=== PATIENT | female | born 1965 | race African-American/Black ===

== ENCOUNTER 2017-02-08 11:34 | Inpatient (IN) | payer OTHER ==
[~2017-02-08] VITALS: Ht 165.1 cm; Wt 111.1 kg
[~2017-02-08 11:34] MED LIST: 1-ME1LIQ PO; CARV25TA PO; GUAN1 PO; LOSA25 PO; PROT40TA PO; SEVEL800 PO; ZOFR4TAB3 SL
[2017-02-08 11:37] VITALS: BP 229/118; PULSE 73; RESP 19; TEMP 98.2; O2SAT 100
[2017-02-08] MEDS ORDERED: CINA30 PO (11:47)
[2017-02-08] MEDS ORDERED: TENE1TAB PO (12:21)
[2017-02-08] MEDS ORDERED: ONDA4TAB7 SL (12:21)
[2017-02-08] MEDS ORDERED: LOSA25TA PO (12:21)
[2017-02-08] MEDS ORDERED: PROT40TA PO (12:21)
[2017-02-08] MEDS ORDERED: SEVEL800 PO (12:21)
[2017-02-08] MEDS ORDERED: CORE25TA PO (12:21)
[2017-02-08] MEDS ORDERED: SODIUM CHLOR 0.9% 1000 ML INJ 1,000 ML IV SCH (12:31)
[2017-02-08 12:32] VITALS: BP 229/119; PULSE 76; RESP 18; O2SAT 100
[2017-02-08 12:45] VITALS: BP 199/91; PULSE 70; RESP 18; O2SAT 100; O2SAT 97
[2017-02-08] MEDS ORDERED: ONDANSETRON HCL 4 MG/2 ML VIAL IVP ONE (12:45)
[2017-02-08] MEDS ORDERED: SODIUM CHLORIDE 0.9% FLUSH 5 ML FLUSH IVF PRN ×2 (12:45→16:15)
[2017-02-08] MEDS ORDERED: MORPHINE SULFATE 4 MG/ML INJ IV PUSH ONE ×2 (12:45→14:00)
[2017-02-08 13:09] LABS: AUTOMATED NEUTROPHIL # 4.3 TH/MM3 (1.8-7.7); BASOPHIL # 0.1 TH/MM3 (0-0.2); BASOPHIL % 0.7 % (0.0-2.0); EOSINOPHIL # 0.2 TH/MM3 (0-0.4); EOSINOPHIL % 2.9 % (0.0-4.0); HEMATOCRIT 33.4 % (35.0-46.0); HEMO FLAGS DIFF FINAL; LYMPH % 31.1 % (9.0-44.0); LYMPHOCYTE # 2.5 TH/MM3 (1.0-4.8); MEAN CELL VOLUME 93.9 FL (80.0-100.0); MEAN CORPUSCULAR HGB CONC 34.1 % (32.0-36.0); MONO % 10.7 % (0.0-8.0); NEUT % 54.6 % (16.0-70.0); PLATELET COUNT 234 TH/MM3 (150-450); RED BLOOD COUNT 3.56 MIL/MM3 (4.00-5.30); RED CELL DISTRIBUTION WIDTH 13.2 % (11.6-17.2); WHITE BLOOD COUNT 7.9 TH/MM3 (4.0-11.0)
[2017-02-08 13:15] LABS: BACTERIA, URINE OCC /hpf; BLOOD, URINE TRACE (NEG); COMMENT (UR) CULT NOT INDICATED; CULTURE IF INDICATED CULT NOT INDICATED; GLUCOSE,URINE NEG (NEG); KETONE, URINE NEG (NEG); MUCUS URINE FEW /lpf (OCC); NITRITE,URINE NEG (NEG); SQUAMOUS EPITHELIAL CELL URINE 20 /hpf (0-5); URINE COLOR LIGHT-YELLOW (YELLW/STRAW)
[2017-02-08 13:24] LABS: INTERNATIONAL NORMALIZED RATIO 0.9 RATIO; PROTHROMBIN TIME - PATIENT 10.1 SEC (9.8-11.6)
[2017-02-08 13:30] LABS: ALKALINE PHOSPHATASE 114 U/L (45-117); ALT (GPT) 35 U/L (10-53); TOTAL BILIRUBIN ADULT 0.4 MG/DL (0.2-1.0)
[2017-02-08 13:39] LABS: ANION GAP 13 MEQ/L (5-15); AST (GOT) 31 U/L (15-37); BICARBONATE 26.1 MEQ/L (21.0-32.0); BLOOD UREA NITROGEN 44 MG/DL (7-18); CHLORIDE 101 MEQ/L (98-107); GLOMERULAR FILTRATION RATE 6 ML/MIN (>89); SODIUM (NA) 140 MEQ/L (136-145)
[2017-02-08 13:43] LABS: POTASSIUM 5.3 MEQ/L (3.5-5.1)
--- NOTE | 2017-02-08 13:51 | PD ---
HPI Chief Complaint: Abdominal Pain Time Seen by Provider: 12:28 Travel History International Travel<30 days: No Contact w/Intl Traveler<30days: No Traveled to known affect area: No History of Present Illness HPI 51-year-old female came to the emergency room with history of severe right lower quadrant abdominal pain. Patient says that the pain started at 5 in the morning and slowly escalated to the point where now she is extremely uncomfortable even laying down. She has been nauseous but no vomiting. Patient has never had pain like this in the past. She is an end-stage renal disease patient was on hemodialysis. Her dialysis is due this evening. Patient was significantly hypertensive in triage but also very uncomfortable from the pain.. No history of fever or chills. No history of diarrhea or bloody stool. PFSH Past Medical History Narrative Medical List of her past medical, surgical, social and family history reviewed from the nursing note. Arthritis: No Asthma: No Anxiety: No Depression: No Heart Rhythm Problems: No Cancer: No Cardiovascular Problems: No High Cholesterol: Yes Chest Pain: No Congestive Heart Failure: No COPD: No Cerebrovascular Accident: No Diabetes: No Diminished Hearing: No Endocrine: No Gastrointestinal Disorders: Yes (DIVERTICULITIS, GERD, BARRETTS, ESOPHAGEAL STRICTURE) GERD: No Glaucoma: No Genitourinary: No Headaches: No Hepatitis: No Hiatal Hernia: No Hypertension: Yes Immune Disorder: No Implanted Vascular Access Dvce: Yes Kidney Stones: No Musculoskeletal: Yes (ARTHRITIS POOJA KNEES) Neurologic: No Psychiatric: No Reproductive: No Respiratory: No Immunizations Current: Yes Migraines: Yes Renal Failure: Yes (end stage/dialysis) Seizures: No Sleep Apnea: No Thyroid Disease: No Ulcer: No ?: Not Past Surgical History Abdominal Surgery: Yes (LIVER RESECTION FOR HEMANGIOMA, CHOLY) AICD: No Appendectomy: Yes Arteriovenous Shunt: No Body Medical Devices: DIALYSIS CATHETER Cardiac Surgery: No Cholecystectomy: Yes (ALSO HEMANGIOMA REMOVED OFF LEFT UPPER LOBE OF LIVER BY DR VALDEZ) Ear Surgery: No Endocrine Surgery: No Eye Surgery: No Genitourinary Surgery: Yes Hysterectomy: Yes (DR BERGMAN) Insulin Pump: No Joint Replacement: Yes (TOTAL RIGHT KNEE) Neurologic Surgery: No Oral Surgery: No Pacemaker: No Thoracic Surgery: No Other Surgery: Yes (LEFT PARTIAL LOBECTOMY) Social History Alcohol Use: No Tobacco Use: No Substance Use: No Allergies-Medications (Allergen,Severity, Reaction): Coded Allergies: Keflex (Verified Allergy, Severe, Hives, 02/08/17) Onion (Verified Allergy, Severe, 02/08/17) Prednisolone (Verified Allergy, Severe, 02/08/17) HMG-CoA Reductase Inhibitors (Verified Adverse Reaction, Intermediate, ) PT DENIES ALLERGY Sulfa (Verified Adverse Reaction, Intermediate, Nausea/Vomiting, 02/08/17) Comments List of her allergies reviewed from the nursing note. Reported Meds & Prescriptions Reported Meds & Active Scripts Active Reported Renvela (Sevelamer Carbonate) 800 Mg Tab 1,600 Mg PO TID Protonix (Pantoprazole Sodium) 40 Mg Tab 40 Mg PO DAILY Ondansetron Odt 4 Mg Tab 4 Mg SL Q6HR PRN Losartan (Losartan Potassium) 25 Mg Tab 25 Mg PO DAILY Tenex (Guanfacine HCl) 1 Mg Tab 1 Mg PO HS Do not crush, chew or divide tablet. Take with a meal. Coreg (Carvedilol) 25 Mg Tab 25 Mg PO BID Sensipar (Cinacalcet) 30 Mg Tab 30 Mg PO DAILY Narrative Medication List of her home medications reviewed from the nursing note. Review of Systems Except as stated in HPI: all other systems reviewed are Neg Physical Exam Narrative GENERAL: Awake, alert, obese, significant distress, anxious SKIN: Warm and dry. HEAD: Atraumatic. Normocephalic. EYES: Pupils equal and round. No scleral icterus. No injection or drainage. ENT: No nasal bleeding or discharge. Mucous membranes pink and moist. NECK: Trachea midline. No JVD. CARDIOVASCULAR: Regular rate and rhythm. No murmur appreciated. RESPIRATORY: No accessory muscle use. Clear to auscultation. Breath sounds equal bilaterally. GASTROINTESTINAL: Abdomen soft, tender right lower quadrant, nondistended. Hepatic and splenic margins not palpable. MUSCULOSKELETAL: No obvious deformities. No clubbing. No cyanosis. No edema. NEUROLOGICAL: Awake and alert. No obvious cranial nerve deficits. Motor grossly within normal limits. Normal speech. PSYCHIATRIC: Appropriate mood and affect; insight and judgment normal. Data Data Last Documented VS Vital Signs Date Time Temp Pulse Resp B/P Pulse Ox O2 Delivery O2 Flow Rate FiO2 02/08/17 14:49 73 18 184/92 99 Nasal Cannula 2 02/08/17 11:37 98.2 Orders Complete Blood Count With Diff (02/08/17 12:31) Comprehensive Metabolic Panel (02/08/17 12:31) Lipase (02/08/17 12:31) Prothrombin Time / Inr (Pt) (02/08/17 12:31) Urinalysis - C+S If Indicated (02/08/17 12:31) Ct Abd/Pel W/O Iv Contrast (02/08/17 12:31) Iv Access Insert/Monitor (02/08/17 12:31) Ecg Monitoring (02/08/17 12:31) Oximetry (02/08/17 12:31) Morphine Inj (Morphine Inj) (02/08/17 12:45) Ondansetron Inj (Zofran Inj) (02/08/17 12:45) Sodium Chlor 0.9% 1000 Ml Inj (Ns 1000 M (02/08/17 12:31) Sodium Chloride 0.9% Flush (Ns Flush) (02/08/17 12:45) Morphine Inj (Morphine Inj) (02/08/17 14:00) Hydromorphone Pf Inj (Dilaudid Pf Inj) (02/08/17 14:30) Consult Urology (02/08/17 ) Consult Nephrology (02/08/17 ) Admit Order (Ed Use Only) (02/08/17 14:54) Vital Signs (Adult) Q4H (02/08/17 14:54) Activity Oob With Assistance (02/08/17 14:54) Intake + Output YAHAIRA.QSHIFT (02/08/17 14:54) Diet Heart Healthy (02/08/17 Dinner) Sodium Chloride 0.9% Flush (Ns Flush) (02/08/17 15:00) Sodium Chloride 0.9% Flush (Ns Flush) (02/08/17 21:00) Acetaminophen (Tylenol) (02/08/17 15:00) Ondansetron Inj (Zofran Inj) (02/08/17 15:00) Prochlorperazine Supp (Compazine Supp) (02/08/17 15:00) Bisacodyl Supp (Dulcolax Supp) (02/08/17 15:00) Magnesium Hydroxide Liq (Milk Of Magnesi (02/08/17 15:00) Sennosides (Senokot) (02/08/17 15:00) Basic Metabolic Panel (Bmp) (02/09/17 06:00) Complete Blood Count With Diff (02/09/17 06:00) Resp Oxygen Rudolph C Titrat 1-4 L (02/08/17 ) Pt Request For Service (02/08/17 14:54) Case Management Consult (02/08/17 14:54) Heparin Inj (Heparin Inj) (02/08/17 16:00) Scd Bilateral/Knee High YAHAIRA.BID (02/08/17 14:54) Trae Bilateral/Knee High YAHAIRA.QSHIFT (02/08/17 14:54) Labs Laboratory Tests Test 02/08/17 02/08/17 11:51 12:44 White Blood Count 7.9 TH/MM3 Red Blood Count 3.56 MIL/MM3 Hemoglobin 11.4 GM/DL Hematocrit 33.4 % Mean Corpuscular Volume 93.9 FL Mean Corpuscular Hemoglobin 32.0 PG Mean Corpuscular Hemoglobin 34.1 % Concent Red Cell Distribution Width 13.2 % Platelet Count 234 TH/MM3 Mean Platelet Volume 9.1 FL Neutrophils (%) (Auto) 54.6 % Lymphocytes (%) (Auto) 31.1 % Monocytes (%) (Auto) 10.7 % Eosinophils (%) (Auto) 2.9 % Basophils (%) (Auto) 0.7 % Neutrophils # (Auto) 4.3 TH/MM3 Lymphocytes # (Auto) 2.5 TH/MM3 Monocytes # (Auto) 0.8 TH/MM3 Eosinophils # (Auto) 0.2 TH/MM3 Basophils # (Auto) 0.1 TH/MM3 CBC Comment DIFF FINAL Differential Comment Prothrombin Time 10.1 SEC Prothromb Time International 0.9 RATIO Ratio Sodium Level 140 MEQ/L Potassium Level 5.3 MEQ/L Chloride Level 101 MEQ/L Carbon Dioxide Level 26.1 MEQ/L Anion Gap 13 MEQ/L Blood Urea Nitrogen 44 MG/DL Creatinine 8.34 MG/DL Estimat Glomerular Filtration 6 ML/MIN Rate Random Glucose 87 MG/DL Calcium Level 8.7 MG/DL Total Bilirubin 0.4 MG/DL Aspartate Amino Transf 31 U/L (AST/SGOT) Alanine Aminotransferase 35 U/L (ALT/SGPT) Alkaline Phosphatase 114 U/L Total Protein 8.0 GM/DL Albumin 3.8 GM/DL Lipase 345 U/L Urine Color LIGHT-YELLOW Urine Turbidity HAZY Urine pH 8.0 Urine Specific [place] 1.011 Urine Protein 30 mg/dL Urine Glucose (UA) NEG mg/dL Urine Ketones NEG mg/dL Urine Occult Blood TRACE Urine Nitrite NEG Urine Bilirubin NEG Urine Urobilinogen LESS THAN 2.0 MG/DL Urine Leukocyte Esterase TRACE Urine RBC 5 /hpf Urine WBC 3 /hpf Urine Squamous Epithelial 20 /hpf Cells Urine Bacteria OCC /hpf Urine Mucus FEW /lpf Microscopic Urinalysis Comment CULT NOT INDICATED MDM Medical Decision Making Medical Screen Exam Complete: Yes Emergency Medical Condition: Yes Medical Record Reviewed: Yes Differential Diagnosis Acute appendicitis, ureteral colic, abdominal pain NOS Narrative Course 1:50 PM blood test results are back. Patient has abnormal renal function due to her end-stage renal disease. Her potassium was slightly elevated. I will give her some calcium gluconate. Awaiting for the CAT scan to be reported to patient was medicated for pain and given IV fluid bolus. I will give her another dose of morphine for the pain. 2:15 PM patient has received a second dose of morphine but continues to be in pain. The CAT scan shows an obstruction at the mid ureter on the right side resulting in hydroureter and hydronephrosis. There is no renal calculi. However there seems to be a mass or a growth in the right inguinal area that might be causing the obstruction. I have put a call out for the urologist and waiting for him to call back. I will admit the patient for her intractable pain. Awaiting for the senior hardware design engineer to call back as well so that he can arrange for dialysis inpatient. 2:24 PM spoke with the senior hardware design engineer so that she can be arranged for dialysis today while she is admitted. Awaiting for the urologist in the admitting physician to call back. Procedures EKG Prior to Arrival: No Physician Communication Physician Communication Dr. Alejandre, Dr. Franklin Diagnosis Primary Impression: Ureteral obstruction, right Additional Impressions: Hydroureter Intractable abdominal pain Hydronephrosis Qualified Code: N13.30 - Hydronephrosis, unspecified hydronephrosis type complex inguinal cyst Admitting Information Admitting Physician Requests: Admit Viet Lema MD Feb 08, 2017 13:50
--- NOTE | 2017-02-08 14:06 | RADRPT ---
EXAM DATE/TIME: 02/08/2017 13:34 [facility] COMPARISON: CT NEEDLE BIOPSY RENAL, RIGHT, September 13, 2014, 9:22. INDICATIONS : Right abdominal pain. ORAL CONTRAST: No oral contrast ingested. RADIATION DOSE: 20.91 CTDIvol (mGy) MEDICAL HISTORY : Gastroesophageal reflux disease. Hypertension. Renal failure, chronic. SURGICAL HISTORY : Cholecystectomy. Hysterectomy.Liver resection. ENCOUNTER: Initial ACUITY: 1 day PAIN SCALE: 4/10 LOCATION: Right abdomen. TECHNIQUE: Volumetric scanning of the abdomen and pelvis was performed. Using automated exposure control and ad justment of the mA and/or kV according to patient size, radiation dose was kept as low as reasonably achievable to obtain optimal diagnostic quality images. FINDINGS: LOWER LUNGS: The visualized lower lungs are clear. LIVER: Homogeneous density without lesion. There is no dilation of the biliary tree. Post surgical clips fr om prior liver resection and cholecystectomy are noted. SPLEEN: Normal size without lesion. PANCREAS: Within normal limits. KIDNEYS: The kidneys are small and demonstrate diffuse cortical thinning. The right renal collecting system an d proximal ureter are moderately distended. Focal thickening is seen along the distal right ureter at the ureterovesical junction. A simple cyst is identified off the upper pole of the left kidney which measures 2.8 cm in size. There is no evidence of obstructing renal calculi. ADRENAL GLANDS: Within normal limits. VASCULAR: There is no aortic aneurysm. BOWEL/MESENTERY: The stomach, small bowel, and colon demonstrate no acute abnormality. There is no free intraperitone al air or fluid. ABDOMINAL WALL: Within normal limits. RETROPERITONEUM: There is no lymphadenopathy. BLADDER: No wall thickening or mass. REPRODUCTIVE: Uterus has been removed. INGUINAL: A complex multicystic mass is identified in the right inguinal region. The mass measures 2.4 x 4.5 cm in size. MUSCULOSKELETAL: Within normal limits for patient age. CONCLUSION: Mild to moderate right hydronephrosis and hydroureter with suspected thickening of the distal ureter at the ureterovesical junction. There is no evidence of obstructing renal calculus. 4.5 cm multicystic mass right inguinal region. Status post cholecystectomy, liver resection and hysterectomy. Joel Kumar MD on February 08, 2017 at 13:55 Board Certified Radiologist. This report was verified electronically.
[2017-02-08] MEDS ORDERED: HYDROmorphone HCL PF 1 MG/ML VIAL IV PUSH ONE (14:30)
[2017-02-08 14:49] VITALS: BP 184/92; PULSE 73; RESP 18; O2SAT 99
[2017-02-08] MEDS ORDERED: cloNIDine HCL 0.1 MG TAB PO PRN ×2 (15:00→16:15)
[2017-02-08] MEDS ORDERED: SENNOSIDES 8.6 MG TAB PO PRN (15:00)
[2017-02-08] MEDS ORDERED: ACETAMINOPHEN 325 MG TAB PO PRN ×2 (15:00→16:15)
[2017-02-08] MEDS ORDERED: PROCHLORPERAZINE 25 MG SUPP PR PRN (15:00)
[2017-02-08] MEDS ORDERED: ONDANSETRON HCL 4 MG/2 ML VIAL IVP PRN (15:00)
[2017-02-08] MEDS ORDERED: BISACODYL 10 MG SUPP PR PRN (15:00)
[2017-02-08] MEDS ORDERED: MAGNESIUM HYDROXIDE SUSP 30 ML CUP PO PRN (15:00)
[2017-02-08] MEDS ORDERED: SODIUM CHLORIDE 0.9% FLUSH 5 ML FLUSH FLUSH PRN (15:00)
[2017-02-08] MEDS ORDERED: ENALAPRILAT 2.5 MG/2 ML VIAL IV PUSH PRN (15:00)
[2017-02-08] MEDS ORDERED: hydrALAZINE HCL 20 MG/ML VIAL IV PUSH PRN (15:00)
[2017-02-08] MEDS ORDERED: SODIUM CHLOR 0.9% 1000 ML INJ 1,000 ML IV PRN ×3 (16:07)
--- NOTE | 2017-02-08 16:07 | PD.CONS ---
HPI Service Nephrology Consult Requested By Reason for Consult ESRD on HD Primary Care Physician Caro Emanuel MD History of Present Illness This is out 51 y/o dialysis pt who came to ER for evaluation of sudden onset of RLQ/groin pain that radiates around side. She is on HD , has not missed any treatments. She was at work when the pain caused vomiting. PMH outlined below, she denies any dysuria, hematuria, vaginal bleeding. CT showed right hydronephrosis without visualized stone and complex multicystic mass in the same area. Urology has been consulted for management, we were consulted for dialysis. She has functioning AV graft. K 5.3. She has been given pain medications and IVF in the ER. The pt reports she was at [facility] last week for transplant work up including renal/abdominal US and was never told about the mass. Her mother is at the bedside, she is a full code. (Citlali Cosby) Review of Systems Cardiovascular: DENIES: Chest pain, Palpitations Gastrointestinal: COMPLAINS OF: Abdominal pain Genitourinary: DENIES: Urinary frequency, Hematuria, Dysuria, Vaginal discharge (Citlali Cosby) Past Family Social History Allergies: Coded Allergies: Keflex (Verified Allergy, Severe, Hives, 02/08/17) Onion (Verified Allergy, Severe, 02/08/17) Prednisolone (Verified Allergy, Severe, 02/08/17) HMG-CoA Reductase Inhibitors (Verified Adverse Reaction, Intermediate, ) PT DENIES ALLERGY Sulfa (Verified Adverse Reaction, Intermediate, Nausea/Vomiting, 02/08/17) Past Medical History ESRD on HD HTN Hyperlipidemia arthritis GERD anemia metabolic bone disorder Diverticulitis Barretts Esophagus Past Surgical History Liver resection for hemangioma by Dr. Sanz ANTHONY knee AV graft L partial lobectomy Reported Medications Renvela (Sevelamer Carbonate) 800 Mg Tab 1,600 Mg PO TID Protonix (Pantoprazole Sodium) 40 Mg Tab 40 Mg PO DAILY Ondansetron Odt 4 Mg Tab 4 Mg SL Q6HR PRN Losartan (Losartan Potassium) 25 Mg Tab 25 Mg PO DAILY Tenex (Guanfacine HCl) 1 Mg Tab 1 Mg PO HS Do not crush, chew or divide tablet. Take with a meal. Coreg (Carvedilol) 25 Mg Tab 25 Mg PO BID Sensipar (Cinacalcet) 30 Mg Tab 30 Mg PO DAILY Active Ordered Medications Current Medications Medications (Trade) Dose Ordered Sig/Amy Route Start Time Stop Time Status Last Admin (NS Flush) 2 ml UNSCH PRN FLUSH 02/08/17 15:00 (NS Flush) 2 ml BID FLUSH 02/08/17 21:00 (Tylenol) 650 mg Q4H PRN PO 02/08/17 15:00 (Zofran Inj) 4 mg Q6H PRN IVP 02/08/17 15:00 (Compazine Supp) 25 mg Q12H PRN IA 02/08/17 15:00 (Dulcolax Supp) 10 mg DAILY PRN IA 02/08/17 15:00 (Milk Of Magnesia Liq) 30 ml Q12H PRN PO 02/08/17 15:00 (Senokot) 17.2 mg Q12H PRN PO 02/08/17 15:00 (Heparin Inj) 5,000 units Q12H SQ 02/08/17 16:00 (Coreg) 25 mg Q12H PO 02/08/17 16:00 (Sensipar) 30 mg DAILY PO 02/09/17 09:00 (Tenex) 1 mg HS PO 02/08/17 21:00 (Cozaar) 25 mg DAILY PO 02/08/17 16:00 (Protonix) 40 mg DAILY PO 02/09/17 09:00 (Renvela) 1,600 mg TID PO 02/08/17 18:00 (Catapres) 0.1 mg Q6H PRN PO 02/08/17 15:00 (Vasotec Inj) 2.5 mg Q6H PRN IV PUSH 02/08/17 15:00 (Apresoline Inj) 20 mg Q4H PRN IV PUSH 02/08/17 15:00 Family History no hx of renal disorders Social History lives locally with daughter 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 functionally independent, drives, ambulates full code no smoking or ETOH (Citlali Cosby) Physical Exam Vital Signs Vital Signs Date Time Temp Pulse Resp B/P Pulse Ox O2 Delivery O2 Flow Rate FiO2 02/08/17 14:49 73 18 184/92 99 Nasal Cannula 2 02/08/17 12:45 70 18 199/91 97 Room Air 02/08/17 12:45 100 Room Air 02/08/17 12:32 76 18 229/119 100 Room Air 02/08/17 11:37 98.2 73 19 229/118 100 Physical Exam Young appearing AAF, lying supine awake/alert/oriented S1/s2, regular rate, no murmur lungs; clear in all sep[place]a abdomen: obese, slightly tender RLQ, no rebound extremities: no edema, AVG patent Laboratory Laboratory Tests Test 02/08/17 02/08/17 11:51 12:44 White Blood Count 7.9 Red Blood Count 3.56 Hemoglobin 11.4 Hematocrit 33.4 Mean Corpuscular Volume 93.9 Mean Corpuscular Hemoglobin 32.0 Mean Corpuscular Hemoglobin 34.1 Concent Red Cell Distribution Width 13.2 Platelet Count 234 Mean Platelet Volume 9.1 Neutrophils (%) (Auto) 54.6 Lymphocytes (%) (Auto) 31.1 Monocytes (%) (Auto) 10.7 Eosinophils (%) (Auto) 2.9 Basophils (%) (Auto) 0.7 Neutrophils # (Auto) 4.3 Lymphocytes # (Auto) 2.5 Monocytes # (Auto) 0.8 Eosinophils # (Auto) 0.2 Basophils # (Auto) 0.1 CBC Comment DIFF FINAL Differential Comment Prothrombin Time 10.1 Prothromb Time International 0.9 Ratio Sodium Level 140 Potassium Level 5.3 Chloride Level 101 Carbon Dioxide Level 26.1 Anion Gap 13 Blood Urea Nitrogen 44 Creatinine 8.34 Estimat Glomerular Filtration 6 Rate Random Glucose 87 Calcium Level 8.7 Total Bilirubin 0.4 Aspartate Amino Transf 31 (AST/SGOT) Alanine Aminotransferase 35 (ALT/SGPT) Alkaline Phosphatase 114 Total Protein 8.0 Albumin 3.8 Lipase 345 Urine Color LIGHT-YELLOW Urine Turbidity HAZY Urine pH 8.0 Urine Specific [place] 1.011 Urine Protein 30 Urine Glucose (UA) NEG Urine Ketones NEG Urine Occult Blood TRACE Urine Nitrite NEG Urine Bilirubin NEG Urine Urobilinogen LESS THAN 2.0 Urine Leukocyte Esterase TRACE Urine RBC 5 Urine WBC 3 Urine Squamous Epithelial 20 Cells Urine Bacteria OCC Urine Mucus FEW Microscopic Urinalysis Comment CULT NOT INDICATED (Citlali Cosby) Result Diagram: 02/08/17 1151 02/08/[address] report reviewed (Citlali Cosby) Assessment and Plan Problem List: (1) ESRD (end stage renal disease) Plan: HD --, she is due today, orders entered K 5.3, follow up BMP tomorrow given IVF in ER, avoid any further fluids she has functioning access in left arm no epogen required, hemoglobin stable on Renvela for metabolic bone disorder she is on Sensipar for hyperparathyroidism (2) Ureteral obstruction, right Plan: urology has been consulted I will have reyes placed at this time (3) Hypertension Plan: she missed her coreg and losartan today it is ordered and to be given (Citlali Cosby) Assessment and Plan patient was seen and examined. Seen during dialysis. Patient has right sided hydronephrosis, ureteral obstruction. No need for Reyes catheter at this time. Will await Urology evaluation. Dialysis today on 2K, UF 3 liters. We will continue dialysis MWF. (Devante Alejandre MD) Citlali Cosby Feb 08, 2017 16:07 Devante Alejandre MD Feb 08, 2017 16:42
[2017-02-08] MEDS ORDERED: ALBUMIN HUMAN 25% 25 GM/100 ML BAGP IV PRN (16:15)
[2017-02-08] MEDS ORDERED: MANNITOL 12.5 GM/50 ML VIAL IV PRN (16:15)
[2017-02-08] MEDS ORDERED: GELATIN 12 MM/7 MM FOAM TOP PRN (16:15)
[2017-02-08] MEDS ORDERED: ONDANSETRON HCL 4 MG/2 ML VIAL IV PRN (16:15)
[2017-02-08] MEDS ORDERED: NITROGLYCERIN 0.4 MG SL 25 TABS/BTL SL PRN (16:15)
[2017-02-08] MEDS ORDERED: GENTAMICIN SULFATE (DIALYSIS USE ONLY) 20 MG/2 ML VIAL IV PRN (16:15)
[2017-02-08] MEDS ORDERED: diphenhydrAMINE HCL 25 MG CAP PO PRN (16:15)
[2017-02-08] MEDS ORDERED: HEPARIN SODIUM - IV 10,000 UNITS/10 ML VIAL PRN (16:15)
[2017-02-08] MEDS ORDERED: HEPARIN SODIUM - IV 10,000 UNITS/10 ML VIAL IVF PRN (16:15)
[2017-02-08] MEDS: CARVEDILOL 12.5 MG TAB PO SCH (16:47)
--- NOTE | 2017-02-08 20:01 | HHI.HP ---
[facility] Primary Care Physician Caro Emanuel MD Admission Diagnosis intractable pain, hydroureter, hydronephrosis, ESRD Diagnoses: Chief Complaint: right abdominal pain, nausea Travel History International Travel<30 Days: No Contact w/Intl Traveler <30 Da: No Traveled to Known Affected Are: No History of Present Illness 51 yo female with ESRD on HD , HTN, HLD, GERD/Barretts, AOCD, who presented to the ED today for evaluation of right lower abdominal pain. Patient reports she began to experience sharp RLQ abdominal pain that radiates to the right flank this morning. The pain is 10/10 with movement and 3/10 at rest. Pain meds improved pain. This worsened throughout the day which brought her to the ED. She also reports associated nausea, vomited once and also dry heaves. CT scan identified mild right hydronephrosis, no evidence of nephrolithiasis or cause for obstruction. There is also a 4cm cystic mass in the right inguinal region. Patient denies any fevers, no hematuria. No constipation or diarrhea. She does not have a history of kidney stones. Says she is in the list for kidney transplant and had a recent follow up ay [place]. Review of Systems Except as stated in HPI: all other systems reviewed are Neg 12 system ROS reviewed and negative except as stated in HPI Past Family Social History Past Medical History ESRD on HD HTN Hyperlipidemia Arthritis GERD, Barretts Esophagus Anemia of chronic disease -renal Metabolic bone disorder Diverticulitis Past Surgical History Liver resection for hemangioma by Dr. Sanz [facility] knee AV graft L partial lobectomy Allergies: Coded Allergies: Keflex (Verified Allergy, Severe, Hives, 02/08/17) Onion (Verified Allergy, Severe, 02/08/17) Prednisolone (Verified Allergy, Severe, 02/08/17) HMG-CoA Reductase Inhibitors (Verified Adverse Reaction, Intermediate, ) PT DENIES ALLERGY Sulfa (Verified Adverse Reaction, Intermediate, Nausea/Vomiting, 02/08/17) Family History No h/o renal disease in her family Social History Denies tobacco use, EtOH use or illicit drug use. Physical Exam Vital Signs Vital Signs Date Time Temp Pulse Resp B/P Pulse Ox O2 Delivery O2 Flow Rate FiO2 02/08/17 14:49 73 18 184/92 99 Nasal Cannula 2 02/08/17 12:45 70 18 199/91 97 Room Air 02/08/17 12:45 100 Room Air 02/08/17 12:32 76 18 229/119 100 Room Air 02/08/17 11:37 98.2 73 19 229/118 100 Physical Exam GENERAL: This is a very pleasant 51 yo female appearing younger than the stated age, well-nourished, well-developed patient, in no apparent distress. SKIN: No rashes, ecchymoses or lesions. Cool and dry. HEAD: Atraumatic. Normocephalic. No temporal or scalp tenderness. EYES: Pupils equal round and reactive. Extraocular motions intact. No scleral icterus. No injection or drainage. ENT: Nose without bleeding, purulent drainage or septal hematoma. Throat without erythema, tonsillar hypertrophy or exudate. Uvula midline. Airway patent. NECK: Trachea midline. No JVD or lymphadenopathy. Supple, nontender, no meningeal signs. CARDIOVASCULAR: Regular rate and rhythm without murmurs, gallops, or rubs. RESPIRATORY: Clear to auscultation. Breath sounds equal bilaterally. No wheezes , rales, or rhonchi. GASTROINTESTINAL: Abdomen soft, tenderness right lower abdominal quadrant, nondistended. No guarding. No CVA tenderness. MUSCULOSKELETAL: Extremities without clubbing, cyanosis, or edema. No joint tenderness, effusion, or edema noted. No calf tenderness. Negative Homans sign bilaterally. NEUROLOGICAL: Awake and alert. Cranial nerves II through XII intact. Motor and sensory grossly within normal limits. Five out of 5 muscle strength in all muscle groups. Normal speech. Laboratory Laboratory Tests Test 02/08/17 02/08/17 11:51 12:44 White Blood Count 7.9 Red Blood Count 3.56 Hemoglobin 11.4 Hematocrit 33.4 Mean Corpuscular Volume 93.9 Mean Corpuscular Hemoglobin 32.0 Mean Corpuscular Hemoglobin 34.1 Concent Red Cell Distribution Width 13.2 Platelet Count 234 Mean Platelet Volume 9.1 Neutrophils (%) (Auto) 54.6 Lymphocytes (%) (Auto) 31.1 Monocytes (%) (Auto) 10.7 Eosinophils (%) (Auto) 2.9 Basophils (%) (Auto) 0.7 Neutrophils # (Auto) 4.3 Lymphocytes # (Auto) 2.5 Monocytes # (Auto) 0.8 Eosinophils # (Auto) 0.2 Basophils # (Auto) 0.1 CBC Comment DIFF FINAL Differential Comment Prothrombin Time 10.1 Prothromb Time International 0.9 Ratio Sodium Level 140 Potassium Level 5.3 Chloride Level 101 Carbon Dioxide Level 26.1 Anion Gap 13 Blood Urea Nitrogen 44 Creatinine 8.34 Estimat Glomerular Filtration 6 Rate Random Glucose 87 Calcium Level 8.7 Total Bilirubin 0.4 Aspartate Amino Transf 31 (AST/SGOT) Alanine Aminotransferase 35 (ALT/SGPT) Alkaline Phosphatase 114 Total Protein 8.0 Albumin 3.8 Lipase 345 Urine Color LIGHT-YELLOW Urine Turbidity HAZY Urine pH 8.0 Urine Specific [place] 1.011 Urine Protein 30 Urine Glucose (UA) NEG Urine Ketones NEG Urine Occult Blood TRACE Urine Nitrite NEG Urine Bilirubin NEG Urine Urobilinogen LESS THAN 2.0 Urine Leukocyte Esterase TRACE Urine RBC 5 Urine WBC 3 Urine Squamous Epithelial 20 Cells Urine Bacteria OCC Urine Mucus FEW Microscopic Urinalysis Comment CULT NOT INDICATED Result Diagram: 02/08/17 1151 02/08/17 1151 Assessment and Plan Assessment and Plan 51yo female with right hydronephrosis and RLQ pain and mass Right lower quadrant abdominal pain Right lower cystic abd mass Right hydronephrosis ESRD on HD M/W/F night CT Ab/Pel reviewed findings discussed with Er physician. Mild right hydronephrosis and hydroureter, no obstructing stone. Some thickening noted on distal ureter. 4.5cm right inguinal cystic mass. Right lower abdominal mass 4.5 cm cyctic mass less likely to cause right hydronephrosis. Seen by Dr Franklin urology, appreciate recommendations Per Dr Franklin urology patient would benefit from a Nuclear medicine renal scan or CT Urogram to assess for obstruction, however given her ESRD and HD, this study would likely offer limited benefit Getting HD Consult nephrology for HD Consult urology Consult gen surg for evaluation of mass Pain meds per pain scale DVt ppx with heparin Discussed Condition With patient, nurse, family at bedside, ED physician Physician Certification 2 Midnight Certification Type: Admission for Inpatient Services Order for Inpatient Services The services are ordered in accordance with Medicare regulations or non- Medicare payer requirements, as applicable. In the case of services not specified as inpatient-only, they are appropriately provided as inpatient services in accordance with the 2-midnight benchmark. Estimated LOS (days): 3 days is the estimated time the patient will need to remain in the hospital, assuming treatment plan goals are met and no additional complications. Post-Hospital Plan: Home Abril Feliz MD Feb 08, 2017 20:01
[2017-02-08] MEDS ORDERED: HYDROmorphone HCL PF 1 MG/ML VIAL IV PRN ×2 (20:30)
[2017-02-08] MEDS ORDERED: ACETAMINOPHEN/HYDROcodone 325 MG/10 MG TAB PO PRN (20:30)
[2017-02-08] MEDS ORDERED: ACETAMINOPHEN/HYDROcodone 325 MG/5 MG TAB PO PRN (20:30)
[2017-02-08] MEDS ORDERED: NALOXONE HCL 0.4 MG/ML AMP IV PRN (20:30)
[2017-02-08] MEDS ORDERED: HYDROmorphone HCL 2 MG TAB PO PRN (20:30)
[2017-02-08] MEDS ORDERED: PILL SPLITTER OTHER PRN (21:00)
[2017-02-08] MEDS: SODIUM CHLORIDE 0.9% FLUSH 5 ML FLUSH FLUSH SCH (21:00)
--- NOTE | 2017-02-08 21:08 | PD.CONS ---
HPI Service Urology Consult Requested By Reason for Consult Right hydronephrosis Primary Care Physician Caro Emanuel MD Diagnosis: History of Present Illness 51yo female with ESRD on HD seen in consultation for right flank pain and right hydronephrosis. Patient reports she began to experience sharp RLQ abdominal pain that radiates to the right flank this morning. This worsened throughout the day which brought her to the ED. CT scan identified mild right hydronephrosis, no evidence of nephrolithiasis or cause for obstruction. There is also a 4cm cystic mass in the right inguinal region. Patient denies any fevers, no hematuria, however was associated with Nausea. She does not have a history of kidney stones. Review of Systems ROS Limitations: Clinical Condition Constitutional: DENIES: Fever Endocrine: DENIES: Polyuria Eyes: DENIES: Blurred vision Ears, nose, mouth, throat: DENIES: Hearing loss Respiratory: DENIES: Apneas Cardiovascular: DENIES: Chest pain Gastrointestinal: COMPLAINS OF: Abdominal pain, Nausea Genitourinary: DENIES: Urinary frequency, Urgency, Hematuria Musculoskeletal: COMPLAINS OF: Back pain Integumentary: DENIES: Rash Hematologic/lymphatic: DENIES: Bruising Immunologic/allergic: DENIES: Eczema Neurologic: DENIES: Abnormal gait, Headache Psychiatric: DENIES: Anxiety Except as stated in HPI: all other systems reviewed are Neg Past Family Social History Past Medical History ESRD on HD HTN Hyperlipidemia arthritis GERD anemia metabolic bone disorder Diverticulitis Barretts Esophagus Past Surgical History Liver resection for hemangioma by Dr. Sanz [facility] knee AV graft L partial lobectomy Reported Medications Reported Meds & Active Scripts Active Reported Renvela (Sevelamer Carbonate) 800 Mg Tab 1,600 Mg PO TID Protonix (Pantoprazole Sodium) 40 Mg Tab 40 Mg PO DAILY Ondansetron Odt 4 Mg Tab 4 Mg SL Q6HR PRN Losartan (Losartan Potassium) 25 Mg Tab 25 Mg PO DAILY Tenex (Guanfacine HCl) 1 Mg Tab 1 Mg PO HS Do not crush, chew or divide tablet. Take with a meal. Coreg (Carvedilol) 25 Mg Tab 25 Mg PO BID Sensipar (Cinacalcet) 30 Mg Tab 30 Mg PO DAILY Allergies: Coded Allergies: Keflex (Verified Allergy, Severe, Hives, 02/08/17) Onion (Verified Allergy, Severe, 02/08/17) Prednisolone (Verified Allergy, Severe, 02/08/17) HMG-CoA Reductase Inhibitors (Verified Adverse Reaction, Intermediate, ) PT DENIES ALLERGY Sulfa (Verified Adverse Reaction, Intermediate, Nausea/Vomiting, 02/08/17) Active Ordered Medications Current Medications Medications (Trade) Dose Ordered Sig/Amy Route Start Time Stop Time Status Last Admin (NS Flush) 2 ml UNSCH PRN FLUSH 02/08/17 15:00 (NS Flush) 2 ml BID FLUSH 02/08/17 21:00 (Tylenol) 650 mg Q4H PRN PO 02/08/17 15:00 (Zofran Inj) 4 mg Q6H PRN IVP 02/08/17 15:00 (Compazine Supp) 25 mg Q12H PRN [place] 02/08/17 15:00 (Dulcolax Supp) 10 mg DAILY PRN [place] 02/08/17 15:00 (Milk Of Magnmark Liq) 30 ml Q12H PRN PO 02/08/17 15:00 (Senokot) 17.2 mg Q12H PRN PO 02/08/17 15:00 (Heparin Inj) 5,000 units Q12H SQ 02/08/17 16:00 (Coreg) 25 mg Q12H PO 02/08/17 16:00 02/08/17 16:47 (Sensipar) 30 mg DAILY PO 02/09/17 09:00 (Tenex) 1 mg HS PO 02/08/17 21:00 (Cozaar) 25 mg DAILY PO 02/08/17 16:00 (Protonix) 40 mg DAILY PO 02/09/17 09:00 (Renvela) 1,600 mg TID PO 02/08/17 18:00 (Catapres) 0.1 mg Q6H PRN PO 02/08/17 15:00 02/08/17 17:49 (Vasotec Inj) 2.5 mg Q6H PRN IV PUSH 02/08/17 15:00 Hydralazine HCl 20 mg 20 mg Q4H PRN IV PUSH 02/08/17 15:00 (NS 1000 ml Inj) 1,000 ml @ 0 mls/hr Q0M PRN IV 02/08/17 16:07 02/08/17 17:03 Heparin Sodium (Porcine) 8000 units 8,000 units UNSCH PRN IVF 02/08/17 16:15 Sodium Chloride 1,000 ml @ 200 mls/hr Q5H PRN IV 02/08/17 16:07 (NS 1000 ml Inj) 1,000 ml @ 0 mls/hr Q0M PRN IV 02/08/17 16:07 (Mannitol Inj) 12.5 gm UNSCH PRN IV 02/08/17 16:15 (Albumin 25% Inj) 25 gm UNSCH PRN IV 02/08/17 16:15 (NS Flush) 5 ml UNSCH PRN IVF 02/08/17 16:15 (Heparin Inj) UNSCH PRN .XX 02/08/17 16:15 (Gentamicin (Dialysis) Inj) 20 mg UNSCH PRN IV 02/08/17 16:15 (Zofran Inj) 4 mg UNSCH PRN IV 02/08/17 16:15 (Tylenol) 650 mg UNSCH PRN PO 02/08/17 16:15 (Benadryl) 25 mg UNSCH PRN PO 02/08/17 16:15 (Nitrostat Sl) 0.4 mg UNSCH PRN SL 02/08/17 16:15 (Catapres) 0.1 mg UNSCH PRN PO 02/08/17 16:15 (Gelfoam 12 Mm/7 Mm Top) 1 foam UNSCH PRN TOP 02/08/17 16:15 02/08/17 17:03 ([place] 5-325 Mg) 1 tab Q4H PRN PO 02/08/17 20:30 ([place] 10-325 Mg) 1 tab Q4H PRN PO 02/08/17 20:30 (Dilaudid Pf Inj) 0.5 mg Q3H PRN IV 02/08/17 20:30 (Dilaudid Pf Inj) 1 mg Q3H PRN IV 02/08/17 20:30 (Dilaudid) 1 mg Q4H PRN PO 02/08/17 20:30 (Narcan Inj) 0.4 mg UNSCH PRN IV 02/08/17 20:30 (Pill Splitter) 1 ea UNSCH PRN OTHER 02/08/17 21:00 Family History Family history reviewed and noncontributory to present illness Social History lives locally with daughter 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 SKIN: No rashes, ecchymoses or lesions. Cool and dry. HEAD: Atraumatic. Normocephalic. EYES: Extraocular motions intact. ENT: Nose without bleeding, purulent drainage. Airway patent. NECK: Trachea midline. CARDIOVASCULAR: Extremities well perfused, normal pulses RESPIRATORY: Respirations nonlabored, equal chest rise GASTROINTESTINAL: Abdomen soft with pinpoint tenderness noted in the RLQ. No right CVA tenderness, no left CVA tenderness. No palpable inguinal mass MUSCULOSKELETAL: Extremities without clubbing, cyanosis, or edema. NEUROLOGICAL: Awake and alert. Motor and sensory grossly within normal limits. Normal speech. Laboratory Laboratory Tests Test 02/08/17 02/08/17 11:51 12:44 White Blood Count 7.9 Red Blood Count 3.56 Hemoglobin 11.4 Hematocrit 33.4 Mean Corpuscular Volume 93.9 Mean Corpuscular Hemoglobin 32.0 Mean Corpuscular Hemoglobin 34.1 Concent Red Cell Distribution Width 13.2 Platelet Count 234 Mean Platelet Volume 9.1 Neutrophils (%) (Auto) 54.6 Lymphocytes (%) (Auto) 31.1 Monocytes (%) (Auto) 10.7 Eosinophils (%) (Auto) 2.9 Basophils (%) (Auto) 0.7 Neutrophils # (Auto) 4.3 Lymphocytes # (Auto) 2.5 Monocytes # (Auto) 0.8 Eosinophils # (Auto) 0.2 Basophils # (Auto) 0.1 CBC Comment DIFF FINAL Differential Comment Prothrombin Time 10.1 Prothromb Time International 0.9 Ratio Sodium Level 140 Potassium Level 5.3 Chloride Level 101 Carbon Dioxide Level 26.1 Anion Gap 13 Blood Urea Nitrogen 44 Creatinine 8.34 Estimat Glomerular Filtration 6 Rate Random Glucose 87 Calcium Level 8.7 Total Bilirubin 0.4 Aspartate Amino Transf 31 (AST/SGOT) Alanine Aminotransferase 35 (ALT/SGPT) Alkaline Phosphatase 114 Total Protein 8.0 Albumin 3.8 Lipase 345 Urine Color LIGHT-YELLOW Urine Turbidity HAZY Urine pH 8.0 Urine Specific [place] 1.011 Urine Protein 30 Urine Glucose (UA) NEG Urine Ketones NEG Urine Occult Blood TRACE Urine Nitrite NEG Urine Bilirubin NEG Urine Urobilinogen LESS THAN 2.0 Urine Leukocyte Esterase TRACE Urine RBC 5 Urine WBC 3 Urine Squamous Epithelial 20 Cells Urine Bacteria OCC Urine Mucus FEW Microscopic Urinalysis Comment CULT NOT INDICATED Result Diagram: 02/08/17 1151 02/08/[address] Ab/Pel: 02/08/17 -Mild right hydronephrosis and hydroureter, no obstructing stone. Some thickening noted on distal ureter -4.5cm right inguinal cystic mass Assessment and Plan Problem List: (1) Hydroureter ICD Code: N13.4 Status: Acute (2) Morbid obesity with BMI of 40.0-44.9, adult ICD Code: E66.01 Status: Chronic (3) ESRD (end stage renal disease) ICD Code: N18.6 Status: Acute (4) Hydronephrosis ICD Code: N13.30 Status: Acute Assessment and Plan 51yo female with right hydronephrosis and RLQ pain -Review of CT scan identifies the right hydronephrosis. However, the 4.5 cystic mass is located in the right inguinal region in the superficial body layers and is in no way associated with her right hydronephrosis -Exam identifies pinpoint RLQ tenderness, no flank tenderness, no obvious signs of symptomatic ureteral obstruction -Clinical exam findings are more concerning for possible appendicitis vs pain from the inguinal hernia/cystic mass. -I do not believe her discomfort is related to the right hydronephrosis nor do I think a stent would benefit her. -Patient would benefit from a Nuclear medicine renal scan or CT Urogram to assess for obstruction. However given her ESRD and HD, this study would likely offer limited benefit -Patient completed dialysis today -Will follow Problem Qualifiers (1) Hydronephrosis: Qualified Code: N13.30 - Hydronephrosis, unspecified hydronephrosis type Santos Franklin MD Feb 08, 2017 21:08
[2017-02-08] MEDS: LOSARTAN 25 MG TAB PO SCH (22:00)
[2017-02-08] MEDS: guanFACINE HCL 1 MG TAB PO SCH (22:00)
[2017-02-08 23:12] VITALS: BP 122/70; PULSE 57; RESP 22; TEMP 97.8; O2SAT 100
[2017-02-09] VITALS (9 sets, daily range): BP systolic 106–149; BP diastolic 53–70; PULSE 57–75; RESP 16–22; TEMP 97.2–98.1; O2SAT 94–100
[2017-02-09] MEDS: CARVEDILOL 12.5 MG TAB PO SCH ×2 (03:37→17:54)
[2017-02-09] MEDS: HEPARIN SODIUM - SQ 10,000 UNITS/ML VIAL SQ SCH ×3 (03:37→17:54)
[2017-02-09 07:21] LABS: AUTOMATED NEUTROPHIL # 3.2 TH/MM3 (1.8-7.7); BASOPHIL % 0.6 % (0.0-2.0); EOSINOPHIL # 0.2 TH/MM3 (0-0.4); EOSINOPHIL % 3.6 % (0.0-4.0); HEMATOCRIT 29.7 % (35.0-46.0); HEMO FLAGS DIFF FINAL; LYMPH % 30.5 % (9.0-44.0); LYMPHOCYTE # 1.8 TH/MM3 (1.0-4.8); MEAN CELL VOLUME 93.3 FL (80.0-100.0); MEAN CORPUSCULAR HEMOGLOBIN 32.1 PG (27.0-34.0); MEAN CORPUSCULAR HGB CONC 34.4 % (32.0-36.0); MONO % 9.6 % (0.0-8.0); NEUT % 55.7 % (16.0-70.0); PLATELET COUNT 192 TH/MM3 (150-450); RED BLOOD COUNT 3.18 MIL/MM3 (4.00-5.30); RED CELL DISTRIBUTION WIDTH 13.3 % (11.6-17.2); WHITE BLOOD COUNT 5.8 TH/MM3 (4.0-11.0)
[2017-02-09 07:48] LABS: BICARBONATE 31.2 MEQ/L (21.0-32.0); POTASSIUM 4.3 MEQ/L (3.5-5.1)
[2017-02-09] MEDS: CINACALCET HYDROCHLORIDE 30 MG TAB PO SCH (08:51)
[2017-02-09] MEDS: PANTOPRAZOLE SOD 40 MG DELAYED RELEASE TAB PO SCH (08:51)
[2017-02-09] MEDS: LOSARTAN 25 MG TAB PO SCH (08:51)
[2017-02-09] MEDS: SEVELAMER CARBONATE 800 MG TAB PO SCH ×3 (08:52→17:55)
[2017-02-09] MEDS: SODIUM CHLORIDE 0.9% FLUSH 5 ML FLUSH FLUSH SCH ×2 (08:52→20:26)
--- NOTE | 2017-02-09 12:31 | HHI.NPPN ---
Subjective Complaints: Abdominal Pain Renal Failure: End Stage Renal Disease Interval History Dialyzed yesterday. Urology has evaluated. (Citlali Cosby) Review of Systems Gastrointestinal Gastrointestinal: Abdominal Pain, Nausea & Vomiting (Citlali Cosby) Objective Data Data 02/08/17 02/09/17 19:00 07:00 Intake Total 722 ml Output Total 3000 ml Balance -2278 ml Intake Oral 720 ml IV Total 2 ml Output Urine Total 0 ml Hemodialysis 3000 ml # Voids 0 # Bowel Movements 0 Vital Signs Date Time Temp Pulse Resp B/P Pulse Ox O2 Delivery O2 Flow Rate FiO2 02/09/17 09:38 60 02/09/17 08:00 97.2 62 16 136/61 100 02/09/17 05:48 98.1 62 22 106/62 95 02/09/17 03:04 59 02/09/17 00:57 97.8 59 20 108/53 95 02/08/17 23:12 97.8 57 22 122/70 100 02/08/17 14:49 73 18 184/92 99 Nasal Cannula 2 02/08/17 12:45 70 18 199/91 97 Room Air 02/08/17 12:45 100 Room Air 02/08/17 12:32 76 18 229/119 100 Room Air (Citlali Cosby) -: 02/09/17 0627 02/09/17 0627 Physical Exam General Appearance: Well Developed, Well Nourished, No Acute Distress (Citlali Cosby) Neck Neck Exam: Neck Supple (Citlali Cosby) Pulmonary Resp Exam: Clear Bilaterally, Breath Sounds Equal (Citlali Cosby) Cardiology CV Exam: Regular, Normal Sinus Rhythm (Citlali Cosby) Gastrointestinal/Abdomen GI Exam: Soft (Citlali Cosby) Musculoskeletal MS Exam: Joints Intact, Normal Tone (Citlali Cosby) Integumentary Skin Exam: Warm, Dry (Citlali Cosby) Extremeties Extremities Exam: Pedal Pulses Palpable (Citlali oCsby) Neurologic Neuro Exam: Alert, Awake, Oriented, Speech Clear (Citlali Cosby) Assessment/Plan Discussed Condition With: Patient, Parent, Relative Assessment Summary: End Stage Renal Disease Problem List: (1) ESRD (end stage renal disease) Plan: HD M-W-, 3L UF yesterday repeat K improved avoid any further IV fluids she has functioning access in left arm no epogen required, hemoglobin stable on Renvela for metabolic bone disorder she is on Sensipar for hyperparathyroidism (2) Ureteral obstruction, right Plan: urology has evaluated do not recommend stent placement further recommendations to follow pain may be due to appendicitis? pelvic mass may need to be biopsied (3) Hypertension Plan: BP improved continue home medications (Citlali Cosby) Plan patient was seen and examined. All the notes were reviewed. US guided biopsy/ aspiration of the mass. Dialysis tomorrow. Discussed at length with patient and the family at the bedside. (Devante Alejandre MD) Citlali Cosby Feb 09, 2017 12:31 Devante Alejandre MD Feb 09, 2017 21:02
--- NOTE | 2017-02-09 13:41 | PD.CONS ---
cc: Charlie Montgomery MD [facility] Service General surgery Consult Requested By Dr. Feliz Reason for Consult Right lower quadrant abdominal pain with 4.5 centimeter right lower quadrant mass found on CT scan Primary Care Physician Caro Emanuel MD History of Present Illness This is a 51 year old female with past medical history of end-stage renal disease on hemodialysis Wednesday, Wednesday and Wednesday, cholecystectomy and hypertension who woke up Wednesday morning with severe right lower quadrant abdominal pain. She went about her day like normal but around lunchtime could not tolerate the pain anymore and came to the emergency department. She is an employee of [employer]. She received morphine in the emergency department which relieved her pain. A CT of her abdomen and pelvis was completed and she was found to have a 4.5 cm multicystic mass in the right lower quadrant. Review of Systems Constitutional: DENIES: Fatigue, Weight gain, Weight loss Endocrine: DENIES: Heat/cold intolerance, Polydipsia, Polyuria Eyes: DENIES: Blurred vision, Diplopia Ears, nose, mouth, throat: DENIES: Hearing loss, Vertigo Respiratory: DENIES: Apneas, Cough Cardiovascular: DENIES: Chest pain, Palpitations, Syncope Gastrointestinal: COMPLAINS OF: Abdominal pain (right lower quadrant), Nausea, DENIES: Constipation, Diarrhea, Vomiting Genitourinary: DENIES: Urgency, Hematuria, Dysuria Musculoskeletal: DENIES: Joint pain, Muscle aches Integumentary: DENIES: Abnormal pigmentation Hematologic/lymphatic: DENIES: Bruising Immunologic/allergic: DENIES: Eczema Neurologic: DENIES: Headache, Localized weakness Psychiatric: DENIES: Mood changes, Depression, Hallucinations Past Family Social History Past Medical History End-stage renal disease on hemodialysis Hypertension GERD Past Surgical History Liver resection with hemangioma by Dr. Sanz (2000) Laparoscopic cholecystectomy Hysterectomy Reported Medications See chart Allergies: Coded Allergies: Keflex (Verified Allergy, Severe, Hives, 02/08/17) Onion (Verified Allergy, Severe, 02/08/17) Prednisolone (Verified Allergy, Severe, 02/08/17) HMG-CoA Reductase Inhibitors (Verified Adverse Reaction, Intermediate, ) PT DENIES ALLERGY Sulfa (Verified Adverse Reaction, Intermediate, Nausea/Vomiting, 02/08/17) Active Ordered Medications Current Medications Medications (Trade) Dose Ordered Sig/Amy Route Start Time Stop Time Status Last Admin (NS Flush) 2 ml UNSCH PRN FLUSH 02/08/17 15:00 (NS Flush) 2 ml BID FLUSH 02/08/17 21:00 02/09/17 08:52 (Tylenol) 650 mg Q4H PRN PO 02/08/17 15:00 (Zofran Inj) 4 mg Q6H PRN IVP 02/08/17 15:00 (Compazine Supp) 25 mg Q12H PRN WI 02/08/17 15:00 (Dulcolax Supp) 10 mg DAILY PRN WI 02/08/17 15:00 (Milk Of Magnesia Liq) 30 ml Q12H PRN PO 02/08/17 15:00 (Senokot) 17.2 mg Q12H PRN PO 02/08/17 15:00 (Heparin Inj) 5,000 units Q12H SQ 02/08/17 16:00 02/09/17 03:42 (Coreg) 25 mg Q12H PO 02/08/17 16:00 02/09/17 03:37 (Sensipar) 30 mg DAILY PO 02/09/17 09:00 02/09/17 08:51 (Tenex) 1 mg HS PO 02/08/17 21:00 02/08/17 22:00 (Cozaar) 25 mg DAILY PO 02/08/17 16:00 02/09/17 08:51 (Protonix) 40 mg DAILY PO 02/09/17 09:00 02/09/17 08:51 (Renvela) 1,600 mg TID PO 02/08/17 18:00 02/09/17 12:52 (Catapres) 0.1 mg Q6H PRN PO 02/08/17 15:00 02/08/17 17:49 (Vasotec Inj) 2.5 mg Q6H PRN IV PUSH 02/08/17 15:00 Hydralazine HCl 20 mg 20 mg Q4H PRN IV PUSH 02/08/17 15:00 (NS 1000 ml Inj) 1,000 ml @ 0 mls/hr Q0M PRN IV 02/08/17 16:07 02/08/17 17:03 Heparin Sodium (Porcine) 8000 units 8,000 units UNSCH PRN IVF 02/08/17 16:15 Sodium Chloride 1,000 ml @ 200 mls/hr Q5H PRN IV 02/08/17 16:07 (NS 1000 ml Inj) 1,000 ml @ 0 mls/hr Q0M PRN IV 02/08/17 16:07 (Mannitol Inj) 12.5 gm UNSCH PRN IV 02/08/17 16:15 (Albumin 25% Inj) 25 gm UNSCH PRN IV 02/08/17 16:15 (NS Flush) 5 ml UNSCH PRN IVF 02/08/17 16:15 (Heparin Inj) UNSCH PRN .XX 02/08/17 16:15 (Gentamicin (Dialysis) Inj) 20 mg UNSCH PRN IV 02/08/17 16:15 (Zofran Inj) 4 mg UNSCH PRN IV 02/08/17 16:15 02/09/17 08:53 (Tylenol) 650 mg UNSCH PRN PO 02/08/17 16:15 (Benadryl) 25 mg UNSCH PRN PO 02/08/17 16:15 (Nitrostat Sl) 0.4 mg UNSCH PRN SL 02/08/17 16:15 (Catapres) 0.1 mg UNSCH PRN PO 02/08/17 16:15 (Gelfoam 12 Mm/7 Mm Top) 1 foam UNSCH PRN TOP 02/08/17 16:15 02/08/17 17:03 (Bliss 5-325 Mg) 1 tab Q4H PRN PO 02/08/17 20:30 (Bliss 10-325 Mg) 1 tab Q4H PRN PO 02/08/17 20:30 (Dilaudid Pf Inj) 0.5 mg Q3H PRN IV 02/08/17 20:30 (Dilaudid Pf Inj) 1 mg Q3H PRN IV 02/08/17 20:30 (Dilaudid) 1 mg Q4H PRN PO 02/08/17 20:30 (Narcan Inj) 0.4 mg UNSCH PRN IV 02/08/17 20:30 (Pill Splitter) 1 ea UNSCH PRN OTHER 02/08/17 21:00 Family History Noncontributory Social History Patient denies smoking Patient denies EtOH use Patient denies illicit drug use Physical Exam Vital Signs Vital Signs Date Time Temp Pulse Resp B/P Pulse Ox O2 Delivery O2 Flow Rate FiO2 02/09/17 12:00 97.8 57 16 113/62 95 02/09/17 09:38 60 02/09/17 08:00 97.2 62 16 136/61 100 02/09/17 05:48 98.1 62 22 106/62 95 02/09/17 03:04 59 02/09/17 00:57 97.8 59 20 108/53 95 02/08/17 23:12 97.8 57 22 122/70 100 02/08/17 14:49 73 18 184/92 99 Nasal Cannula 2 Physical Exam GENERAL: female resting in bed in no acute distress SKIN: Warm and dry. HEAD: Atraumatic. Normocephalic. EYES: Pupils equal and round. No scleral icterus. No injection or drainage. ENT: No nasal bleeding or discharge. Mucous membranes pink and moist. NECK: Trachea midline. CARDIOVASCULAR: Regular rate and rhythm. RESPIRATORY: No accessory muscle use. Clear to auscultation. Breath sounds equal bilaterally. GASTROINTESTINAL: Abdomen soft, tender with palpation in low RIGHT lower quadrant with palpable mass; RUQ incision (healed); midline incision (healed) MUSCULOSKELETAL: Extremities without clubbing, cyanosis, or edema. No obvious deformities. LEFT arm AV fistula. NEUROLOGICAL: Awake and alert. No obvious cranial nerve deficits. Motor grossly within normal limits. Five out of 5 muscle strength in the arms and legs. Normal speech. PSYCHIATRIC: Appropriate mood and affect; insight and judgment normal. Laboratory Laboratory Tests Test 02/09/17 06:27 White Blood Count 5.8 Red Blood Count 3.18 Hemoglobin 10.2 Hematocrit 29.7 Mean Corpuscular Volume 93.3 Mean Corpuscular Hemoglobin 32.1 Mean Corpuscular Hemoglobin 34.4 Concent Red Cell Distribution Width 13.3 Platelet Count 192 Mean Platelet Volume 8.2 Neutrophils (%) (Auto) 55.7 Lymphocytes (%) (Auto) 30.5 Monocytes (%) (Auto) 9.6 Eosinophils (%) (Auto) 3.6 Basophils (%) (Auto) 0.6 Neutrophils # (Auto) 3.2 Lymphocytes # (Auto) 1.8 Monocytes # (Auto) 0.6 Eosinophils # (Auto) 0.2 Basophils # (Auto) 0.0 CBC Comment DIFF FINAL Differential Comment Sodium Level 142 Potassium Level 4.3 Chloride Level 99 Carbon Dioxide Level 31.2 Anion Gap 12 Blood Urea Nitrogen 30 Creatinine 6.52 Estimat Glomerular Filtration 8 Rate Random Glucose 89 Calcium Level 8.1 Result Diagram: 02/09/1727 02/09/17626 Assessment and Plan Assessment and Plan 51 year old female with abdominal pain and RLQ cystic mass visualized on CT scan -Plan for US guided aspiration vs biopsy today -If unable to be done under ultrasound may require exploration and removal of mass -Obtain records at [facility] for review -Plan was discussed with Ms. Paige as well as her Mother and Aunt who were present during the exam -General Surgery will follow along Attending Note - Dr. Montgomery Patient examined - 3cm mass in right groin, tender, nonmobile CT shows likely lymph node vs. cystic lesion Will have pt. undergo U/S guided aspiration vs. core biopsy if solid. The exam, history, and the medical decision-making described in the above note were completed with the assistance of the mid-level provider. I reviewed and agree with the findings presented. I attest that I had a [id number] encounter with the patient on the same day, and personally performed and documented my assessment and findings in the medical record. Discussed Condition With Ms. Paige, Mother and Aunt Dr. Ulises Davey MS3 Sydni Alatorre Feb 09, 2017 13:41 Charlie Montgomery MD Feb 10, 2017 17:41
--- NOTE | 2017-02-09 13:48 | HHI.PR ---
Subjective Remarks Patient in nad. No n/v/d/c. Says pain is controlled by meds. Objective Vitals Vital Signs Date Time Temp Pulse Resp B/P Pulse Ox O2 Delivery O2 Flow Rate FiO2 02/09/17 12:00 97.8 57 16 113/62 95 02/09/17 09:38 60 02/09/17 08:00 97.2 62 16 136/61 100 02/09/17 05:48 98.1 62 22 106/62 95 02/09/17 03:04 59 02/09/17 00:57 97.8 59 20 108/53 95 02/08/17 23:12 97.8 57 22 122/70 100 02/08/17 14:49 73 18 184/92 99 Nasal Cannula 2 I/O 02/08/17 02/08/17 02/08/17 02/09/17 02/09/17 02/09/17 07:00 15:00 23:00 07:00 15:00 23:00 Intake Total 2 ml 720 ml Output Total 3000 ml 0 ml Balance -2998 ml 720 ml Intake Oral 720 ml IV Total 2 ml Output Urine Total 0 ml Hemodialysis 3000 ml # Voids 0 # Bowel Movements 0 Result Diagram: 02/09/17 0627 02/09/17 0627 Imaging Last Impressions Abdomen/Pelvis CT 02/08/17 1231 Signed Impressions: Service Date/Time: Wednesday, February 08, 2017 13:34 - CONCLUSION: Mild to moderate right hydronephrosis and hydroureter with suspected thickening of the distal ureter at the ureterovesical junction. There is no evidence of obstructing renal calculus. 4.5 cm multicystic mass right inguinal region. Status post cholecystectomy, liver resection and hysterectomy. Joel Kumar MD Objective Remarks GENERAL: This is a very pleasant 51 yo female appearing younger than the stated age, well-nourished, well-developed patient, in no apparent distress. SKIN: No rashes, ecchymoses or lesions. Cool and dry. HEAD: Atraumatic. Normocephalic. No temporal or scalp tenderness. EYES: Pupils equal round and reactive. Extraocular motions intact. No scleral icterus. No injection or drainage. ENT: Nose without bleeding, purulent drainage or septal hematoma. Throat without erythema, tonsillar hypertrophy or exudate. Uvula midline. Airway patent. NECK: Trachea midline. No JVD or lymphadenopathy. Supple, nontender, no meningeal signs. CARDIOVASCULAR: Regular rate and rhythm without murmurs, gallops, or rubs. RESPIRATORY: Clear to auscultation. Breath sounds equal bilaterally. No wheezes , rales, or rhonchi. GASTROINTESTINAL: Abdomen soft, tenderness right lower abdominal quadrant, nondistended. No guarding. No CVA tenderness. MUSCULOSKELETAL: Extremities without clubbing, cyanosis, or edema. No joint tenderness, effusion, or edema noted. No calf tenderness. Negative Homans sign bilaterally. NEUROLOGICAL: Awake and alert. Cranial nerves II through XII intact. Motor and sensory grossly within normal limits. Five out of 5 muscle strength in all muscle groups. Normal speech. A/P Assessment and Plan 51yo female with right hydronephrosis and RLQ pain and mass Right lower quadrant abdominal pain Right lower cystic abd mass Right hydronephrosis ESRD on HD M/W/F night CT Ab/Pel reviewed findings discussed with Er physician. Mild right hydronephrosis and hydroureter, no obstructing stone. Some thickening noted on distal ureter. 4.5cm right inguinal cystic mass. Right lower abdominal mass 4.5 cm cyctic mass less likely to cause right hydronephrosis. Seen by Dr Franklin urology, appreciate recommendations Per Dr Franklin urology patient would benefit from a Nuclear medicine renal scan or CT Urogram to assess for obstruction, however given her ESRD and HD, this study would likely offer limited benefit Getting HD Consult nephrology for HD Consult urology Consult gen surg for evaluation of mass. Seen by Dr Montgomery, appreciate recommendations. Plan for US guided aspiration/biopsy , will sent fluid for analysis Pain meds per pain scale DVt ppx with heparin Discussed Condition With patient, nurse DC pending improvement and clearance by consultants. Abril Feliz MD Feb 09, 2017 13:48
[2017-02-09] MEDS ORDERED: SODIUM BICARBONATE 8.4% INJ 50 MEQ/50 ML SYR ONE (16:51)
[2017-02-09] MEDS ORDERED: LIDOCAINE HCL 1% PF 30 ML VIAL ONE (16:51)
[2017-02-09] MEDS ORDERED: SODIUM BICARBONATE 8.4% INJ 50 ML ONE (16:52)
[2017-02-09] MEDS: guanFACINE HCL 1 MG TAB PO SCH (20:25)
[2017-02-10] VITALS: BP 121/63; PULSE 61; RESP 18; TEMP 97.8; O2SAT 97
[2017-02-10 04:00] VITALS: BP 126/66; PULSE 69; RESP 18; TEMP 98.3; O2SAT 95
[2017-02-10] MEDS: CARVEDILOL 12.5 MG TAB PO SCH (05:20)
[2017-02-10] MEDS: HEPARIN SODIUM - SQ 10,000 UNITS/ML VIAL SQ SCH (05:21)
[2017-02-10 08:00] VITALS: BP 137/81; PULSE 62; PULSE 86; RESP 20; TEMP 98.1; O2SAT 98
[2017-02-10 09:01] VITALS: PULSE 61
--- NOTE | 2017-02-10 09:41 | HHI.PR ---
Subjective Subjective Notes Up to chair Pain completely resolved today Going for HD this afternoon Objective Vitals/I&O Vital Signs Date Time Temp Pulse Resp B/P Pulse Ox O2 Delivery O2 Flow Rate FiO2 02/10/17 09:01 61 02/10/17 08:00 98.1 20 137/81 98 02/09/17 18:03 21 02/08/17 14:49 Nasal Cannula 2 Labs Date/Time Procedure Status Source Growth 02/09/17 16:32 Gram Stain Received Fluid Other Pending 02/09/17 16:32 Body Fluid Culture Received Fluid Other Pending 02/09/17 16:32 Fungal Smear Received Fluid Other Pending 02/09/17 16:32 Fungal Culture Received Fluid Other Pending Cardiovascular: Regular Lungs: Clear Abdomen: Non-distended, Non-tender Extremities: No edema A/P Assessment and Plan 51 year old female with 4.5 multicystic mass in RIGHT lower quadrant -s/p US guided aspiration -Complete resolution in pain from yesterday -Renal diet -Await fluid analysis -Continue non-op treatment -GS clear for DC; Follow up with Dr. Montgomery or Dr. Sanz in the office if needed Attending Note - Dr. Montgomery Pain and mass resolved; tolerating diet. Gram stain shows no fungal elements; fluid found, not solid Ok for discharge. Followup in office next week for culture results. The exam, history, and the medical decision-making described in the above note were completed with the assistance of the mid-level provider. I reviewed and agree with the findings presented. I attest that I had a [id number] encounter with the patient on the same day, and personally performed and documented my assessment and findings in the medical record. Sydni Alatorre Feb 10, 2017 09:41 Charlie Montgomery MD Feb 10, 2017 17:45
[2017-02-10] MEDS: SEVELAMER CARBONATE 800 MG TAB PO SCH ×2 (09:49→13:21)
[2017-02-10] MEDS: CINACALCET HYDROCHLORIDE 30 MG TAB PO SCH (09:49)
[2017-02-10] MEDS: PANTOPRAZOLE SOD 40 MG DELAYED RELEASE TAB PO SCH (09:49)
[2017-02-10] MEDS: LOSARTAN 25 MG TAB PO SCH (09:49)
[2017-02-10] MEDS: SODIUM CHLORIDE 0.9% FLUSH 5 ML FLUSH FLUSH SCH (09:51)
[2017-02-10 12:00] VITALS: BP 134/83; PULSE 58; RESP 18; TEMP 97.6; O2SAT 96
--- NOTE | 2017-02-10 14:01 | HHI.PR ---
Subjective Remarks Patient says she is improving. Seen in HD today . Feels cold. No pain , n/v/d/ c. Was able to ambulate today . Objective Vitals Vital Signs Date Time Temp Pulse Resp B/P Pulse Ox O2 Delivery O2 Flow Rate FiO2 02/10/17 09:01 61 02/10/17 08:00 98.1 62 20 137/81 98 02/10/17 04:00 98.3 69 18 126/66 95 02/10/17 00:00 97.8 61 18 121/63 97 02/09/17 20:08 98.1 75 16 149/70 94 02/09/17 20:00 68 02/09/17 18:03 95 21 I/O 02/09/17 02/09/17 02/09/17 02/10/17 02/10/17 02/10/17 07:00 15:00 23:00 07:00 15:00 23:00 Intake Total 720 ml 480 ml 500 ml Output Total 0 ml Balance 720 ml 480 ml 500 ml Intake Oral 720 ml 480 ml 500 ml IV Total 0 ml Output Urine Total 0 ml # Voids 0 4 # Bowel Movements 0 0 Result Diagram: 02/09/17 0627 02/09/17 0627 Imaging Last Impressions Abdomen/Pelvis CT 02/08/17 1231 Signed Impressions: Service Date/Time: Wednesday, February 08, 2017 13:34 - CONCLUSION: Mild to moderate right hydronephrosis and hydroureter with suspected thickening of the distal ureter at the ureterovesical junction. There is no evidence of obstructing renal calculus. 4.5 cm multicystic mass right inguinal region. Status post cholecystectomy, liver resection and hysterectomy. Joel Kumar MD Objective Remarks GENERAL: This is a very pleasant 51 yo female appearing younger than the stated age, well-nourished, well-developed patient, in no apparent distress. SKIN: No rashes, ecchymoses or lesions. Cool and dry. HEAD: Atraumatic. Normocephalic. No temporal or scalp tenderness. EYES: Pupils equal round and reactive. Extraocular motions intact. No scleral icterus. No injection or drainage. ENT: Nose without bleeding, purulent drainage or septal hematoma. Throat without erythema, tonsillar hypertrophy or exudate. Uvula midline. Airway patent. NECK: Trachea midline. No JVD or lymphadenopathy. Supple, nontender, no meningeal signs. CARDIOVASCULAR: Regular rate and rhythm without murmurs, gallops, or rubs. RESPIRATORY: Clear to auscultation. Breath sounds equal bilaterally. No wheezes , rales, or rhonchi. GASTROINTESTINAL: Abdomen soft, tenderness right lower abdominal quadrant, nondistended. No guarding. No CVA tenderness. MUSCULOSKELETAL: Extremities without clubbing, cyanosis, or edema. No joint tenderness, effusion, or edema noted. No calf tenderness. Negative Homans sign bilaterally. NEUROLOGICAL: Awake and alert. Cranial nerves II through XII intact. Motor and sensory grossly within normal limits. Five out of 5 muscle strength in all muscle groups. Normal speech. A/P Assessment and Plan 51yo female with right hydronephrosis and RLQ pain and mass Right lower quadrant abdominal pain Right lower cystic abd mass Right hydronephrosis ESRD on HD M/W/F night CT Ab/Pel reviewed findings discussed with Er physician. Mild right hydronephrosis and hydroureter, no obstructing stone. Some thickening noted on distal ureter. 4.5cm right inguinal cystic mass. Right lower abdominal mass 4.5 cm cyctic mass less likely to cause right hydronephrosis. Seen by Dr Franklin urology, appreciate recommendations Per Dr Franklin urology patient would benefit from a Nuclear medicine renal scan or CT Urogram to assess for obstruction, however given her ESRD and HD, this study would likely offer limited benefit Getting HD Consult nephrology for HD Consult urology Consult gen surg for evaluation of mass. Seen by Dr Montgomery, appreciate recommendations. S/p US guided aspiration/biopsy, fluid for analysis, so far negative cultures Pain meds per pain scale DVt ppx with heparin Discussed Condition With patient, nurse Improving. DC today after HD. Abril Feliz MD Feb 10, 2017 14:01
--- NOTE | 2017-02-10 14:24 | HHI.DS ---
Discharge Summary Admission Date Feb 08, 2017 at 14:57 Discharge Date: Feb 10, 2017 Admitting Diagnosis intractable pain, hydroureter, hydronephrosis, ESRD (1) Hydroureter ICD Code: N13.4 Diagnosis: Principal (2) Intractable abdominal pain ICD Code: R10.9 Diagnosis: Principal (3) Hydronephrosis ICD Code: N13.30 Diagnosis: Principal (4) Dizziness ICD Code: R42 Diagnosis: Secondary (5) Hyperlipidemia ICD Code: E78.5 Diagnosis: Secondary (6) ESRD (end stage renal disease) ICD Code: N18.6 Diagnosis: Secondary Procedures US guided abd mass aspiration Brief History - From Admission 51 yo female with ESRD on HD M-W-, HTN, HLD, GERD/Barretts, AOCD, who presented to the ED today for evaluation of right lower abdominal pain. Patient reports she began to experience sharp RLQ abdominal pain that radiates to the right flank this morning. The pain is 10/10 with movement and 3/10 at rest. Pain meds improved pain. This worsened throughout the day which brought her to the ED. She also reports associated nausea, vomited once and also dry heaves. CT scan identified mild right hydronephrosis, no evidence of nephrolithiasis or cause for obstruction. There is also a 4cm cystic mass in the right inguinal region. Patient denies any fevers, no hematuria. No constipation or diarrhea. She does not have a history of kidney stones. Says she is in the list for kidney transplant and had a recent follow up ay [facility]. CBC/BMP: 02/09/17 0627 02/09/17 0627 Significant Findings Laboratory Tests Test 02/08/17 02/08/17 02/09/17 11:51 12:44 06:27 Red Blood Count 3.56 MIL/MM3 3.18 MIL/MM3 (4.00-5.30) (4.00-5.30) Hemoglobin 11.4 GM/DL 10.2 GM/DL (11.6-15.3) (11.6-15.3) Hematocrit 33.4 % 29.7 % (35.0-46.0) (35.0-46.0) Monocytes (%) (Auto) 10.7 % 9.6 % (0.0-8.0) (0.0-8.0) Potassium Level 5.3 MEQ/L (3.5-5.1) Blood Urea Nitrogen 44 MG/DL (7-18) 30 MG/DL (7-18) Creatinine 8.34 MG/DL 6.52 MG/DL (0.50-1.00) (0.50-1.00) Estimat Glomerular Filtration 6 ML/MIN (>89) 8 ML/MIN (>89) Rate Urine Turbidity HAZY (CLEAR) Urine Protein 30 mg/dL (NEG-TRACE) Urine Occult Blood TRACE (NEG) Urine Leukocyte Esterase TRACE (NEG) Urine RBC 5 /hpf (0-3) Urine Bacteria OCC /hpf (NONE) Urine Mucus FEW /lpf (OCC) Calcium Level 8.1 MG/DL (8.5-10.1) Imaging Last Impressions Abdomen/Pelvis CT 02/08/17 1231 Signed Impressions: Service Date/Time: Wednesday, February 08, 2017 13:34 - CONCLUSION: Mild to moderate right hydronephrosis and hydroureter with suspected thickening of the distal ureter at the ureterovesical junction. There is no evidence of obstructing renal calculus. 4.5 cm multicystic mass right inguinal region. Status post cholecystectomy, liver resection and hysterectomy. Joel Kumar MD PE at Discharge GENERAL: This is a very pleasant 51 yo female appearing younger than the stated age, well-nourished, well-developed patient, in no apparent distress. SKIN: No rashes, ecchymoses or lesions. Cool and dry. HEAD: Atraumatic. Normocephalic. No temporal or scalp tenderness. EYES: Pupils equal round and reactive. Extraocular motions intact. No scleral icterus. No injection or drainage. ENT: Nose without bleeding, purulent drainage or septal hematoma. Throat without erythema, tonsillar hypertrophy or exudate. Uvula midline. Airway patent. NECK: Trachea midline. No JVD or lymphadenopathy. Supple, nontender, no meningeal signs. CARDIOVASCULAR: Regular rate and rhythm without murmurs, gallops, or rubs. RESPIRATORY: Clear to auscultation. Breath sounds equal bilaterally. No wheezes , rales, or rhonchi. GASTROINTESTINAL: Abdomen soft, tenderness right lower abdominal quadrant, nondistended. No guarding. No CVA tenderness. MUSCULOSKELETAL: Extremities without clubbing, cyanosis, or edema. No joint tenderness, effusion, or edema noted. No calf tenderness. Negative Homans sign bilaterally. NEUROLOGICAL: Awake and alert. Cranial nerves II through XII intact. Motor and sensory grossly within normal limits. Five out of 5 muscle strength in all muscle groups. Normal speech. Pt update on day of discharge Seen in HD today. She feesl improved. Says pain is controlled by meds. Says she doesn't want pain meds narcotic, says she will try to manage pain with OTC meds. No n/v/d/c. Was ambulating today Hospital Course 51yo female with right hydronephrosis and RLQ pain and mass Right lower quadrant abdominal pain Right lower cystic abd mass Right hydronephrosis ESRD on HD M/W/F night CT Ab/Pel reviewed findings discussed with Er physician. Mild right hydronephrosis and hydroureter, no obstructing stone. Some thickening noted on distal ureter. 4.5cm right inguinal cystic mass. Right lower abdominal mass 4.5 cm cyctic mass less likely to cause right hydronephrosis. Seen by Dr Franklin urology, appreciate recommendations Per Dr Franklin urology patient would benefit from a Nuclear medicine renal scan or CT Urogram to assess for obstruction, however given her ESRD and HD, this study would likely offer limited benefit Getting HD Consult nephrology for HD Consult urology Consult gen surg for evaluation of mass. Seen by Dr Montgomery, appreciate recommendations. S/p US guided aspiration/biopsy, fluid for analysis, so far negative cultures Pain meds per pain scale DVt ppx with heparin Discussed Condition With patient, nurse Improving. DC today after HD. To follow up as OP with PCP and consultants. Pt Condition on Discharge: Stable Discharge Disposition: Discharge Home Discharge Time: <= 30 minutes Discharge Instructions DIET: Follow Instructions for: Dialysis Diet Activities you can perform: Regular-No Restrictions Follow up Referrals: Nephrology - 3-5 Days PCP Follow-up - 3-5 Days Surgical - 1 Week Continued Medications: Carvedilol (Coreg) 25 Mg Tab 25 MG PO BID #60 Ref 0 TAB Cinacalcet (Sensipar) 30 Mg Tab 30 MG PO DAILY #30 Ref 0 TAB Guanfacine (Tenex) 1 Mg Tab 1 MG PO HS Do not crush, chew or divide tablet. Take with a meal. Blood Pressure Management #30 Ref 0 TAB Losartan (Losartan) 25 Mg Tab 25 MG PO DAILY Blood Pressure Management #30 Ref 0 TAB Ondansetron Odt (Ondansetron Odt) 4 Mg Tab 4 MG SL Q6HR PRN Nausea/Vomiting Ref 0 TAB Pantoprazole (Protonix) 40 Mg Tab 40 MG PO DAILY Reflux #30 Ref 0 TAB Sevelamer Carbonate (Renvela) 800 Mg Tab 1600 MG PO TID Control phosphorous levels #180 Ref 0 TAB Abril Feliz MD Feb 10, 2017 14:24
--- NOTE | 2017-02-10 15:26 | HHI.NPPN ---
Subjective Complaints: Abdominal Pain Renal Failure: Chronic, End Stage Renal Disease Interval History Seen during dialysis. to be discharged later today. Pain resolved. (Citlali Cosby) Review of Systems Gastrointestinal Gastrointestinal: Abdominal Pain (Citlali Cosby) Objective Data Data 02/09/17 02/10/17 19:00 07:00 Intake Total 480 ml 500 ml Balance 480 ml 500 ml Intake Oral 480 ml 500 ml IV Total 0 ml # Voids 4 # Bowel Movements 0 Vital Signs Date Time Temp Pulse Resp B/P Pulse Ox O2 Delivery O2 Flow Rate FiO2 02/10/17 09:01 61 02/10/17 08:00 98.1 62 20 137/81 98 02/10/17 08:00 86 02/10/17 04:00 98.3 69 18 126/66 95 02/10/17 00:00 97.8 61 18 121/63 97 02/09/17 20:08 98.1 75 16 149/70 94 02/09/17 20:00 68 02/09/17 18:03 95 21 (Citlali Cosby) -: 02/09/17 0627 02/09/17 0627 Microbiology 02/09/17 Gram Stain - Final, Resulted 02/09/17 Body Fluid Culture - Preliminary, Resulted NO GROWTH IN 24 HOURS. 02/09/17 Fungal Smear - Final, Resulted NO FUNGAL ELEMENTS SEEN. 02/09/17 Fungal Culture, Resulted Pending (Citlali Cosby) Physical Exam General Appearance: Well Developed, Well Nourished, No Acute Distress, Obese (Citlali Cosby) Neck Neck Exam: Neck Supple (Citlali Cosby) Pulmonary Resp Exam: Clear Bilaterally, Breath Sounds Equal (Citlali Cosby) Cardiology CV Exam: Regular, Normal Sinus Rhythm (Citlali Cosby) Gastrointestinal/Abdomen GI Exam: Soft, Non-Tender (Citlali Cosby) Musculoskeletal MS Exam: Joints Intact, Normal Tone (Citlali Cosby) Integumentary Skin Exam: Warm, Dry (Citlali Cosby) Extremeties Extremities Exam: Pedal Pulses Palpable (Citlali Cosby) Neurologic Neuro Exam: Alert, Awake, Oriented, Speech Clear (Citlali Cosby) Assessment/Plan Discussed Condition With: Patient, Parent, Relative Assessment Summary: End Stage Renal Disease Problem List: (1) ESRD (end stage renal disease) Plan: seen during dialysis on a 2K, 350 BFR, goal 3500 ml no acute renal concerns avoid any further IV fluids she has functioning access in left arm on Renvela for metabolic bone disorder she is on Sensipar for hyperparathyroidism can resume outpatient arrangements beginning wednesday (2) Ureteral obstruction, right Plan: urology has evaluated do not recommend stent placement follow up outpatient (3) Hypertension Plan: BP improved continue home medications (4) Mass Plan: s/p US guided biopsy, results pending she will follow with surgery after discharge (Citlali Cosby) Plan patient was seen and examined. Agree with above assessment and plan. (Devante Alejandre MD) Citlali Cosby Feb 10, 2017 15:26 Devante Alejandre MD Feb 10, 2017 20:12
--- NOTE | 2017-02-13 17:57 | RADRPT ---
EXAM DATE/TIME: 02/09/2017 15:52 [facility] COMPARISON: No previous studies available for comparison. INDICATIONS : Right groin mass. MEDICAL HISTORY : Hypertension. Gastroesophageal reflux disease. Renal failure, chronic. Hemodialysis. SURGICAL HISTORY : Appendectomy. Cholecystectomy. Hysterectomy. Liver resection; hemangioma. Right total knee replaceme nt. ENCOUNTER: Initial ACUITY: 1 day PAIN SCORE: 0/10 LOCATION: Right lower quadrant FLUID: Total volume of 11 cc of clear yellow fluid was removed. Fluid was sent to lab for ordered studies. Post procedure scanning reveals no hematoma or other complication. TECHNIQUE: 1. Ultrasound guidance for needle aspiration. 2. Aspiration. The risks, benefits, and alternatives to ultrasound guided aspiration were explained to the patient i n detail including the risk of bleeding and infection. Written and verbal informed consent was obtai ericka. With the patient on the ultrasound table, ultrasound imaging was used to select the most appropriate approach for aspiration. Overlying skin was prepped and draped in the usual sterile fashion and with local anesthetic a dermatotomy was made with an 11 blade scalpel. A catheter was introduced into th e cavity and fluid was collected. CONCLUSION: Uncomplicated ultrasound guided aspiration. Valdemar Steiner MD on February 13, 2017 at 17:55 Board Certified Radiologist. This report was verified electronically.
== END 2017-02-10 19:00 | disposition home or self-care (01) | DRG 356 ==
LOC: NEPA 11:34 → NEDA 14:57 → N04A 20:15
PROVIDERS: ADMIT Hospitalist; ATTEND Hospitalist
PROC: 5A1D60Z (ICD-10-PCS; 2017-02-08)
PROC: 0Y953ZX Drainage of Right Inguinal Region, Percutaneous Approach, Diagnostic (ICD-10-PCS; principal; 2017-02-09)
DX: R19.03 Right lower quadrant abdominal swelling, mass and lump (principal); N18.6 End stage renal disease; E88.89 Other specified metabolic disorders; N13.1 Hydronephrosis with ureteral stricture, not elsewhere classified; I12.0 Hypertensive chronic kidney disease with stage 5 chronic kidney disease or end stage renal disease; K22.70 Barrett's esophagus without dysplasia; Z68.41 Body mass index [BMI] 40.0-44.9, adult; K21.9 Gastro-esophageal reflux disease without esophagitis; E78.5 Hyperlipidemia, unspecified; M19.90 Unspecified osteoarthritis, unspecified site; D63.1 Anemia in chronic kidney disease; E21.3 Hyperparathyroidism, unspecified; E66.01 Morbid (severe) obesity due to excess calories; R42 Dizziness and giddiness; Z99.2 Dependence on renal dialysis; Z96.651 Presence of right artificial knee joint
CPT/HCPCS: 10160; 74176; 76942; 80048; 80053; 81001; 83690; 85025; 85610; 87070; 87102; 87205; 87206; 90935; 96374; 96375; 96376; J1170; J1644; J2270; J2405; J7030

== ENCOUNTER → 2017-05-10 | Outpatient (CLI) | payer OTHER ==
[~2017-05-10] MED LIST changes: -1-ME1LIQ PO; -CARV25TA PO; +CINA30 PO; +CORE25TA PO; -GUAN1 PO; -LOSA25 PO; +LOSA25TA PO; +ONDA4TAB7 SL; +TENE1TAB PO; -ZOFR4TAB3 SL
[2017-05-10 09:15] LABS: AUTOMATED NEUTROPHIL # 4.4 TH/MM3 (1.8-7.7); BASOPHIL # 0.1 TH/MM3 (0-0.2); BASOPHIL % 1.2 % (0.0-2.0); EOSINOPHIL # 0.2 TH/MM3 (0-0.4); EOSINOPHIL % 3.3 % (0.0-4.0); HEMATOCRIT 33.7 % (35.0-46.0); HEMO FLAGS DIFF FINAL; LYMPH % 23.7 % (9.0-44.0); LYMPHOCYTE # 1.6 TH/MM3 (1.0-4.8); MEAN CELL VOLUME 96.8 FL (80.0-100.0); MEAN CORPUSCULAR HEMOGLOBIN 32.8 PG (27.0-34.0); MEAN CORPUSCULAR HGB CONC 33.9 % (32.0-36.0); MONO % 6.7 % (0.0-8.0); NEUT % 65.1 % (16.0-70.0); PLATELET COUNT 260 TH/MM3 (150-450); RED BLOOD COUNT 3.48 MIL/MM3 (4.00-5.30); WHITE BLOOD COUNT 6.7 TH/MM3 (4.0-11.0)
[2017-05-10 09:50] LABS: BLOOD UREA NITROGEN 43 MG/DL (7-18)
[2017-05-10 09:51] LABS: ANION GAP 11 MEQ/L (5-15); AST (GOT) 20 U/L (15-37); BICARBONATE 25.2 MEQ/L (21.0-32.0); CHLORIDE 103 MEQ/L (98-107); GLOMERULAR FILTRATION RATE 5 ML/MIN (>89); GLUCOSE,FASTING 96 MG/DL (74-99); POTASSIUM 5.1 MEQ/L (3.5-5.1); SODIUM (NA) 139 MEQ/L (136-145)
[2017-05-10 10:01] LABS: ALKALINE PHOSPHATASE 131 U/L (45-117); ALT (GPT) 19 U/L (10-53); HDL CHOLESTEROL 58.8 MG/DL (40.0-60.0); LDL CHOLESTEROL 118 MG/DL (0-99); TOTAL BILIRUBIN ADULT 0.3 MG/DL (0.2-1.0)
== END ==
LOC: CLAB 08:40
PROVIDERS: ATTEND Family Medicine
DX: I12.0 Hypertensive chronic kidney disease with stage 5 chronic kidney disease or end stage renal disease (principal); N18.5 Chronic kidney disease, stage 5; K21.9 Gastro-esophageal reflux disease without esophagitis
CPT/HCPCS: 36415; 80053; 80061; 84443; 85025

== ENCOUNTER 2017-07-27 05:18 | Emergency (ER) | payer OTHER ==
[~2017-07-27] VITALS: Ht 162.6 cm; Wt 102.5 kg
[2017-07-27 05:28] VITALS: BP 127/66; PULSE 78; PULSE 86; RESP 14; RESP 16; TEMP 98.2; O2SAT 98
--- NOTE | 2017-07-27 05:41 | PD ---
HPI Chief Complaint: Hypotension, clotted AV fistula Time Seen by Provider: 05:29 Travel History International Travel<30 days: No Contact w/Intl Traveler<30days: No History of Present Illness HPI 51yo F with PMH of ESRD on HD, HTN, HLD, GERD was sent from her dialysis center for hypotension after finishing 6 hours of hemodialysis. EVAC states it was 80/ 40s and they tried to recannulate the left AV fistula and give her fluid back. However, thinks her AV fistula clotted because the nurse was not able to palpate a thrill or hear a bruit. Pt was feeling a little dizzy when her blood pressure was low but feels much better now. Denies any fever, chest pain, sob, n/v, abdominal pain, focal weakness or numbness. Pt finished her hemodialysis at 2am today. PFSH Past Medical History Arthritis: No Asthma: No Anxiety: No Depression: No Heart Rhythm Problems: No Cancer: No Cardiovascular Problems: No High Cholesterol: Yes Chest Pain: No Congestive Heart Failure: No COPD: No Cerebrovascular Accident: No Diabetes: No Diminished Hearing: No Endocrine: No Gastrointestinal Disorders: Yes (DIVERTICULITIS, GERD, BARRETTS, ESOPHAGEAL STRICTURE) GERD: No Glaucoma: No Genitourinary: No Headaches: No Hepatitis: No Hiatal Hernia: No Hypertension: Yes Immune Disorder: No Implanted Vascular Access Dvce: Yes Kidney Stones: No Musculoskeletal: Yes (ARTHRITIS POOJA KNEES) Neurologic: No Psychiatric: No Reproductive: No Respiratory: No Immunizations Current: Yes Migraines: Yes Renal Failure: Yes (end stage/dialysis) Seizures: No Sickle Cell Disease: No Sleep Apnea: No Thyroid Disease: No Ulcer: No Past Surgical History Abdominal Surgery: Yes (LIVER RESECTION FOR HEMANGIOMA, CHOLY) AICD: No Appendectomy: Yes Arteriovenous Shunt: No Body Medical Devices: DIALYSIS CATHETER Cardiac Surgery: No Cholecystectomy: Yes (ALSO HEMANGIOMA REMOVED OFF LEFT UPPER LOBE OF LIVER BY DR VALDEZ) Ear Surgery: No Endocrine Surgery: No Eye Surgery: No Genitourinary Surgery: Yes Hysterectomy: Yes (DR BERGMAN) Insulin Pump: No Joint Replacement: Yes (TOTAL RIGHT KNEE) Neurologic Surgery: No Oral Surgery: No Pacemaker: No Thoracic Surgery: No Other Surgery: Yes (LEFT PARTIAL LOBECTOMY) Social History Alcohol Use: No Tobacco Use: No Substance Use: No Allergies-Medications (Allergen,Severity, Reaction): Coded Allergies: cephalexin (Unverified Allergy, Severe, Hives, 07/13/17) onion (Unverified Allergy, Severe, 07/13/17) prednisolone (Unverified Allergy, Severe, 07/13/17) Sulfa (Sulfonamide Antibiotics) (Unverified Adverse Reaction, Intermediate , Nausea/Vomiting, 07/13/17) amlodipine (Unverified Adverse Reaction, Intermediate, 07/13/17) PT DENIES ALLERGY atorvastatin (Unverified Adverse Reaction, Intermediate, 07/13/17) PT DENIES ALLERGY pravastatin (Unverified Adverse Reaction, Intermediate, 07/13/17) PT DENIES ALLERGY simvastatin (Unverified Adverse Reaction, Intermediate, 07/13/17) PT DENIES ALLERGY Reported Meds & Prescriptions Reported Meds & Active Scripts Active Reported Renvela (Sevelamer Carbonate) 800 Mg Tab 1,600 Mg PO TID Protonix (Pantoprazole Sodium) 40 Mg Tab 40 Mg PO DAILY Ondansetron Odt 4 Mg Tab 4 Mg SL Q6HR PRN Losartan (Losartan Potassium) 25 Mg Tab 25 Mg PO DAILY Coreg (Carvedilol) 25 Mg Tab 25 Mg PO BID Sensipar (Cinacalcet) 30 Mg Tab 30 Mg PO DAILY Review of Systems Except as stated in HPI: all other systems reviewed are Neg Physical Exam Narrative GENERAL: 51yo F not in distress. SKIN: Focused skin assessment warm/dry. HEAD: Atraumatic. Normocephalic. EYES: Pupils equal and round. No scleral icterus. No injection or drainage. ENT: No nasal bleeding or discharge. Mucous membranes pink and moist. NECK: Trachea midline. No JVD. CARDIOVASCULAR: Regular rate and rhythm. No murmur appreciated. RESPIRATORY: No accessory muscle use. Clear to auscultation. Breath sounds equal bilaterally. GASTROINTESTINAL: Abdomen soft, non-tender, nondistended. No rebound tenderness or guarding. MUSCULOSKELETAL: LUE: No thrill palpated in left AV fistula. NEUROLOGICAL: Awake and alert. No obvious cranial nerve deficits. Motor grossly within normal limits. Normal speech. PSYCHIATRIC: Appropriate mood and affect; insight and judgment normal. Data Data Last Documented VS Vital Signs Date Time Temp Pulse Resp B/P (MAP) Pulse Ox O2 Delivery O2 Flow Rate FiO2 07/27/17 16:27 69 17 107/63 (78) 97 Room Air 07/27/17 05:28 98.2 Orders Orders Electrocardiogram (07/27/17 ) Complete Blood Count With Diff (07/27/17 05:30) Basic Metabolic Panel (Bmp) (07/27/17 05:30) Prothrombin Time / Inr (Pt) (07/27/17 05:30) Act Partial Throm Time (Ptt) (07/27/17 05:30) Fentanyl Inj (Fentanyl Inj) (07/27/17 11:41) Fentanyl Inj (Fentanyl Inj) (07/27/17 11:41) Midazolam Inj (Versed Inj) (07/27/17 11:41) Midazolam Inj (Versed Inj) (07/27/17 11:41) Declot Arm Dialysis Shunt (07/27/17 05:51) Heparin Inj (Heparin Inj) (07/27/17 13:23) Vital Signs (Adult) Q15MX2,Q30MX4 (07/27/17 15:09) ^ Observe For (07/27/17 15:09) Activity Bed Rest (07/27/17 15:09) Elevate (07/27/17 15:09) Discharge Instructions (07/27/17 15:09) Labs Laboratory Tests Test 07/27/17 05:50 White Blood Count 10.1 TH/MM3 Red Blood Count 3.84 MIL/MM3 Hemoglobin 11.8 GM/DL Hematocrit 36.1 % Mean Corpuscular Volume 93.9 FL Mean Corpuscular Hemoglobin 30.7 PG Mean Corpuscular Hemoglobin Concent 32.6 % Red Cell Distribution Width 13.4 % Platelet Count 254 TH/MM3 Mean Platelet Volume 7.4 FL Neutrophils (%) (Auto) 73.3 % Lymphocytes (%) (Auto) 16.1 % Monocytes (%) (Auto) 7.8 % Eosinophils (%) (Auto) 2.3 % Basophils (%) (Auto) 0.5 % Neutrophils # (Auto) 7.4 TH/MM3 Lymphocytes # (Auto) 1.6 TH/MM3 Monocytes # (Auto) 0.8 TH/MM3 Eosinophils # (Auto) 0.2 TH/MM3 Basophils # (Auto) 0.0 TH/MM3 CBC Comment DIFF FINAL Differential Comment Prothrombin Time 10.0 SEC Prothromb Time International Ratio 0.9 RATIO Activated Partial Thromboplast Time 26.0 SEC Blood Urea Nitrogen 18 MG/DL Creatinine 5.51 MG/DL Random Glucose 104 MG/DL Calcium Level 9.4 MG/DL Sodium Level 137 MEQ/L Potassium Level 4.5 MEQ/L Chloride Level 100 MEQ/L Carbon Dioxide Level 28.9 MEQ/L Anion Gap 8 MEQ/L Estimat Glomerular Filtration Rate 10 ML/MIN MDM Medical Decision Making Medical Screen Exam Complete: Yes Emergency Medical Condition: Yes Interpretation(s) EKG: NSR 68bpm. Normal axis. No ST segment elevation or depression. Differential Diagnosis Clotted AV fistula vs. electrolyte abnormality Narrative Course 51yo F was sent here for hypotension after hemodialysis today. However, pt's blood pressure is 127/66 in the ED. Pt's dizziness has also resolved and likely secondary to hypotension. I discussed with pt's straightedge man Dr. Devante Alejandre and he recommends intervention radiology to see if they can declot the AV fistula today. States because of pt's insurance, she cannot go to the vascular center. Will obtain labs. IR consult placed. Called CT and they said IR will be in at 8am. Labs reviewed, no leukocytosis. K: 4.5. Creatinine elevated at 5.51. Pt is ESRD and this is better than her baseline. Pt is waiting for IR to attempt to declot her AV graft. Sign out to next team to follow up. Diagnosis Primary Impression: Clotted renal dialysis AV graft Qualified Codes: T82.868A - Thrombosis due to vascular prosthetic devices, implants and grafts, initial encounter Virgie Nam DO Jul 27, 2017 05:40
[2017-07-27 05:54] VITALS: BP 101/62; PULSE 72; RESP 16; O2SAT 98
[2017-07-27 06:05] LABS: AUTOMATED NEUTROPHIL # 7.4 TH/MM3 (1.8-7.7); BASOPHIL % 0.5 % (0.0-2.0); EOSINOPHIL # 0.2 TH/MM3 (0-0.4); EOSINOPHIL % 2.3 % (0.0-4.0); HEMATOCRIT 36.1 % (35.0-46.0); HEMO FLAGS DIFF FINAL; LYMPH % 16.1 % (9.0-44.0); LYMPHOCYTE # 1.6 TH/MM3 (1.0-4.8); MEAN CELL VOLUME 93.9 FL (80.0-100.0); MEAN CORPUSCULAR HEMOGLOBIN 30.7 PG (27.0-34.0); MEAN CORPUSCULAR HGB CONC 32.6 % (32.0-36.0); MONO % 7.8 % (0.0-8.0); NEUT % 73.3 % (16.0-70.0); PLATELET COUNT 254 TH/MM3 (150-450); RED BLOOD COUNT 3.84 MIL/MM3 (4.00-5.30); RED CELL DISTRIBUTION WIDTH 13.4 % (11.6-17.2); WHITE BLOOD COUNT 10.1 TH/MM3 (4.0-11.0)
[2017-07-27 06:16] LABS: INTERNATIONAL NORMALIZED RATIO 0.9 RATIO
[2017-07-27 06:27] LABS: BICARBONATE 28.9 MEQ/L (21.0-32.0); POTASSIUM 4.5 MEQ/L (3.5-5.1)
[2017-07-27 08:00] VITALS: BP 102/71; PULSE 68; RESP 17; O2SAT 98
[2017-07-27] MEDS ORDERED: MIDAZOLAM HCL 2 MG/2 ML VIAL ONE ×2 (11:41)
--- NOTE | 2017-07-27 13:17 | EKG ---
Date Performed: 07/27/2017 Time Performed: 05:34:13 PTAGE: 51 years EKG: Sinus rhythm NORMAL ECG PREVIOUS TRACING : 08/21/2015 15.08 Compared to prior tracing no significant change DOCTOR: Sloane Dickerson Interpretating Date/Time 07/27/2017 13:16:13
[2017-07-27] MEDS ORDERED: HEPARIN SODIUM - IV 10,000 UNITS/10 ML VIAL ONE (13:23)
[2017-07-27 15:07] VITALS: BP 132/75; PULSE 76; RESP 18; O2SAT 98
--- NOTE | 2017-07-27 15:11 | PD.RAD ---
Post Procedure Progress Note Pre Procedure Diagnosis: (1) ESRD (end stage renal disease) Post Procedure Diagnosis: (1) ESRD (end stage renal disease) Procedure Date: Jul 27, 2017 Supervising Radiologist: Jann Grullon Proceduralist/Assist: José Garvey, RT(R), Laura Guevara RT(R) Anesthesia: Local, Conscious Sedation Plan of Activity Patient to Unit: ROPU Patient Condition: Good See PACS Report for procedural detail/treatment Vascular-Venous Procedure Procedure 1 Procedure Site: Left Arm Procedure(s): AV Graft/Fistula Evaluation Access Closure Site(s): Left manual pressure Treament Area: Left Brachiobasilic AV graft thrombectomy with multifocal angioplasty Jann Grullon MD Jul 27, 2017 15:11
[2017-07-27 15:30] VITALS: BP 103/62; PULSE 74; RESP 17; O2SAT 97
--- NOTE | 2017-07-27 16:04 | PD ---
Physical Exam Narrative Patient came back from IR. Patient is in stable condition. Patient can be discharged. Data Data Last Documented VS Vital Signs Date Time Temp Pulse Resp B/P (MAP) Pulse Ox O2 Delivery O2 Flow Rate FiO2 07/27/17 17:30 07/27/17 16:27 69 17 97 Room Air 07/27/17 05:28 98.2 Orders Orders Electrocardiogram (07/27/17 ) Complete Blood Count With Diff (07/27/17 05:30) Basic Metabolic Panel (Bmp) (07/27/17 05:30) Prothrombin Time / Inr (Pt) (07/27/17 05:30) Act Partial Throm Time (Ptt) (07/27/17 05:30) Fentanyl Inj (Fentanyl Inj) (07/27/17 11:41) Fentanyl Inj (Fentanyl Inj) (07/27/17 11:41) Midazolam Inj (Versed Inj) (07/27/17 11:41) Midazolam Inj (Versed Inj) (07/27/17 11:41) Declot Arm Dialysis Shunt (07/27/17 05:51) Heparin Inj (Heparin Inj) (07/27/17 13:23) Vital Signs (Adult) Q15MX2,Q30MX4 (07/27/17 15:09) ^ Observe For (07/27/17 15:09) Activity Bed Rest (07/27/17 15:09) Elevate (07/27/17 15:09) Discharge Instructions (07/27/17 15:09) Labs Laboratory Tests Test 07/27/17 05:50 White Blood Count 10.1 TH/MM3 Red Blood Count 3.84 MIL/MM3 Hemoglobin 11.8 GM/DL Hematocrit 36.1 % Mean Corpuscular Volume 93.9 FL Mean Corpuscular Hemoglobin 30.7 PG Mean Corpuscular Hemoglobin Concent 32.6 % Red Cell Distribution Width 13.4 % Platelet Count 254 TH/MM3 Mean Platelet Volume 7.4 FL Neutrophils (%) (Auto) 73.3 % Lymphocytes (%) (Auto) 16.1 % Monocytes (%) (Auto) 7.8 % Eosinophils (%) (Auto) 2.3 % Basophils (%) (Auto) 0.5 % Neutrophils # (Auto) 7.4 TH/MM3 Lymphocytes # (Auto) 1.6 TH/MM3 Monocytes # (Auto) 0.8 TH/MM3 Eosinophils # (Auto) 0.2 TH/MM3 Basophils # (Auto) 0.0 TH/MM3 CBC Comment DIFF FINAL Differential Comment Prothrombin Time 10.0 SEC Prothromb Time International Ratio 0.9 RATIO Activated Partial Thromboplast Time 26.0 SEC Blood Urea Nitrogen 18 MG/DL Creatinine 5.51 MG/DL Random Glucose 104 MG/DL Calcium Level 9.4 MG/DL Sodium Level 137 MEQ/L Potassium Level 4.5 MEQ/L Chloride Level 100 MEQ/L Carbon Dioxide Level 28.9 MEQ/L Anion Gap 8 MEQ/L Estimat Glomerular Filtration Rate 10 ML/MIN MDM Supervised Visit with MATHEW: No Diagnosis Primary Impression: Clotted renal dialysis AV graft Qualified Codes: T82.868A - Thrombosis due to vascular prosthetic devices, implants and grafts, initial encounter Patient Instructions: General Instructions Additional Instruction: Follow-up with local physician. Med/Other Pt SpecificInfo: No Change to Meds Disposition: 01 DISCHARGE HOME Condition: Stable Gary Lang MD Jul 27, 2017 16:04
--- NOTE | 2017-07-27 16:26 | RADRPT ---
EXAM DATE/TIME: 07/27/2017 12:20 COMPARISON: No previous studies available for comparison. INDICATIONS : Dialysis patient with a clotted fistula. MEDICAL HISTORY : 1. ESRD 2. HTN 3. high cholesterol 4. GERD 5. Barretts 6. Esophageal stricture SURGICAL HISTORY : 1. Liver resection for hemangioma 2. CHoly 3. Dialysis fistula 4. perm cath 5. hysterectomy 6. total right knee ENCOUNTER: Initial ACUITY: 1 day PAIN SCORE: 0/10 FLUORO TIME: 21.7 minutes IMAGE SERIES: 15 ACCESS SITE: Left fistula SEDATION TIME: 105 minutes CONTRAST: 1.) 90 cc Omnipaque (iohexol) 350 MEDICATION(S): 1.) 4 mg midazolam (Versed) IV 2.) 200 mcg fentanyl (Sublimaze) IV DEVICE(S): 1.) Left AV graft SYSTEMS ARCHITECT balloon 6x4 mustang 2.) Left dialysis graft, brachial artery and ulnar artery 5 Hebrew Tamika catheter PROCEDURE : 1. Ultrasound guided puncture of the arterial limb of the fistula. 2. Ultrasound guided puncture of the venous limb of the fistula. 3. Evaluation of dialysis graft. 4. Central venography 5. Mechanical thrombectomy of dialysis graft. 6. multifocal venous angioplasty 7. Conscious sedation with continuous EKG and oximetry monitoring. The risks, benefits and alternatives to the procedure were explained and verbal and written consent w as obtained. The site was prepped in sterile fashion. Full sterile technique was used, including cap, mask, steri le gloves and gown and a large sterile sheet. Hand hygiene and 2% chlorhexidine and/or betadine/alco hol prep was utilized per protocol for cutaneous antisepsis. The skin and subcutaneous tissues were infiltrated with local anesthetic solution. With ultrasound and fluoroscopic guidance the arterial limb of the fistula was punctured directed tow stan the venous anastomosis and a 6 Hebrew sheath was placed. A Berenstein catheter was at advanced t hrough the clotted portion of the graft into the central venous system to confirm patency. This demo nstrates no evidence of central venous stenosis. A fistulogram was performed through the previously placed sheath demonstrating thrombus within the fistula. Following this, mechanical thrombectomy of the graft was performed using a partially inflated 5 Hebrew Tamika balloon and manual maceration yrn hniques and angioplasty was then performed with a fully inflated 6 mm balloon at the level of the margarette ous anastomosis. Followup angiography demonstrates resolution of the clot within the fistula. Areas of intrinsic graft stenosis were also treated with balloon dilatation to 6 mm. Attention was then turned to the arterial limb of the fistula. With ultrasound and and fluoroscopic guidance the venous limb of the fistula was punctured towards the arterial anastomosis and a 6 Hebrew sheath was placed. A guidewire was advanced through the arterial anastomosis. The declotting 5 Fren ch Tamika balloon was gently manipulated across the arterial anastomosis, gently inflated and retrac guilherme into the fistula to dislodge clot from the arterial limb. Followup examination the fistula demons trates good flow through the fistula. During the course of resolving clot at the arterial anastomosis, a small volume of thrombus embolized into the brachial artery and became lodged in the proximal ulnar artery. With the assistance of an a ngled Glidewire and Berenstein catheter, 5 Hebrew Tamika catheter was taken down into the ulnar denis ry and used to retract this thrombus which was then pulled back through the graft. Completion arterio graphy revealed satisfactory flow in the brachial, ulnar and interosseous vessels. The radial artery appears chronically occluded. The sheaths were removed and hemostasis obtained. The patient tolerated the procedure well and there were no complications. Conscious sedation was per formed with the prescribed dosages and duration as above. EKG and oximetry remained stable throughou t the procedure. CONCLUSION: Uncomplicated declotting of thrombosed dialysis graft as described in detail above. Jann Grullon MD on July 27, 2017 at 16:15 Board Certified Radiologist. This report was verified electronically.
[2017-07-27 16:27] VITALS: BP 107/63; PULSE 69; RESP 17; O2SAT 97
== END 2017-07-27 17:54 | disposition home or self-care (01) ==
LOC: NEPE 05:18
DX: T82.868A Thrombosis due to vascular prosthetic devices, implants and grafts, initial encounter (principal); I95.3 Hypotension of hemodialysis; I12.0 Hypertensive chronic kidney disease with stage 5 chronic kidney disease or end stage renal disease; N18.6 End stage renal disease; E78.5 Hyperlipidemia, unspecified; K21.9 Gastro-esophageal reflux disease without esophagitis; K57.92 Diverticulitis of intestine, part unspecified, without perforation or abscess without bleeding; M13.862 Other specified arthritis, left knee; M13.861 Other specified arthritis, right knee
CPT/HCPCS: 36593; 36905; 76937; 80048; 85025; 85610; 85730; 93005; 96374; 96375; 99152; 99153; 99284; C1725; C1757; C1769; C1887; C1894; J1644; J2250; J3010

== ENCOUNTER 2017-07-29 09:35 | Observation (INO) | payer OTHER ==
[~2017-07-29] VITALS: Ht 163.8 cm; Wt 105.6 kg
[~2017-07-29 09:35] MED LIST changes: -TENE1TAB PO
[2017-07-29] MEDS ORDERED: IODIXANOL 320 MG/ML 50 ML VIAL (for RAD SPEC) I-ARTERIAL ONE (09:36)
[2017-07-29 09:51] VITALS: BP 124/76; PULSE 77; RESP 20; TEMP 98.3; O2SAT 94
[2017-07-29] MEDS ORDERED: VANCOMYCIN 1,000 MG/NS 250 ML IV ONE ×2 (11:00)
[2017-07-29] MEDS ORDERED: MIDAZOLAM HCL 2 MG/2 ML VIAL ONE ×4 (11:59→16:33)
--- NOTE | 2017-07-29 12:23 | RADRPT ---
EXAM DATE/TIME: 07/29/2017 11:42 [facility] COMPARISON: No previous studies available for comparison. INDICATIONS : Patient needs IV access for declot. MEDICAL HISTORY : 1.ESRD 2. HTN 3. GERD 4. Barretts SURGICAL HISTORY : 1. AV fistula 2. Liver resection for hemangioma 3. perm cath ENCOUNTER: Initial ACUITY: 1 day PAIN SCORE: 0/10 IMAGE SERIES: ACCESS: Right basilic vein DEVICE(S): 1.) 3/4 Occitan Dilator PROCEDURE : 1. Ultrasound guided venous access. The risks, benefits and alternatives to the procedure were explained and verbal and written consent w as obtained. The site was prepped in sterile fashion. Full sterile technique was used, including ca p, mask, sterile gloves and gown and a large sterile sheet. Hand hygiene and 2% chlorhexidine and/or betadine/alcohol prep was utilized per protocol for cutaneous antisepsis. The skin and subcutaneous tissues were infiltrated with local anesthetic solution. Sterile gel and sterile probe cover were u tilized for ultrasound guidance. With ultrasound guidance the prescribed vein was punctured for venous access. A 4 Occitan dilator was placed and was flushed and locked with heparin. The patient tolerated procedure well and there were n o complications. CONCLUSION: Uncomplicated ultrasound guided venous access. Jann Grullon MD on July 29, 2017 at 12:21 Board Certified Radiologist. This report was verified electronically.
[2017-07-29] MEDS ORDERED: ALTEPLASE RECOMBINANT 2 MG VIAL I-ARTERIAL ONE (13:08)
[2017-07-29] MEDS ORDERED: STERILE WATER FOR INJECTION 10 ML VIAL ONE (13:19)
[2017-07-29] MEDS ORDERED: HEPARIN SODIUM - IV 10,000 UNITS/10 ML VIAL ONE (13:19)
[2017-07-29 14:55] VITALS: BP 137/74; PULSE 71; RESP 16; TEMP 98.1; O2SAT 95
[2017-07-29] MEDS ORDERED: HEPARIN SODIUM - IV 2,000 UNITS/2 ML VIAL IV FLUSH PRN ×2 (15:00→17:15)
[2017-07-29] MEDS ORDERED: SODIUM CHLORIDE 0.9% FLUSH 10 ML FLUSH IVF PRN ×2 (15:00→17:15)
[2017-07-29 15:10] VITALS: BP 122/74; PULSE 71; RESP 16; O2SAT 96
--- NOTE | 2017-07-29 15:10 | RADRPT ---
EXAM DATE/TIME: 07/29/2017 10:30 [place] COMPARISON: DECLOT ARM DIALYSIS SHUNT, LEFT, July 27, 2017, 12:20. INDICATIONS : Patient with occluded AV dialysis graft in need of declot. MEDICAL HISTORY : ESRD, HTN, HLD, GERD, Barretts esophagus, Esophageal stricture, Dialysis SURGICAL HISTORY : Left AV fistula, Liver resection for hemangioma, Permcath placement, Total right knee replacement, Ch olecystectomy ENCOUNTER: Subsequent ACUITY: 2 days PAIN SCORE: 0/10 FLUORO TIME: 20.3 minutes IMAGE SERIES: 10 ACCESS SITE: Left fistula SEDATION TIME: 135 minutes CONTRAST: 1.) 75 cc Visipaque (iodixanol) MEDICATION(S): 1.) 3.5 mg midazolam (Versed) IV 2.) 175 mcg fentanyl (Sublimaze) IV DEVICE(S): 1.) Left AV Graft BRONZER balloon Compensation Manager [id number] 75CM 2.) Left AV Graft BRONZER balloon Peripheral cutting balloon [id number] 90CM 3.) Left subclavian vein Conrado [id number] 135CM BRONZER balloon 4.) Left AV Graft stent (self expanding) Bard E Luminexx [id number] 80CM 5.) Left AV Graft BRONZER balloon Compensation Manager [id number] 135CM 6.) Left AV Graft Syvek pad X2 PROCEDURE : 1. Ultrasound guided puncture of the arterial limb of the fistula. 2. Ultrasound guided puncture of the venous limb of the fistula. 3. Evaluation of dialysis graft. 4. TPA thrombolysis of dialysis graft. 5. Mechanical thrombolysis of dialysis graft. 6. Angioplasty of the venous anastomosis. 7. Angioplasty of the arterial anastomosis. 8. Upper extremity venogram. 9. Superior venacavogram. 10. Stent placement at the venous anastomosis 11. Angioplasty of the left subclavian vein 12. Conscious sedation with continuous EKG and oximetry monitoring. The risks, benefits and alternatives to the procedure were explained and verbal and written consent w as obtained. The site was prepped in sterile fashion. Full sterile technique was used, including cap, mask, steri le gloves and gown and a large sterile sheet. Hand hygiene and 2% chlorhexidine and/or betadine/alco hol prep was utilized per protocol for cutaneous antisepsis. Sterile gel and sterile probe cover wer e utilized for ultrasound guidance. The skin and subcutaneous tissues were infiltrated with local an esthetic solution. With ultrasound and fluoroscopic guidance the arterial limb of the fistula was punctured directed tow stan the venous anastomosis and a 6 Icelandic sheath was placed. A Andera catheter was at advanced t hrough the clotted portion of the graft into the superior vena cava where a superior cavogram was per formed in the AP projection. This demonstrates stenosis at the junction of the brachial or subclavia n vein. A 1010 mm balloon was used to treat this area of stenosis involving artery demonstrates no re sidual stenosis.. The catheter was then retracted where venogram of the upper extremity was performe d. A fistulogram was performed through the previously placed sheath demonstrating thrombus within th e fistula. Following this through the previously placed sheath 6 mg of TPA and 5000 units of heparin were placed within the fistula. Mechanical thrombectomy of the graft was performed using a partially inflated balloon and angioplasty was then performed with a fully inflated 6 mm balloon at the level of the venous anastomosis. Followup angiography demonstrates resolution of the clot within the fistu la but persistent stenosis was identified at the level of the venous anastomosis despite the use of t he cutting balloon. The prescribed stent was deployed and expanded with a 10 mm balloon. Followup maura dy demonstrates good flow through the fistula. Attention was then turned to the arterial limb fistula. With ultrasound and and fluoroscopic guidanc e the venous limb of the fistula was punctured towards the arterial anastomosis and a 6 Icelandic sheath was placed. A guidewire was advanced through the arterial anastomosis where angioplasty was perform ed at this level. Followup examination the fistula demonstrates good flow through the fistula and no evidence of residual stenosis. The patient tolerated the procedure well and there were no complications. Conscious sedation was per formed with the prescribed dosages and duration as above in the presence of an independent trained ra diology nurse to assist in the monitoring of the patient. EKG and oximetry remained stable throughou t the procedure. CONCLUSION: 1. Uncomplicated thrombolysis of the arteriovenous fistula. 2. Stenting of central venous stenosis of the left subclavian vein was performed. 3. Persistent stenosis at the venous anastomosis required stent placement. Ar Morris MD on July 29, 2017 at 15:04 Board Certified Radiologist. This report was verified electronically.
--- NOTE | 2017-07-29 15:14 | PD.RAD ---
Post Procedure Progress Note Pre Procedure Diagnosis: (1) ESRD (end stage renal disease) Post Procedure Diagnosis: (1) ESRD (end stage renal disease) Procedure Date: Jul 29, 2017 Supervising Radiologist: Ar Morris Proceduralist/Assist: Khalida Judge, RT(R)(CV), Laura Guevara RT(R) Anesthesia: Conscious Sedation Plan of Activity Patient to Unit: ROPU Patient Condition: Good See PACS Report for procedural detail/treatment Vascular-Venous Procedure Procedure 1 Procedure Site: Left Arm Procedure(s): Angioplasty, AV Graft/Fistula Evaluation, Stent Placement, Thrombolysis Access Access Site(s): Graft/Fistula Ar Morris MD Jul 29, 2017 15:14
[2017-07-29] MEDS ORDERED: LIDOCAINE 1%/EPINEPHrine 1:200,000 PF SOLN 30 ML VIAL ONE (15:43)
[2017-07-29] MEDS ORDERED: SODIUM CHLOR 0.9% 1000 ML INJ 1,000 ML IV PRN (15:49)
[2017-07-29] MEDS ORDERED: SODIUM CHLOR 0.9% 1000 ML INJ 1,000 ML OTHER PRN ×2 (15:49)
--- NOTE | 2017-07-29 15:49 | PD.CONS ---
HPI Service Nephrology Consult Requested By Reason for Consult ESRD on HD Primary Care Physician Caro Emanuel MD History of Present Illness This is a 51 y/o AAF patient who has ESRD. She does nocturnal dialysis MWF. She had treatment Wednesday, but at the end became dizzy. They attempted to recannulate her AV graft but were unsuccessful.They sent her in for declotting on Wednesday morning. When they went to access her again Wednesday, it was not functioning. She was sent in for another declotting today. The radiologist attempted to balloon and stent the graft but was unsuccessful. It is now bleeding slightly. She is to have a Perm Cath placed for dialysis today. We were consulted for dialysis management. (Citlali Cosby) Review of Systems Constitutional: DENIES: Fatigue Cardiovascular: DENIES: Chest pain Gastrointestinal: DENIES: Abdominal pain Musculoskeletal: COMPLAINS OF: Muscle aches, DENIES: Joint pain, Joint Swelling Hematologic/lymphatic: COMPLAINS OF: Bruising (Citlali Cosby) Past Family Social History Allergies: Coded Allergies: cephalexin (Unverified Allergy, Severe, Hives, 07/29/17) onion (Unverified Allergy, Severe, 07/29/17) prednisolone (Unverified Allergy, Severe, 07/13/17) Sulfa (Sulfonamide Antibiotics) (Unverified Adverse Reaction, Intermediate , Nausea/Vomiting, 07/29/17) amlodipine (Unverified Adverse Reaction, Intermediate, 07/29/17) PT DENIES ALLERGY atorvastatin (Unverified Adverse Reaction, Intermediate, 07/13/17) PT DENIES ALLERGY pravastatin (Unverified Adverse Reaction, Intermediate, 07/13/17) PT DENIES ALLERGY simvastatin (Unverified Adverse Reaction, Intermediate, 07/13/17) PT DENIES ALLERGY Past Medical History ESRD on HD -- HTN Hyperlipidemia arthritis GERD anemia metabolic bone disorder Diverticulitis Barretts Esophagus Past Surgical History Liver resection for hemangioma by Dr. Sanz [facility] knee AVG on left arm L partial lobectomy Reported Medications Renvela (Sevelamer Carbonate) 800 Mg Tab 1,600 Mg PO TID Protonix (Pantoprazole Sodium) 40 Mg Tab 40 Mg PO DAILY Ondansetron Odt 4 Mg Tab 4 Mg SL Q6HR PRN Losartan (Losartan Potassium) 25 Mg Tab 25 Mg PO DAILY Tenex (Guanfacine HCl) 1 Mg Tab 1 Mg PO HS Do not crush, chew or divide tablet. Take with a meal. 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 [employer] ambulates with walker full code (Citlali Cosby) Physical Exam Vital Signs Vital Signs Date Time Temp Pulse Resp B/P (MAP) Pulse Ox O2 Delivery O2 Flow Rate FiO2 07/29/17 15:10 71 16 122/74 (90) 96 07/29/17 14:55 98.1 71 16 137/74 (95) 95 07/29/17 10:05 94 Room Air 07/29/17 09:51 98.3 77 20 124/76 (92) 94 Physical Exam Young appearing AAF, lying supine on strecher awake/alert/oriented without neuro deficit S1/s2, regular rate, no murmur lungs; clear in all sepulveda abdomen: obese, non tender, no guarding extremities: no edema, AVF on left arm with out thrill/bruit; dressing in place postoperatively ; some minor bleeding; minor edema and pain (Citlali Cosby) Assessment and Plan Problem List: (1) ESRD (end stage renal disease) ICD Codes: N18.6 - End-stage renal disease Status: Acute Plan: Typical [facility] HD schedule, her last HD was Wednesday to have PermCath placed, and HD later this evening she does not require IVF to be admitted as observation for dialysis only (2) Metabolic bone disease ICD Codes: E88.9 - Metabolic disorder, unspecified; M90.80 - Osteopathy in diseases classified elsewhere, unspecified site Plan: begin renvela per home medication list (3) Hypertension ICD Codes: I10 - Hypertension Status: Chronic Plan: continue home medications (4) Anemia ICD Codes: D64.9 - Anemia Status: Acute Plan: Hb stable, not required (5) AV graft malfunction ICD Codes: T82.590A - Other mechanical complication of surgically created arteriovenous fistula, initial encounter Plan: unsuccessful declotting, balloon, stenting will need new access in the future to have permcath placed to continue HD (Citlali Cosby) Assessment and Plan patient was seen and examined. Agree with above assessment and plan. To have PermCath placement. Dialysis today here in the hospital as she missed dialysis treatment yesterday. Possible discharge tomorrow. (Devante Alejandre MD) Citlali Cosby Jul 29, 2017 15:49 Devante Alejandre MD Jul 29, 2017 16:30
[2017-07-29] MEDS ORDERED: MANNITOL 12.5 GM/50 ML VIAL IV PRN (16:00)
[2017-07-29] MEDS ORDERED: HEPARIN SODIUM - IV 10,000 UNITS/10 ML VIAL PRN (16:00)
[2017-07-29] MEDS ORDERED: cloNIDine HCL 0.1 MG TAB PO PRN (16:00)
[2017-07-29] MEDS ORDERED: diphenhydrAMINE HCL 25 MG CAP PO PRN (16:00)
[2017-07-29] MEDS ORDERED: ONDANSETRON HCL 4 MG/2 ML VIAL IV PRN (16:00)
[2017-07-29] MEDS ORDERED: GELATIN 12 MM/7 MM FOAM TOP PRN (16:00)
[2017-07-29] MEDS ORDERED: HEPARIN SODIUM - IV 10,000 UNITS/10 ML VIAL IVF PRN (16:00)
[2017-07-29] MEDS ORDERED: ACETAMINOPHEN 325 MG TAB PO PRN (16:00)
[2017-07-29] MEDS ORDERED: NITROGLYCERIN 0.4 MG SL 25 TABS/BTL SL PRN (16:00)
[2017-07-29] MEDS ORDERED: SODIUM CHLORIDE 0.9% FLUSH 10 ML FLUSH IV FLUSH PRN (16:00)
[2017-07-29] MEDS ORDERED: GENTAMICIN SULFATE (DIALYSIS USE ONLY) 20 MG/2 ML VIAL IV PRN (16:00)
[2017-07-29] MEDS ORDERED: ALBUMIN HUMAN 25% 25 GM/100 ML BAGP IV PRN (16:00)
--- NOTE | 2017-07-29 17:03 | PD.RAD ---
Post Procedure Progress Note Pre Procedure Diagnosis: (1) Arteriovenous fistula occlusion Post Procedure Diagnosis: (1) Arteriovenous fistula occlusion Procedure Date: Jul 29, 2017 Supervising Radiologist: Ar Morris Proceduralist/Assist: Yazmin Rojas RT(R)(), Neda Vidal RT(R) Anesthesia: Conscious Sedation Plan of Activity Patient to Unit: Nursing Unit Patient Condition: Fair See PACS Report for procedural detail/treatment Central Venous Access Device Procedure 1 Right Subclavian Hemodialysis Catheter Tunneled Placement dual lumen Ar Morris MD Jul 29, 2017 17:03
[2017-07-29 21:11] VITALS: BP 108/70; PULSE 88; RESP 20; TEMP 96; O2SAT 99
[2017-07-29] MEDS ORDERED: ACETAMINOPHEN/HYDROcodone 325 MG/5 MG TAB PO PRN (23:30)
[2017-07-29 23:36] VITALS: BP 107/61; PULSE 78; RESP 20; TEMP 97.5; O2SAT 97
[2017-07-30 08:00] VITALS: BP_SYST 85; BP_SYST 88; BP_DIAS 57; BP_DIAS 62; PULSE 104; RESP 12; TEMP 98.9; O2SAT 98
--- NOTE | 2017-07-30 11:58 | HHI.NPPN ---
Subjective Renal Failure: Chronic, End Stage Renal Disease Interval History She had dialysis yesterday after Permcath placement. To be discharged today. (Citlali Cosby) Review of Systems General Constitutional: Fatigue (Citlali Cosby) Objective Data Data Vital Signs Date Time Temp Pulse Resp B/P (MAP) Pulse Ox O2 Delivery O2 Flow Rate FiO2 07/30/17 08:15 Nasal Cannula 2.00 07/30/17 08:00 98.9 104 12 85/57 (66) 98 88/62 (71) 07/29/17 23:36 97.5 78 20 107/61 (76) 97 07/29/17 21:11 96.0 88 20 108/70 (83) 99 07/29/17 20:40 Nasal Cannula 2.00 07/29/17 15:10 71 16 122/74 (90) 96 07/29/17 14:55 98.1 71 16 137/74 (95) 95 (Citlali Cosby) Imaging Last 72 hours Impressions [facility] [place] Interventional Procedure 07/29/17 1109 Signed Impressions: Service Date/Time: June 11:42 - CONCLUSION: Uncomplicated ultrasound guided venous access. Jann Grullon MD Shunt Study 07/29/17 0000 Signed Impressions: Service Date/Time: June 10:30 - CONCLUSION: 1. Uncomplicated thrombolysis of the arteriovenous fistula. 2. Stenting of central venous stenosis of the left subclavian vein was performed. 3. Persistent stenosis at the venous anastomosis required stent placement. Ar Morris MD Tubes & Lines: Perma-Cath (Citlali Cosby) Physical Exam General Appearance: Well Developed, No Acute Distress, Comfortable, Obese (Citlali Cosby) Throat Throat Exam: Oral Mucosa [place] & Moist (Citlali Cosby) Neck Neck Exam: Neck Supple (Citlali Cosby) Pulmonary Resp Exam: Clear Bilaterally, Breath Sounds Equal (Citlali Cosby) Cardiology CV Exam: Regular, Normal Sinus Rhythm (Citlali Cosby) Gastrointestinal/Abdomen GI Exam: Soft, Non-Tender (Citlali Cosby) Musculoskeletal MS Exam: Joints Intact, Normal Gait, Normal Tone, Good Strength (Citlali Cosby) Integumentary Skin Exam: Warm, Dry Skin Remarks left arm slight edema, some pain no thrill/bruit (Citlali Cosby) Extremeties Extremities Exam: No Edema, Pedal Pulses Palpable (Citlali Cosby) Neurologic Neuro Exam: Alert, Awake, Oriented, Speech Clear, Moving All Extremities (Citlali Cosby) Assessment/Plan Discussed Condition With: Patient Assessment Summary: End Stage Renal Disease Problem List: (1) ESRD (end stage renal disease) ICD Codes: N18.6 - End-stage renal disease Status: Acute Plan: Typical MWF HD schedule, she was dialyzed yesterday as she missed Wed treatment, 3L UF s/p PermCath placement stable for discharge today to resume nocturnal HD at 6pm tonight, D/W patient she does not require IVF (2) Metabolic bone disease ICD Codes: E88.9 - Metabolic disorder, unspecified; M90.80 - Osteopathy in diseases classified elsewhere, unspecified site Plan: continue renvela (3) Hypertension ICD Codes: I10 - Hypertension Status: Chronic Plan: BP borderline low home meds held at this time (4) Anemia ICD Codes: D64.9 - Anemia Status: Acute Plan: Hb stable, epogen not required (5) AV graft malfunction ICD Codes: T82.590A - Other mechanical complication of surgically created arteriovenous fistula, initial encounter Plan: unsuccessful declotting, balloon, stenting will need new access in the future, can follow with Dr. Raines outpatient Plan cleared for discharge from renal perspective (Citlali Cosby) Plan patient was seen and examined. Dialyzed yesterday. Discharge today. Agree with above assessment and plan. (Devante Alejandre MD) Problem Qualifiers (1) AV graft malfunction: Qualified Codes: T82.590A - Other mechanical complication of surgically created arteriovenous fistula, initial encounter Citlali Cosby Jul 30, 2017 11:58 Devante Alejandre MD Jul 30, 2017 15:18
[2017-07-30 12:00] VITALS: BP 107/70; PULSE 80; RESP 16; TEMP 96.9; O2SAT 96
--- NOTE | 2017-07-30 12:19 | HHI.HP ---
HPI Service [facility] Hospitalists Primary Care Physician Caro Emanuel MD Admission Diagnosis Diagnoses: (1) ESRD (end stage renal disease) (2) AV graft malfunction (3) Hypertension Chief Complaint: AV graft malfunctioning, dizziness Travel History International Travel<30 Days: No Contact w/Intl Traveler <30 Da: No Traveled to Known Affected Are: No History of Present Illness 51-year-old female with a history of end-stage renal disease on hemodialysis was brought in for evaluation of AV graft malfunctioning. Apparently on 07/26/17 as patient was completely hemodialysis she became dizzy due to severe hypotension. As the staff was trying to recannulate her AV graft , this became unsuccessful and patient was then sent for declotting on 07/27/17 with interventional radiology. Patient was then discharged home. However on during dialysis, she had AV graft malfunctioning which couldn't be assess therefore patient missed HD. She was sent to [facility] for evaluation by interventional radiology. In attempts to balloon and stented graft was unsuccessful yesterday, complicated by bleeding. Patient underwent emergent permacath placement for hemodialysis yesterday 07/29/17. During my exam, she appears stable and the bleeding has stopped. She has no other issues. Review of Systems Except as stated in HPI: all other systems reviewed are Neg Past Family Social History Past Medical History ESRD on HD M-W-F HTN Hyperlipidemia Arthritis GERD, Barretts Esophagus Anemia of chronic disease -renal Metabolic bone disorder Diverticulitis Past Surgical History Liver resection for hemangioma by Dr. Sanz [facility] knee AV graft L partial lobectomy Reported Medications Renvela (Sevelamer Carbonate) 800 Mg Tab 1,600 Mg PO TID Protonix (Pantoprazole Sodium) 40 Mg Tab 40 Mg PO DAILY Ondansetron Odt 4 Mg Tab 4 Mg SL Q6HR PRN Losartan (Losartan Potassium) 25 Mg Tab 25 Mg PO DAILY Tenex (Guanfacine HCl) 1 Mg Tab 1 Mg PO HS Do not crush, chew or divide tablet. Take with a meal. Coreg (Carvedilol) 25 Mg Tab 25 Mg PO BID Sensipar (Cinacalcet) 30 Mg Tab 30 Mg PO DAILY Allergies: Coded Allergies: cephalexin (Unverified Allergy, Severe, Hives, 07/29/17) onion (Unverified Allergy, Severe, 07/29/17) prednisolone (Unverified Allergy, Severe, 07/13/17) Sulfa (Sulfonamide Antibiotics) (Unverified Adverse Reaction, Intermediate , Nausea/Vomiting, 07/29/17) amlodipine (Unverified Adverse Reaction, Intermediate, 07/29/17) PT DENIES ALLERGY atorvastatin (Unverified Adverse Reaction, Intermediate, 07/13/17) PT DENIES ALLERGY pravastatin (Unverified Adverse Reaction, Intermediate, 07/13/17) PT DENIES ALLERGY simvastatin (Unverified Adverse Reaction, Intermediate, 07/13/17) PT DENIES ALLERGY Family History Family history positive for diabetes type 2, hypertension Social History She denies tobacco, alcohol or illicit drug intake Physical Exam Vital Signs Vital Signs Date Time Temp Pulse Resp B/P (MAP) Pulse Ox O2 Delivery O2 Flow Rate FiO2 07/30/17 08:15 Nasal Cannula 2.00 07/30/17 08:00 98.9 104 12 85/57 (66) 98 88/62 (71) 07/29/17 23:36 97.5 78 20 107/61 (76) 97 07/29/17 21:11 96.0 88 20 108/70 (83) 99 07/29/17 20:40 Nasal Cannula 2.00 07/29/17 15:10 71 16 122/74 (90) 96 07/29/17 14:55 98.1 71 16 137/74 (95) 95 Physical Exam GENERAL: This is a well-nourished, well-developed patient, in no apparent distress. SKIN: No rashes, ecchymoses or lesions. Cool and dry. Minimal swelling left upper extremity HEAD: Atraumatic. Normocephalic. No temporal or scalp tenderness. EYES: Pupils equal round and reactive. Extraocular motions intact. No scleral icterus. No injection or drainage. ENT: Nose without bleeding, purulent drainage or septal hematoma. Throat without erythema, tonsillar hypertrophy or exudate. Uvula midline. Airway patent. NECK: Trachea midline. No JVD or lymphadenopathy. Supple, nontender, no meningeal signs. CARDIOVASCULAR: Regular rate and rhythm without murmurs, gallops, or rubs. Permacath in place right anterior chest RESPIRATORY: Clear to auscultation. Breath sounds equal bilaterally. No wheezes , rales, or rhonchi. GASTROINTESTINAL: Abdomen soft, non-tender, nondistended. No hepato-splenomegaly , or palpable masses. No guarding. MUSCULOSKELETAL: Extremities without clubbing, cyanosis, or edema. No joint tenderness, effusion, or edema noted. No calf tenderness. Negative Homans sign bilaterally. NEUROLOGICAL: Awake and alert. Cranial nerves II through XII intact. Motor and sensory grossly within normal limits. Five out of 5 muscle strength in all muscle groups. Normal speech. Septic Shock Reassessment Heart: Regular rate and rhythm Lungs: Clear Skin: Warm Peripheral Pulses: Bounding Right Radial Bounding Left Radial Bounding Right Popliteal Bounding Left Popliteal Bounding Right Dorsalis Pedis Bounding Left Dorsalis Pedis Bounding Right Posterior Tibial Bounding Left Posterior Tibial Capillary Refill: >2 seconds Caprini VTE Risk Assessment Caprini VTE Risk Assessment: No/Low Risk (score <= 1) Caprini Risk Assessment Model Point Value = 1 Point Value = 2 Point Value = 3 Point Value = 5 Age 41-60 Minor surgery BMI > 25 kg/m2 Swollen legs Varicose veins or History of unexplained or recurrent spontaneous Oral contraceptives or hormone replacement Sepsis (< 1 month) Serious lung disease, including pneumonia (< 1 month) Abnormal pulmonary function Acute myocardial infarction Congestive heart failure (< 1 month) History of inflammatory bowel disease Medical patient at bed rest Age 61-74 Arthroscopic surgery Major open surgery (> 45 min) Laparoscopic surgery (> 45 min) Malignancy Confined to bed (> 72 hours) Immobilizing plaster cast Central venous access Age >= 75 History of VTE Family history of VTE Factor V Leiden Prothrombin 20255A Lupus anticoagulant Anticardiolipin antibodies Elevated serum homocysteine Heparin-induced thrombocytopenia Other congenital or acquired thrombophilia Stroke (< 1 month) Elective arthroplasty Hip, pelvis, or leg fracture Acute spinal cord injury (< 1 month) Prophylaxis Regimen Total Risk Factor Score Risk Level Prophylaxis Regimen 0-1 Low Early ambulation 2 Moderate Order ONE of the following: *Sequential Compression Device (SCD) *Heparin 5000 units SQ BID 3-4 Higher Order ONE of the following medications: *Heparin 5000 units SQ TID *Enoxaparin/Lovenox 40 mg SQ daily (WT < 150 kg, CrCl > 30 mL/min) *Enoxaparin/Lovenox 30 mg SQ daily (WT < 150 kg, CrCl > 10-29 mL/min) *Enoxaparin/Lovenox 30 mg SQ BID (WT < 150 kg, CrCl > 30 mL/min) AND/OR *Sequential Compression Device (SCD) 5 or more Highest Order ONE of the following medications: *Heparin 5000 units SQ TID (Preferred with Epidurals) *Enoxaparin/Lovenox 40 mg SQ daily (WT < 150 kg, CrCl > 30 mL/min) *Enoxaparin/Lovenox 30 mg SQ daily (WT < 150 kg, CrCl > 10-29 mL/min) *Enoxaparin/Lovenox 30 mg SQ BID (WT < 150 kg, CrCl > 30 mL/min) AND *Sequential Compression Device (SCD) Assessment and Plan Problem List: (1) ESRD (end stage renal disease) ICD Code: N18.6 - End-stage renal disease Status: Acute (2) AV graft malfunction ICD Code: T82.590A - Other mechanical complication of surgically created arteriovenous fistula, initial encounter (3) Hypertension ICD Code: I10 - Hypertension Status: Chronic Assessment and Plan 51-year-old female with End-stage renal disease on hemodialysis AV graft malfunctioning Status post permacath placement She had hemodialysis yesterday, and she is scheduled for hemodialysis outpatient today 07/30/17 Management per nephrology Patient will follow outpatient with vascular surgery for AV graft placement Metabolic bone disease Currently on Renvela Anemia of chronic disease H&H stable History of hypertension Secondary to soft BP, continue to hold home medications Patient is medically stable and will be discharged home today Discharge patient to home Condition on discharge: Improved Healthy Diet as tolerated Ad Lorin activity Rx written: none Follow-up with primary care physician in1 week Follow-up with nephrology for hemodialysis as scheduled Code Status Full code Discussed Condition With Patient Valdemar Rothman MD Jul 30, 2017 12:19
[2017-07-30] MEDS ORDERED: SEVELAMER CARBONATE 800 MG TAB PO SCH (13:00)
--- NOTE | 2017-07-30 15:56 | RADRPT ---
EXAM DATE/TIME: 07/29/2017 15:35 [facility] COMPARISON: PERM CV CATH PLCMT W US RIGHT, October 08, 2015, 13:17. INDICATIONS : Patient with an occluded AV fistula, needs permcath for dialysis. MEDICAL HISTORY : ESRD, HTN, HLD, GERD, Barretts esophagus, Esophageal stricture, Dialysis SURGICAL HISTORY : Left AV fistula, Liver resection for hemangioma, Permcath placement, Total right knee replacement, Ch olecystectomy ENCOUNTER: Initial ACUITY: 1 day PAIN SCORE: 6/10 LOCATION: left arm FLUORO TIME: 0.8 minutes IMAGE SERIES: 1 SEDATION TIME: 30 minutes ACCESS: Right subclavian vein SEDATION: 1.) 2.5 mg midazolam (Versed) IV 2.) 125 mcg fentanyl (Sublimaze) IV Prophylactic antibiotics were administered with appropriate pre-procedure timing. Vancomycin within 2 hours of procedure, Ancef (or alternative) within 1 hour of procedure. DEVICE: 1. 15 Mongolian dual lumen 27 cm Rousseau II Plus catheter PROCEDURE : 1. Ultrasound-guided venipuncture. 2. PermaCath placement. 3. Conscious sedation with continuous EKG and oximetry monitoring. The risks, benefits and alternatives to the procedure were explained and verbal and written consent w as obtained. The site was prepped in sterile fashion. Full sterile technique was used, including ca p, mask, sterile gloves and gown and a large sterile sheet. Hand hygiene and 2% chlorhexidine and/or betadine/alcohol prep was utilized per protocol for cutaneous antisepsis. Sterile gel and sterile p robe cover were utilized for ultrasound guidance. The skin and subcutaneous tissues were infiltrated with local anesthetic solution. With ultrasound and fluoroscopic guidance a dermatotomy was created over the prescribed vein. A micr opuncture set was used to access the targeted vein and serial dilatation was performed to accept the prescribed length catheter. A subcutaneous tunnel was created in a retrograde fashion the catheter w as pulled through the tunnel. The catheter was flushed and assembled and locked with heparin. The c atheter was sutured in place. Conscious sedation was performed with the prescribed dosages and duration as above in the presence of an independent trained radiology nurse to assist in the monitoring of the patient. EKG and oximetry remained stable throughout the procedure. The patient tolerated the procedure well and there were n o complications. The patient was sent to post anesthesia recovery in stable condition. CONCLUSION: Uncomplicated PermaCath placement as above. Ar Morris MD on July 30, 2017 at 15:55 Board Certified Radiologist. This report was verified electronically.
== END 2017-07-30 14:08 | disposition home or self-care (01) ==
LOC: HROP 09:35 → HRIP 09:36 → N07B 20:15 → HROP 20:15
PROVIDERS: ADMIT Internal Medicine Nephrology; ATTEND Internal Medicine Nephrology
DX: T82.590A Other mechanical complication of surgically created arteriovenous fistula, initial encounter (principal); I12.0 Hypertensive chronic kidney disease with stage 5 chronic kidney disease or end stage renal disease; N18.6 End stage renal disease; D63.1 Anemia in chronic kidney disease; K21.9 Gastro-esophageal reflux disease without esophagitis; I95.9 Hypotension, unspecified; E78.5 Hyperlipidemia, unspecified; E88.89 Other specified metabolic disorders; K22.70 Barrett's esophagus without dysplasia; Z99.2 Dependence on renal dialysis; K57.92 Diverticulitis of intestine, part unspecified, without perforation or abscess without bleeding; M19.90 Unspecified osteoarthritis, unspecified site
CPT/HCPCS: 36410; 36558; 36906; 37248; 76937; 77001; 90935; 96374; 96375; 99152; 99153; C1725; C1750; C1769; C1876; C1887; C1894; G0378; J1580; J1644; J2250; J2997; J3010; J3370; J7030; J7050; P9047; Q9967; G0257

== ENCOUNTER 2017-08-30 12:46 | Day surgery (SDC) | payer OTHER ==
[2017-08-30 13:05] VITALS: BP 163/89; PULSE 79; RESP 20; TEMP 97.7; O2SAT 99
[2017-08-30 14:25] VITALS: BP 156/97; PULSE 63; RESP 18; O2SAT 99
--- NOTE | 2017-08-30 14:42 | RADRPT ---
EXAM DATE/TIME: 08/30/2017 00:00 [facility] COMPARISON: No previous studies available for comparison. INDICATIONS : Patient presents with endstage renal disease and is no longer in need of dialysis catheter due to wor rian graft. MEDICAL HISTORY : ESRD HTN HLD GERD Barretts esophagus Esophageal stricture Dialysis SURGICAL HISTORY : Left AV fistula Liver resection for hemangioma Permcath placement Total right knee replacement Cholecystectomy ENCOUNTER: Subsequent ACUITY: 2 months PAIN SCORE: 0/10 LOCATION: N/A IMAGE SERIES: 0 Anesthesia and pain control was provided by the Anesthesia department. TECH NOTE: Dialysis catheter removed without the aide of fluoroscopy.DALIA RAYGOZA MR#:[id number] E xam Dt/Desc: August 30, 2017CENTRAL VENOUS CATHETER REMOVAL, TUNNELED RIGHT PROCEDURE : 1. PermaCath removal. The risks, benefits and alternatives to the procedure were explained and verbal and written consent w as obtained. The site was prepped in sterile fashion. Full sterile technique was used, including ca p, mask, sterile gloves and gown and a large sterile sheet. Hand hygiene and 2% chlorhexidine and/or betadine/alcohol prep was utilized per protocol for cutaneous antisepsis. The skin and subcutaneous tissues were infiltrated with local anesthetic solution. The tract was anesthetized with 1% Lidocaine using. The Permcath was dissected from the subcutaneous tissues and easily removed in one piece. Manual pressure was applied to the venotomy site until hem ostasis was obtained. Sterile dressing was applied. The patient tolerated the procedure well and there were no complications. CONCLUSION: Uncomplicated Permcath removal. Jann Grullon MD on August 30, 2017 at 14:40 Board Certified Radiologist. This report was verified electronically.
== END 2017-08-30 14:50 | disposition home or self-care (01) ==
LOC: HROP 12:46 → HRIP 12:47 → HROP 14:50
PROVIDERS: ATTEND Internal Medicine Nephrology
DX: Z49.01 Encounter for fitting and adjustment of extracorporeal dialysis catheter (principal); I12.0 Hypertensive chronic kidney disease with stage 5 chronic kidney disease or end stage renal disease; N18.6 End stage renal disease; E78.5 Hyperlipidemia, unspecified; K21.9 Gastro-esophageal reflux disease without esophagitis; Z96.651 Presence of right artificial knee joint
CPT/HCPCS: 36589

== ENCOUNTER 2017-09-17 05:23 | Day surgery (SDC) | payer OTHER ==
[~2017-09-17] VITALS: Ht 162.6 cm; Wt 107.5 kg
[~2017-09-17 05:23] MED LIST changes: -CORE25TA PO; -LOSA25TA PO
[2017-09-17] MEDS ORDERED: IOHEXOL 350 MG/ML 50 ML BTL (for Cath Lab) OTHER ONE (05:24)
[2017-09-17 07:05] LABS: AUTOMATED NEUTROPHIL # 5.9 TH/MM3 (1.8-7.7); BASOPHIL # 0.1 TH/MM3 (0-0.2); BASOPHIL % 0.6 % (0.0-2.0); EOSINOPHIL # 0.3 TH/MM3 (0-0.4); EOSINOPHIL % 3.4 % (0.0-4.0); HEMATOCRIT 29.5 % (35.0-46.0); HEMO FLAGS DIFF FINAL; LYMPH % 24.6 % (9.0-44.0); LYMPHOCYTE # 2.3 TH/MM3 (1.0-4.8); MEAN CELL VOLUME 99.7 FL (80.0-100.0); MEAN CORPUSCULAR HEMOGLOBIN 33.3 PG (27.0-34.0); MEAN CORPUSCULAR HGB CONC 33.4 % (32.0-36.0); MONO % 9.1 % (0.0-8.0); NEUT % 62.3 % (16.0-70.0); PLATELET COUNT 257 TH/MM3 (150-450); RED BLOOD COUNT 2.96 MIL/MM3 (4.00-5.30); WHITE BLOOD COUNT 9.4 TH/MM3 (4.0-11.0)
[2017-09-17 07:16] VITALS: BP 109/68; PULSE 70; RESP 18; TEMP 98.2; O2SAT 100
[2017-09-17 07:16] LABS: APTT (PATIENT) 27.5 SEC (24.3-30.1); PROTHROMBIN TIME - PATIENT 10.7 SEC (9.8-11.6)
[2017-09-17 07:30] LABS: BICARBONATE 30.1 MEQ/L (21.0-32.0); POTASSIUM 4.1 MEQ/L (3.5-5.1)
[2017-09-17] MEDS ORDERED: HEPARIN SODIUM - IV 10,000 UNITS/10 ML VIAL ONE (07:33)
[2017-09-17] MEDS ORDERED: HEPARIN-NS/PF INJ 1,500 ML ONE (07:33)
[2017-09-17] MEDS ORDERED: diphenhydrAMINE HCL 50 MG/ML VIAL ONE (07:44)
[2017-09-17] MEDS ORDERED: VERAPAMIL HCL 5 MG/2 ML VIAL ONE (08:15)
[2017-09-17] MEDS ORDERED: NITROGLYCERIN 2% OINT 1 GM PACKET ONE (08:21)
[2017-09-17] MEDS ORDERED: SODIUM CHLORIDE 0.9% INJ 100 ML IV SCH (08:47)
--- NOTE | 2017-09-17 08:49 | CATHPROC ---
[facility] HIS Report Study Information Study Number Admission Scheduled Start Study Start [id number] Sep 17 2017 5:23AM 09/17/2017 Sep 17 2017 6:49AM [place] Service Cardiac Catheterization Admit Source Facility Department Other [facility] - [facility] Physician and Clinical Staff Initial MD Machado, Kalpana Table Worker William RN, Bubba RecordKasey Kenyon,RT(R) (BS) Scrub Molly Llamas,SILVIA TECH2 Procedures Performed Procedure Location (Site) Vessel Name Coronary Angiograms LCA Left Coronary Coronary Angiograms RCA Right Coronary L Heart Cath LV Gram-hand inj. LV LV Ventricle Wire insertion Radial (right) Radial Art. Equipment Time Transmission Supervisor Description Size Mfg Part Number Used/Scraped TRANSDUCER, TRUWAVE [id number] 07:37 BRYAN LEE * Used W/STOCKCOCK *[id number] 07:37 [employer] INDUSTRIES PACK, CCL CUSTOM * Used *[id number] 07:37 [employer] PACER PEN, SKIN DUAL W/ RULER * Used *[id number] BAND, RADIAL COMPRESSION TR [id number] 08:36 [employer] MEDICAL 24CM Used SHORT 24 *[id number] 07:46 [employer] MEDICAL WIRE, EXCHANGE 260CM 3MMJ 260CM Used *[id number] 07:37 NAMIC MANIFOLD, 4 PORT * Used *[id number] 07:37 [employer]ED OMNIPAQUE, 350 MG, 150ML 150ML [id number] Used [id number] 07:37 [employer] BLANKET,WARM AIR CCL * Used *[id number] CATHETER, FR5 OPTITORQUE [id number] 08:18 TERUMO MEDICAL FR 5 Used RADIAL TIG 4.0 *[id number] SHEATH, FR6 TRANSRADIAL RM*[id number] 07:46 [employer]UM[employer] MEDICAL FR 6 Used SLENDER 10CM *[id number] SHEATH, FR6 TRANSRADIAL RM*[id number] 08:18 TERUM[employer] MEDICAL FR 6 Used SLENDER 10CM *[id number] History: Current Medications Medication Dosage/Unit Route Frequency Last Date/Time Taken Beta Melissa History: Allergies Allergy Reaction HMG-CoA Reductase Inhibitors Keflex Hives onion prednisolone Sulfa Nausea/Vomiting Sulfa (Sulfonamide Antibiotics) Nausea/Vomiting cephalexin Hives pravastatin simvastatin amlodipine atorvastatin History: Risk Factors Family History of Hypertension Dyslipidemia Previous [place] Previous Heart Failure Premature CAD Yes Yes No No No Prior Valve Prior PCI Prior CABG Surgery No No No Cerebrovascular Peripheral Artery Chronic Lung On Dialysis Diabetes Disease Disease Disease Yes No No No No History: Stress Tests Stress or Imaging Studies Performed Yes Standard Exercise Stress Test No Stress Echo No Stress Test SPECT Stress Test SPECT Result Stress Test SPECT Ischemia Risk/Extent Yes Positive Low Stress Test CMR No Cardiac CTA Coronary Calcium Score No No History: Other Current Smoker No Labs Hgb (g/dl) Hct (%) RBC (MIL/MM3) WBC (l/cumm) Platelets (thousands) 11.60-17.00 35.00-51.00 4.00-5.90 4.00-11.00 150.00-450.00 9.9 29.5 2.9 9.4 257 Glucose (mg/dl) BUN (mg/dl) Creatinine (mg/dl) BUN:Creatinine (1:x) 74.00-106.00 7.00-18.00 0.50-1.30 10.00-20.00 99 34 7.4 4.6 Na (meq/l) K (meq/l) 136.00-145.00 3.50-5.10 140 4.1 INR (PTT:PT) 0.90-1.10 1 CPK-MB (ng/ML) 0.50-3.60 Not Drawn Medication Medication Total Dose (Bolus/Oral) Medication Total Dosage/Unit 1% XYLOCAINE 1 mL NITRO OINTMENT 1 inches RADIAL COCKTAIL 1 units Medications (Bolus/Oral) Medication Time Given Dosage/Unit Administered By Reason 1% XYLOCAINE 09/17/2017 8:14:56 AM 1 mL Kalpana Machado 1 mL 1% XYLOCAINE given in lab by Kalpana Machado in Right Radial via Subcutaneous. Ntg 200mcg Verapamil 2.5mg Heparin RADIAL COCKTAIL 09/17/2017 8:21:12 AM 1 units Kalpana Machado 2000U 1 units RADIAL COCKTAIL given in lab by Kalpana Machado via Radial. Reason: Ntg 250mcg Verapamil 1mg H eparin 2500U. NITRO OINTMENT 09/17/2017 8:23:18 AM 1 inches Bubba Thomas RN 1 inches NITRO OINTMENT given in lab by Bubba Thomas RN in Right Arm. Medication (Drip) Medication Time Given Dosage/Unit Concentration/Unit Diluent (ml) Solution IV Solutions 09/17/2017 7:35:01 AM 0 mL (IV) 500 NaCl .9 IV Solutions given in lab by Bubba Thomas RN in Left Antecubital via Peripheral IV. Pump/Drip Flow = 20 ml/hr using NaCl .9. Initial Case Assessment Cardiovascular HR Rhythm NIBP Chest Pain 75 reg 143/80 0 Edema Present Skin color Skin None Normal Warm Dry Circulatory - Right Pulses Dorsalis Pedis Femoral Radial 2 2 2 Scale (0,1,2,3,4,d) Scale (0,1,2,3,4,d) Circulatory - Lower Extremities Color Lower Right Color Lower Left Normal Normal Neurological State Oriented to time-place- Alert Moves all extremities person Respiration - General Respiration Rate SpO2 (%) (B/min) 10 100 Chronological Log Time Study Chronological Log 7:33:18 Patient arrived via Bed. 7:33:19 Patient Name, D.O.B, / Armband Verified By R.N. 7:33:32 Consent signed by the physician and the patient and verified by the [facility] staff. 7:33:40 Pre-op and post- op instructions given; patient acknowledges understanding of instructions. 7:34:34 Verbal Stimulation=2 Physical Stimulation=2 Airway=2 Respiration=2 TOTAL=8. (0=absent, 1=li mited, 2=present) 7:34:37 Presedation assessment performed by [facility] RN. 7:34:47 Allens test performed on the right radial and ulnar artery. 7:34:50 Patient has been NPO for More than 6Hrs. 7:34:50 Skin Breakdown none per pt 7:34:51 Patient Warmer Placed on the Table. 7:34:59 Helder Prominences Protected 7:35:00 A # 20 IV was noted in the Antecubital (left). Grade = 0 IV Solutions given in lab by Bubba Thomas RN in Left Antecubital via Peripheral IV. Pump/Drip F low = 20 ml/hr using NaCl 7:35:01 .9. 7:35:03 History and physical on the chart or being dictated. Assessment: Initial Case, HR=75 BPM, Rhythm=reg, ZOUU=324/80 mmhg, Chest Pain=0, Edema=None, Col or=Normal, Skin = Warm, Dry Right Pulses: Jamin Ped=2, Femoral=2, Radial=2 7:35:04 Lower Right Extremities: Color=Normal Lower Left Extremities: Color=Normal Neurological: State=Alert, Ox3, ALCANTAR Respiration: Resp=10 B/min, SwX6=568 % Vitals capture started with the following parameters, Patient=Adult, Interval=5 min, Initial Pre upuqz=723 mmHg, 7:40:53 Deflation Rate=5 mmHg, Cuff placed on Right Arm 7:41:17 Reference ECG taken 7:41:37 HR=66 bpm, GQBJ=326/80 mmhg, Resp=10 B/min, Pain=0, Freda=10, Rankin=2 7:47:03 HR=78 bpm, QLNP=903/80 mmhg, SpO2=99.0 %, Pain=0, Freda=10, Rankin=2 7:51:36 HR=68 bpm, LORF=111/82 mmhg, SpO2=99.0 %, Resp=15 B/min, Pain=0, Freda=10, Rankin=2 7:56:26 Right Radial and right groin prepped with 2% chlorhexidine, and draped after a 3 min. waitin g time. 7:56:28 HR=73 bpm, JXAK=662/74 mmhg, SpO2=98.0 %, Resp=27 B/min, Pain=0, Freda=10, Rankin=2 8:02:08 HR=67 bpm, IXVW=105/73 mmhg, SpO2=99.0 %, Resp=13 B/min, Pain=0, Freda=10, Rankin=2 8:04:35 Pressure channel 1 zeroed. 8:06:37 HR=71 bpm, CONJ=274/72 mmhg, SpO2=99.0 %, Resp=16 B/min, Pain=0, Freda=10, Rankin=2 8:08:02 MD arrived 8:11:40 HR=66 bpm, EJAU=531/74 mmhg, SpO2=98.0 %, Resp=15 B/min, Pain=0, Freda=10, Rankin=2 Time Out. Correct patient, correct procedure, correct physician, power injector not loaded with contrast with surgical 8:13:21 team present. Time Out Concurred by MD and individual staff in procedure. 8:13:31 Case Start 8:14:56 1 mL 1% XYLOCAINE given in lab by Kalpana Machado in Right Radial via Subcutaneous. 8:17:05 HR=67 bpm, PFQS=981/75 mmhg, SpO2=99.0 %, Resp=14 B/min, Pain=0, Freda=10, Rankin=2 8:20:45 Access site was right Radial Artery. A SHEATH, FR6 TRANSRADIAL SLENDER 10CM FR 6 was advanced into the Radial (right) using the Adela gutierrez 8:20:59 technique. 1 units RADIAL COCKTAIL given in lab by Kalpana Machado via Radial. Reason: Ntg 250mcg Verapamil 1mg Heparin 8:21:12 2500U. 8:21:38 HR=68 bpm, GDVI=256/85 mmhg, OeE5=765.0 %, Resp=16 B/min, Pain=0, Freda=10, Rankin=2 8:23:18 1 inches NITRO OINTMENT given in lab by Bubba Thomas RN in Right Arm. A CATHETER, FR5 OPTITORQUE RADIAL TIG 4.0 FR 5 was advanced over a wire. OMNIPAQUE, 350 MG, 150M L 150ML 8:23:52 was used for injections. Recorded Pressure: Ao, HR=65, Condition=Condition 1 8:25:53 (Aorta) Ao 107/67/85 8:26:16 The LCA was injected and visualized at various angles. OMNIPAQUE, 350 MG, 150ML 150ML used. 8:26:41 HR=64 bpm, GMQL=775/72 mmhg, SpO2=96.0 %, Resp=14 B/min, Pain=0, Freda=10, Rankin=2 8:29:04 The RCA was injected and visualized at various angles. OMNIPAQUE, 350 MG, 150ML 150ML used. 8:29:54 A WIRE, EXCHANGE 260CM 3MMJ 260CM was inserted via Radial (right). 8:31:12 Wire removed 8:31:40 HR=68 bpm, XSXK=278/67 mmhg, DoW8=223.0 %, Resp=10 B/min, Pain=0, Freda=10, Rankin=2 Recorded Pressure: LV, HR=67, Condition=Condition 1 8:31:56 (Left Ventricle) LV 111/2/11 8:32:14 The LV was manually injected with 8 cc's and visualized. OMNIPAQUE, 350 MG, 150ML 150ML used . Recorded Pressure: LV, Ao, HR=66, Condition=Condition 1 8:32:57 (Left Ventricle) LV 111/2/12, (Aorta) Ao 103/58/79 8:33:25 A WIRE, EXCHANGE 260CM 3MMJ 260CM was inserted via Radial (right). 8:33:36 Catheter was removed 8:33:38 Wire removed 8:33:49 Case End 8:36:37 HR=66 bpm, KMYZ=803/73 mmhg, SpO2=99.0 %, Resp=16 B/min, Pain=0, Freda=10, Rankin=2 8:37:12 Catheter(s) removed without difficulty Radial Compression Device Used. 9 mLs of air placed in BAND, RADIAL COMPRESSION TR SHORT 24 2 4CM. Affected 8:37:26 hand 99 % O2 saturation. 8:37:29 No case complications noted. 8:37:31 Cine recording checked. 8:37:34 Bedside Report will be given. 8:37:37 Contrast Scanned 8:37:42 A Left Heart Cath was performed. 8:41:40 RQKI=126/79 mmhg, SpO2=98.0 %, Pain=0, Freda=10, Rankin=2 8:41:50 Vitals capture stopped. End Study - Contrast Media Used In Study Contrast Total Opened (mL) Total Used (mL) Total Wasted (mL) Omnipaque 40 40 0 End Study - Maximum Contrast Load Max Contrast Load (mL) 72.6 End Study - Radiation Exposure Fluoro Time (minutes) 3.9 End Study - Sheaths Sheaths Pulled By Sheath Hold Time (min) Molly Llamas End Study - Patient Disposition Complications Transferred To Interventional Outcome No [facility] No attempt made
[2017-09-17] MEDS ORDERED: ATROPINE SULFATE 1 MG/ML VIAL IV PUSH PRN (09:00)
[2017-09-17] MEDS ORDERED: SODIUM CHLOR 0.9% 250 ML INJ 250 ML IV PRN (09:00)
[2017-09-17] MEDS ORDERED: MISC INFORMATION XX ONE (09:00)
[2017-09-17] MEDS ORDERED: SODIUM CHLORIDE 0.9% FLUSH 10 ML FLUSH IV FLUSH PRN (09:00)
[2017-09-17] MEDS ORDERED: ACETAMINOPHEN 500 MG CPLT PO PRN (09:00)
[2017-09-17] MEDS ORDERED: ONDANSETRON HCL 4 MG/2 ML VIAL IV PUSH PRN (09:00)
--- NOTE | 2017-09-17 09:15 | MA ---
cc: GILL MACHADO M.D. cc: Dr. Berumen - Renal Transplant Team DATE: 09/17/2017 PROCEDURE 1. Left heart catheterization. 2. Coronary arteriogram. 3. Left ventriculogram. 4. Right radial artery approach. GRAIN OILSEED OR PASTURE GROWER Ritika Machado MD. DIRECTOR GAME NATIVIDAD Goodrich. INDICATION Prerenal transplant evaluation with atypical chest discomfort. EQUIPMENT USED 5 [place] Terumo sheath. 5 [place] TIG catheter. 0.035 J guidewire. DETAILS OF PROCEDURE After obtaining informed consent, the right radial area was prepped in the usual sterile technique. Using the micro kit the right radial artery was accessed and a 5 [place] Terumo sheath was advanced without difficulty. An inch of nitro paste was placed in the forearm. A cocktail of nitro, heparin and verapamil were given in the sheath. Then over the 0.035 J wire with a TIG catheter it was advanced and cannulated the left main, then selective coronary arteriograms were performed of the left coronary system. The same catheter was used to selectively cannulate the right coronary artery and RCA angiographic pictures were obtained. We crossed the valve with an 0.035 wire and the TIG catheter was advanced in the LV cavity and hand injection was performed to compromise on the contrast use (the patient is on dialysis). An LV gram was performed. Pullback was then recorded. The catheter was then removed over the 0.035 J wire. The radial sheath was then removed and adequate hemostasis achieved by applying a radial band. The patient tolerated the procedure well without acute complication at the time of dictation. CARDIAC CATHETERIZATION FINDINGS HEMODYNAMICS Aortic pressure was 100/60 mmHg. Mean aortic pressure was 73 mmHg. There was no gradient across the aortic valve. Left ventricle end-diastolic pressure was around 16 mmHg. CORONARIES The right coronary artery arose from the right sinus of Valsalva. This was a co-dominant vessel and had minimal irregularities of less than 10%. Distally it gave a descent size PDA and a smaller PLV branch that were within normal limits. The mid RV branch was also within normal limits with zero stenosis. The left main artery arose from the left sinus of Valsalva. This was normal with zero stenosis. The left anterior descending artery branched from the left main artery. It was quite tortuous. It extended distally to wrap around the apex. It had mild irregularities of less than 20%, mostly in the proximal area. It gave diagonal and septal branches that were normal. The left circumflex artery branched from the left main artery. This was also tortuous and was a co-dominant vessel. It gave a good size PLV branch distally. From the midportion there was a big OM branch that extended in the PLV area in a tortuous manner and the whole system was within normal limits from the mid to distal portion of the circumflex. An AV groove artery distally was also normal. A high atrial branch was normal. Mid mild disease of the circumflex of less than 20%. LEFT VENTRICULOGRAM The left ventriculogram was performed with a hand injection as mentioned before. This revealed normal left ventricular systolic function, normal wall motion. Ejection fraction visual estimate was around 65%. CONCLUSIONS OF THE CARDIAC CATHETERIZATION 1. Mild epicardial coronary artery disease. 2. Normal left ventricular systolic function. 3. Minimally elevated left ventricular end-diastolic pressure. RECOMMENDATIONS Medical therapy with control of risk factors. Based on the above findings she should be an acceptable risk for postoperative cardiac events going for her renal transplantation. MD KAT Kilgore/RORO /8:38 AM /8:49 AM
[2017-09-17] MEDS ORDERED: BACITRACIN OINT 0.9 GM PKT TOP ONE (10:00)
--- NOTE | 2017-09-17 21:20 | EKG ---
Date Performed: 09/17/2017 Time Performed: 06:43:28 PTAGE: 51 years EKG: Sinus rhythm Normal ECG PREVIOUS TRACING : 07/27/2017 05.34 Compared to prior tracing no significant change DOCTOR: Ammon Becker Interpretating Date/Time 09/17/2017 21:18:45
== END 2017-09-17 12:37 | disposition home or self-care (01) ==
LOC: HDOC 05:23 → HDIC 05:24 → HDOC 12:37
PROVIDERS: ATTEND Internal Medicine Interventional Cardiology
DX: I25.10 Atherosclerotic heart disease of native coronary artery without angina pectoris (principal); I12.0 Hypertensive chronic kidney disease with stage 5 chronic kidney disease or end stage renal disease; N18.6 End stage renal disease; E78.5 Hyperlipidemia, unspecified; Z01.810 Encounter for preprocedural cardiovascular examination
CPT/HCPCS: 80048; 85025; 85610; 85730; 93005; 93458; C1769; C1893; J1200; J1644; J3010; Q9967

== ENCOUNTER 2017-12-24 20:14 | Observation (INO) | payer OTHER ==
[~2017-12-24] VITALS: Ht 170.2 cm; Wt 108.3 kg
[2017-12-24 20:17] VITALS: BP 136/79; PULSE 98; RESP 16; TEMP 97.8; O2SAT 100
[2017-12-24 20:31] VITALS: BP 138/89; PULSE 90; RESP 16; TEMP 98; O2SAT 100
[2017-12-24] MEDS ORDERED: LOSA25TA PO (20:31)
--- NOTE | 2017-12-24 20:59 | PD ---
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 Patient is a patient of Dr. Alejandre, for her kidney disease and dialysis, and went to dialysis today where they were unable to access her fistula. Patient states this is her third fistula. She normally does dialysis Wednesday and Wednesday. Dr. Alejandre requested the patient come in and be evaluated. She is having no acute symptoms of pain or other problems. Patient has multiple allergies. Please see list. PFSH Past Medical History Arthritis: Yes Asthma: No Anxiety: No Depression: No Heart Rhythm Problems: No Cancer: No Cardiovascular Problems: No High Cholesterol: Yes Chest Pain: No Congestive Heart Failure: No COPD: No Cerebrovascular Accident: No Diabetes: No Dialysis: Yes Diminished Hearing: No Endocrine: No Gastrointestinal Disorders: Yes (DIVERTICULITIS, GERD, BARRETTS, ESOPHAGEAL STRICTURE--ESOPHAGEAL DILITATION) GERD: No Glaucoma: No Genitourinary: No Headaches: Yes Hepatitis: No Hiatal Hernia: No Hypertension: Yes Immune Disorder: No Implanted Vascular Access Dvce: Yes Kidney Stones: No Musculoskeletal: Yes (ARTHRITIS POOJA KNEES) Neurologic: Yes Psychiatric: No Reproductive: No Respiratory: No Immunizations Current: Yes Migraines: Yes Renal Failure: Yes Seizures: No Sickle Cell Disease: No Sleep Apnea: No Thyroid Disease: No Ulcer: No Tetanus Vaccination: Unknown Influenza Vaccination: Yes ?: Not Menopausal: No Past Surgical History Abdominal Surgery: Yes AICD: No Appendectomy: Yes Arteriovenous Shunt: No Body Medical Devices: DIALYSIS CATHETER Cardiac Surgery: No Cholecystectomy: Yes (ALSO HEMANGIOMA REMOVED OFF LEFT UPPER LOBE OF LIVER BY DR VALDEZ) Ear Surgery: No Endocrine Surgery: No Eye Surgery: No Genitourinary Surgery: Yes Gynecologic Surgery: Yes Hysterectomy: Yes (DR BERGMAN) Insulin Pump: No Joint Replacement: Yes (TOTAL RIGHT KNEE) Neurologic Surgery: No Oral Surgery: No Pacemaker: No Thoracic Surgery: No Other Surgery: Yes (R+ total knee replacement) Social History Alcohol Use: No Tobacco Use: No Substance Use: No Allergies-Medications (Allergen,Severity, Reaction): Coded Allergies: cephalexin (Unverified Allergy, Severe, Hives, 08/30/17) onion (Unverified Allergy, Severe, 08/30/17) prednisolone (Unverified Allergy, Severe, 08/30/17) Sulfa (Sulfonamide Antibiotics) (Unverified Adverse Reaction, Intermediate , Nausea/Vomiting, 08/30/17) amlodipine (Unverified Adverse Reaction, Intermediate, 08/30/17) PT DENIES ALLERGY atorvastatin (Unverified Adverse Reaction, Intermediate, 08/30/17) PT DENIES ALLERGY pravastatin (Unverified Adverse Reaction, Intermediate, 08/30/17) PT DENIES ALLERGY simvastatin (Unverified Adverse Reaction, Intermediate, 08/30/17) PT DENIES ALLERGY Reported Meds & Prescriptions Reported Meds & Active Scripts Active Reported Losartan (Losartan Potassium) 25 Mg Tab 25 Mg PO DAILY Renvela (Sevelamer Carbonate) 800 Mg Tab 1,600 Mg PO TID Sensipar (Cinacalcet) 30 Mg Tab 30 Mg PO DAILY Review of Systems Except as stated in HPI: all other systems reviewed are Neg General / Constitutional: No: Fever Eyes: No: Visual changes HENT: No: Headaches Cardiovascular: No: Chest Pain or Discomfort Respiratory: No: Shortness of Breath Gastrointestinal: No: Abdominal Pain Genitourinary: No: Dysuria Musculoskeletal: No: Pain Skin: No Rash Neurologic: No: Weakness Psychiatric: No: Depression Endocrine: No: Polydipsia Hematologic/Lymphatic: No: Easy Bruising Physical Exam Narrative GENERAL: Patient appears in no acute distress. SKIN: Warm and dry. Normal color. Normal turgor. No erythema. HEAD: Atraumatic. Normocephalic. EYES: Pupils equal and round. No scleral icterus. No injection or drainage. ENT: No nasal bleeding or discharge. Mucous membranes pink and moist. Pharynx is clear. Airway is patent. NECK: Trachea midline. No JVD. Supple nontender. CARDIOVASCULAR: Regular rate and rhythm. Right arm appears unremarkable. There is no erythema. There is no palpable thrill or appreciable bruit with auscultation of the AV fistula. RESPIRATORY: No accessory muscle use. Clear to auscultation. Breath sounds equal bilaterally. GASTROINTESTINAL: Abdomen soft, non-tender, nondistended. Hepatic and splenic margins not palpable. MUSCULOSKELETAL: Extremities without clubbing, cyanosis, or edema. No obvious deformities. NEUROLOGICAL: Awake and alert. No obvious cranial nerve deficits. Motor grossly within normal limits. Five out of 5 muscle strength in the arms and legs. Normal speech. PSYCHIATRIC: Appropriate mood and affect; insight and judgment normal. Data Data Last Documented VS Vital Signs Date Time Temp Pulse Resp B/P (MAP) Pulse Ox O2 Delivery O2 Flow Rate FiO2 12/24/17 21:15 20 12/24/17 20:31 98.0 90 100 Room Air Orders Orders Complete Blood Count With Diff (12/24/17 21:00) Comprehensive Metabolic Panel (12/24/17 21:00) Prothrombin Time / Inr (Pt) (12/24/17 21:00) Act Partial Throm Time (Ptt) (12/24/17 21:00) Iv Access Insert/Monitor (12/24/17 21:00) Ecg Monitoring (12/24/17 21:00) Oximetry (12/24/17 21:00) Sodium Chloride 0.9% Flush (Ns Flush) (12/24/17 21:00) Us Arm Hemodialysis Doppler (12/24/17 21:06) B-Type Natriuretic Peptide (12/24/17 21:33) Labs Laboratory Tests Test 12/24/17 22:04 White Blood Count 11.2 TH/MM3 Red Blood Count 3.64 MIL/MM3 Hemoglobin 11.6 GM/DL Hematocrit 34.7 % Mean Corpuscular Volume 95.5 FL Mean Corpuscular Hemoglobin 31.9 PG Mean Corpuscular Hemoglobin Concent 33.4 % Red Cell Distribution Width 14.0 % Platelet Count 222 TH/MM3 Mean Platelet Volume 7.5 FL Neutrophils (%) (Auto) 65.9 % Lymphocytes (%) (Auto) 22.2 % Monocytes (%) (Auto) 7.2 % Eosinophils (%) (Auto) 4.0 % Basophils (%) (Auto) 0.7 % Neutrophils # (Auto) 7.4 TH/MM3 Lymphocytes # (Auto) 2.5 TH/MM3 Monocytes # (Auto) 0.8 TH/MM3 Eosinophils # (Auto) 0.4 TH/MM3 Basophils # (Auto) 0.1 TH/MM3 CBC Comment DIFF FINAL Differential Comment MDM Medical Decision Making Medical Screen Exam Complete: Yes Emergency Medical Condition: Yes Medical Record Reviewed: Yes Differential Diagnosis 80 fistula malfunction. Thrombosis. End-stage renal disease patient requiring dialysis. Narrative Course Call was placed to Dr. Alejandre. Patient was discussed. He requests IR evaluation. IV access is obtained, and labs ordered including CBC, CMP, and coagulation studies. Ultrasound of the left arm is ordered to evaluate the fistula. Ultrasound shows that the fistula has a clot at the basilic vein. Patient is discussed with Dr. Miller, who recommends consult to interventional radiology. Call was placed and the patient is discussed with Dr. Vazquez, who states that he can try to open the fistula versus putting a Vas-Cath tomorrow for dialysis in the morning. He requested admitting the patient to observe with consult to him for the morning. This plan was relayed to Dr. Miller, who takes control the patient at 2300 hrs. as labs are still pending. Diagnosis Primary Impression: AV graft malfunction Qualified Codes: T82.590A - Other mechanical complication of surgically created arteriovenous fistula, initial encounter Additional Impression: ESRD needing dialysis Admitting Information Admitting Physician Requests: Observation Condition: Stable Jairo Holliday Dec 24, 2017 20:59
[2017-12-24] MEDS ORDERED: SODIUM CHLORIDE 0.9% FLUSH 10 ML FLUSH IV FLUSH PRN (21:00)
[2017-12-24 21:15] VITALS: RESP 20
--- NOTE | 2017-12-24 22:07 | RADRPT ---
EXAM DATE/TIME: 12/24/2017 21:16 [facility] COMPARISON: No previous studies available for comparison. INDICATIONS : Post graft. MEDICAL HISTORY : Hypercholesterolemia. Hypertension. Gastroesophageal reflux disease. Glasses. Headache. Renal failure . Arthritis. Anemia. Dialysis. SURGICAL HISTORY : Appendectomy. Cholecystectomy. Hysterectomy. Hemangioma removed from left liver lobe. Right knee repl acement. AV fistula. ENCOUNTER: Initial ACUITY: 2 days PAIN SCORE: 1/10 LOCATION: Left arm. AREA EVALUATED: Left upper arm. FINDINGS: Fistula in the upper left arm involving brachial artery to basilic vein. Proximal to the fistula no c olor-flow or Doppler signal seen within the basilic vein due to thrombosis. CONCLUSION: Thrombosis of the AV fistula at the basilic vein. Veto Shipman MD on December 24, 2017 at 22:03 Board Certified Radiologist. This report was verified electronically.
[2017-12-24 22:26] LABS: AUTOMATED NEUTROPHIL # 7.4 TH/MM3 (1.8-7.7); BASOPHIL # 0.1 TH/MM3 (0-0.2); BASOPHIL % 0.7 % (0.0-2.0); EOSINOPHIL # 0.4 TH/MM3 (0-0.4); HEMATOCRIT 34.7 % (35.0-46.0); HEMOGLOBIN 11.6 GM/DL (11.6-15.3); LYMPH % 22.2 % (9.0-44.0); LYMPHOCYTE # 2.5 TH/MM3 (1.0-4.8); MEAN CELL VOLUME 95.5 FL (80.0-100.0); MEAN CORPUSCULAR HEMOGLOBIN 31.9 PG (27.0-34.0); MEAN CORPUSCULAR HGB CONC 33.4 % (32.0-36.0); MEAN PLATELET VOLUME 7.5 FL (7.0-11.0); MONO % 7.2 % (0.0-8.0); MONOCYTE # 0.8 TH/MM3 (0-0.9); NEUT % 65.9 % (16.0-70.0); PLATELET COUNT 222 TH/MM3 (150-450); RED BLOOD COUNT 3.64 MIL/MM3 (4.00-5.30); WHITE BLOOD COUNT 11.2 TH/MM3 (4.0-11.0)
[2017-12-24 22:44] LABS: PROTHROMBIN TIME - PATIENT 9.8 SEC (9.8-11.6)
[2017-12-24 22:57] LABS: ALKALINE PHOSPHATASE 124 U/L (45-117); ALT (GPT) 28 U/L (10-53); TOTAL BILIRUBIN ADULT 0.2 MG/DL (0.2-1.0); TOTAL PROTEIN 7.7 GM/DL (6.4-8.2)
[2017-12-24 23:05] LABS: ALBUMIN 3.6 GM/DL (3.4-5.0); AST (GOT) 18 U/L (15-37); BICARBONATE 25.2 MEQ/L (21.0-32.0); BLOOD UREA NITROGEN 39 MG/DL (7-18); CALCIUM 7.9 MG/DL (8.5-10.1); CHLORIDE 101 MEQ/L (98-107); CREATININE 9.77 MG/DL (0.50-1.00); GLOMERULAR FILTRATION RATE 5 ML/MIN (>89); GLUCOSE,RANDOM 120 MG/DL (74-106); SODIUM (NA) 135 MEQ/L (136-145)
[2017-12-24 23:25] VITALS: BP 140/80; PULSE 88; RESP 16; TEMP 98; O2SAT 100
[2017-12-25] MEDS ORDERED: SODIUM CHLORIDE 0.9% FLUSH 10 ML FLUSH IV FLUSH PRN ×2 (00:15→10:00)
[2017-12-25] MEDS ORDERED: ACETAMINOPHEN/HYDROcodone 325 MG/10 MG TAB PO PRN (00:15)
[2017-12-25] MEDS ORDERED: ACETAMINOPHEN 325 MG TAB PO PRN ×2 (00:15→10:00)
[2017-12-25] MEDS ORDERED: LACTULOSE SYRUP 20 GM/30 ML CUP PO PRN (00:15)
[2017-12-25] MEDS ORDERED: SENNOSIDES 8.6 MG TAB PO PRN (00:15)
[2017-12-25] MEDS ORDERED: ACETAMINOPHEN/HYDROcodone 325 MG/5 MG TAB PO PRN (00:15)
[2017-12-25] MEDS ORDERED: MAGNESIUM HYDROXIDE SUSP 30 ML CUP PO PRN (00:15)
[2017-12-25] MEDS ORDERED: ONDANSETRON HCL 4 MG/2 ML VIAL IVP PRN (00:15)
[2017-12-25] MEDS ORDERED: BISACODYL 10 MG SUPP RECTAL PRN (00:15)
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
--- NOTE | 2017-12-25 01:56 | PD ---
Data Data Last Documented VS Vital Signs Date Time Temp Pulse Resp B/P (MAP) Pulse Ox O2 Delivery O2 Flow Rate FiO2 12/24/17 23:25 98.0 88 16 140/80 (100) 100 Room Air Orders Orders Complete Blood Count With Diff (12/24/17 21:00) Comprehensive Metabolic Panel (12/24/17 21:00) Prothrombin Time / Inr (Pt) (12/24/17 21:00) Act Partial Throm Time (Ptt) (12/24/17 21:00) Iv Access Insert/Monitor (12/24/17 21:00) Ecg Monitoring (12/24/17 21:00) Oximetry (12/24/17 21:00) Sodium Chloride 0.9% Flush (Ns Flush) (12/24/17 21:00) Us Arm Hemodialysis Doppler (12/24/17 21:06) B-Type Natriuretic Peptide (12/24/17 21:33) Admit Order (Ed Use Only) (12/24/17 23:54) Labs Laboratory Tests Test 12/24/17 22:04 White Blood Count 11.2 TH/MM3 Red Blood Count 3.64 MIL/MM3 Hemoglobin 11.6 GM/DL Hematocrit 34.7 % Mean Corpuscular Volume 95.5 FL Mean Corpuscular Hemoglobin 31.9 PG Mean Corpuscular Hemoglobin Concent 33.4 % Red Cell Distribution Width 14.0 % Platelet Count 222 TH/MM3 Mean Platelet Volume 7.5 FL Neutrophils (%) (Auto) 65.9 % Lymphocytes (%) (Auto) 22.2 % Monocytes (%) (Auto) 7.2 % Eosinophils (%) (Auto) 4.0 % Basophils (%) (Auto) 0.7 % Neutrophils # (Auto) 7.4 TH/MM3 Lymphocytes # (Auto) 2.5 TH/MM3 Monocytes # (Auto) 0.8 TH/MM3 Eosinophils # (Auto) 0.4 TH/MM3 Basophils # (Auto) 0.1 TH/MM3 CBC Comment DIFF FINAL Differential Comment Prothrombin Time 9.8 SEC Prothromb Time International Ratio 1.0 RATIO Activated Partial Thromboplast Time 26.9 SEC Blood Urea Nitrogen 39 MG/DL Creatinine 9.77 MG/DL Random Glucose 120 MG/DL Total Protein 7.7 GM/DL Albumin 3.6 GM/DL Calcium Level 7.9 MG/DL Alkaline Phosphatase 124 U/L Aspartate Amino Transf (AST/SGOT) 18 U/L Alanine Aminotransferase (ALT/SGPT) 28 U/L Total Bilirubin 0.2 MG/DL Sodium Level 135 MEQ/L Potassium Level 4.7 MEQ/L Chloride Level 101 MEQ/L Carbon Dioxide Level 25.2 MEQ/L Anion Gap 9 MEQ/L Estimat Glomerular Filtration Rate 5 ML/MIN MDM Medical Record Reviewed: Yes Supervised Visit with MATHEW: Yes Narrative Course I, Dr. Miller, have reviewed the advance practice practitioner's documentation and am in agreement, met with the patient face to face, made the diagnosis, and the medical decision making was done by me. *My assessment and Findings: CBC & BMP Diagram 12/24/17 22:04 Total Protein 7.7, Albumin 3.6, Calcium Level 7.9 L, Alkaline Phosphatase 124 H , Aspartate Amino Transf (AST/SGOT) 18, Alanine Aminotransferase (ALT/SGPT) 28, Total Bilirubin 0.2 Patient will be admitted for invasive radiology repair of occlusion of av fistula. D/W Dr Levy d/w Dr Christensen Diagnosis Primary Impression: AV graft malfunction Qualified Codes: T82.590A - Other mechanical complication of surgically created arteriovenous fistula, initial encounter Additional Impression: ESRD needing dialysis Admitting Information Admitting Physician Requests: Observation Condition: Stable Colby Miller MD Dec 25, 2017 01:56
[2017-12-25 03:37] VITALS: BP 114/58; PULSE 83; RESP 16; TEMP 97.7; O2SAT 98
[2017-12-25 08:19] VITALS: BP 174/93; PULSE 70; RESP 20; TEMP 97.9; O2SAT 96
[2017-12-25] MEDS ORDERED: SODIUM CHLORIDE 0.9% FLUSH 10 ML FLUSH IV FLUSH SCH (09:00)
[2017-12-25] MEDS ORDERED: CINACALCET HYDROCHLORIDE 30 MG TAB PO SCH (09:00)
[2017-12-25] MEDS ORDERED: LOSARTAN 25 MG TAB PO SCH (09:00)
[2017-12-25] MEDS ORDERED: SEVELAMER CARBONATE 800 MG TAB PO SCH (09:00)
[2017-12-25] MEDS ORDERED: DOCUSATE SODIUM 50 MG/SENNA 8.6 MG TAB PO SCH (09:00)
[2017-12-25] MEDS ORDERED: SODIUM CHLOR 0.9% 1000 ML INJ 1,000 ML OTHER PRN ×2 (09:58)
[2017-12-25] MEDS ORDERED: SODIUM CHLOR 0.9% 1000 ML INJ 1,000 ML IV PRN (09:58)
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
[2017-12-25] MEDS ORDERED: ONDANSETRON HCL 4 MG/2 ML VIAL IV PUSH PRN (10:00)
[2017-12-25] MEDS ORDERED: GELATIN 12 MM/7 MM FOAM TOP PRN (10:00)
[2017-12-25] MEDS ORDERED: cloNIDine HCL 0.1 MG TAB PO PRN (10:00)
[2017-12-25] MEDS ORDERED: ALBUMIN 25% INJ 100 ML IV PRN (10:00)
[2017-12-25] MEDS ORDERED: diphenhydrAMINE HCL 25 MG CAP PO PRN (10:00)
[2017-12-25] MEDS ORDERED: EPOETIN ALFA 10,000 UNITS/ML VIAL IV PUSH PRN (10:00)
[2017-12-25] MEDS ORDERED: HEPARIN SODIUM - IV 10,000 UNITS/10 ML VIAL PRN (10:00)
[2017-12-25] MEDS ORDERED: GENTAMICIN SULFATE 20 MG/2 ML VIAL OTHER PRN (10:00)
[2017-12-25] MEDS ORDERED: NITROGLYCERIN 0.4 MG SL 25 TABS/BTL SL PRN (10:00)
[2017-12-25] MEDS ORDERED: HEPARIN SODIUM - IV 10,000 UNITS/10 ML VIAL IV FLUSH PRN (10:00)
[2017-12-25] MEDS ORDERED: MANNITOL 12.5 GM/50 ML VIAL IV PRN (10:00)
--- NOTE | 2017-12-25 10:55 | HHI.PR ---
Subjective Remarks Follow-up aVF thrombosis. Denies left arm pain and numbness. Patient with oliguria. No shortness of breath. Discussed with RN Objective Vitals Vital Signs Date Time Temp Pulse Resp B/P (MAP) Pulse Ox O2 Delivery O2 Flow Rate FiO2 12/25/17 08:19 97.9 70 20 174/93 (120) 96 12/25/17 03:37 97.7 83 16 114/58 (76) 98 12/24/17 23:25 98.0 88 16 140/80 (100) 100 Room Air 12/24/17 21:15 20 12/24/17 20:31 98.0 90 16 138/89 (105) 100 Room Air 12/24/17 20:17 97.8 98 16 136/79 (98) 100 Room Air Result Diagram: 12/24/17220312/24/172203 Imaging Last Impressions Upper Extremity Ultrasound 12/24/172105 Signed Impressions: Service Date/Time: Sunday, December 24, 2017 21:16 - CONCLUSION: Thrombosis of the AV fistula at the basilic vein. Veto Shipman MD Objective Remarks GENERAL: Very pleasant middle-aged black female in no acute distress. HEENT: PERRLA, EOMI. No scleral icterus or conjunctival pallor. No lid lag or facial droop. CARDIOVASCULAR: Regular rate and rhythm. No obvious murmurs to auscultation. No chest tenderness to palpation. RESPIRATORY: No obvious rhonchi or wheezing. Clear to auscultation. Breath sounds equal bilaterally. GASTROINTESTINAL: Abdomen soft, non-tender, nondistended. BS normal. MUSCULOSKELETAL: Extremities without clubbing, cyanosis, or edema. No obvious deformities. LUE Fistula w/ no palpable thrill. NEUROLOGICAL: Awake, alert and oriented x4. No focal neurologic deficits. Moving both upper and lower extremities spontaneously. Procedures AV graft thrombolysis A/P Problem List: (1) Arteriovenous fistula occlusion ICD Code: T82.898A - Other specified complication of vascular prosthetic devices, implants and grafts, initial encounter Status: Acute (2) ESRD (end stage renal disease) on dialysis ICD Code: N18.6 - End stage renal disease; Z99.2 - Dependence on renal dialysis (3) Leukocytosis ICD Code: D72.829 - Elevated white blood cell count, unspecified Assessment and Plan 1. AV Fistula Thrombosis: Status post thrombolysis by IR 2. ESRD on HD: M/W/F. Restart hemodialysis per nephrology 3. Leukocytosis: Likely reactive 4. Hypertension. Expected to improve with hemodialysis. Continue ARB and monitoring DVT Prophylaxis: SCD/Teds. Discharge Planning Discharge patient to home Condition on discharge: Improved Regular Diet as tolerated Ad Lorin activity Rx written: None Follow-up with primary care physician and nephrology Chris Marsh MD Dec 25, 2017 10:55
[2017-12-25] MEDS ORDERED: MIDAZOLAM HCL 2 MG/2 ML VIAL ONE ×2 (12:27)
[2017-12-25] MEDS ORDERED: fentaNYL CITRATE 250 MCG/5 ML AMP ONE (12:27)
--- NOTE | 2017-12-25 14:03 | PD.RAD ---
Post Procedure Progress Note Pre Procedure Diagnosis: (1) ESRD (end stage renal disease) on dialysis (2) Arteriovenous fistula occlusion Post Procedure Diagnosis: (1) ESRD (end stage renal disease) on dialysis (2) Arteriovenous fistula occlusion Procedure Date: Dec 25, 2017 Supervising Radiologist: Dionicio Christensen Proceduralist/Assist: Yazmin Rojas, RT(R)(), Laura Guevara RT(R) Anesthesia: Local, Analgesia, Conscious Sedation Plan of Activity Patient to Unit: Other (Dialysis) Patient Condition: Good See PACS Report for procedural detail/treatment Vascular-Venous Procedure Procedure 1 Procedure Site: Left Arm Procedure(s): AV Graft/Fistula Evaluation, Venogram (Brachial v) Access Access Site(s): Graft/Fistula (x 2) Closure Site(s): Left manual pressure (x 2) Findings: Graft occluded. Thrombus cleared. Stenosis at arterial inflow and in stent at venous outflow. Both areas STATION MASTER to 6mm. Central venous system patent Dionicio Christensen MD Dec 25, 2017 14:03
--- NOTE | 2017-12-25 17:08 | RADRPT ---
EXAM DATE/TIME: 12/25/2017 13:35 [facility] COMPARISON: DECLOT ARM DIALYSIS SHUNT, LEFT, July 29, 2017, 10:30. INDICATIONS : Patient with end-stage renal disease in need of AV dialysis graft declot. MEDICAL HISTORY : ESRD on HD, HLD, HTN, Anemia SURGICAL HISTORY : AV Fistula, Liver resection for hemangioma, Dialysis catheter placement and removal, Right knee total replacement, Cholecystectomy ENCOUNTER: Subsequent ACUITY: 2 days PAIN SCORE: 0/10 FLUORO TIME: 8.7 minutes IMAGE SERIES: ACCESS SITE: Left AV graft SEDATION TIME: 45 minutes CONTRAST: 1.) 30 cc Omnipaque (iohexol) 350 MEDICATION(S): 1.) 3.5 mg midazolam (Versed) IV 2.) 250 mcg fentanyl (Sublimaze) IV DEVICE(S): 1.) Left AV Graft PERSONAL LINES ACCOUNT MANAGER balloon Money Position Officer [id number] 2.) Left AV Graft Syvek Pad 3.) Left AV Graft Syvek Pad PROCEDURE : 1. Ultrasound guided puncture of the arterial limb of the fistula. 2. Ultrasound guided puncture of the venous limb of the fistula. 3. Evaluation of dialysis graft. 4. Mechanical thrombolysis of dialysis graft. 5. Angioplasty of the venous anastomosis. 6. Angioplasty of the arterial anastomosis. 7. Upper extremity venogram. 9. Superior venacavogram. 10. Conscious sedation with continuous EKG and oximetry monitoring. The risks, benefits and alternatives to the procedure were explained and verbal and written consent w as obtained. The site was prepped in sterile fashion. Full sterile technique was used, including cap, mask, steri le gloves and gown and a large sterile sheet. Hand hygiene and 2% chlorhexidine and/or betadine/alco hol prep was utilized per protocol for cutaneous antisepsis. Sterile gel and sterile probe cover wer e utilized for ultrasound guidance. The skin and subcutaneous tissues were infiltrated with local an esthetic solution. With ultrasound and fluoroscopic guidance the arterial limb of the fistula was punctured directed tow stan the venous anastomosis and a 6 [place]ian sheath was placed. A Devicescapeenstein catheter was at advanced t hrough the clotted portion of the graft into the superior vena cava where a superior cavogram was per formed in the AP projection. This demonstrates focal narrowing at the junction of the left subclavia n and brachiocephalic veins however, this does not appear to be hemodynamically significant as there were no regional collaterals. The catheter was then retracted where venogram of the upper extremity was performed. A fistulogram was performed through the previously placed sheath demonstrating thromb us within the fistula. Mechanical thrombectomy of the graft was performed using a partially inflated 6 mm balloon and angioplasty was then performed with a fully inflated 6 mm balloon at the level of th e venous anastomosis. Followup angiography demonstrates resolution of the clot within the fistula. Attention was then turned to the arterial limb fistula. With ultrasound and and fluoroscopic guidanc e the venous limb of the fistula was punctured towards the arterial anastomosis and a 6 [place] sheath was placed. A guidewire was advanced through the arterial anastomosis where angioplasty was perform ed at this level. Followup examination the fistula demonstrates good flow through the fistula and no evidence of residual stenosis. The patient tolerated the procedure well and there were no complications. Conscious sedation was per formed with the prescribed dosages and duration as above in the presence of an independent trained ra diology nurse to assist in the monitoring of the patient. EKG and oximetry remained stable throughou t the procedure. CONCLUSION: 1. Uncomplicated declotting of thrombosed fistula. 2. Clotted graft was cleared mechanically of thrombus. High-grade stenosis at the arterial anastomosi s and at the stented venous outflow were both successfully balloon angioplastied to 6 mm. 3. Focal area of mild narrowing centrally at the junction of the left subclavian and brachiocephalic veins did not appear to be hemodynamically significant as there are no collateral vessels. No obstruc tion to flow Dionicio Christensen MD on December 25, 2017 at 17:00 Board Certified Radiologist. This report was verified electronically.
[2017-12-25] MEDS ORDERED: IOHEXOL 350 MG/ML 50 ML BTL (for RAD DIAG) OTHER ONE (23:56)
== END 2017-12-25 19:13 | disposition home or self-care (01) ==
LOC: NEPC 20:14 → NEDA 23:55 → NEPGCP 12-25 02:31
PROVIDERS: ADMIT Internal Medicine; ATTEND Internal Medicine
DX: T82.590A Other mechanical complication of surgically created arteriovenous fistula, initial encounter (principal); N18.6 End stage renal disease; Z99.2 Dependence on renal dialysis; I12.0 Hypertensive chronic kidney disease with stage 5 chronic kidney disease or end stage renal disease; D72.829 Elevated white blood cell count, unspecified; E78.5 Hyperlipidemia, unspecified; T82.868A Thrombosis due to vascular prosthetic devices, implants and grafts, initial encounter; D63.1 Anemia in chronic kidney disease; N25.81 Secondary hyperparathyroidism of renal origin; E88.89 Other specified metabolic disorders; E83.51 Hypocalcemia; M19.90 Unspecified osteoarthritis, unspecified site; E78.00 Pure hypercholesterolemia, unspecified; K21.9 Gastro-esophageal reflux disease without esophagitis
CPT/HCPCS: 80053; 83880; 85025; 85610; 85730; 90935; 93990; 96374; 99285; C1725; C1769; C1887; C1894; G0378; J2250; J3010; Q4081; Q9967; 36905; 85347; 99152; 99153; G0257

== ENCOUNTER 2018-03-31 10:26 | Day surgery (SDC) | payer OTHER ==
[~2018-03-31] VITALS: Ht 163.8 cm; Wt 108.0 kg
[~2018-03-31 10:26] MED LIST changes: +LOSA25TA PO; -ONDA4TAB7 SL; -PROT40TA PO
[2018-03-31 10:50] VITALS: BP 132/84; PULSE 87; RESP 18; TEMP 98.1
[2018-03-31 11:29] LABS: BASOPHIL # 0.1 TH/MM3 (0-0.2); EOSINOPHIL # 0.3 TH/MM3 (0-0.4); EOSINOPHIL % 2.7 % (0.0-4.0); HEMATOCRIT 38.7 % (35.0-46.0); HEMOGLOBIN 12.9 GM/DL (11.6-15.3); LYMPH % 22.6 % (9.0-44.0); LYMPHOCYTE # 2.1 TH/MM3 (1.0-4.8); MEAN CELL VOLUME 101.7 FL (80.0-100.0); MEAN CORPUSCULAR HEMOGLOBIN 34.1 PG (27.0-34.0); MEAN CORPUSCULAR HGB CONC 33.5 % (32.0-36.0); MEAN PLATELET VOLUME 7.7 FL (7.0-11.0); MONO % 8.7 % (0.0-8.0); MONOCYTE # 0.8 TH/MM3 (0-0.9); PLATELET COUNT 293 TH/MM3 (150-450); RED CELL DISTRIBUTION WIDTH 14.2 % (11.6-17.2); WHITE BLOOD COUNT 9.3 TH/MM3 (4.0-11.0)
[2018-03-31 11:37] LABS: PROTHROMBIN TIME - PATIENT 10.5 SEC (9.8-11.6)
[2018-03-31 11:45] LABS: BICARBONATE 23.6 MEQ/L (21.0-32.0); CALCIUM 8.9 MG/DL (8.5-10.1)
[2018-03-31 11:51] LABS: CREATININE 12.24 MG/DL (0.50-1.00)
[2018-03-31] MEDS ORDERED: SODIUM CHLORIDE 0.9% 1000 ML IV SCH (12:00)
[2018-03-31] MEDS ORDERED: VANCOMYCIN HCL 1000 MG VIAL ONE (14:27)
[2018-03-31] MEDS ORDERED: MIDAZOLAM HCL 5 MG/5 ML VIAL ONE (14:27)
[2018-03-31] MEDS ORDERED: fentaNYL CITRATE 250 MCG/5 ML AMP ONE (14:27)
[2018-03-31] MEDS ORDERED: ceFAZolin 2 GM PREMIX 50 ML ONE (14:28)
[2018-03-31] MEDS ORDERED: IOHEXOL 350 MG/ML 100 ML BTL (for RAD DIAG) IVCONTRAST ONE (15:30)
[2018-03-31 16:05] VITALS: BP 150/94; PULSE 66; RESP 18; TEMP 97.4; O2SAT 95
--- NOTE | 2018-03-31 16:15 | PD.RAD ---
Post Procedure Progress Note Pre Procedure Diagnosis: (1) ESRD (end stage renal disease) on dialysis (2) AV graft malfunction Post Procedure Diagnosis: (1) ESRD (end stage renal disease) on dialysis (2) AV graft malfunction Procedure Date: March 31, 2018 Supervising Radiologist: Fredy Muniz Proceduralist/Assist: RT Jay(R), Other Anesthesia: Conscious Sedation Plan of Activity Patient to Unit: ROPU Patient Condition: Good See PACS Report for procedural detail/treatment Fredy Muniz MD March 31, 2018 16:15
[2018-03-31 16:20] VITALS: BP 173/88; PULSE 68; RESP 18; O2SAT 94
[2018-03-31 16:40] VITALS: BP 172/93; PULSE 70; RESP 18; O2SAT 94
[2018-03-31 17:10] VITALS: BP 165/84; PULSE 72; RESP 18; O2SAT 94
--- NOTE | 2018-03-31 17:34 | RADRPT ---
EXAM DATE/TIME: 03/31/2018 14:40 [facility] COMPARISON: DECLOT ARM DIALYSIS SHUNT, LEFT, December 25, 2017, 13:35. INDICATIONS : 52 year-old female with history of left upper extremity loop graft. Patient presents secondary to thr ombosis of the graft and is status post thrombolysis on 12/25/2017 and 07/29/2017. In June, there was a stent placed in the venous anastomosis. MEDICAL HISTORY : ESRD HLD HTN Anemia Anxiety GERD Diverticulitis SURGICAL HISTORY : Hysterectomy Left arm AV fistula ENCOUNTER: Subsequent ACUITY: 1 day PAIN SCORE: 4/10 LOCATION: mid back FLUORO TIME: 11.0 minutes IMAGE SERIES: 8 ACCESS SITE: Left Fistula SEDATION TIME: 60 minutes CONTRAST: 1.) 70 cc Omnipaque (iohexol) 350 MEDICATION(S): 1.) 4.5 mg fentanyl (Sublimaze) IV 2.) 225 mcg fentanyl (Sublimaze) IV DEVICE(S): 1.) Left AV Fistula AUDITOR TAX balloon 6X4mm & 8X4mm Craft Artist PROCEDURE : 1. Ultrasound guided puncture of the arterial limb of the fistula. 2. Ultrasound guided puncture of the venous limb of the fistula. 3. Evaluation of dialysis graft. 4. TPA thrombolysis of dialysis graft. 5. Mechanical thrombolysis of dialysis graft. 6. Angioplasty of the venous anastomosis. 7. Angioplasty of the arterial anastomosis. 8. Upper extremity venogram. 9. Superior venacavogram. 10. Conscious sedation with continuous EKG and oximetry monitoring. The risks, benefits and alternatives to the procedure were explained and verbal and written consent w as obtained. The site was prepped in sterile fashion. Full sterile technique was used, including cap, mask, steri le gloves and gown and a large sterile sheet. Hand hygiene and 2% chlorhexidine and/or betadine/alco hol prep was utilized per protocol for cutaneous antisepsis. Sterile gel and sterile probe cover wer e utilized for ultrasound guidance. The skin and subcutaneous tissues were infiltrated with local an esthetic solution. With ultrasound and fluoroscopic guidance the arterial limb of the fistula was punctured directed tow stan the venous anastomosis and a 6 [place] sheath was placed. A Berenstein catheter was at advanced t hrough the clotted portion of the graft into the superior vena cava where a superior cavogram was per formed in the AP projection. This demonstrates no evidence of central venous stenosis. The catheter was then retracted where venogram of the upper extremity was performed. A fistulogram was performed through the previously placed sheath demonstrating thrombus within the fistula. Mechanical thrombec valdo of the graft was performed using a partially inflated balloon and angioplasty was then performed with a fully inflated 6 and 8 mm balloon at the level of the venous anastomosis. Followup angiograp hy demonstrates resolution of the clot within the fistula. Attention was then turned to the arterial limb fistula. With ultrasound and and fluoroscopic guidanc e the venous limb of the fistula was punctured towards the arterial anastomosis and a 6 [place] sheath was placed. A guidewire was advanced through the arterial anastomosis where angioplasty was perform ed at this level. Followup examination the fistula demonstrates good flow through the fistula and no evidence of residual stenosis. Minimal adherent thrombus. The patient tolerated the procedure well and there were no complications. Conscious sedation was per formed with the prescribed dosages and duration as above in the presence of an independent trained ra diology nurse to assist in the monitoring of the patient. EKG and oximetry remained stable throughou t the procedure. CONCLUSION: 1. Uncomplicated declotting of thrombosed fistula. 2. Moderate restenosis at the arterial anastomosis completely resolved following 6 multiple angioplas ty. 3. High-grade stenosis at the aman-stent and moderate to severe proximal intra-stent stenosis of the venous anastomosis stent. Good angiographic result following 6 mm and 8 mm balloon angioplasty. 4. Patent central outflow veins. Fredy Muniz MD on March 31, 2018 at 17:20 Board Certified Radiologist. This report was verified electronically.
== END 2018-03-31 18:07 | disposition home or self-care (01) ==
LOC: HRAD 10:26 → HRIP 10:31 → HRAD 18:07
PROVIDERS: ATTEND Internal Medicine Nephrology
DX: T82.858A Stenosis of other vascular prosthetic devices, implants and grafts, initial encounter (principal); N18.6 End stage renal disease; I12.0 Hypertensive chronic kidney disease with stage 5 chronic kidney disease or end stage renal disease; E78.5 Hyperlipidemia, unspecified; F41.9 Anxiety disorder, unspecified; K21.9 Gastro-esophageal reflux disease without esophagitis; Z99.2 Dependence on renal dialysis
CPT/HCPCS: 36905; 80048; 85025; 85610; 85730; 99152; 99153; C1725; C1769; C1887; C1894; J0690; J1644; J2250; J3010; J3370; J7030; Q9967

== ENCOUNTER 2018-10-06 15:24 | Inpatient (IN) ==
[2018-10-06 16:40] LABS: Baso # (Auto) 0.1 th/mm3 (0.0-0.2); Eos # (Auto) 0.3 th/mm3 (0.0-0.4); Eos % (Auto) 3.6 % (0.0-4.0); Hematocrit 31.6 % (35.0-46.0); Hemoglobin 10.7 gm/dL (11.6-15.3); Lymph # (Auto) 1.7 th/mm3 (1.0-4.8); Mean Corpuscular HGB Conc 33.8 % (32.0-36.0); Mean Corpuscular Hemoglobin 36.6 pg (27.0-34.0); Mean Corpuscular Volume 108.3 fL (80.0-100.0); Mean Platelet Volume 7.4 fL (7.0-11.0); Mono # (Auto) 0.6 th/mm3 (0.0-0.9); Mono % (Auto) 7.1 % (0.0-8.0); Neut # (Auto) 5.2 th/mm3 (1.8-7.7); Neut % (Auto) 66.3 % (16.0-70.0); Platelet Count 233 th/mm3 (150-450); Red Blood Count 2.91 mil/mm3 (4.00-5.30); Red Cell Distribution Width 15.6 % (11.6-17.2); White Blood Count 7.9 th/mm3 (4.0-11.0)
--- NOTE | 2018-10-06 17:03 | ED ---
HPI General Chief complaint: Medical Clearance Stated complaint: Poss Clot Time Seen by Provider: 10/06/18 16:01 Source: patient, family and RN notes reviewed Mode of arrival: ambulatory History of Present Illness HPI narrative: 53yF presenting with AVG malfunction. The patient states that she has ESRD on HD with Dr. Alejandre; last dialyzed 4 days ago without difficulty but last night the HD team could not get flow from the graft. She says that she received a call from Dr. Alejandre today telling her to come to the ED for concern of graft occlusion. The patient has had at least 4 episodes of occlusion in the past. Admits to chronic occasional shortness of breath but denies confusion, chest pain, cough, or nausea. Related Data Home Medications Medication Instructions Recorded Confirmed cinacalcet [Sensipar] 30 mg PO DAILY 10/06/18 10/06/18 sevelamer carbonate [Renvela] 1,600 mg PO TID 10/06/18 10/06/18 Allergies Allergy/AdvReac Type Severity Reaction Status Date / Time cephalexin Allergy Severe Hives Verified 10/06/18 16:04 onion Allergy Severe Gastrointestinal Verified 10/06/18 16:04 Upset Sulfa (Sulfonamide AdvReac Intermediate Nausea/Vomi Verified 10/06/18 16:04 Antibiotics) ting Review of Systems ROS: all other systems reviewed are negative [facility] Medical History Medical History A-V fistula (Acute) End stage renal disease (Acute) H/O: hysterectomy (Acute) HTN (hypertension) (Acute) Surgical History Surgical History History of knee replacement, total (Acute) Social History Social History Substance History: No History of Abuse Second Hand Smoke Exposure: No Smoking Status: Former smoker How Often Do You Have a Drink Containing Alcohol: Never Recent Travel in [facility] within the Last 8 Weeks: No Recent Out of Country Travel within the Last 8 Weeks: No Immunization History Tetanus Immunization: <5 Years Exam Const General: healthy appearing and no acute distress HENMT Head: normocephalic and atraumatic Face and sinus: normal facial exam Eyes General: appearance normal, both eyes and all related structures Pupils: PERRL Chest Chest: normal inspection of the chest Resp Effort & Inspection: normal respiratory effort Auscultation: no rhonchi and no wheezes Cardio Rate: regular rate Rhythm: regular rhythm GI Inspection: non-distended Palpation: soft and nontender Skin General: no rashes or lesions noted Neuro General: alert, awake, oriented x3 and no focal motor deficits Extrem Other: AV graft present in left upper arm, no bruit or thrill Psych Affect: normal affect Course Initial Documented Vital Signs Temperature 98.4 F 10/06/18 15:30 Pulse Rate 82 10/06/18 15:30 Respiratory Rate 15 10/06/18 15:30 Blood Pressure 158/82 H 10/06/18 15:30 Pulse Oximetry 98 10/06/18 15:30 Last Documented Vital Signs Temperature 98.4 F 10/06/18 15:30 Pulse Rate 62 10/06/18 18:17 Respiratory Rate 20 10/06/18 18:17 Blood Pressure 126/77 10/06/18 18:17 Pulse Oximetry 97 10/06/18 18:17 Medical Decision Making [facility] Narrative Medical decision making narrative: Assessment: 53yF presenting with AV graft occlusion Plan: EKG and monitor Labs NPO- patient just ate prior to arrival Will d/w nephrology Addendum: Patient's K+ 5.1, no EKG changes, no indication for emergent HD. I spoke with Dr. Alejandre (nephrology), who wants to keep the patient overnight for IR thrombolysis/ permacath insertion tomorrow. I also spoke with Dr. Muniz of [facility]. Patient understands and agrees with plan. Medical Screen Exam Complete: Yes Emergency Medical Condition: Yes Differential Diagnosis Differential Diagnosis: Differential diagnosis includes, but is not limited to: graft occlusion, hyperkalemia Lab Data Lab results reviewed: Yes I reviewed the patient's lab results. Result diagrams: 10/06/18 16:20 10/06/18 16:20 Lab Results 10/06/18 10/06/18 10/06/18 Range/Units 16:20 16:20 16:20 WBC 7.9 (4.0-11.0) th/mm3 RBC 2.91 L (4.00-5.30) mil/mm3 Hgb 10.7 L (11.6-15.3) gm/dL Hct 31.6 L (35.0-46.0) % MCV 108.3 H (80.0-100.0) fL MCH 36.6 H (27.0-34.0) pg MCHC 33.8 (32.0-36.0) % RDW 15.6 (11.6-17.2) % Plt Count 233 (150-450) th/mm3 MPV 7.4 (7.0-11.0) fL Neut % (Auto) 66.3 (16.0-70.0) % Lymph % (Auto) 22.0 (9.0-44.0) % [place] % (Auto) 7.1 (0.0-8.0) % Eos % (Auto) 3.6 (0.0-4.0) % Baso % (Auto) 1.0 (0.0-2.0) % Neut # (Auto) 5.2 (1.8-7.7) th/mm3 Lymph # (Auto) 1.7 (1.0-4.8) th/mm3 [place] # (Auto) 0.6 (0.0-0.9) th/mm3 Eos # (Auto) 0.3 (0.0-0.4) th/mm3 Baso # (Auto) 0.1 (0.0-0.2) th/mm3 WBC Differential . Differential Comment Auto diff final PT 10.4 (9.8-11.6) sec INR 1.0 Ratio Sodium 139 (136-145) meq/L Potassium 5.1 (3.5-5.1) meq/L Chloride 108 H (98-107) meq/L Carbon Dioxide 20.6 L (21.0-32.0) meq/L Anion Gap 10 (5-15) meq/L BUN 55 H (7-18) mg/dL Creatinine 12.60 H* (0.50-1.00) mg/dL Estimated GFR 4 L (>89) mL/min Random Glucose 114 H (74-106) mg/dL Calcium 8.1 L (8.5-10.1) mg/dL Phosphorus 6.1 H (2.5-4.9) mg/dL Magnesium 2.4 (1.5-2.5) mg/dL Total Bilirubin 0.3 (0.2-1.0) mg/dL AST 12 L (15-37) U/L ALT 21 (10-53) U/L Alkaline Phosphatase 135 H (45-117) U/L Total Protein 7.5 (6.4-8.2) g/dL Albumin 3.6 (3.4-5.0) g/dL ECG Data Attestation: I personally reviewed and interpreted this ECG as follows: Interpretation: Rate: 65 BPM Rhythm: Sinus [place]: Normal Intervals: Normal intervals, no blocks, QTc 418 ms Q waves: None T waves: Upright, no inversions ST segments: No elevations or depressions Impression: Non-specific EKG, no changes concerning for hyperkalemia, no changes as compared to EKG from 09/17/2017. Discharge Plan Discharge Disposition Patient Disposition: 30 Still Patient Discharge Condition Condition: Stable Discharge Details Diagnosis: AV graft thrombosis Physicians Team ED Provider: Kavitha Abad Primary Care Provider: Caro Emanuel Attending Provider: Tyra Muniz Other Providers: Devante Alejandre Discharge Interventions Interventions: Vital Signs Last Done: 10/06/18 18:17 Status ED Status: Admitted Observation Patient
[2018-10-06 17:17] LABS: Albumin 3.6 g/dL (3.4-5.0); Anion Gap 10 meq/L (5-15); Aspartate Aminotransferase 12 U/L (15-37); Blood Urea Nitrogen 55 mg/dL (7-18); Calcium 8.1 mg/dL (8.5-10.1); Carbon Dioxide 20.6 meq/L (21.0-32.0); Chloride 108 meq/L (98-107); Glomerular Filtration Rate 4 mL/min (>89); Glucose,Random 114 mg/dL (74-106); Magnesium 2.4 mg/dL (1.5-2.5); Potassium 5.1 meq/L (3.5-5.1); Sodium 139 meq/L (136-145)
[2018-10-06 17:21] LABS: Alanine Aminotransferase 21 U/L (10-53); Alkaline Phosphatase 135 U/L (45-117); Phosphorus 6.1 mg/dL (2.5-4.9); Total Protein 7.5 g/dL (6.4-8.2)
[2018-10-06 17:28] LABS: Prothrombin Time 10.4 sec (9.8-11.6)
--- NOTE | 2018-10-06 18:35 | P.HPIM ---
History of Present Illness Primary Care Physician: Caro Emanuel MD History of Present Illness: This is a 53-year-old female with history of end-stage renal disease and hypertension presenting with a fully thrombosed AV fistula. Patient has end- stage renal disease, on dialysis for about 4 years now been doing well until yesterday when she went for dialysis session, her AV graft was found to be occluded. She was supposed to go to radiology today for thrombolysis however there were some issues about the orders. Her dialysis days are Wednesday and Wednesday, last dialysis was [address] Alejandre asked her to go to the emergency department because of graft occlusion. Patient had at least 4 episodes of occlusion in the past. Presently, patient denies chest pain , shortness of breath, nausea, vomiting, headache, fever or pain on her left AV graft site. Review of Systems All other pertinent systems were reviewed and are negative. [facility] - History History Provided By: Patient - Medical History Medical History: Medical History (Last Reviewed 10/06/18 @ 18:32 by Tyra Muniz MD) A-V fistula End stage renal disease H/O: hysterectomy HTN (hypertension) - Surgical History Surgical History: Surgical History (Last Reviewed 10/06/18 @ 18:32 by Tyra Muniz MD) History of knee replacement, total - Social History I have reviewed the patient's Social History: Yes - Tobacco History Second Hand Smoke Exposure: No Smoking Status: Former smoker - Alcohol History How Often Do You Have a Drink Containing Alcohol: Never - Substance Use History Substance History: No History of Abuse - Travel History Recent Travel in the [place] Within the Last 8 Weeks: No Recent Travel Out of the Country Within the Last 8 Weeks: No - Immunization History Tetanus Immunization: <5 Years Medications and Allergies Allergies Allergy/AdvReac Type Severity Reaction Status Date / Time cephalexin Allergy Severe Hives Verified 10/06/18 16:04 onion Allergy Severe Gastrointestinal Verified 10/06/18 16:04 Upset Sulfa (Sulfonamide AdvReac Intermediate Nausea/Vomi Verified 10/06/18 16:04 Antibiotics) ting Home Medications Medication Instructions Recorded Confirmed Type cinacalcet [Sensipar] 30 mg PO DAILY 10/06/18 10/06/18 History sevelamer carbonate [Renvela] 1,600 mg PO TID 10/06/18 10/06/18 History Exam Vital signs: Vital Signs 10/06/18 15:30 10/06/18 16:09 10/06/18 18:17 Temperature 98.4 F Pulse Rate 82 70 62 Respiratory Rate 15 13 20 Blood Pressure 158/82 H 145/81 H 126/77 Pulse Oximetry 98 99 97 Intake & Output 10/05/18 10/06/18 10/06/18 18:59 06:59 18:59 Weight 109 kg Narrative: Not in distress, well-nourished, looks stated age PERRL, pink conjunctiva without injection, anicteric Nose without bleeding, airway patent, oropharynx clear Supple neck, no masses or thyromegaly, trachea midline Normal rate and regular rhythm, no murmurs gallops or rubs appreciated. Clear to auscultation and symmetric bilaterally, normal respiratory effort. Normal bowel sounds, soft, non-tender, nondistended, no guarding. Extremities without clubbing, cyanosis, or edema. No rash of generalized distribution. Skin is warm and dry. Left upper extremity AV graft, no bruit, no tenderness. AAO x3, no cranial nerve deficits, moves all 4 extremities, no focal neurologic deficits Results - Labs CBC & Chem 7: 10/06/18 16:20 10/06/18 16:20 Labs: Short CBC 10/06/18 Range/Units 16:20 WBC 7.9 (4.0-11.0) th/mm3 Hgb 10.7 L (11.6-15.3) gm/dL Hct 31.6 L (35.0-46.0) % Plt Count 233 (150-450) th/mm3 BMP 10/06/18 16:20 Sodium 139 Potassium 5.1 Chloride 108 H Carbon Dioxide 20.6 L BUN 55 H Creatinine 12.60 H* Calcium 8.1 L Liver Function 10/06/18 Range/Units 16:20 Total Bilirubin 0.3 (0.2-1.0) mg/dL AST 12 L (15-37) U/L ALT 21 (10-53) U/L Alkaline Phosphatase 135 H (45-117) U/L Albumin 3.6 (3.4-5.0) g/dL Caprini VTE Risk Assessment Caprini VTE Risk Assessment: No/Low Risk (score <= 1) Caprini Risk Assessment Model: Point Value = 1 Point Value = 2 Point Value = 3 Point Value = 5 Age 41-60 Minor surgery BMI > 25 kg/m2 Swollen legs Varicose veins or History of unexplained or recurrent spontaneous Oral contraceptives or hormone replacement Sepsis (< 1 month) Serious lung disease, including pneumonia (< 1 month) Abnormal pulmonary function Acute myocardial infarction Congestive heart failure (< 1 month) History of inflammatory bowel disease Medical patient at bed rest Age 61-74 Arthroscopic surgery Major open surgery (> 45 min) Laparoscopic surgery (> 45 min) Malignancy Confined to bed (> 72 hours) Immobilizing plaster cast Central venous access Age >= 75 History of VTE Family history of VTE Factor V Leiden Prothrombin [id number] Lupus anticoagulant Anticardiolipin antibodies Elevated serum homocysteine Heparin-induced thrombocytopenia Other congenital or acquired thrombophilia Stroke (< 1 month) Elective arthroplasty Hip, pelvis, or leg fracture Acute spinal cord injury (< 1 month) Prophylaxis Regimen: Total Risk Factor Score Risk Level Prophylaxis Regimen 0-1 Low Early ambulation 2 Moderate Order ONE of the following: *Sequential Compression Device (SCD) *Heparin 5000 units SQ BID 3-4 Higher Order ONE of the following medications: *Heparin 5000 units SQ TID *Enoxaparin/Lovenox 40 mg SQ daily (WT < 150 kg, CrCl > 30 mL/min) *Enoxaparin/Lovenox 30 mg SQ daily (WT < 150 kg, CrCl > 10-29 mL/min) *Enoxaparin/Lovenox 30 mg SQ BID (WT < 150 kg, CrCl > 30 mL/min) AND/OR *Sequential Compression Device (SCD) 5 or more Highest Order ONE of the following medications: *Heparin 5000 units SQ TID (Preferred with Epidurals) *Enoxaparin/Lovenox 40 mg SQ daily (WT < 150 kg, CrCl > 30 mL/min) *Enoxaparin/Lovenox 30 mg SQ daily (WT < 150 kg, CrCl > 10-29 mL/min) *Enoxaparin/Lovenox 30 mg SQ BID (WT < 150 kg, CrCl > 30 mL/min) AND *Sequential Compression Device (SCD) Assessment and Plan - Plan This is a 53-year-old female with history of hypertension and end-stage renal disease on hemodialysis for 4 years, presenting with an occluded AV graft. AV graft occlusion-consult nephrology, consult interventional radiology for thrombolysis in the morning, n.p.o. at midnight End-stage renal disease-consult nephrology, will likely need hemodialysis tomorrow, patient requesting for consultation for Dr. Raines for graft revision. We will defer to nephrology. No hyperkalemia, EKG is unremarkable, no emergent need for dialysis DVT prophylaxis: Low risk
[2018-10-06] MEDS ORDERED: Bisacodyl 10 MG Supp RECTAL PRN (20:00)
[2018-10-06] MEDS ORDERED: Acetaminophen 325 MG Tablet PO PRN (20:00)
[2018-10-07 09:20] LABS: Calcium 7.7 mg/dL (8.5-10.1); Carbon Dioxide 21.2 meq/L (21.0-32.0); Potassium 6.2 meq/L (3.5-5.1)
[2018-10-07] MEDS ORDERED: fentaNYL Citrate Inj 250 MCG/5 ML Ampul ONE (10:31)
[2018-10-07] MEDS ORDERED: Heparin 10,000 UNITS/10 ML Vial (for IV use) ONE (11:27)
--- NOTE | 2018-10-07 11:37 | P.PNIM ---
Subjective Interval history: patient has no complaints. Physical Exam Vital signs: Last Vital Signs Temp 97.7 F 10/07/18 08:00 Pulse 63 10/07/18 08:00 Resp 17 10/07/18 08:00 BP 132/74 10/07/18 08:00 Pulse Ox 99 10/07/18 08:00 Intake & Output 10/05/18 10/06/18 10/07/18 10/08/18 06:59 06:59 06:59 06:59 Weight 109 kg Narrative: GENERAL:well nourished, not in distress. HEENT: not pale,anicteric CARDIOVASCULAR: Regular rate and rhythm without murmurs, gallops, or rubs. RESPIRATORY: Clear to auscultation. Breath sounds equal bilaterally. No wheezes , rales, or rhonchi. GASTROINTESTINAL: Abdomen soft, non-tender, nondistended. Normal active bowel sounds MUSCULOSKELETAL: Extremities without clubbing, cyanosis, or edema. NEURO: Alert & Oriented x4 to person, place, time, situation. Moves all ext x4 Results Labs CBC & Chem 7: 10/06/18 16:20 10/07/18 06:46 Assessment and Plan Plan 53-year-old female with history of hypertension and end-stage renal disease on hemodialysis(MWF schedule) for 4 years, presented with an occluded AV graft. -IR consulted for declotting-patient in IR, Nephrology consulted-patient with hyperkalemia,will need HD. -Continued home medication. Progress Note: Quality VTE Deep Vein Thrombosis/Pulmonary Embolism Present on Admission: No
[2018-10-07] MEDS ORDERED: Sod Chloride 0.9% Inj 1,000 ML IV.CONT PRN (12:00)
[2018-10-07] MEDS ORDERED: Gelatin 12 MM/7 MM Topical Foam TOPICAL PRN (12:00)
[2018-10-07] MEDS ORDERED: Sod Chloride 0.9% Inj 1,000 ML OTHER PRN ×2 (12:00)
[2018-10-07] MEDS ORDERED: Acetaminophen 325 MG Tablet PO PRN (12:00)
[2018-10-07] MEDS ORDERED: Heparin 10,000 UNITS/10 ML Vial (for IV use) OTHER PRN ×2 (12:00)
[2018-10-07] MEDS ORDERED: Albumin Human 25% Inj 100 ML IV.SIG PRN (12:00)
[2018-10-07] MEDS ORDERED: Sodium Chlor 0.9% Inj 250 ML ONE ×2 (12:57→13:01)
[2018-10-07] MEDS ORDERED: Lidocaine 1%/Epinephrine 1:100,000 Inj 30 ML Vial ONE (13:04)
[2018-10-07] MEDS ORDERED: fentaNYL Citrate Inj 100 MCG/2 ML Ampul ONE (13:10)
[2018-10-07] MEDS ORDERED: Protamine Sulfate Inj 50 MG/5 ML Vial ONE (15:13)
--- NOTE | 2018-10-07 16:08 | ECG ---
Date Performed: 10/06/2018 Time Performed: 16:33:31 PTAGE: 53 years EKG: Sinus rhythm Since previous tracing, no significant change noted NORMAL ECG PREVIOUS TRACING : 09/17/2017 06.43 DOCTOR: Gallo Rowell Interpretating Date/Time 10/07/2018 16:08:37
--- NOTE | 2018-10-07 16:38 | P.CONNP ---
<Shelia Mendez - Last Filed: 10/07/18 16:54> History of Present Illness Consult date: 10/07/18 Reason for Consult: ESRD on dialysis Primary Care Provider: Caro Emanuel MD Chief Complaint: AVF occlusion History of Present Illness: Patient is a 53 year old female who presented to the ED with a thrombosed AV Fistula in her left arm. Patient has a history of End Stage Renal Disease and Hypertension. Patient gets dialysis on Wednesday-Wednesday- Wednesday. Patient last dialyzed 5 days ago. On Wednesday when patient went to be dialyzed her AV graft was occluded. She gets nocturnal dialysis at [facility]. Dr. Alejandre advised patient to go to ED. Patient stated she has had history of 5 previous occlusions. Her fistula revision 10/07/18 was unsuccessful and a PermCath was put in for dialysis. 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 Patient denies smoking and alcohol use. Patient has sulfa allergy. Patient states she is on the transplant list and has started to exercise. Review of Systems All other systems reviewed negative except as stated in HPI PMFSH - History History Provided By: Patient - Medical History Medical History: Medical History (Last Reviewed 10/06/18 @ 18:32 by Tyra Muniz MD) A-V fistula End stage renal disease H/O: hysterectomy HTN (hypertension) - Surgical History Surgical History: Surgical History (Last Reviewed 10/06/18 @ 18:32 by Tyra Muniz MD) History of knee replacement, total - Tobacco History Second Hand Smoke Exposure: Yes Smoking Status: Never smoker - Alcohol History How Often Do You Have a Drink Containing Alcohol: Never - Substance Use History Substance History: No History of Abuse - Travel History Recent Travel in the [place] Within the Last 8 Weeks: No Recent Travel Out of the Country Within the Last 8 Weeks: No - Immunization History Tetanus Immunization: <5 Years Medications and Allergies Allergies Allergy/AdvReac Type Severity Reaction Status Date / Time cephalexin Allergy Severe Hives Verified 10/06/18 16:04 onion Allergy Severe Gastrointestinal Verified 10/06/18 16:04 Upset Sulfa (Sulfonamide AdvReac Intermediate Nausea/Vomi Verified 10/06/18 16:04 Antibiotics) ting Home Medications Medication Instructions Recorded Confirmed Type cinacalcet [Sensipar] 30 mg PO DAILY 10/06/18 10/06/18 History sevelamer carbonate [Renvela] 1,600 mg PO TID 10/06/18 10/06/18 History Active Medications: Active Medications Acetaminophen (Tylenol) 650 mg PO Q4H PRN PRN Reason: Temp > 100.4 Acetaminophen (Tylenol) 650 mg PO UNSCH PRN PRN Reason: SEE LABEL COMMENTS Bisacodyl (Dulcolax Supp) 10 mg RECTAL DAILY PRN PRN Reason: SEVERE CONSITIPATION Cinacalcet (Sensipar) 30 mg PO DAILY MARISSA Last Admin: 10/07/18 08:55 Dose: Not Given Clonidine HCl (Catapres) 0.1 mg PO UNSCH PRN PRN Reason: SEE LABEL COMMENTS Diphenhydramine HCl (Benadryl) 25 mg PO UNSCH PRN PRN Reason: SEE LABEL COMMENTS Epoetin Horacio (Epogen Inj) 10,000 unit IV.PUSH MOWEFR PRN PRN Reason: SEE LABEL COMMENTS Gelatin (Gelfoam 12 Mm/7 Mm Topical) 1 foam TOPICAL PRN PRN PRN Reason: help stop bleeding from site Gentamicin Sulfate (Gentamicin Inj) 20 mg OTHER WITH DIALYSIS PRN PRN Reason: Dwell Gentamycin Lock Heparin Sodium (Porcine) (Heparin Inj) 8,000 units OTHER WITH DIALYSIS PRN PRN Reason: for machine prime Heparin Sodium (Porcine) (Heparin Inj) 1,000 units OTHER WITH DIALYSIS PRN PRN Reason: Dwell Heparin to Fill Catheter Albumin Human (Flexbumin 25% Inj) 100 mls @ 60 mls/hr IV.SIG WITH DIALYSIS PRN PRN Reason: hypotension / volume replace Sodium Chloride (Ns Inj) 1,000 mls @ 200 mls/hr OTHER .Q5H PRN PRN Reason: for dialyzer flush PRN Sodium Chloride (Ns Inj) 1,000 mls @ 0 mls/hr IV.CONT .Q0M PRN PRN Reason: hypotension / volume replace Sodium Chloride (Ns Inj) 1,000 mls @ 0 mls/hr OTHER .Q0M PRN PRN Reason: for prime and rinse back Mannitol (Mannitol Inj) 12.5 gm IV.PUSH UNSCH PRN PRN Reason: hypotension / volume replace Nitroglycerin (Nitrostat Sl) 0.4 mg SL Q5M PRN PRN Reason: CHEST PAIN Ondansetron HCl (Zofran Inj) 4 mg IV.PUSH Q6H PRN PRN Reason: NAUSEA OR VOMITING Ondansetron HCl (Zofran Inj) 4 mg IV.PUSH UNSCH PRN PRN Reason: NAUSEA OR VOMITING Sennosides (Senokot) 17.2 mg PO Q12H PRN PRN Reason: Moderate Constipation Sevelamer Carbonate (Renvela) 1,600 mg PO TID MARISSA Last Admin: 10/07/18 13:20 Dose: Not Given Sodium Chloride (Ns Flush) 5 ml IV.FLUSH PRN PRN PRN Reason: flush each lumen during HD Exam Vital signs: Vital Signs 10/06/18 18:17 10/06/18 20:00 10/06/18 23:45 Temperature 98.1 F 97.9 F Pulse Rate 62 70 65 Respiratory Rate 20 17 14 Blood Pressure 126/77 123/63 130/68 Pulse Oximetry 97 98 97 10/07/18 03:31 10/07/18 08:00 10/07/18 14:30 Temperature 98.0 F 97.7 F 98.5 F Pulse Rate 58 L 63 Respiratory Rate 17 17 20 Blood Pressure 140/91 H 132/74 Pulse Oximetry 99 99 10/07/18 14:45 Temperature Pulse Rate 70 Respiratory Rate 20 Blood Pressure 154/94 H Pulse Oximetry Intake & Output 10/06/18 10/07/18 10/07/18 18:59 06:59 18:59 Intake Total 250 / 250 Balance 250 / 250 Weight 109 kg Intake: IV 250 / 250 NS Inj 250 ML @ 0 mls/hr .ROUTE 250 / 250 .[facility] Rx#:[id number] Other: # Voids 1 - Constitutional no acute distress - Routine HEENT Exam Head: Present: normocephalic Eye: Present: EOMI ENT: Present: mucous membranes moist - Routine Neck Exam Present: supple, trachea midline. Absent: JVD, tracheal deviation - Routine Respiratory Exam Present: CTA bilaterally. Absent: accessory muscle use, respiratory distress, wheezes, crackles - Routine Cardiovascular Exam Present: RRR. Absent: murmur, gallop, rubs - Routine Abdominal Exam Present: soft, normoactive bowel sounds. Absent: tenderness - Routine Extremities Exam Present: edema, normal capillary refill, AV fistula Comments: Patient has bilateral lower extremity edema. - Routine Skin Exam Present: dry. Absent: cyanosis - Routine Neurological Exam Present: alert, oriented X3 Results - Lab Results 10/06/18 16:20 10/07/18 06:46 Most recent lab results Calcium 7.7 mg/dL (8.5-10.1) L 10/07/18 06:46 Phosphorus 6.1 mg/dL (2.5-4.9) H 10/06/18 16:20 Magnesium 2.4 mg/dL (1.5-2.5) 10/06/18 16:20 Assessment and Plan - Assessment (1) AV graft thrombosis Code(s): T82.868A - Thrombosis due to vascular prosthetic devices, implants and grafts, initial encounter Status: Acute Plan: Her fistula revision 10/07/18 was unsuccessful and a PermCath was put in for dialysis. (2) End stage renal disease Code(s): N18.6 - End stage renal disease Status: Acute Plan: Patient gets dialysis MWF. Patient to be dialyzed today. Monitor fluid and electrolytes. Avoid Gadolinium. (3) Anemia Code(s): D64.9 - Anemia, unspecified Status: Acute Plan: Patient to get Epogen with dialysis. (4) Metabolic bone disease Code(s): E88.9 - Metabolic disorder, unspecified; M90.80 - Osteopathy in diseases classified elsewhere, unspecified site Status: Acute Plan: Monitor Phosphorus intermittently. Will order Phosphorus lab. (5) Hypertension Code(s): I10 - Essential (primary) hypertension Status: Acute Plan: Monitor BP. <Devante Alejandre - Last Filed: 10/07/18 20:12> History of Present Illness Primary Care Provider: Caro Emanuel MD [facility] - Medical History Medical History: Medical History (Last Reviewed 10/06/18 @ 18:32 by Tyra Muniz MD) A-V fistula End stage renal disease H/O: hysterectomy HTN (hypertension) - Surgical History Surgical History: Surgical History (Last Reviewed 10/06/18 @ 18:32 by Tyra Muniz MD) History of knee replacement, total Medications and Allergies Active Medications: Active Medications Acetaminophen (Tylenol) 650 mg PO Q4H PRN PRN Reason: Temp > 100.4 Acetaminophen (Tylenol) 650 mg PO UNSCH PRN PRN Reason: SEE LABEL COMMENTS Bisacodyl (Dulcolax Supp) 10 mg RECTAL DAILY PRN PRN Reason: SEVERE CONSITIPATION Cinacalcet (Sensipar) 30 mg PO DAILY MARISSA Last Admin: 10/07/18 08:55 Dose: Not Given Clonidine HCl (Catapres) 0.1 mg PO UNSCH PRN PRN Reason: SEE LABEL COMMENTS Diphenhydramine HCl (Benadryl) 25 mg PO UNSCH PRN PRN Reason: SEE LABEL COMMENTS Epoetin Horacio (Epogen Inj) 10,000 unit IV.PUSH MOWEFR PRN PRN Reason: SEE LABEL COMMENTS Last Admin: 10/07/18 19:01 Dose: 10,000 unit Gelatin (Gelfoam 12 Mm/7 Mm Topical) 1 foam TOPICAL PRN PRN PRN Reason: help stop bleeding from site Gentamicin Sulfate (Gentamicin Inj) 20 mg OTHER WITH DIALYSIS PRN PRN Reason: Dwell Gentamycin Lock Last Admin: 10/07/18 19:01 Dose: 20 mg Heparin Sodium (Porcine) (Heparin Inj) 8,000 units OTHER WITH DIALYSIS PRN PRN Reason: for machine prime Heparin Sodium (Porcine) (Heparin Inj) 1,000 units OTHER WITH DIALYSIS PRN PRN Reason: Dwell Heparin to Fill Catheter Last Admin: 10/07/18 19:02 Dose: 1,000 units Albumin Human (Flexbumin 25% Inj) 100 mls @ 60 mls/hr IV.SIG WITH DIALYSIS PRN PRN Reason: hypotension / volume replace Sodium Chloride (Ns Inj) 1,000 mls @ 200 mls/hr OTHER .Q5H PRN PRN Reason: for dialyzer flush PRN Sodium Chloride (Ns Inj) 1,000 mls @ 0 mls/hr IV.CONT .Q0M PRN PRN Reason: hypotension / volume replace Sodium Chloride (Ns Inj) 1,000 mls @ 0 mls/hr OTHER .Q0M PRN PRN Reason: for prime and rinse back Mannitol (Mannitol Inj) 12.5 gm IV.PUSH UNSCH PRN PRN Reason: hypotension / volume replace Nitroglycerin (Nitrostat Sl) 0.4 mg SL Q5M PRN PRN Reason: CHEST PAIN Ondansetron HCl (Zofran Inj) 4 mg IV.PUSH Q6H PRN PRN Reason: NAUSEA OR VOMITING Ondansetron HCl (Zofran Inj) 4 mg IV.PUSH UNSCH PRN PRN Reason: NAUSEA OR VOMITING Sennosides (Senokot) 17.2 mg PO Q12H PRN PRN Reason: Moderate Constipation Sevelamer Carbonate (Renvela) 1,600 mg PO TID MARISSA Last Admin: 10/07/18 19:58 Dose: Not Given Sodium Chloride (Ns Flush) 5 ml IV.FLUSH PRN PRN PRN Reason: flush each lumen during HD Exam Vital signs: Vital Signs 10/06/18 23:45 10/07/18 03:31 10/07/18 08:00 Temperature 97.9 F 98.0 F 97.7 F Pulse Rate 65 58 L 63 Respiratory Rate 14 17 17 Blood Pressure 130/68 140/91 H 132/74 Pulse Oximetry 97 99 99 10/07/18 14:30 10/07/18 14:45 10/07/18 15:00 Temperature 98.5 F Pulse Rate 70 70 Respiratory Rate 20 20 20 Blood Pressure 154/94 H 154/90 H Pulse Oximetry Intake & Output 10/07/18 10/07/18 10/08/18 06:59 18:59 06:59 Intake Total 250 / 250 Output Total 2500 / 2500 Balance 250 / 250 -2500 / -2500 Intake: IV 250 / 250 NS Inj 250 ML @ 0 mls/hr .ROUTE 250 / 250 .[facility] Rx#:[id number] Output: Hemodialysis Amount 2500 / 2500 Other: # Voids 1 Results - Lab Results 10/06/18 16:20 10/07/18 06:46 Most recent lab results Calcium 7.7 mg/dL (8.5-10.1) L 10/07/18 06:46 Phosphorus 6.1 mg/dL (2.5-4.9) H 10/06/18 16:20 Magnesium 2.4 mg/dL (1.5-2.5) 10/06/18 16:20 Assessment and Plan - Assessment (1) AV graft thrombosis Code(s): T82.868A - Thrombosis due to vascular prosthetic devices, implants and grafts, initial encounter Status: Acute (2) End stage renal disease Code(s): N18.6 - End stage renal disease Status: Acute (3) Anemia Code(s): D64.9 - Anemia, unspecified Status: Acute (4) Metabolic bone disease Code(s): E88.9 - Metabolic disorder, unspecified; M90.80 - Osteopathy in diseases classified elsewhere, unspecified site Status: Acute (5) Hypertension Code(s): I10 - Essential (primary) hypertension Status: Acute - Attending Attestation patient was seen and examined. Radiologist unable to declot the AV access. Now has PermCath. She is hyperkalemic. Patient will be dialyzed tonight. Monitor her progress.
--- NOTE | 2018-10-07 17:00 | IR ---
EXAM DATE: 10/07/2018 4:52 PM EST AGE/SEX: 53 years / Female INDICATIONS: Patient with a history of thrombosed AV fistula. CLINICAL DATA: This is the patient's subsequent encounter. Patient reports that signs and symptoms h ave been present for 4 - 6 days and indicates a pain score of 0/10. MEDICAL/SURGICAL HISTORY: Renal disease, end stage. Hypertension. AV fistula Hysterectomy. COMPARISON: [facility], DECLOT ARM DIALYSIS SHUNT, LEFT, 07/29/2017. . FLUORO TIME (min): 43.25 IMAGE SERIES: 25 ACCESS SITE: Left AV fistula SEDATION TIME (min): 180 CONTRAST (cc): 65 Visipaque (iodixanol) MEDICATION(S): 7mg midazolam (Versed) IV 350mcg fentanyl (Sublimaze) IV 7000units Heparin IV DEVICE(S): Left SLIP SHEETER Balloon 6.0x20mm of AV fistula Left SLIP SHEETER balloon 6.0x40mm of AV fistula Left SLIP SHEETER balloon 8.0x40mm of AV fistula . . PROCEDURE : 1. Ultrasound guided puncture of the arterial limb of the fistula. 2. Ultrasound guided puncture of the venous limb of the fistula. 3. Evaluation of dialysis graft. 5. Mechanical thrombolysis of dialysis graft. 6. Angioplasty of the venous anastomosis. 7. Angioplasty of the arterial anastomosis. 8. Upper extremity venogram. 9. Superior venacavogram. 10. Conscious sedation with continuous EKG and oximetry monitoring. The risks, benefits and alternatives to the procedure were explained and verbal and written consent w as obtained. The site was prepped in sterile fashion. Full sterile technique was used, including cap, mask, steri le gloves and gown and a large sterile sheet. Hand hygiene and 2% chlorhexidine and/or betadine/alco hol prep was utilized per protocol for cutaneous antisepsis. Sterile gel and sterile probe cover wer e utilized for ultrasound guidance. The skin and subcutaneous tissues were infiltrated with local an esthetic solution. With ultrasound and fluoroscopic guidance the arterial limb of the fistula was punctured directed tow stan the venous anastomosis and a 6 Colombian sheath was placed. A Flocktory catheter was at advanced t hrough the clotted portion of the graft into the superior vena cava where a superior cavogram was per formed in the AP projection. This demonstrates no evidence of central venous stenosis. The catheter was then retracted where venogram of the upper extremity was performed. A fistulogram was performed through the previously placed sheath demonstrating thrombus within the fistula. Following this mech anical thrombectomy of the graft was performed using a partially inflated balloon and angioplasty was then performed with a fully inflated 6 mm balloon at the level of the venous anastomosis. Followup angiography demonstrates resolution of the clot distal to the pseudoaneurysm. It continues to be clot involving the proximal portion of the fistula at the level of the pseudoaneurysm. Attention was then turned to the arterial limb fistula. With ultrasound and and fluoroscopic guidanc e the venous limb of the fistula was punctured towards the arterial anastomosis and a 6 Colombian sheath was placed. A guidewire was advanced through the arterial anastomosis where angioplasty was perform ed at this level. On removal of the arterial plug no flow was identified in the graft in its midporti on no inflow was reestablished. There is a large pseudoaneurysm involving the proximal portion of the fistula with extensive thrombus. This portion of the graft adjacent to the pseudoaneurysm could not be cleared of thrombus. In consultation with Dr. Raines was elected not to perform stenting over the pseudoaneurysm and the patient is to undergo surgical revision. . The patient tolerated the procedure well and there were no complications. Conscious sedation was per formed with the prescribed dosages and duration as above in the presence of an independent trained ra diology nurse to assist in the monitoring of the patient. EKG and oximetry remained stable throughou t the procedure. CONCLUSION: 1. Unsuccessful declotting of the fistula within its midportion secondary to pseudoaneurysm. There i s reestablishment of flow involving the inflow as well as the outflow at the level of the previously placed stent with no central venous stenosis. Electronically signed by: Ar Morris MD 10/07/2018 4:58 PM EST
--- NOTE | 2018-10-07 17:10 | IR ---
EXAM DATE: 10/07/2018 4:51 PM EST AGE/SEX: 53 years / Female INDICATIONS: Patient presents with end-stage renal disease in need of dialysis catheter placement fo r dialysis treatment. CLINICAL DATA: This is the patient's initial encounter. Patient reports that signs and symptoms have been present for 1 day and indicates a pain score of 0/10. MEDICAL/SURGICAL HISTORY: . HTN, ESRD, . A-V fistula, Hysterectomy, Knee replacement. COMPARISON: No prior exams available for comparison. FLUORO TIME (min): 43.25 IMAGE SERIES: 2 ACCESS SITE: Left internal jugular vein SEDATION TIME (min): 180 MEDICATION(S): 7mg midazolam (Versed) IV 350mcg fentanyl (Sublimaze) IV 7,000 units Heparin IV Vancomycin within 2 hrs of procedure, Ancef (or alternative) within 1 hr of procedure. DEVICE(S): 15 Danish double lumen 27cm Rousseau II Plus Catheter . . PROCEDURE : 1. Ultrasound guided venipuncture. 2. Fluoroscopic guidance. 3. Central line placement. The risks, benefits and alternatives to the procedure were explained and verbal and written consent w as obtained. The site was prepped in sterile fashion. Full sterile technique was used, including ca p, mask, sterile gloves and gown and a large sterile sheet. Hand hygiene and 2% chlorhexidine prep w as utilized per protocol for cutaneous antisepsis with appropriate dry time for site. Sterile gel an d sterile probe cover were utilized for ultrasound guidance. The skin and subcutaneous tissues were infiltrated with local anesthetic solution. A suitable site a junie the vein was selected with ultrasound and fluoroscopic guidance. A small incision was made. Th e vein was accessed under direct ultrasound visualization using the micropuncture technique. The renea ropuncture set was exchanged for a 0.035 wire. The tract was dilated. The catheter was advanced int o position under direct fluoroscopic visualization, and was advanced with the tip at the junction of the superior vena cava and rt atrium. The catheter was fixed in place with suture and a sterile dres sing was applied. The patient tolerated the procedure well and there were no complications. CONCLUSION: 1. Uncomplicated line placement as above. Electronically signed by: Ar Morris MD 10/07/2018 5:08 PM EST
[2018-10-07] MEDS ORDERED: Morphine Sulfate Inj 2 MG/ML Vial IV.PUSH PRN (20:29)
--- NOTE | 2018-10-08 12:33 | P.PNIM ---
Subjective Interval history: feels well. had some pain on rt arm at night and required pain medication. no other complaint. Physical Exam Vital signs: Last Vital Signs Temp 98.0 F 10/08/18 08:00 Pulse 71 10/08/18 08:00 Resp 16 10/08/18 08:00 BP 130/72 10/08/18 08:00 Pulse Ox 95 10/08/18 08:00 Intake & Output 10/06/18 10/07/18 10/08/18 10/09/18 06:59 06:59 06:59 06:59 Intake Total 850 / 850 Output Total 2500 / 2500 Balance -1650 / -1650 Weight 109 kg 108 kg Narrative: GENERAL:well nourished, not in distress. HEENT: not pale,anicteric NECK:RIJ tunneled catheter in situ. CARDIOVASCULAR: Regular rate and rhythm without murmurs, gallops, or rubs. RESPIRATORY: Clear to auscultation. Breath sounds equal bilaterally. No wheezes , rales, or rhonchi. GASTROINTESTINAL: Abdomen soft, non-tender, nondistended. Normal active bowel sounds MUSCULOSKELETAL: Extremities without clubbing, cyanosis, or edema. Rt arm AVG with no thrill. NEURO: Alert & Oriented x4 to person, place, time, situation. Moves all ext x4 Results Labs CBC & Chem 7: 10/06/18 16:20 10/07/18 06:46 Imaging Imaging: Impressions Catheter Placement 10/07/18 00:00 CONCLUSION: 1. Uncomplicated line placement as above. Shunt Study 10/07/18 00:00 CONCLUSION: 1. Unsuccessful declotting of the fistula within its midportion secondary to pseudoaneurysm. There is reestablishment of flow involving the inflow as well as the outflow at the level of the previously placed stent with no central venous stenosis. Assessment and Plan (1) AV graft thrombosis: Code(s): T82.868A - Thrombosis due to vascular prosthetic devices, implants and grafts, initial encounter Status: Acute (2) End stage renal disease: Code(s): N18.6 - End stage renal disease Status: Acute (3) Anemia: Code(s): D64.9 - Anemia, unspecified Status: Acute (4) Metabolic bone disease: Code(s): E88.9 - Metabolic disorder, unspecified; M90.80 - Osteopathy in diseases classified elsewhere, unspecified site Status: Acute (5) Hypertension: Code(s): I10 - Essential (primary) hypertension Status: Acute Plan 53-year-old female with history of hypertension and end-stage renal disease on hemodialysis(MW schedule) for 4 years, presented with an occluded AV graft. -IR consulted for declotting-failed--will need surgical evaluation. advised to elevate RUE. -Permacath inserted on 10/07, hemodialysis done last evening, hyperkalemia has resolved. -Continue home medication. -appreciate nephrology consult recs. Progress Note: Quality VTE Deep Vein Thrombosis/Pulmonary Embolism Present on Admission: No _ (1) AV graft thrombosis Qualifiers: Encounter type: (2) Anemia Qualifiers: Anemia type: Bone marrow failure anemia type: Chronic kidney disease stage : Folate deficiency anemia type: Hemolytic anemia type: Iron deficiency anemia type: Other causes of anemia: Vitamin B12 deficiency anemia type: (3) Hypertension Qualifiers: Hypertension type:
--- NOTE | 2018-10-08 16:01 | P.PNNP ---
Subjective Interval history: Some soreness at left chest and left arm s/p attempted thrombectomy and catheter placement. Physical Exam Vital signs: Vital Signs 10/07/18 20:15 10/08/18 00:25 10/08/18 04:10 Temperature 98.3 F 98.0 F 97.6 F Pulse Rate 88 80 77 Respiratory Rate 18 18 18 Blood Pressure 133/75 111/60 138/61 Pulse Oximetry 96 95 96 10/08/18 08:00 10/08/18 12:00 Temperature 98.0 F 98.1 F Pulse Rate 71 74 Respiratory Rate 16 16 Blood Pressure 130/72 109/62 Pulse Oximetry 95 98 Intake & Output 10/07/18 10/08/18 10/08/18 18:59 06:59 18:59 Intake Total 250 / 250 600 / 600 Output Total 2500 / 2500 Balance 250 / 250 -1900 / -1900 Weight 108 kg Intake: IV 250 / 250 NS Inj 250 ML @ 0 mls/hr .ROUTE 250 / 250 .[facility] Rx#:[id number] Oral 600 / 600 Output: Hemodialysis Amount 2500 / 2500 Other: # Voids 1 Date of Last Bowel Movement 10/06/18 10/06/18 Weight On Admission 109 kg - Constitutional no acute distress - Routine HEENT Exam Head: Present: normocephalic - Routine Neck Exam Present: supple - Routine Respiratory Exam Present: CTA bilaterally - Routine Cardiovascular Exam Present: RRR - Routine Abdominal Exam Present: soft - Routine Skin Exam Present: intact - Routine Neurological Exam Present: alert, oriented X3 - Detailed Neurological Exam: Coma Scale Eye Opening: Spontaneous - Routine Psychiatric Exam Present: normal affect Assessment and Plan - Assessment (1) End stage renal disease Code(s): N18.6 - End stage renal disease Status: Acute Plan: Patient gets dialysis MWF. HD done yesterday, plan for next HD Wednesday Monitor fluid and electrolytes. Avoid Gadolinium. (2) AV graft thrombosis Code(s): T82.868A - Thrombosis due to vascular prosthetic devices, implants and grafts, initial encounter Status: Acute Plan: Unsuccessful left arm AV graft thrombectomy, has placement of of new left IJ tunneled catheter Apparent plan is to follow-up with Dr. Raines Wednesday for further access evaluation/revision. Multiple episodes of graft thrombosis, with apparent stent at venous anastomosis Unfortunately patient has hospital-based insurance and is unable to follow with me at the outpatient [facility]. New left upper arm AV graft placement may be challenging, with presence of existing stent at axilla/ venous anastomosis. More proximal venous anastomosis may be a consideration. Will evaluate for right arm vein mapping to look for possible right arm options. (3) Anemia Code(s): D64.9 - Anemia, unspecified Status: Acute Plan: Patient to get Epogen with dialysis. (4) Metabolic bone disease Code(s): E88.9 - Metabolic disorder, unspecified; M90.80 - Osteopathy in diseases classified elsewhere, unspecified site Status: Acute Plan: Monitor Phosphorus intermittently. (5) Hypertension Code(s): I10 - Essential (primary) hypertension Status: Acute Plan: Monitor BP.
--- NOTE | 2018-10-08 18:47 | US ---
EXAM DATE: 10/08/2018 5:22 PM EST AGE/SEX: 53 years / Female INDICATIONS: Right arm vein mapping for dialysis access. CLINICAL DATA: This is the patient's initial encounter. Patient reports that signs and symptoms have been present for 1 day and indicates a pain score of 0/10. MEDICAL/SURGICAL HISTORY: . A-V fistula. End stage renal disease. Hypertension. Liver mass. Former smoker. . Resection of liver. Total knee replacement. COMPARISON: No prior exams available for comparison. MEASUREMENTS: CEPHALIC: Origin:__4 mm Mid-Arm:__4 mm Elbow:__4 mm Forearm:__3 mm Wrist:__2 mm BASILIC: Origin:__5 mm Mid-Arm:__5 mm Elbow:__4 mm ARTERIES: Brachial:__4 mm Ulnar:__4 mm Radial:__3 mm VEINS: Radial:__2 mm Ulnar:__4 mm FINDINGS: The venous system of the upper extremity is patent by color Doppler imaging. Measurements of the arm veins (in mm) are listed above. CONCLUSION: Right upper extremity venous mapping as above. No thrombosis demonstrated. Electronically signed by: Jann Bartholomew MD 10/08/2018 6:46 PM EST
[2018-10-09 00:01] LABS: Calcium 7.9 mg/dL (8.5-10.1); Phosphorus 6.6 mg/dL (2.5-4.9); Potassium 5.3 meq/L (3.5-5.1)
--- NOTE | 2018-10-09 11:36 | P.PNIM ---
Subjective Interval history: Patient reports she is feeling okay today. Has some discomfort of the left arm but overall improving. Eating well. Physical Exam Vital signs: Vital Signs 10/08/18 12:00 10/08/18 16:00 10/08/18 20:00 Temperature 98.1 F 97.6 F 97.6 F Pulse Rate 74 85 88 Respiratory Rate 16 16 17 Blood Pressure 109/62 128/77 137/63 Pulse Oximetry 98 99 97 10/08/18 20:10 10/09/18 00:00 10/09/18 04:00 Temperature 97.9 F 97.8 F Pulse Rate 75 73 Respiratory Rate 18 17 Blood Pressure 117/61 102/59 L Pulse Oximetry 94 L 97 97 10/09/18 06:54 10/09/18 08:00 10/09/18 09:14 Temperature 97.9 F Pulse Rate 79 Respiratory Rate 18 16 Blood Pressure 143/71 H Pulse Oximetry 96 97 Intake & Output 10/08/18 10/09/18 10/09/18 18:59 06:59 18:59 Intake Total 1120 / 1120 Output Total 0 / 0 Balance 1120 / 1120 0 / 0 Weight 110.9 kg Intake: Oral 1120 / 1120 Output: Urine 0 / 0 Other: # Voids 2 Date of Last Bowel Movement 10/06/18 10/08/18 # Bowel Movements 1 Narrative: GENERAL:well nourished in no acute distress. CARDIOVASCULAR: Regular rate and rhythm without murmurs, gallops, or rubs. RESPIRATORY: Clear to auscultation. Breath sounds equal bilaterally. No wheezes , rales, or rhonchi. GASTROINTESTINAL: Abdomen soft, non-tender, nondistended. Normal active bowel sounds MUSCULOSKELETAL: Extremities without clubbing, cyanosis, or edema. NEURO: Alert & Oriented x4 to person, place, time, situation. Moves all ext x4 Results - Labs CBC & Chem 7: 10/06/18 16:20 10/08/18 23:34 Laboratory Results - last 24 hr 10/08/18 23:34 Sodium 140 Potassium 5.3 H D Chloride 102 Carbon Dioxide 26.0 Anion Gap 12 BUN 59 H Creatinine 12.60 H* D Estimated GFR 4 L Random Glucose 97 Calcium 7.9 L Phosphorus 6.6 H - Imaging Impressions Upper Extremity Ultrasound 10/08/18 00:00 CONCLUSION: Right upper extremity venous mapping as above. No thrombosis demonstrated. Assessment and Plan - Assessment (1) AV graft thrombosis Code(s): T82.868A - Thrombosis due to vascular prosthetic devices, implants and grafts, initial encounter Status: Acute (2) End stage renal disease Code(s): N18.6 - End stage renal disease Status: Acute (3) Anemia Code(s): D64.9 - Anemia, unspecified Status: Acute (4) Metabolic bone disease Code(s): E88.9 - Metabolic disorder, unspecified; M90.80 - Osteopathy in diseases classified elsewhere, unspecified site Status: Acute (5) Hypertension Code(s): I10 - Essential (primary) hypertension Status: Acute - Plan 53-year-old female with history of hypertension and end-stage renal disease on hemodialysis(MWF schedule) for 4 years, presented with an occluded AV graft. AV graft thrombosis: - IR attempted thrombectomy without success. Left IJ tunnel catheter placed for hemodialysis. - Vein mapping on the right per nephrology. - Will need evaluation by vascular surgery inpatient versus outpatient. Defer to nephrology. Patient follows with Dr. Raines. -Pain control. End stage renal disease on hemodialysis. Continue hemodialysis on MWF per nephrology. Monitor fluid and electrolytes. Anemia of chronic disease: - Patient to receive Epogen with dialysis. Discharge Planning: Discharge when cleared by nephrology. Need vascular surgery evaluation, inpatient vs outpatient.
--- NOTE | 2018-10-09 12:47 | P.PNNP ---
Subjective Interval history: no acute complaints Physical Exam Vital signs: Vital Signs 10/08/18 16:00 10/08/18 20:00 10/08/18 20:10 Temperature 97.6 F 97.6 F Pulse Rate 85 88 Respiratory Rate 16 17 Blood Pressure 128/77 137/63 Pulse Oximetry 99 97 94 L 10/09/18 00:00 10/09/18 04:00 10/09/18 06:54 Temperature 97.9 F 97.8 F Pulse Rate 75 73 Respiratory Rate 18 17 18 Blood Pressure 117/61 102/59 L Pulse Oximetry 97 97 10/09/18 08:00 10/09/18 09:14 10/09/18 11:25 Temperature 97.9 F Pulse Rate 79 Respiratory Rate 16 18 Blood Pressure 143/71 H Pulse Oximetry 96 97 Intake & Output 10/08/18 10/09/18 10/09/18 18:59 06:59 18:59 Intake Total 1120 / 1120 Output Total 0 / 0 Balance 1120 / 1120 0 / 0 Weight 110.9 kg Intake: Oral 1120 / 1120 Output: Urine 0 / 0 Other: # Voids 2 Date of Last Bowel Movement 10/06/18 10/08/18 # Bowel Movements 1 - Constitutional no acute distress - Routine HEENT Exam Head: Present: normocephalic - Routine Neck Exam Present: supple - Routine Respiratory Exam Present: CTA bilaterally - Routine Cardiovascular Exam Present: RRR - Routine Abdominal Exam Present: soft - Routine Exam Perineum Description: Intact - Routine Skin Exam Present: intact - Routine Neurological Exam Present: alert, oriented X3 - Detailed Neurological Exam: Coma Scale Eye Opening: Spontaneous - Routine Psychiatric Exam Present: normal affect Assessment and Plan - Assessment (1) End stage renal disease Code(s): N18.6 - End stage renal disease Status: Acute Plan: Patient gets dialysis MWF. HD done Wednesday, plan for next HD Wednesday Monitor fluid and electrolytes. Avoid Gadolinium. (2) AV graft thrombosis Code(s): T82.868A - Thrombosis due to vascular prosthetic devices, implants and grafts, initial encounter Status: Acute Plan: Unsuccessful left arm AV graft thrombectomy, has placement of of new left IJ tunneled catheter Apparent plan is to follow-up with Dr. Raines Wednesday for further access evaluation/revision. Multiple episodes of graft thrombosis, with apparent stent at venous anastomosis Unfortunately patient has hospital-based insurance and is unable to follow with [facility]. New left upper arm AV graft placement may be challenging, with presence of existing stent at axilla/ venous anastomosis. More proximal venous anastomosis may be a consideration. Vein mapping here indicates that a right brachiocephalic AV fistula or right brachiobasilic AV fistula may be a consideration. Continue to follow with Dr. Raines. Given moderate discomfort post thrombectomy attempt and catheter placement patient would like to wait inpatient for further AV access evaluation. (3) Anemia Code(s): D64.9 - Anemia, unspecified Status: Acute Plan: Patient to get Epogen with dialysis. (4) Metabolic bone disease Code(s): E88.9 - Metabolic disorder, unspecified; M90.80 - Osteopathy in diseases classified elsewhere, unspecified site Status: Acute Plan: Monitor Phosphorus intermittently. (5) Hypertension Code(s): I10 - Essential (primary) hypertension Status: Acute Plan: Monitor BP.
[2018-10-10 08:38] LABS: Hematocrit 28.3 % (35.0-46.0); Hemoglobin 9.7 gm/dL (11.6-15.3); Mean Corpuscular HGB Conc 34.3 % (32.0-36.0); Mean Corpuscular Hemoglobin 35.9 pg (27.0-34.0); Mean Corpuscular Volume 104.5 fL (80.0-100.0); Mean Platelet Volume 7.7 fL (7.0-11.0); Platelet Count 211 th/mm3 (150-450); Red Blood Count 2.71 mil/mm3 (4.00-5.30); Red Cell Distribution Width 14.6 % (11.6-17.2); White Blood Count 8.3 th/mm3 (4.0-11.0)
[2018-10-10 09:20] LABS: Alanine Aminotransferase 16 U/L (10-53); Albumin 3.2 g/dL (3.4-5.0); Alkaline Phosphatase 118 U/L (45-117); Anion Gap 14 meq/L (5-15); Aspartate Aminotransferase 13 U/L (15-37); Blood Urea Nitrogen 69 mg/dL (7-18); Chloride 100 meq/L (98-107); Glomerular Filtration Rate 3 mL/min (>89); Glucose,Random 77 mg/dL (74-106); Potassium 5.9 meq/L (3.5-5.1); Sodium 137 meq/L (136-145); Total Protein 6.8 g/dL (6.4-8.2)
--- NOTE | 2018-10-10 10:20 | P.PNNP ---
Subjective Interval history: Patient was seen during dialysis, no distress. Patient was on 2K with a blood flow rate of 350 mL/min, UF goal of 4.8 L. Unsuccessful left arm AV graft thrombectomy 10/07, has placement of of new left IJ tunneled catheter. Plan is to follow-up with Dr. Raines today for further access evaluation/ revision. <Shelia Mendez - Last Filed: 10/10/18 10:14> Physical Exam Vital signs: Vital Signs 10/09/18 11:25 10/09/18 12:00 10/09/18 16:00 Temperature 97.5 F L 97.8 F Pulse Rate 68 70 Respiratory Rate 18 16 16 Blood Pressure 144/67 H 143/83 H Pulse Oximetry 99 98 10/09/18 17:49 10/09/18 20:00 10/10/18 00:00 Temperature 98.2 F 98.2 F Pulse Rate 70 75 Respiratory Rate 18 18 18 Blood Pressure 152/75 H 122/63 Pulse Oximetry 98 98 10/10/18 04:00 10/10/18 08:00 Temperature 97.8 F 98.1 F Pulse Rate 65 76 Respiratory Rate 17 16 Blood Pressure 121/61 171/88 H Pulse Oximetry 98 98 Intake & Output 10/09/18 10/10/18 10/10/18 18:59 06:59 18:59 Intake Total 940 / 940 Output Total 200 / 200 Balance 940 / 940 -200 / -200 Weight 111.5 kg Intake: Oral 940 / 940 Output: Urine 200 / 200 Other: Date of Last Bowel Movement 10/08/18 10/09/18 - Constitutional no acute distress - Routine HEENT Exam Head: Present: normocephalic Eye: Present: EOMI, PERRL ENT: Present: mucous membranes moist - Routine Neck Exam Present: trachea midline. Absent: tracheal deviation - Routine Respiratory Exam Present: accessory muscle use. Absent: respiratory distress - Routine Cardiovascular Exam Present: RRR. Absent: murmur, gallop, rubs - Routine Abdominal Exam Present: soft, normoactive bowel sounds - Routine Extremities Exam Present: edema, pulses intact. Absent: cyanosis Comments: Bilateral edema lower extremities. - Routine Neurological Exam Present: alert, oriented X3 - Detailed Neurological Exam: Coma Scale Eye Opening: Spontaneous Verbal Response: Oriented - Routine Psychiatric Exam Present: normal affect <Shelia Mendez - Last Filed: 10/10/18 10:14> Vital signs: Vital Signs 10/09/18 11:25 10/09/18 12:00 10/09/18 16:00 Temperature 97.5 F L 97.8 F Pulse Rate 68 70 Respiratory Rate 18 16 16 Blood Pressure 144/67 H 143/83 H Pulse Oximetry 99 98 10/09/18 17:49 10/09/18 20:00 10/10/18 00:00 Temperature 98.2 F 98.2 F Pulse Rate 70 75 Respiratory Rate 18 18 18 Blood Pressure 152/75 H 122/63 Pulse Oximetry 98 98 10/10/18 04:00 10/10/18 08:00 Temperature 97.8 F 98.1 F Pulse Rate 65 76 Respiratory Rate 17 16 Blood Pressure 121/61 171/88 H Pulse Oximetry 98 98 Intake & Output 10/09/18 10/10/18 10/10/18 18:59 06:59 18:59 Intake Total 940 / 940 Output Total 200 / 200 Balance 940 / 940 -200 / -200 Weight 111.5 kg Intake: Oral 940 / 940 Output: Urine 200 / 200 Other: Date of Last Bowel Movement 10/08/18 10/09/18 <Devante Alejandre - Last Filed: 10/10/18 10:48> Assessment and Plan - Assessment (1) End stage renal disease Code(s): N18.6 - End stage renal disease Status: Acute Plan: Patient gets dialysis MWF. Patient was seen during dialysis. Patient was on 2K with a blood flow rate of 350 mL/min, UF goal of 4.8 L. Monitor fluid and electrolytes. Avoid Gadolinium. 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 Apparent plan is to follow-up with Dr. Raines today for further access evaluation/revision. Multiple episodes of graft thrombosis, with apparent stent at venous anastomosis Unfortunately patient has hospital-based insurance and is unable to follow with Dr. Reyes at the outpatient [facility]. New left upper arm AV graft placement may be challenging, with presence of existing stent at axilla/ venous anastomosis. More proximal venous anastomosis may be a consideration. Vein mapping here indicates that a right brachiocephalic AV fistula or right brachiobasilic AV fistula may be a consideration. Continue to follow with Dr. Raines. Given moderate discomfort post thrombectomy attempt and catheter placement patient would like to wait inpatient for further AV access evaluation. (3) Anemia Code(s): D64.9 - Anemia, unspecified Status: Acute Plan: Patient to get Epogen with dialysis. (4) Metabolic bone disease Code(s): E88.9 - Metabolic disorder, unspecified; M90.80 - Osteopathy in diseases classified elsewhere, unspecified site Status: Acute Plan: Monitor Phosphorus intermittently. (5) Hypertension Code(s): I10 - Essential (primary) hypertension Status: Acute Plan: Monitor BP. <Shelia Mendez - Last Filed: 10/10/18 10:14> - Assessment (1) End stage renal disease Code(s): N18.6 - End stage renal disease Status: Acute (2) AV graft thrombosis Code(s): T82.868A - Thrombosis due to vascular prosthetic devices, implants and grafts, initial encounter Status: Acute (3) Anemia Code(s): D64.9 - Anemia, unspecified Status: Acute (4) Metabolic bone disease Code(s): E88.9 - Metabolic disorder, unspecified; M90.80 - Osteopathy in diseases classified elsewhere, unspecified site Status: Acute (5) Hypertension Code(s): I10 - Essential (primary) hypertension Status: Acute - Attending Attestation patient was seen and examined. Seen during dialysis. Agree with above assessment and plan. On Sevelamer for phosphorus binding. Vascular surgery evaluation is pending. <Devante Alejandre - Last Filed: 10/10/18 10:48>
--- NOTE | 2018-10-10 12:18 | P.PNIM ---
Subjective Interval history: Patient reports she is feeling ok today. Having less pain on the left arm. Elevated K this AM prior to dialysis. Physical Exam Vital signs: Vital Signs 10/09/18 16:00 10/09/18 17:49 10/09/18 20:00 Temperature 97.8 F 98.2 F Pulse Rate 70 70 Respiratory Rate 16 18 18 Blood Pressure 143/83 H 152/75 H Pulse Oximetry 98 98 10/10/18 00:00 10/10/18 04:00 10/10/18 08:00 Temperature 98.2 F 97.8 F 98.1 F Pulse Rate 75 65 76 Respiratory Rate 18 17 16 Blood Pressure 122/63 121/61 171/88 H Pulse Oximetry 98 98 98 Intake & Output 10/09/18 10/10/18 10/10/18 18:59 06:59 18:59 Intake Total 940 / 940 Output Total 200 / 200 4000 / 4000 Balance 940 / 940 -200 / -200 -4000 / -4000 Weight 111.5 kg Intake: Oral 940 / 940 Output: Urine 200 / 200 Hemodialysis Amount 4000 / 4000 Other: Date of Last Bowel Movement 10/08/18 10/09/18 10/09/18 Narrative: GENERAL:well nourished in no acute distress. CARDIOVASCULAR: Regular rate and rhythm without murmurs, gallops, or rubs. RESPIRATORY: Clear to auscultation. Breath sounds equal bilaterally. No wheezes , rales, or rhonchi. GASTROINTESTINAL: Abdomen soft, non-tender, nondistended. Normal active bowel sounds MUSCULOSKELETAL: Dressing over left AV graft site is dry. NEURO: Alert & Oriented x4 to person, place, time, situation. Moves all ext x4 Results - Labs CBC & Chem 7: 10/10/18 07:50 10/10/18 07:50 Laboratory Results - last 24 hr 10/10/18 10/10/18 07:50 07:50 WBC 8.3 RBC 2.71 L Hgb 9.7 L Hct 28.3 L MCV 104.5 H MCH 35.9 H MCHC 34.3 RDW 14.6 Plt Count 211 MPV 7.7 Sodium 137 Potassium 5.9 H Chloride 100 Carbon Dioxide 23.0 Anion Gap 14 BUN 69 H Creatinine 14.79 H* D Estimated GFR 3 L Random Glucose 77 Calcium 8.0 L Total Bilirubin 0.3 AST 13 L ALT 16 Alkaline Phosphatase 118 H Total Protein 6.8 D Albumin 3.2 L Assessment and Plan - Assessment (1) AV graft thrombosis Code(s): T82.868A - Thrombosis due to vascular prosthetic devices, implants and grafts, initial encounter Status: Acute (2) End stage renal disease Code(s): N18.6 - End stage renal disease Status: Acute (3) Anemia Code(s): D64.9 - Anemia, unspecified Status: Acute (4) Metabolic bone disease Code(s): E88.9 - Metabolic disorder, unspecified; M90.80 - Osteopathy in diseases classified elsewhere, unspecified site Status: Acute (5) Hypertension Code(s): I10 - Essential (primary) hypertension Status: Acute - Plan 53-year-old female with history of hypertension and end-stage renal disease on hemodialysis(MWF schedule) for 4 years, presented with an occluded AV graft. AV graft thrombosis: - IR attempted thrombectomy without success. Left IJ tunnel catheter placed for hemodialysis. - Vein mapping on the right per nephrology. - Patient follows with Dr. Raines. Will place consult for definitive plan. - Pain control. End stage renal disease on hemodialysis. Continue hemodialysis on MWF per nephrology. Monitor fluid and electrolytes. Anemia of chronic disease: - Patient to receive Epogen with dialysis. Hyperkalemia: - Patient had dialysis today. Follow up labs in AM. Discharge Planning: Discharge when cleared by specialist. Vascular surgery consult is pending.
[2018-10-10] MEDS ORDERED: Sodium Chlor 0.9% Inj 500 ML IV.CONT ONE (17:45)
[2018-10-10] MEDS ORDERED: Chlorhexidine Gluconate 2% 1 Pack (2 Cloths) TOPICAL ONE (17:45)
[2018-10-10] MEDS ORDERED: Metoprolol Tartrate 25 MG Tablet PO ONE (17:45)
[2018-10-11 06:27] LABS: Calcium 8.1 mg/dL (8.5-10.1); Carbon Dioxide 29.6 meq/L (21.0-32.0); Potassium 5.6 meq/L (3.5-5.1)
--- NOTE | 2018-10-11 09:10 | P.PN ---
Subjective Interval history: Follow up for left AV graft thrombosis/occlusion. The patient reports feeling well today. Denies any pain. Denies any fevers/chills, chest pain, shortness of breath, or abdominal complaints. Currently NPO for procedure this afternoon with Dr. Raines. Physical Exam Vital signs: Vital Signs 10/10/18 12:00 10/10/18 16:00 10/10/18 18:04 Temperature 98.2 F 98.5 F Pulse Rate 77 70 Respiratory Rate 16 18 14 Blood Pressure 162/95 H 139/78 Pulse Oximetry 97 98 10/10/18 20:00 10/10/18 21:40 10/11/18 00:00 Temperature 98.6 F 98.1 F Pulse Rate 82 83 Respiratory Rate 18 18 17 Blood Pressure 122/58 L 104/52 L Pulse Oximetry 98 96 10/11/18 03:46 10/11/18 04:00 10/11/18 08:00 Temperature 97.3 F L 98 F Pulse Rate 67 76 Respiratory Rate 18 17 20 Blood Pressure 104/53 L 146/85 H Pulse Oximetry 98 95 Intake & Output 10/10/18 10/11/18 10/11/18 18:59 06:59 18:59 Intake Total 900 / 900 Output Total 4000 / 4000 Balance -3100 / -3100 Weight 111.7 kg Intake: Oral 900 / 900 Output: Hemodialysis Amount 4000 / 4000 Other: # Voids 2 Date of Last Bowel Movement 10/09/18 10/09/18 # Bowel Movements 0 Narrative: GENERAL: Well-nourished, well-developed very pleasant middle aged female patient in [facility]. SKIN: Warm and dry. Left upper chest with IJ catheter, no surrounding erythema/ edema. HEENT: Normocephalic. Atraumatic. Pupils equal and round. Mucous membranes pink and moist. CARDIOVASCULAR: Regular rate and rhythm. No murmur appreciated. RESPIRATORY: No accessory muscle use. Clear to auscultation. Breath sounds equal bilaterally. GASTROINTESTINAL: Abdomen soft, non-tender, nondistended. Normoactive bowel sounds x4. MUSCULOSKELETAL: No obvious deformities. Extremities without clubbing, cyanosis , or edema. LUE AV fistula. NEUROLOGICAL: Awake and alert. No obvious cranial nerve deficits. Moving all extremities spontaneously. Normal speech. PSYCHIATRIC: Appropriate mood and affect; insight and judgment normal. Results - Labs CBC & Chem 7: 10/10/18 07:50 10/11/18 04:06 Laboratory Results - last 24 hr 10/10/18 10/11/18 07:50 04:06 Sodium 137 139 Potassium 5.9 H 5.6 H Chloride 100 101 Carbon Dioxide 23.0 29.6 Anion Gap 14 8 BUN 69 H 45 H Creatinine 14.79 H* D 11.43 H* D Estimated GFR 3 L 4 L Random Glucose 77 83 Calcium 8.0 L 8.1 L Total Bilirubin 0.3 AST 13 L ALT 16 Alkaline Phosphatase 118 H Total Protein 6.8 D Albumin 3.2 L - Imaging Catheter Placement 10/07/18 00:00 CONCLUSION: 1. Uncomplicated line placement as above. Shunt Study 10/07/18 00:00 CONCLUSION: 1. Unsuccessful declotting of the fistula within its midportion secondary to pseudoaneurysm. There is reestablishment of flow involving the inflow as well as the outflow at the level of the previously placed stent with no central venous stenosis. Upper Extremity Ultrasound 10/08/18 00:00 CONCLUSION: Right upper extremity venous mapping as above. No thrombosis demonstrated. - Procedures 10/07/18 -left IJ line placement by IR Assessment and Plan - Assessment (1) AV graft thrombosis Code(s): T82.868A - Thrombosis due to vascular prosthetic devices, implants and grafts, initial encounter Status: Acute (2) End stage renal disease Code(s): N18.6 - End stage renal disease Status: Acute (3) Anemia Code(s): D64.9 - Anemia, unspecified Status: Acute (4) Metabolic bone disease Code(s): E88.9 - Metabolic disorder, unspecified; M90.80 - Osteopathy in diseases classified elsewhere, unspecified site Status: Acute (5) Hypertension Code(s): I10 - Essential (primary) hypertension Status: Acute - Plan 53-year-old female with history of hypertension and end-stage renal disease on hemodialysis(MWF) for 4 years, presented with an occluded LUE AV graft. Left AV graft thrombosis with occlusion: acute - IR attempted thrombectomy without success. - 10/07 Left IJ tunnel catheter placed for hemodialysis. - Vein mapping on the right per nephrology. - Patient follows with Dr. Raines, consulted, plans for right AVF placement today 10/11 - Pain control with percocet prn - NPO for now End stage renal disease on hemodialysis: chronic - Continue hemodialysis on MWF per nephrology. - Monitor fluid and electrolytes. Anemia of chronic disease: - Patient to receive Epogen with dialysis. Hyperkalemia: acute, no chest pain/palpitations -K 5.9, improved to 5.6 s/p dialysis, plan for repeat dialysis tomorrow -Follow BMP DVT Prophylaxis: teds/SCDs; holding additional chemical prophylaxis for now with upcoming procedure Discharge Planning: Going to OR today with Dr. Raines. Further disposition to follow. Will need clearance from nephrology and vascular surgery prior to discharge.
--- NOTE | 2018-10-11 09:55 | P.PNNP ---
Subjective Interval history: Patient was seen in room, no distress. Patient was NPO. Patient is getting an AVF in her right arm today. Patient also to be dialyzed today, potassium is 5.6. Patient will continue dialysis MWF. <Shelia Mendez - Last Filed: 10/11/18 17:53> Physical Exam Vital signs: Vital Signs 10/10/18 12:00 10/10/18 16:00 10/10/18 18:04 Temperature 98.2 F 98.5 F Pulse Rate 77 70 Respiratory Rate 16 18 14 Blood Pressure 162/95 H 139/78 Pulse Oximetry 97 98 10/10/18 20:00 10/10/18 21:40 10/11/18 00:00 Temperature 98.6 F 98.1 F Pulse Rate 82 83 Respiratory Rate 18 18 17 Blood Pressure 122/58 L 104/52 L Pulse Oximetry 98 96 10/11/18 03:46 10/11/18 04:00 10/11/18 08:00 Temperature 97.3 F L 98 F Pulse Rate 67 76 Respiratory Rate 18 17 20 Blood Pressure 104/53 L 146/85 H Pulse Oximetry 98 95 Intake & Output 10/10/18 10/11/18 10/11/18 18:59 06:59 18:59 Intake Total 900 / 900 Output Total 4000 / 4000 Balance -3100 / -3100 Weight 111.7 kg Intake: Oral 900 / 900 Output: Hemodialysis Amount 4000 / 4000 Other: # Voids 2 Date of Last Bowel Movement 10/09/18 10/09/18 # Bowel Movements 0 - Constitutional no acute distress - Routine HEENT Exam Head: Present: normocephalic Eye: Present: EOMI, PERRL ENT: Present: mucous membranes moist - Routine Neck Exam Present: trachea midline. Absent: JVD, tracheal deviation - Routine Respiratory Exam Present: accessory muscle use, decreased breath sounds, CTA bilaterally - Routine Cardiovascular Exam Present: RRR, murmur, gallop - Routine Abdominal Exam Present: soft, tenderness - Routine Extremities Exam Present: pulses intact, normal capillary refill - Routine Neurological Exam Present: alert, oriented X3 - Detailed Neurological Exam: Coma Scale Eye Opening: Spontaneous Verbal Response: Oriented Motor Response: Obey commands Darnell Coma Scale Total: 15 - Routine Psychiatric Exam Present: normal affect, normal thought process <Shelia Mendez - Last Filed: 10/11/18 17:53> Vital signs: Vital Signs 10/10/18 20:00 10/10/18 21:40 10/11/18 00:00 Temperature 98.6 F 98.1 F Pulse Rate 82 83 Respiratory Rate 18 18 17 Blood Pressure 122/58 L 104/52 L Pulse Oximetry 98 96 10/11/18 03:46 10/11/18 04:00 10/11/18 08:00 Temperature 97.3 F L 98 F Pulse Rate 67 76 Respiratory Rate 18 17 20 Blood Pressure 104/53 L 146/85 H Pulse Oximetry 98 95 10/11/18 12:00 10/11/18 15:55 10/11/18 16:10 Temperature 98.3 F 98.2 F Pulse Rate 73 84 78 Respiratory Rate 18 20 16 Blood Pressure 142/68 H 165/88 H 154/76 H Pulse Oximetry 96 99 93 L 10/11/18 16:25 Temperature 98.0 F Pulse Rate 73 Respiratory Rate 16 Blood Pressure 155/74 H Pulse Oximetry 95 Intake & Output 10/10/18 10/11/18 10/11/18 18:59 06:59 18:59 Intake Total 900 / 900 450 / 450 Output Total 4000 / 4000 Balance -3100 / -3100 440 / 440 Weight 111.7 kg Intake: Oral 900 / 900 Anesthesia Amount 450 / 450 Output: Hemodialysis Amount 4000 / 4000 Estimated Blood Loss Other: # Voids 2 0 Date of Last Bowel Movement 10/09/18 10/09/18 10/09/18 # Bowel Movements 0 0 <Devante Alejandre - Last Filed: 10/11/18 18:39> Assessment and Plan - Assessment (1) End stage renal disease Code(s): N18.6 - End stage renal disease Status: Acute Plan: Patient gets dialysis MWF. Patient to be dialyzed today due to potassium of 5.6. Plan is to dialyze patient after procedure today with Dr. Raines. Monitor fluid and electrolytes. Avoid Gadolinium. 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 Multiple episodes of graft thrombosis, with apparent stent at venous anastomosis Plan is to get an AVF in the right arm today with Dr. Raines. (3) Anemia Code(s): D64.9 - Anemia, unspecified Status: Acute Plan: Patient to get Epogen with dialysis. (4) Metabolic bone disease Code(s): E88.9 - Metabolic disorder, unspecified; M90.80 - Osteopathy in diseases classified elsewhere, unspecified site Status: Acute Plan: Monitor Phosphorus intermittently. Patient is on Renvela. (5) Hypertension Code(s): I10 - Essential (primary) hypertension Status: Acute Plan: Monitor BP. <Shelia Mendez - Last Filed: 10/11/18 17:53> - Assessment (1) End stage renal disease Code(s): N18.6 - End stage renal disease Status: Acute (2) AV graft thrombosis Code(s): T82.868A - Thrombosis due to vascular prosthetic devices, implants and grafts, initial encounter Status: Acute (3) Anemia Code(s): D64.9 - Anemia, unspecified Status: Acute (4) Metabolic bone disease Code(s): E88.9 - Metabolic disorder, unspecified; M90.80 - Osteopathy in diseases classified elsewhere, unspecified site Status: Acute (5) Hypertension Code(s): I10 - Essential (primary) hypertension Status: Acute - Attending Attestation patient was seen and examined. AVF surgery today. She has mild hyperkalemia, likely contributed by NPO status. Will plan on dialysis later today. <Devante Alejandre - Last Filed: 10/11/18 18:39>
--- NOTE | 2018-10-11 12:50 | ECG ---
Date Performed: 10/10/2018 Time Performed: 19:55:55 PTAGE: 53 years EKG: Sinus rhythm NORMAL ECG Since the PREVIOUS TRACING , no significant change noted PREVIOUS TRACIN10/06/2018 16.33 DOCTOR: Avril Lr Interpretating Date/Time 10/11/2018 12:47:42
[2018-10-11] MEDS: Sodium Chloride 23.4% Inj 154 MEQ in Dextrose 10% in Water Inj 1,000 ML IV.CONT SCH ×2 (13:06)
[2018-10-11] MEDS ORDERED: Protamine Sulfate Inj 50 MG/5 ML Vial ONE (13:33)
[2018-10-11] MEDS ORDERED: Heparin - SQ 10,000 UNITS/ML Vial ONE (13:33)
[2018-10-11] MEDS ORDERED: ceFAZolin 1 GM Premix Inj 0 GM/0 ML FROZ.PIGGY IV.SIG ONE (13:33)
[2018-10-11] MEDS ORDERED: Phenylephrine/NS 1000 MCG/10ML Syringe IV.PUSH ONE (13:53)
[2018-10-11] MEDS ORDERED: Lidocaine PF 1% Inj 5 ML Syringe OTHER ONE (13:53)
[2018-10-11] MEDS ORDERED: Bupivacaine/Epinephrine 0.5% Inj 50 ML Vial ONE (14:02)
--- NOTE | 2018-10-11 15:39 | P.BOP ---
- Preoperative Diagnosis (1) End stage renal disease - Postoperative Diagnosis (1) End stage renal disease Date of procedure: 10/11/18 Procedure: Right Brachial-Cephalic AVF Anesthesia: MAC, local Surgeon: Jairo Raines MD Estimated blood loss (mL): 10 Pathology: none sent Condition: stable Disposition: PACU
[2018-10-11] MEDS ORDERED: fentaNYL Citrate Inj 100 MCG/2 ML Ampul ONE (16:05)
[2018-10-12 05:13] LABS: Hematocrit 29.2 % (35.0-46.0); Hemoglobin 9.6 gm/dL (11.6-15.3); Mean Corpuscular HGB Conc 32.8 % (32.0-36.0); Mean Corpuscular Hemoglobin 34.9 pg (27.0-34.0); Mean Corpuscular Volume 106.4 fL (80.0-100.0); Mean Platelet Volume 7.6 fL (7.0-11.0); Platelet Count 214 th/mm3 (150-450); Red Blood Count 2.74 mil/mm3 (4.00-5.30); Red Cell Distribution Width 14.7 % (11.6-17.2); White Blood Count 6.1 th/mm3 (4.0-11.0)
[2018-10-12 05:36] LABS: Calcium 7.9 mg/dL (8.5-10.1); Carbon Dioxide 30.1 meq/L (21.0-32.0); Potassium 4.9 meq/L (3.5-5.1)
--- NOTE | 2018-10-12 07:54 | MP ---
cc: Jairo Raines MD Meg MD DATE OF OPERATION: 10/11/2018 PREOPERATIVE DIAGNOSIS: Chronic kidney disease with need for new, permanent hemodialysis access. POSTOPERATIVE DIAGNOSIS: Chronic kidney disease with need for new, permanent hemodialysis access. OPERATIVE PROCEDURE: Right brachiocephalic AV fistula creation with a preprocedure duplex scan right upper extremity. SURGEON: Jairo Raines MD FLAVOR TANK TENDER: LULA Covarrubias ANESTHESIA: Local, MAC. DESCRIPTION OF PROCEDURE: With the patient in the supine position under IV sedation, a Duplex scan of the right upper extremity venous anatomy was accomplished. The forearm cephalic vein measured 2 mm diameter at the wrist, 3 mm at the mid forearm level and a 4 mm at the antecubital level. Proximal to the antecubital level, the cephalic vein remained patent throughout and 4 mm in maximal dimension. The basilic vein was 4 mm at the antecubital level, 5 mm mid arm and 6 mm at the axilla. The brachial artery was patent throughout with minimal calcification. The right arm was prepped with Betadine and draped in a sterile fashion. The skin and subcutaneous tissues along the medial super antecubital region were preemptively infiltrated with 0.5% Marcaine with epinephrine. A curvilinear incision was performed along the medial super antecubital region. The cephalic vein and brachial artery were circumferentially mobilized. The vein was ligated distally with 4-0 silk, transected proximal to the ligature, spatulated on in, flushed with heparinized saline and occluded with a Yasargil clip. The brachial artery was occluded proximally and distally with Yasargil clips. A vertical arteriotomy was performed along the anterolateral surface. The arterial lumen was flushed proximally and distally with heparinized saline. An end-to-side anastomosis was accomplished between the vein and arteriotomy with continuous 7-0 Prolene. The occluding Yasargil clips were then removed reestablishing pulsatile flow within the brachial artery, as well as into the cephalic vein. Normal perfusion within the right hand was confirmed with easily palpable radial pulse. Adequate hemostasis was assured. The incision was closed with interrupted subcutaneous, 4-0 Monocryl, continuous subcuticular 5-0 Monocryl, reinforced with Steri-Strips and covered with sterile gauze. Instrument, needle, and sponge count were correct x2. No operative complication. The patient returned to the recovery room in stable condition, having tolerated the procedure well. Jairo Raines MD JTS/ct , 04:25 PM , 04:33 PM
--- NOTE | 2018-10-12 08:56 | P.PN ---
Subjective Interval history: Follow up for occluded left AVF, now s/p right AVF placement by Dr. Raines on . The patient reports some discomfort of the right arm post surgery. Denies any fevers/chills, chest pain, or shortness of breath. She is hungry and wants to eat, still NPO diet, changed to renal diet this morning. Denies any other medical complaints. Going for dialysis again today. Physical Exam Vital signs: Vital Signs 10/11/18 12:00 10/11/18 15:55 10/11/18 16:10 Temperature 98.3 F 98.2 F Pulse Rate 73 84 78 Respiratory Rate 18 20 16 Blood Pressure 142/68 H 165/88 H 154/76 H Pulse Oximetry 96 99 93 L 10/11/18 16:25 10/11/18 20:00 10/12/18 00:00 Temperature 98.0 F 98.0 F 97.6 F Pulse Rate 73 76 72 Respiratory Rate 16 17 16 Blood Pressure 155/74 H 112/56 L 111/60 Pulse Oximetry 95 93 L 93 L 10/12/18 01:54 10/12/18 04:00 10/12/18 06:44 Temperature 97.1 F L Pulse Rate 73 Respiratory Rate 16 16 18 Blood Pressure 106/65 Pulse Oximetry 94 L Intake & Output 10/11/18 10/12/18 10/12/18 18:59 06:59 18:59 Intake Total 450 / 450 Output Total 1999 Balance 440 / 440 -1999 Intake: Anesthesia Amount 450 / 450 Output: Hemodialysis Amount 1999 Estimated Blood Loss Other: # Voids 0 Date of Last Bowel Movement 10/09/18 10/09/18 10/09/18 # Bowel Movements 0 Narrative: GENERAL: Well-nourished, well-developed very pleasant middle aged female patient in [facility]. SKIN: Warm and dry. Left upper chest with IJ catheter, no surrounding erythema/ edema. HEENT: Normocephalic. Atraumatic. Pupils equal and round. Mucous membranes pink and moist. CARDIOVASCULAR: Regular rate and rhythm. No murmur appreciated. RESPIRATORY: No accessory muscle use. Clear to auscultation. Breath sounds equal bilaterally. GASTROINTESTINAL: Abdomen soft, non-tender, nondistended. Normoactive bowel sounds x4. MUSCULOSKELETAL: No obvious deformities. Extremities without clubbing, cyanosis , or edema. LUE AV fistula. New RUE AV fistula with dressing in place, CDI. NEUROLOGICAL: Awake and alert. No obvious cranial nerve deficits. Moving all extremities spontaneously. Normal speech. PSYCHIATRIC: Appropriate mood and affect; insight and judgment normal. Results - Labs CBC & Chem 7: 10/12/18 04:29 10/12/18 04:29 Laboratory Results - last 24 hr 10/12/18 10/12/18 04:29 04:29 WBC 6.1 RBC 2.74 L Hgb 9.6 L Hct 29.2 L MCV 106.4 H MCH 34.9 H MCHC 32.8 RDW 14.7 Plt Count 214 MPV 7.6 Sodium 141 Potassium 4.9 Chloride 100 Carbon Dioxide 30.1 Anion Gap 11 BUN 35 H Creatinine 10.56 H* Estimated GFR 5 L Random Glucose 73 L Calcium 7.9 L - Imaging Catheter Placement 10/07/18 00:00 CONCLUSION: 1. Uncomplicated line placement as above. Shunt Study 10/07/18 00:00 CONCLUSION: 1. Unsuccessful declotting of the fistula within its midportion secondary to pseudoaneurysm. There is reestablishment of flow involving the inflow as well as the outflow at the level of the previously placed stent with no central venous stenosis. Upper Extremity Ultrasound 10/08/18 00:00 CONCLUSION: Right upper extremity venous mapping as above. No thrombosis demonstrated. - Procedures 10/07/18 -left IJ line placement by IR 10/11/18 -right brachial-cephalic AVF placement by Dr. Raines Assessment and Plan - Assessment (1) AV graft thrombosis Code(s): T82.868A - Thrombosis due to vascular prosthetic devices, implants and grafts, initial encounter Status: Acute (2) End stage renal disease Code(s): N18.6 - End stage renal disease Status: Acute (3) Anemia Code(s): D64.9 - Anemia, unspecified Status: Acute (4) Metabolic bone disease Code(s): E88.9 - Metabolic disorder, unspecified; M90.80 - Osteopathy in diseases classified elsewhere, unspecified site Status: Acute (5) Hypertension Code(s): I10 - Essential (primary) hypertension Status: Acute - Plan 53-year-old female with history of hypertension and end-stage renal disease on hemodialysis(MWF) for 4 years, presented with an occluded LUE AV graft. Left AV graft thrombosis with occlusion: acute - IR attempted thrombectomy 10/07 without success. - 10/07 Left IJ tunnel catheter placed for hemodialysis. - Vein mapping on the right per nephrology. - Patient follows with Dr. Raines, consulted - S/p right AVF placement by Dr. Raines on 10/11 - Pain control with percocet prn End stage renal disease on hemodialysis: chronic - Continue hemodialysis on MWF per nephrology. - Monitor fluid and electrolytes. Anemia of chronic disease: - Patient to receive Epogen with dialysis. Hyperkalemia: acute, no chest pain/palpitations -K 5.9, improved to 4.9 s/p extra dialysis on 10/11, plan to continue on MWF HD DVT Prophylaxis: teds/SCDs; holding additional chemical prophylaxis for now with recent procedure Discharge Planning: Will need clearance from nephrology and vascular surgery prior to discharge.
[2018-10-12] MEDS: Sodium Chloride 23.4% Inj 154 MEQ in Dextrose 10% in Water Inj 1,000 ML IV.CONT SCH ×2 (11:00)
--- NOTE | 2018-10-12 11:56 | P.PNNP ---
Subjective Interval history: Patient was seen eating breakfast. Had complaints of pain from right brachial- cephalic AVF placement yesterday. Patient gets dialysis MWF, will be dialyzed today. Patient was dialyzed yesterday due to hyperkalemia, 2 L of fluid removed. K is now 4.9. Patient can be discharged after dialysis today. <Shelia Mendez - Last Filed: 10/12/18 11:50> Physical Exam Vital signs: Vital Signs 10/11/18 12:00 10/11/18 15:55 10/11/18 16:10 Temperature 98.3 F 98.2 F Pulse Rate 73 84 78 Respiratory Rate 18 20 16 Blood Pressure 142/68 H 165/88 H 154/76 H Pulse Oximetry 96 99 93 L 10/11/18 16:25 10/11/18 20:00 10/12/18 00:00 Temperature 98.0 F 98.0 F 97.6 F Pulse Rate 73 76 72 Respiratory Rate 16 17 16 Blood Pressure 155/74 H 112/56 L 111/60 Pulse Oximetry 95 93 L 93 L 10/12/18 01:54 10/12/18 04:00 10/12/18 06:44 Temperature 97.1 F L Pulse Rate 73 Respiratory Rate 16 16 18 Blood Pressure 106/65 Pulse Oximetry 94 L 10/12/18 08:00 Temperature 97.6 F Pulse Rate 78 Respiratory Rate 13 Blood Pressure 121/58 L Pulse Oximetry 95 Intake & Output 10/11/18 10/12/18 10/12/18 18:59 06:59 18:59 Intake Total 450 / 450 Output Total 1999 Balance 440 / 440 -1999 Intake: Anesthesia Amount 450 / 450 Output: Hemodialysis Amount 1999 Estimated Blood Loss Other: # Voids 0 Date of Last Bowel Movement 10/09/18 10/09/18 10/09/18 # Bowel Movements 0 - Constitutional no acute distress - Routine HEENT Exam Head: Present: normocephalic Eye: Present: EOMI, PERRL ENT: Present: mucous membranes moist - Routine Neck Exam Present: trachea midline. Absent: JVD, tracheal deviation - Routine Respiratory Exam Present: CTA bilaterally. Absent: accessory muscle use, respiratory distress - Routine Cardiovascular Exam Present: RRR, S1, S2 - Routine Abdominal Exam Present: soft, normoactive bowel sounds - Routine Extremities Exam Present: pulses intact, AV fistula. Absent: edema Comments: Patient had AVF placed yesterday in right arm. - Routine Neurological Exam Present: alert, oriented X3 - Routine Psychiatric Exam Present: normal affect, normal thought process <Shelia Mendez - Last Filed: 10/12/18 11:50> Vital signs: Vital Signs 10/12/18 20:00 10/13/18 00:00 10/13/18 04:00 Temperature 97.8 F 98.3 F 97.9 F Pulse Rate 101 H 90 78 Respiratory Rate 17 17 16 Blood Pressure 109/61 96/55 L 96/53 L Pulse Oximetry 93 L 91 L 92 L 10/13/18 08:00 10/13/18 09:56 10/13/18 12:00 Temperature 97.8 F 98.1 F Pulse Rate 104 H 78 Respiratory Rate 14 18 12 Blood Pressure 100/52 L 118/56 L Pulse Oximetry 94 L 98 Intake & Output 10/13/18 10/13/18 10/14/18 06:59 18:59 06:59 Output Total 0 / 0 Balance 0 / 0 Weight 111.2 kg Output: Urine 0 / 0 Other: Post Void Residual 0 # Voids 0 # Incontinent Voids 0 # Urine Diapers 0 Date of Last Bowel Movement 10/09/18 <Devante Alejandre - Last Filed: 10/13/18 19:43> Assessment and Plan - Assessment (1) End stage renal disease Code(s): N18.6 - End stage renal disease Status: Acute Plan: Patient gets dialysis MWF, will be dialyzed today. Patient was dialyzed yesterday due to hyperkalemia, 2 L of fluid removed. K is now 4.9. Patient can be discharged after dialysis today. 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 Multiple episodes of graft thrombosis, with apparent stent at venous anastomosis Patient got AVF in the right arm yesterday. Avoid taking blood pressure in right arm. (3) Anemia Code(s): D64.9 - Anemia, unspecified Status: Acute Plan: Patient to get Epogen with dialysis. (4) Metabolic bone disease Code(s): E88.9 - Metabolic disorder, unspecified; M90.80 - Osteopathy in diseases classified elsewhere, unspecified site Status: Acute Plan: Monitor Phosphorus intermittently. Patient is on Renvela. (5) Hypertension Code(s): I10 - Essential (primary) hypertension Status: Acute Plan: Monitor BP. <Shelia Mendez - Last Filed: 10/12/18 11:50> - Assessment (1) End stage renal disease Code(s): N18.6 - End stage renal disease Status: Acute (2) AV graft thrombosis Code(s): T82.868A - Thrombosis due to vascular prosthetic devices, implants and grafts, initial encounter Status: Acute (3) Anemia Code(s): D64.9 - Anemia, unspecified Status: Acute (4) Metabolic bone disease Code(s): E88.9 - Metabolic disorder, unspecified; M90.80 - Osteopathy in diseases classified elsewhere, unspecified site Status: Acute (5) Hypertension Code(s): I10 - Essential (primary) hypertension Status: Acute - Attending Attestation patient was seen and examined on 10/12/18. Agree with above assessment and plan. <Devante Alejandre - Last Filed: 10/13/18 19:43>
[2018-10-13 06:32] LABS: Calcium 8.9 mg/dL (8.5-10.1); Carbon Dioxide 31.7 meq/L (21.0-32.0); Potassium 4.3 meq/L (3.5-5.1)
--- NOTE | 2018-10-13 09:25 | P.DS ---
Date of admission: 10/07/18 14:27 Primary care physician: Caro Emanuel MD Attending physician on discharge: Feliciano Vega Anticipated date of discharge: 10/13/18 Brief History from admission: This is a 53-year-old female with history of end-stage renal disease and hypertension presenting with a fully thrombosed AV fistula. Patient has end- stage renal disease, on dialysis for about 4 years now been doing well until yesterday when she went for dialysis session, her AV graft was found to be occluded. She was supposed to go to radiology today for thrombolysis however there were some issues about the orders. Her dialysis days are Wednesday and Wednesday, last dialysis was [address] Alejandre asked her to go to the emergency department because of graft occlusion. Patient had at least 4 episodes of occlusion in the past. Presently, patient denies chest pain , shortness of breath, nausea, vomiting, headache, fever or pain on her left AV graft site. Patient update on day of discharge: Follow-up for occluded left aVF, now s/p right AVF placement by Dr. Raines on . Patient reports feeling well today. She does report some mild discomfort of her right arm, otherwise no other medical complaints. Denies any chest pain or shortness of breath. She is tolerating oral intake. She wants to go home. DS: Diagnosis - Discharge Diagnosis (1) AV graft thrombosis Status: Acute (2) End stage renal disease Status: Acute (3) Anemia Status: Acute (4) Metabolic bone disease Status: Acute (5) Hypertension Status: Acute DS: Summary Hospital Course: 53-year-old female with history of hypertension and end-stage renal disease on hemodialysis(MWF) for 4 years, presented with an occluded LUE AV graft. Left AV graft thrombosis with occlusion: acute. IR attempted thrombectomy 10/07 without success. 10/07 Left IJ tunnel catheter placed for hemodialysis. Vein mapping on the right per nephrology. Patient follows with Dr. Raines, consulted. S/p right AVF placement by Dr. Raines on 10/11. Pain control with percocet prn. Cleared for discharge by nephrology. End stage renal disease on hemodialysis: chronic. Continue hemodialysis on MWF per nephrology. Monitor fluid and electrolytes. Stable for discharge. Anemia of chronic disease: Patient receives Epogen with dialysis. Stable. Hyperkalemia: acute, no chest pain/palpitations. K 5.9, improved to 4.9 s/p extra dialysis on 10/11, plan to continue on normal schedule MWF HD - Time Spent with Patient Total time spent providing and/or coordinating discharge services: Less than 30 minutes - Quality: VTE Deep Vein Thrombosis/Pulmonary Embolism Present on Admission: No Exam Vital signs: Vital Signs 10/12/18 12:00 10/12/18 12:41 10/12/18 20:00 Temperature 97.8 F 97.8 F Pulse Rate 81 101 H Respiratory Rate 12 18 17 Blood Pressure 125/64 109/61 Pulse Oximetry 96 93 L 10/13/18 00:00 10/13/18 04:00 Temperature 98.3 F 97.9 F Pulse Rate 90 78 Respiratory Rate 17 16 Blood Pressure 96/55 L 96/53 L Pulse Oximetry 91 L 92 L Intake & Output 10/12/18 10/13/18 10/13/18 18:59 06:59 18:59 Intake Total 360 / 360 Output Total 3500 / 3500 0 / 0 Balance -3140 / -3140 0 / 0 Weight 111.2 kg Intake: Oral 360 / 360 Output: Urine 0 / 0 Hemodialysis Amount 3500 / 3500 Other: Post Void Residual 0 # Voids 0 # Incontinent Voids 0 # Urine Diapers 0 Date of Last Bowel Movement 10/09/18 Narrative: GENERAL: Well-nourished, well-developed very pleasant middle aged female patient in [facility]. SKIN: Warm and dry. Left upper chest with IJ catheter, no surrounding erythema/ edema. HEENT: Normocephalic. Atraumatic. Pupils equal and round. Mucous membranes pink and moist. CARDIOVASCULAR: Regular rate and rhythm. No murmur appreciated. RESPIRATORY: No accessory muscle use. Clear to auscultation. Breath sounds equal bilaterally. GASTROINTESTINAL: Abdomen soft, non-tender, nondistended. Normoactive bowel sounds x4. MUSCULOSKELETAL: No obvious deformities. Extremities without clubbing, cyanosis , or edema. LUE AV fistula. New RUE AV fistula with dressing in place, CDI. NEUROLOGICAL: Awake and alert. No obvious cranial nerve deficits. Moving all extremities spontaneously. Normal speech. PSYCHIATRIC: Appropriate mood and affect; insight and judgment normal. Results Procedures completed during hospitalization: 10/07/18 -left IJ line placement by IR 11/13/18 -right brachial-cephalic AVF placement by Dr. Raines Labs on day of discharge: Labs from last 24 hours 10/13/18 04:52 Sodium 139 Potassium 4.3 Chloride 99 Carbon Dioxide 31.7 Anion Gap 8 BUN 26 H Creatinine 7.80 H Estimated GFR 7 L Random Glucose 113 H Calcium 8.9 D - Impressions ITS Impressions Catheter Placement 10/07/18 00:00 CONCLUSION: 1. Uncomplicated line placement as above. Shunt Study 10/07/18 00:00 CONCLUSION: 1. Unsuccessful declotting of the fistula within its midportion secondary to pseudoaneurysm. There is reestablishment of flow involving the inflow as well as the outflow at the level of the previously placed stent with no central venous stenosis. Upper Extremity Ultrasound 10/08/18 00:00 CONCLUSION: Right upper extremity venous mapping as above. No thrombosis demonstrated. Discharge Plan - Discharge Disposition Patient Disposition: 01 Discharge Home - Discharge Condition Condition: Stable - Discharge Order Discharge Orders: Discharge Order (Routine); Ordered 10/13/18 Ordered By: Laura Kimball - Discharge Details Anticipated Discharge Date: 10/13/18 Discharge Comment: Ok to discharge today if cleared by Dr. Raines. - Physicians Team Primary Care Provider: Caro Emanuel Attending Provider: Feliciano Vega Other Providers: Devante Alejandre MD ; Jairo Raines MD
[2018-10-13] MEDS: Sodium Chloride 23.4% Inj 154 MEQ in Dextrose 10% in Water Inj 1,000 ML IV.CONT SCH ×2 (11:05)
[2018-10-13 12:04] VITALS: BP 118/56; PULSE 78; RESP 12; TEMP 98.1; O2SAT 98
--- NOTE | 2018-10-13 12:18 | P.PNNP ---
Subjective Interval history: Patient was seen eating breakfast, no distress. Patient had dialysis yesterday, 3.5 L removed. Patient to be discharged today. <Shelia Mendez - Last Filed: 10/13/18 12:18> Physical Exam Vital signs: Vital Signs 10/12/18 12:41 10/12/18 20:00 10/13/18 00:00 Temperature 97.8 F 98.3 F Pulse Rate 101 H 90 Respiratory Rate 18 17 17 Blood Pressure 109/61 96/55 L Pulse Oximetry 93 L 91 L 10/13/18 04:00 10/13/18 08:00 10/13/18 09:56 Temperature 97.9 F 97.8 F Pulse Rate 78 104 H Respiratory Rate 16 14 18 Blood Pressure 96/53 L 100/52 L Pulse Oximetry 92 L 94 L 10/13/18 12:00 Temperature 98.1 F Pulse Rate 78 Respiratory Rate 12 Blood Pressure 118/56 L Pulse Oximetry 98 Intake & Output 10/12/18 10/13/18 10/13/18 18:59 06:59 18:59 Intake Total 360 / 360 Output Total 3500 / 3500 0 / 0 Balance -3140 / -3140 0 / 0 Weight 111.2 kg Intake: Oral 360 / 360 Output: Urine 0 / 0 Hemodialysis Amount 3500 / 3500 Other: Post Void Residual 0 # Voids 0 # Incontinent Voids 0 # Urine Diapers 0 Date of Last Bowel Movement 10/09/18 10/09/18 - Routine HEENT Exam Head: Present: normocephalic Eye: Present: EOMI, PERRL ENT: Present: mucous membranes moist - Routine Neck Exam Present: supple - Routine Respiratory Exam Present: CTA bilaterally. Absent: accessory muscle use - Routine Cardiovascular Exam Present: RRR. Absent: murmur, JVD - Routine Abdominal Exam Present: soft. Absent: tenderness - Routine Extremities Exam Present: AV fistula. Absent: edema Comments: AVF right arm. - Routine Neurological Exam Present: alert, oriented X3 - Detailed Neurological Exam: Coma Scale Verbal Response: Oriented - Routine Psychiatric Exam Present: normal affect <Shelia Mendez - Last Filed: 10/13/18 12:18> Vital signs: Vital Signs 10/12/18 20:00 10/13/18 00:00 10/13/18 04:00 Temperature 97.8 F 98.3 F 97.9 F Pulse Rate 101 H 90 78 Respiratory Rate 17 17 16 Blood Pressure 109/61 96/55 L 96/53 L Pulse Oximetry 93 L 91 L 92 L 10/13/18 08:00 10/13/18 09:56 10/13/18 12:00 Temperature 97.8 F 98.1 F Pulse Rate 104 H 78 Respiratory Rate 14 18 12 Blood Pressure 100/52 L 118/56 L Pulse Oximetry 94 L 98 Intake & Output 10/13/18 10/13/18 10/14/18 06:59 18:59 06:59 Output Total 0 / 0 Balance 0 / 0 Weight 111.2 kg Output: Urine 0 / 0 Other: Post Void Residual 0 # Voids 0 # Incontinent Voids 0 # Urine Diapers 0 Date of Last Bowel Movement 10/09/18 <Devante Alejandre - Last Filed: 10/13/18 19:50> Assessment and Plan - Assessment (1) End stage renal disease Code(s): N18.6 - End stage renal disease Status: Acute Plan: Patient gets dialysis MWF. Patient had dialysis yesterday, 3.5 L removed. Patient can be discharged today. 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 Multiple episodes of graft thrombosis, with apparent stent at venous anastomosis Patient got AVF in the right arm two days ago. Avoid taking blood pressure in right arm. (3) Anemia Code(s): D64.9 - Anemia, unspecified Status: Acute Plan: Patient to get Epogen with dialysis. (4) Metabolic bone disease Code(s): E88.9 - Metabolic disorder, unspecified; M90.80 - Osteopathy in diseases classified elsewhere, unspecified site Status: Acute Plan: Patient is on Renvela. (5) Hypertension Code(s): I10 - Essential (primary) hypertension Status: Acute Plan: Monitor BP. <Shelia Mendez - Last Filed: 10/13/18 12:18> - Assessment (1) End stage renal disease Code(s): N18.6 - End stage renal disease Status: Acute (2) AV graft thrombosis Code(s): T82.868A - Thrombosis due to vascular prosthetic devices, implants and grafts, initial encounter Status: Acute (3) Anemia Code(s): D64.9 - Anemia, unspecified Status: Acute (4) Metabolic bone disease Code(s): E88.9 - Metabolic disorder, unspecified; M90.80 - Osteopathy in diseases classified elsewhere, unspecified site Status: Acute (5) Hypertension Code(s): I10 - Essential (primary) hypertension Status: Acute - Attending Attestation patient was seen and examined. Agree with above assessment and plan. <Devante Alejandre - Last Filed: 10/13/18 19:50>
== END 2018-10-13 15:46 | disposition home or self-care (01) ==
LOC: NEPE 15:24 → NEDA 15:24 → NEPFCDU 19:46 → N06 10-07 19:40
PROVIDERS: ADMIT Internal Medicine; ATTEND Internal Medicine
PROC: AVGFTUE (ICD-10-PCS; 2018-10-11 13:53)
DX: D50.9 Iron deficiency anemia, unspecified; T82.868A Thrombosis due to vascular prosthetic devices, implants and grafts, initial encounter; Y83.2 Surgical operation with anastomosis, bypass or graft as the cause of abnormal reaction of the patient, or of later complication, without mention of misadventure at the time of the procedure; Z91.018 Allergy to other foods; Z76.82 Awaiting organ transplant status; Z88.1 Allergy status to other antibiotic agents; D51.9 Vitamin B12 deficiency anemia, unspecified; D52.9 Folate deficiency anemia, unspecified; Z88.2 Allergy status to sulfonamides; E88.89 Other specified metabolic disorders; I12.0 Hypertensive chronic kidney disease with stage 5 chronic kidney disease or end stage renal disease; D59.9 Acquired hemolytic anemia, unspecified; E87.5 Hyperkalemia; Z99.2 Dependence on renal dialysis; D63.8 Anemia in other chronic diseases classified elsewhere; N18.6 End stage renal disease; Z96.659 Presence of unspecified artificial knee joint; M90.80 Osteopathy in diseases classified elsewhere, unspecified site; Z90.710 Acquired absence of both cervix and uterus

== ENCOUNTER 2018-12-16 08:26 | Inpatient (IN) ==
[2018-12-16] MEDS ORDERED: Acetaminophen 500 MG Tablet PO ONE (08:45)
--- NOTE | 2018-12-16 08:49 | ED ---
HPI General Chief complaint: Extremity Injury, Upper Stated complaint: Medical Time Seen by Provider: 12/16/18 08:45 Source: patient and family Mode of arrival: ambulatory Limitations: no limitations History of Present Illness HPI narrative: 53-year-old female patient with history of end-stage renal disease on nightly dialysis, has had problems with her grasps recently, it clotted off, and she is currently being evaluated by vascular surgery for a new graft, had been in for venous mapping yesterday, here today because she states that she has been having some swelling in the left subclavian access site and has been trying to lay on her right side in order to avoid swelling, and states that for the last 3 days her right hip has been hurting her. She denies any fevers, vomiting, or other issues. Pain is currently rated at 10 out of 10. 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 Modifying Factors: None Associated Signs & Symptoms: Right hip pain Risk Factors: End-stage renal disease on dialysis Related Data Home Medications Medication Instructions Recorded Confirmed cinacalcet [Sensipar] 30 mg PO DAILY 10/06/18 12/16/18 sevelamer carbonate [Renvela] 1,600 mg PO TID 10/06/18 12/16/18 Allergies Allergy/AdvReac Type Severity Reaction Status Date / Time cephalexin Allergy Severe Hives Verified 12/16/18 08:35 onion Allergy Severe Gastrointestinal Verified 12/16/18 08:35 Upset Sulfa (Sulfonamide AdvReac Intermediate Nausea/Vomi Verified 12/16/18 08:35 Antibiotics) ting Review of Systems ROS: all other systems reviewed are negative [facility] Medical History Medical History A-V fistula (Acute) End stage renal disease (Acute) H/O: hysterectomy (Acute) HTN (hypertension) (Acute) Liver mass, left lobe (Acute) Surgical History Surgical History H/O resection of liver (Acute) History of knee replacement, total (Acute) Family History Family History Other Family history of dementia Family history of diabetes mellitus Family history of hypertension Family history of paranoid schizophrenia Social History Social History Substance History: No History of Abuse Second Hand Smoke Exposure: No Smoking Status: Never smoker How Often Do You Have a Drink Containing Alcohol: Never Recent Travel in [facility] within the Last 8 Weeks: No Recent Out of Country Travel within the Last 8 Weeks: No Immunization History Tetanus Immunization: <5 Years Exam Narrative Exam Narrative: GENERAL: Well-developed middle-age -[place] female patient currently and moderate distress. Awake and oriented x3. SKIN: Focused skin assessment warm/dry. HEAD: Atraumatic. Normocephalic. EYES: Pupils equal and round. No scleral icterus. No injection or drainage. ENT: No nasal bleeding or discharge. Mucous membranes pink and moist. NECK: Trachea midline. No JVD. CARDIOVASCULAR: Regular rate and rhythm. No murmur appreciated. RESPIRATORY: No accessory muscle use. Clear to auscultation. Breath sounds equal bilaterally. GASTROINTESTINAL: Abdomen soft, obese, mild right upper quadrant tenderness without guarding or rebound, nondistended. Hepatic and splenic margins not palpable. MUSCULOSKELETAL: No obvious deformities. No clubbing. No cyanosis. No edema. There is tenderness on palpation of the right lateral hip and buttocks area, without point tenderness and obvious deformities. NEUROLOGICAL: Awake and alert. No obvious cranial nerve deficits. Motor grossly within normal limits. Normal speech. PSYCHIATRIC: Appropriate mood and affect; insight and judgment normal. Course Initial Documented Vital Signs Pulse Rate 117 H 12/16/18 08:36 Respiratory Rate 20 12/16/18 08:36 Blood Pressure 88/53 L 12/16/18 08:36 Pulse Oximetry 97 12/16/18 08:36 Last Documented Vital Signs Pulse Rate 102 H 12/16/18 11:29 Respiratory Rate 18 12/16/18 11:29 Blood Pressure 100/52 L 12/16/18 11:29 Pulse Oximetry 97 12/16/18 08:36 Medical Decision Making MDM Narrative Medical decision making narrative: Initial CAT scans of the belly and right hip did not show any signs of acute processes. There is a notable right inguinal seroma which the patient states she has had before, and had been drained by Dr. Montgomery in the past. It is not the area of her pain. It is palpable on inguinal area palpation, not significantly tender to palpation. Lab work shows significant leukocytosis of 23, and at this point I am assuming that she is septic. IV fluids had been given in the ER. Cultures were drawn and lactate was ordered, and she was given IV antibiotics in the ER. My plan would be to admit her for further evaluation and treatment. Case is discussed with [facility] resident service for admission. Medical Screen Exam Complete: Yes Emergency Medical Condition: Yes Differential Diagnosis Differential Diagnosis: Pressure ulcer versus sciatica versus arthritis versus renal colic Lab Data Result diagrams: 12/16/18 11:05 12/16/18 11:05 Lab Results 12/16/18 12/16/18 Range/Units 11:05 11:05 WBC 23.7 H (4.0-11.0) th/mm3 RBC 2.97 L (4.00-5.30) mil/mm3 Hgb 10.6 L (11.6-15.3) gm/dL Hct 31.1 L (35.0-46.0) % MCV 104.7 H (80.0-100.0) fL MCH 35.8 H (27.0-34.0) pg MCHC 34.2 (32.0-36.0) % RDW 14.5 (11.6-17.2) % Plt Count 153 (150-450) th/mm3 MPV 9.7 (7.0-11.0) fL Prelim Diff (Auto) Slide review pending Neut % (Auto) 86.9 H (16.0-70.0) % Lymph % (Auto) 6.5 L (9.0-44.0) % [place] % (Auto) 6.2 (0.0-8.0) % Eos % (Auto) 0.0 (0.0-4.0) % Baso % (Auto) 0.4 (0.0-2.0) % Neut # (Auto) 20.6 H (1.8-7.7) th/mm3 Lymph # (Auto) 1.5 (1.0-4.8) th/mm3 [place] # (Auto) 1.5 H (0.0-0.9) th/mm3 Eos # (Auto) 0.0 (0.0-0.4) th/mm3 Baso # (Auto) 0.1 (0.0-0.2) th/mm3 WBC Differential . Diff Scan Auto diff confirmed Differential Comment . Sodium 133 L (136-145) meq/L Potassium 5.1 (3.5-5.1) meq/L Chloride 99 (98-107) meq/L Carbon Dioxide 24.0 (21.0-32.0) meq/L Anion Gap 10 (5-15) meq/L BUN 47 H (7-18) mg/dL Creatinine 10.08 H* (0.50-1.00) mg/dL Estimated GFR 5 L (>89) mL/min Random Glucose 125 H (74-106) mg/dL Calcium 9.2 (8.5-10.1) mg/dL Total Bilirubin 0.5 (0.2-1.0) mg/dL AST 51 H (15-37) U/L ALT 21 (10-53) U/L Alkaline Phosphatase 101 (45-117) U/L Total Protein 7.8 (6.4-8.2) g/dL Albumin 3.2 L (3.4-5.0) g/dL Imaging Data Radiologist's impression: Abdomen/Pelvis CT 12/16/18 08:45 CONCLUSION: 1. I do not see an acute intraperitoneal or pelvic process to explain current clinical symptoms. 2. Patient is status post cholecystectomy and hysterectomy. Surgical clips from a cholecystectomy extending up into the left hepatic lobe near the falciform ligament. 3. 4.4 cm oblong density in the right inguinal region has Hounsfield measurements suggesting a fluid collection. As such, diagnostic considerations would include predominantly seroma or lymphocele. Ultrasound could be performed for confirmation. No adenopathy. 4. Small, 1 cm umbilical hernia only contains fat. Hip CT 12/16/18 08:45 CONCLUSION: 1. Probable 4.4 cm oblong seroma or lymphocele in the right inguinal region. 2. Mild osteoarthritic changes in both hips. No fracture. Discharge Plan Discharge Disposition Patient Disposition: ED Admit(ED Internal Use Only) Discharge Condition Condition: Stable Discharge Order Discharge Orders: ED Use Only Admit Order (Routine); Ordered 12/16/18 Ordered By: Amy Adamson Discharge Details Anticipated Discharge Date: 12/16/18 Diagnosis: Sepsis Physicians Team ED Provider: [place]adee Primary Care Provider: UNKNOWN, Rxs /Orders / Referrals /Forms Prescriptions: No Action sevelamer carbonate [Renvela] 800 mg Tablet 1,600 mg PO TID RF: 0 cinacalcet [Sensipar] 30 mg Tablet 30 mg PO DAILY RF: 0 Discharge Interventions Interventions: Vital Signs Last Done: 12/16/18 11:29 Status ED Status: With Doctor
[2018-12-16] MEDS ORDERED: Sodium Chlor 0.9% Inj 500 ML IV.SIG SCH (09:00)
--- NOTE | 2018-12-16 10:59 | CT ---
EXAM DATE: 12/16/2018 10:39 AM EST AGE/SEX: 53 years / Female INDICATIONS: Patient complains of abdominal pain. CLINICAL DATA: This is the patient's initial encounter. Patient reports that signs and symptoms have been present for 1 day and indicates a pain score of 10/10. MEDICAL/SURGICAL HISTORY: Renal disease, end stage. Hypertension. liver mass, dialysis patient . AV fistula, resection of liver RADIATION DOSE: 16.78 CTDI (mGy) COMPARISON: [facility], CT HIP RIGHT W/O CONTRAST, 12/16/2018. . TECHNIQUE: Multiple contiguous axial images were obtained through the abdomen. Images were obtained using multiple row detector helical technique. Using automated exposure control and adjustment of the mA and/or kV according to patient size, radiation dose was kept as low as reasonably achievable to o btain optimal diagnostic quality images. DICOM format image data is available electronically for rev iew and comparison. FINDINGS: Lower Lungs: The visualized lower lungs are clear. Liver: The liver has a homogeneous density without space-occupying lesion. There is no dilation of th e biliary tree patient is status post cholecystectomy with surgical clips extending from the gallblad michelle fossa to the left hepatic lobe adjacent to the falciform ligament. Spleen: Homogeneous density without enlargement. Pancreas: Unremarkable without mass or calcification. Kidneys: Normal in size and shape. No evidence of mass or hydronephrosis. Benign-appearing 2.[address] posteriorly in the upper pole of the left kidney Adrenal Glands: Unremarkable. Aorta: The aorta and proximal iliac vessels are grossly unremarkable without aneurysmal dilation. Bowel/Mesentery: The bowel loops are grossly unremarkable. Suggestion of a small, mural surgical cli p along the lesser curvature of the stomach. The cecum and sigmoid colon have a normal configuration. Abdominal Wall: Very small, 1 cm umbilical hernia only contains fat Retroperitoneum: No evidence of adenopathy in the retrocrural, para-aortic, or deep pelvic regions. Bladder: Contours are smooth. Reproductive Organs: Patient is status post cholecystectomy. Inguinal: There is a 4.4 cm oblong density in the right inguinal region which shows Hounsfield measu rements near the density of water and therefore, I believe represents a small cyst, seroma or lymphoc erin. No adenopathy. Bony Structures: Unremarkable. CONCLUSION: 1. I do not see an acute intraperitoneal or pelvic process to explain current clinical symptoms. 2. Patient is status post cholecystectomy and hysterectomy. Surgical clips from a cholecystectomy ex tending up into the left hepatic lobe near the falciform ligament. 3. 4.4 cm oblong density in the right inguinal region has Hounsfield measurements suggesting a fluid collection. As such, diagnostic considerations would include predominantly seroma or lymphocele. Ult rasound could be performed for confirmation. No adenopathy. 4. Small, 1 cm umbilical hernia only contains fat. Electronically signed by: Dionicio Christensen MD Board Certified Radiologist 12/16/2018 10:57 AM EST
--- NOTE | 2018-12-16 11:01 | CT ---
EXAM DATE: 12/16/2018 10:56 AM EST AGE/SEX: 53 years / Female INDICATIONS: Right hip pain. CLINICAL DATA: This is the patient's initial encounter. Patient reports that signs and symptoms have been present for 1 day and indicates a pain score of 10/10. MEDICAL/SURGICAL HISTORY: Renal disease, end stage. Hypertension. liver mass, dialysis patient Hy sterectomy. AV fistula, resection liver RADIATION DOSE: . CTDI (mGy) ; Reconstructed from previous dataset, no dose [place] [facility]/O CONTRAST, 12/16/2018. . TECHNIQUE: Multiple contiguous axial images were acquired using a multirow detector CT scanner witho ut contrast. Multiplanar reconstruction was performed in the sagittal and coronal planes. Using aut omated exposure control and adjustment of the mA and/or kV according to patient size, radiation dose was kept as low as reasonably achievable to obtain optimal diagnostic quality images. DICOM format i mage data is available electronically for review and comparison. FINDINGS: Bones: The bony structures about the hip are in normal alignment. The trabecular pattern of the fem oral neck is intact. No fracture is seen. The bony pelvic ring is intact. Joints: Early degenerative osteoarthritic changes in both hips. Soft Tissues: 4.4 cm collection in the right inguinal region has fluid density and probably represen ts a seroma or lymphocele. Other: No foreign bodies seen. Patient is status post hysterectomy. CONCLUSION: 1. Probable 4.4 cm oblong seroma or lymphocele in the right inguinal region. 2. Mild osteoarthritic changes in both hips. No fracture. Electronically signed by: Dionicio Christensen MD Board Certified Radiologist 12/16/2018 11:00 AM EST
[2018-12-16 11:37] LABS: Alanine Aminotransferase 21 U/L (10-53); Albumin 3.2 g/dL (3.4-5.0); Alkaline Phosphatase 101 U/L (45-117); Anion Gap 10 meq/L (5-15); Aspartate Aminotransferase 51 U/L (15-37); Blood Urea Nitrogen 47 mg/dL (7-18); Calcium 9.2 mg/dL (8.5-10.1); Chloride 99 meq/L (98-107); Glomerular Filtration Rate 5 mL/min (>89); Glucose,Random 125 mg/dL (74-106); Sodium 133 meq/L (136-145); Total Protein 7.8 g/dL (6.4-8.2)
[2018-12-16 11:38] LABS: Potassium 5.1 meq/L (3.5-5.1)
[2018-12-16 11:42] LABS: Baso # (Auto) 0.1 th/mm3 (0.0-0.2); Baso % (Auto) 0.4 % (0.0-2.0); Hematocrit 31.1 % (35.0-46.0); Hemoglobin 10.6 gm/dL (11.6-15.3); Lymph # (Auto) 1.5 th/mm3 (1.0-4.8); Lymph % (Auto) 6.5 % (9.0-44.0); Mean Corpuscular HGB Conc 34.2 % (32.0-36.0); Mean Corpuscular Hemoglobin 35.8 pg (27.0-34.0); Mean Corpuscular Volume 104.7 fL (80.0-100.0); Mean Platelet Volume 9.7 fL (7.0-11.0); Mono # (Auto) 1.5 th/mm3 (0.0-0.9); Mono % (Auto) 6.2 % (0.0-8.0); Neut # (Auto) 20.6 th/mm3 (1.8-7.7); Neut % (Auto) 86.9 % (16.0-70.0); Platelet Count 153 th/mm3 (150-450); Red Blood Count 2.97 mil/mm3 (4.00-5.30); Red Cell Distribution Width 14.5 % (11.6-17.2); White Blood Count 23.7 th/mm3 (4.0-11.0)
--- NOTE | 2018-12-16 13:00 | P.HPFP ---
Addendum entered and electronically signed by Tisha Harvey MD, R2 12/17/18 01:38: Manuel called on patient. Patient emergently transferred to ICU due to BP to 55 /29. Patient was also had low O2 saturation to 75% on RA. Resident team arrived to ICU. Patient stated that she was having chest pain earlier in the night with shortness of breath and is still short of breath. O: T: Tmax 102.4F BP 60s/30s HR 100s 100% on NRB General: obese AA female laying in bed with foot of bed elevated, in mild distress, diaphoretic, fearful Cardiac: tachycardiac with regular rhythm Lungs: CTAB auscultated anteriorly Extremities: Pain with any movement of R LE. No edema. A/P hypotension with hypoxia R/O CA -EKG shows sinus tachycardia with no ST changes -Troponin ordered R/O PE -D-dimer ordered -Discussed with critical care and opted for CTA pulm instead of VQ scan, will request emergent dialysis tomorrow Hypotension -1L NS bolus -Albumin 500mls Original Note: History of Present Illness Primary Care Physician: UNKNOWN Chief Complaint: right hip pain History of Present Illness: R hip pain that started last Wednesday and worsened Wednesday. 09/07 stabbing pain in the r hip, nonradiating, worse with movement, better with nothing. Hard to get up. Doesn't take pain medications. Vas cath started swelling at the beginning of this week. Dr. Quintero noticed it on Wednesday (red and swollen), told her to start laying on her right side bc she usually lays on her left. This kept the swelling. Believes the pain is from laying on her right side. Was supposed to be changed Oct 29, but delayed due to an admission. Graft failed, new graft placed in right arm. Dr. Raines is going to raise the graft next week. Has been having chills off and on for one weeks. No night sweat, nausea started yesterday and took Zofran. had some vomiting and diarrhea earlier in the week but resolved quickly. PMH ESRD- M,W,F hx of HTN- she stopped meds for past 6 months due to low BPs hx of mass in liver PSH R total knee Liver resection FHx Mother-DM Father- DM Social hx lives with daughter tobacco- none alcohol- none illicit drugs- none - Diagnosis (1) Sepsis (2) Seroma (3) End stage renal disease (4) Anemia (5) Hypertension (6) Nutrition, metabolism, and development symptoms PMFSH - History History Provided By: Patient - Medical History Medical History: Medical History (Last Reviewed 12/16/18 @ 08:50 by Amy Adamson MD) A-V fistula End stage renal disease H/O: hysterectomy HTN (hypertension) Liver mass, left lobe - Surgical History Surgical History: Surgical History (Last Reviewed 12/16/18 @ 08:50 by Amy Adamson MD) H/O resection of liver History of knee replacement, total - Family History Family History: Family History (Last Reviewed 12/16/18 @ 08:50 by Amy Adamson MD) Other Family history of dementia Family history of diabetes mellitus Family history of hypertension Family history of paranoid schizophrenia - Tobacco History Second Hand Smoke Exposure: No Smoking Status: Never smoker - Alcohol History How Often Do You Have a Drink Containing Alcohol: Never - Substance Use History Substance History: No History of Abuse - Travel History Recent Travel in the [facility] Within the Last 8 Weeks: No Recent Travel Out of the Country Within the Last 8 Weeks: No - Immunization History Tetanus Immunization: <5 Years Medications and Allergies Allergies Allergy/AdvReac Type Severity Reaction Status Date / Time cephalexin Allergy Severe Hives Verified 12/16/18 08:35 onion Allergy Severe Gastrointestinal Verified 12/16/18 08:35 Upset Sulfa (Sulfonamide AdvReac Intermediate Nausea/Vomi Verified 12/16/18 08:35 Antibiotics) ting Home Medications Medication Instructions Recorded Confirmed Type cinacalcet [Sensipar] 30 mg PO DAILY 10/06/18 12/16/18 History sevelamer carbonate [Renvela] 1,600 mg PO TID 10/06/18 12/16/18 History Exam Vital signs: Vital Signs 12/16/18 08:36 12/16/18 11:29 Pulse Rate 117 H 102 H Respiratory Rate 20 18 Blood Pressure 88/53 L 100/52 L Pulse Oximetry 97 Intake & Output 12/15/18 12/16/18 12/16/18 18:59 06:59 18:59 Intake Total 500 / 500 Balance 500 / 500 Weight 103 kg Intake: IV 500 / 500 NS Inj 500 ML @ 1000 mls/hr IV. 500 / 500 SIG BOLUS MARISSA Rx#:[id number] Narrative: GENERAL: obese Afro-[place] female lying in bed, in no acute distress SKIN: Warm and dry. Areas of hyperpigmentation on the skin. HEAD: Atraumatic. Normocephalic. EYES: Pupils equal and round. No scleral icterus. No injection or drainage. ENT: No nasal bleeding or discharge. Mucous membranes pink and moist. White coating on tongue, able to be scraped off. NECK: Trachea midline. No JVD. CARDIOVASCULAR: Regular rate and rhythm. RESPIRATORY: No accessory muscle use. Clear to auscultation. Breath sounds equal bilaterally. GASTROINTESTINAL: Abdomen soft, tenderness in LLQ, nondistended. Hepatic and splenic margins not palpable. MUSCULOSKELETAL: Extremities without clubbing, cyanosis, or edema. No obvious deformities. Pain with movement of RLE. NEUROLOGICAL: Awake and alert. No obvious cranial nerve deficits. Motor grossly within normal limits. Normal speech. PSYCHIATRIC: Appropriate mood and affect; insight and judgment normal. Results - Labs Result diagrams: 12/16/18 11:05 12/16/18 11:05 Abnormal lab results 12/16/18 12/16/18 Range/Units 11:05 11:05 WBC 23.7 H (4.0-11.0) th/mm3 RBC 2.97 L (4.00-5.30) mil/mm3 Hgb 10.6 L (11.6-15.3) gm/dL Hct 31.1 L (35.0-46.0) % MCV 104.7 H (80.0-100.0) fL MCH 35.8 H (27.0-34.0) pg Neut % (Auto) 86.9 H (16.0-70.0) % Lymph % (Auto) 6.5 L (9.0-44.0) % Neut # (Auto) 20.6 H (1.8-7.7) th/mm3 [place] # (Auto) 1.5 H (0.0-0.9) th/mm3 Sodium 133 L (136-145) meq/L BUN 47 H (7-18) mg/dL Creatinine 10.08 H* (0.50-1.00) mg/dL Estimated GFR 5 L (>89) mL/min Random Glucose 125 H (74-106) mg/dL AST 51 H (15-37) U/L Albumin 3.2 L (3.4-5.0) g/dL Short CBC 12/16/18 Range/Units 11:05 WBC 23.7 H (4.0-11.0) th/mm3 Hgb 10.6 L (11.6-15.3) gm/dL Hct 31.1 L (35.0-46.0) % Plt Count 153 (150-450) th/mm3 BMP 12/16/18 11:05 Sodium 133 L Potassium 5.1 Chloride 99 Carbon Dioxide 24.0 BUN 47 H Creatinine 10.08 H* Calcium 9.2 Liver Function 12/16/18 Range/Units 11:05 Total Bilirubin 0.5 (0.2-1.0) mg/dL AST 51 H (15-37) U/L ALT 21 (10-53) U/L Alkaline Phosphatase 101 (45-117) U/L Albumin 3.2 L (3.4-5.0) g/dL - Imaging Impressions Abdomen/Pelvis CT 12/16/18 08:45 CONCLUSION: 1. I do not see an acute intraperitoneal or pelvic process to explain current clinical symptoms. 2. Patient is status post cholecystectomy and hysterectomy. Surgical clips from a cholecystectomy extending up into the left hepatic lobe near the falciform ligament. 3. 4.4 cm oblong density in the right inguinal region has Hounsfield measurements suggesting a fluid collection. As such, diagnostic considerations would include predominantly seroma or lymphocele. Ultrasound could be performed for confirmation. No adenopathy. 4. Small, 1 cm umbilical hernia only contains fat. Hip CT 12/16/18 08:45 CONCLUSION: 1. Probable 4.4 cm oblong seroma or lymphocele in the right inguinal region. 2. Mild osteoarthritic changes in both hips. No fracture. Caprini VTE Risk Assessment Caprini VTE Risk Assessment: Moderate/High Risk (score >= 2) Caprini Risk Assessment Model: Point Value = 1 Point Value = 2 Point Value = 3 Point Value = 5 Age 41-60 Minor surgery BMI > 25 kg/m2 Swollen legs Varicose veins or History of unexplained or recurrent spontaneous Oral contraceptives or hormone replacement Sepsis (< 1 month) Serious lung disease, including pneumonia (< 1 month) Abnormal pulmonary function Acute myocardial infarction Congestive heart failure (< 1 month) History of inflammatory bowel disease Medical patient at bed rest Age 61-74 Arthroscopic surgery Major open surgery (> 45 min) Laparoscopic surgery (> 45 min) Malignancy Confined to bed (> 72 hours) Immobilizing plaster cast Central venous access Age >= 75 History of VTE Family history of VTE Factor V Leiden Prothrombin [id number] Lupus anticoagulant Anticardiolipin antibodies Elevated serum homocysteine Heparin-induced thrombocytopenia Other congenital or acquired thrombophilia Stroke (< 1 month) Elective arthroplasty Hip, pelvis, or leg fracture Acute spinal cord injury (< 1 month) Prophylaxis Regimen: Total Risk Factor Score Risk Level Prophylaxis Regimen 0-1 Low Early ambulation 2 Moderate Order ONE of the following: *Sequential Compression Device (SCD) *Heparin 5000 units SQ BID 3-4 Higher Order ONE of the following medications: *Heparin 5000 units SQ TID *Enoxaparin/Lovenox 40 mg SQ daily (WT < 150 kg, CrCl > 30 mL/min) *Enoxaparin/Lovenox 30 mg SQ daily (WT < 150 kg, CrCl > 10-29 mL/min) *Enoxaparin/Lovenox 30 mg SQ BID (WT < 150 kg, CrCl > 30 mL/min) AND/OR *Sequential Compression Device (SCD) 5 or more Highest Order ONE of the following medications: *Heparin 5000 units SQ TID (Preferred with Epidurals) *Enoxaparin/Lovenox 40 mg SQ daily (WT < 150 kg, CrCl > 30 mL/min) *Enoxaparin/Lovenox 30 mg SQ daily (WT < 150 kg, CrCl > 10-29 mL/min) *Enoxaparin/Lovenox 30 mg SQ BID (WT < 150 kg, CrCl > 30 mL/min) AND *Sequential Compression Device (SCD) Assessment and Plan - Assessment (1) Sepsis Code(s): A41.9 - Sepsis, unspecified organism Status: Acute Plan: Patient with leukocytosis to 23.7, neutrophil predominant and tachycardia on admission meeting SIRS criteria. Suspected source is her PermCath. Per chart review was last changed on 11/07/18. Lactic acid is not elevated. Blood cx pending, drawn from PermCath Vancomycin 1000mg with dialysis (12/16- ) Zosyn 3.375g x1 in ED, continue 2.25g q8h due to CrCl 11 (12/16- ) Nephrology consulted, appreciate recommendations Will likely need PermCath change, will have Nephrology determine the timing for this (2) Seroma Status: Acute Plan: CT abdomen pelvis shows 4.4 cm oblong density in the right inguinal region has Hounsfield measurements suggesting a fluid collection. As such, diagnostic considerations would include predominantly seroma or lymphocele. She states that she has a history of drainage of the seroma by Dr. Montgomery. She stated that he told her if it reoccurs that it will have to be surgically removed. She does not want this procedure to happen. (3) End stage renal disease Code(s): N18.6 - End stage renal disease Status: Chronic Plan: Hemodialysis M,W,F schedule. Cr 10 on admission -Monitor BMP -Dialysis today (4) Anemia Code(s): D64.9 - Anemia, unspecified Status: Chronic Plan: Hgb 10.7 with MCV of 104.7 on admission -B12 and folate pending (5) Hypertension Code(s): I10 - Essential (primary) hypertension Status: Chronic Plan: Not on any at home medications -Continue to monitor (6) Nutrition, metabolism, and development symptoms Code(s): R63.8 - Other symptoms and signs concerning food and fluid intake Status: Acute Plan: Fluids: tolerating PO Electrolytes: monitor and replete as needed Nutrition: renal diet DVT Prophylaxis: Early ambulation. Heparin 5000U subQ q12hr GI Prophylaxis: None indicated at this time (4) Anemia Qualifiers: Anemia type: unspecified type Qualified Code(s): D64.9 - Anemia, unspecified
[2018-12-16] MEDS ORDERED: Naloxone Inj 0.4 MG/ML Vial IV.PUSH PRN (14:35)
[2018-12-16] MEDS ORDERED: Bisacodyl 10 MG Supp RECTAL PRN (14:35)
--- NOTE | 2018-12-16 15:09 | P.CONNP ---
History of Present Illness Service: Nephrology Reason for Consult: ESRD Primary Care Provider: UNKNOWN History of Present Illness: This is a 53 year old lady with history of ESRD, she is on HD MWF. Patient has notices some pain and swelling at the exit site of her PermCath. No fever is noted. She has lying on her right side, developed right hip pain. She was at work today, I believe rapid response was called, and she was taken to the ER. She is now noted to have leukocytosis. Her BP was low. Zosyn has been given. She was seen at dialysis. Review of Systems Constitutional: Reports weight loss Eyes: Denies blurry vision, Denies irritation Cardiovascular: Reports shortness of breath with activity, Denies chest pain Respiratory: Denies cough, Denies coughing up blood Gastrointestinal: Denies abdominal pain, Denies coffee ground vomit, Denies loose stools Musculoskeletal: Reports joint pain PMFSH - History History Provided By: Patient - Medical History Medical History: Medical History (Last Reviewed 12/16/18 @ 08:50 by Amy Adamson MD) A-V fistula End stage renal disease H/O: hysterectomy HTN (hypertension) Liver mass, left lobe - Surgical History Surgical History: Surgical History (Last Reviewed 12/16/18 @ 08:50 by Amy Adamson MD) H/O resection of liver History of knee replacement, total - Family History Family History: Family History (Last Reviewed 12/16/18 @ 08:50 by Amy Adamson MD) Other Family history of dementia Family history of diabetes mellitus Family history of hypertension Family history of paranoid schizophrenia - Tobacco History Second Hand Smoke Exposure: No Smoking Status: Never smoker - Alcohol History How Often Do You Have a Drink Containing Alcohol: Never - Substance Use History Substance History: No History of Abuse - Travel History Recent Travel in the [place] Within the Last 8 Weeks: No Recent Travel Out of the Country Within the Last 8 Weeks: No - Immunization History Tetanus Immunization: <5 Years Medications and Allergies Active Medications: Active Medications Acetaminophen (Tylenol) 650 mg PO Q4H PRN PRN Reason: Temp > 100.4, Pain 1-2 Hydrocodone Bitart/Acetaminophen ([place] 5/325) 1 tab PO Q4H PRN PRN Reason: PAIN SCALE 3 TO 5 Hydrocodone Bitart/Acetaminophen ([place] 7.5/325) 1 tab PO Q4H PRN PRN Reason: PAIN SCALE 6 TO 10 Al Hydroxide/Mg Hydroxide (Milk Of Magnesia Liq) 30 ml PO Q12H PRN PRN Reason: Mild Constipation Bisacodyl (Dulcolax Supp) 10 mg RECTAL DAILY PRN PRN Reason: SEVERE CONSITIPATION Heparin Sodium (Porcine) (Heparin Inj) 5,000 units SQ Q12H MARISSA Lactulose (Lactulose Liq) 30 ml PO DAILY PRN PRN Reason: SEVERE CONSITIPATION Naloxone HCl (Narcan Inj) 0.4 mg IV.PUSH UNSCH PRN PRN Reason: SEE LABEL COMMENTS Ondansetron HCl (Zofran Inj) 4 mg IV.PUSH Q6H PRN PRN Reason: NAUSEA OR VOMITING Senna/Docusate Sodium (Barby-Colace) 1 tab PO BID MARISSA Sennosides (Senokot) 17.2 mg PO Q12H PRN PRN Reason: Moderate Constipation Sodium Chloride (Ns Flush) 2 ml IV.FLUSH BID MARISSA Sodium Chloride (Ns Flush) 2 ml IV.FLUSH PRN PRN PRN Reason: FLUSH AFTER USING IV ACCESS Allergies Allergy/AdvReac Type Severity Reaction Status Date / Time cephalexin Allergy Severe Hives Verified 12/16/18 08:35 onion Allergy Severe Gastrointestinal Verified 12/16/18 08:35 Upset Sulfa (Sulfonamide AdvReac Intermediate Nausea/Vomi Verified 12/16/18 08:35 Antibiotics) ting Home Medications Medication Instructions Recorded Confirmed Type cinacalcet [Sensipar] 30 mg PO DAILY 10/06/18 12/16/18 History sevelamer carbonate [Renvela] 1,600 mg PO TID 10/06/18 12/16/18 History Exam Vital signs: Vital Signs 12/16/18 08:36 12/16/18 11:29 12/16/18 13:22 Pulse Rate 117 H 102 H 100 H Respiratory Rate 20 18 18 Blood Pressure 88/53 L 100/52 L 101/70 Pulse Oximetry 97 12/16/18 14:32 Pulse Rate 100 H Respiratory Rate 18 Blood Pressure 101/66 Pulse Oximetry Intake & Output 12/15/18 12/16/18 12/16/18 18:59 06:59 18:59 Intake Total 500 / 500 Balance 500 / 500 Weight 103 kg Intake: IV 500 / 500 NS Inj 500 ML @ 1000 mls/hr IV. 500 / 500 SIG BOLUS MARISSA Rx#:[id number] Results - Lab Results 12/16/18 11:05 12/16/18 11:05 Most recent lab results Calcium 9.2 mg/dL (8.5-10.1) 12/16/18 11:05 Assessment and Plan - Assessment (1) End stage renal disease Code(s): N18.6 - End stage renal disease Status: Acute Plan: Dialysis today and MWF. Obtain blood cultures. Start empiric antibiotics. We may need to remove PermCath. Discussed with the patient. Right hip pain is of unclear etiology. (2) Anemia Code(s): D64.9 - Anemia, unspecified Status: Acute Plan: Hemoglobin is acceptable. Epogen with dialysis. (3) Hypertension Code(s): I10 - Essential (primary) hypertension Status: Acute Plan: No need for antihypertensive. BP is low. (4) Sepsis Code(s): A41.9 - Sepsis, unspecified organism Status: Acute Plan: Obtain blood cultures. Start empiric antibiotics. Possible removal of PermCath. (5) Metabolic bone disease Code(s): E88.9 - Metabolic disorder, unspecified; M90.80 - Osteopathy in diseases classified elsewhere, unspecified site Status: Acute Plan: Monitor phosphorus intermittently. Continue Sevelamer and Sensipar.
[2018-12-16] MEDS: Acetaminophen 325 MG Tablet PO PRN ×2 (16:22→21:51)
[2018-12-16] MEDS: Vancomycin Inj 1,000 MG in Sodium Chlor 0.9% Inj 250 ML IV.SIG SCH (16:23)
[2018-12-16] MEDS: Piperacil/Tazo 3.375 GM Premix 3.375 GM/50 ML PIGGYBACK IV.SIG ONE ×2 (18:03→19:10)
[2018-12-16 19:05] LABS: Vitamin B12 209 pg/mL (193-986)
[2018-12-16] MEDS: Senna/Docusate Sodium 8.6/50 MG Tablet PO SCH (20:41)
[2018-12-16] MEDS ORDERED: Heparin - SQ 10,000 UNITS/ML Vial SQ SCH (21:00)
[2018-12-17] MEDS ORDERED: Albumin Human 5% Inj 500 ML IV.SIG ONE ×2 (00:59→04:27)
[2018-12-17] MEDS ORDERED: Sod Chloride 0.9% Inj 1,000 ML IV.SIG SCH ×2 (01:00→12:45)
[2018-12-17 01:39] LABS: Baso % (Auto) 0.1 % (0.0-2.0); Eos # (Auto) 0.1 th/mm3 (0.0-0.4); Eos % (Auto) 0.6 % (0.0-4.0); Hematocrit 29.3 % (35.0-46.0); Hemoglobin 9.9 gm/dL (11.6-15.3); Lymph # (Auto) 1.2 th/mm3 (1.0-4.8); Lymph % (Auto) 6.9 % (9.0-44.0); Mean Corpuscular HGB Conc 33.7 % (32.0-36.0); Mean Corpuscular Hemoglobin 34.8 pg (27.0-34.0); Mean Corpuscular Volume 103.4 fL (80.0-100.0); Mean Platelet Volume 9.3 fL (7.0-11.0); Mono # (Auto) 1.8 th/mm3 (0.0-0.9); Mono % (Auto) 10.2 % (0.0-8.0); Neut # (Auto) 14.6 th/mm3 (1.8-7.7); Neut % (Auto) 82.2 % (16.0-70.0); Platelet Count 117 th/mm3 (150-450); Red Blood Count 2.83 mil/mm3 (4.00-5.30); Red Cell Distribution Width 14.5 % (11.6-17.2); White Blood Count 17.8 th/mm3 (4.0-11.0)
[2018-12-17 02:24] LABS: Dohle Bodies Present; Lymphocytes 7 % (9-44); Monocytes 2 % (0-8)
[2018-12-17 02:25] LABS: Hypersegmented Neutrophils 1+; Platelet Morphology Normal (Normal); Toxic Vacuolation Present
[2018-12-17] MEDS: Piperacil/Tazo 2.25 GM Premix 2.25 GM/50 ML PIGGYBACK IV.SIG SCH ×2 (03:29→12:00)
[2018-12-17] MEDS ORDERED: Chlorhexidine Gluconate 2% 1 Pack (2 Cloths) TOPICAL PRN (04:00)
[2018-12-17] MEDS: Chlorhexidine Gluconate 2% 1 Pack (2 Cloths) TOPICAL SCH (04:51)
[2018-12-17] MEDS ORDERED: Sodium Chlor 0.9% Inj 500 ML IV.SIG SCH (05:00)
--- NOTE | 2018-12-17 06:28 | CT ---
EXAM DATE: 12/17/2018 6:01 AM EST AGE/SEX: 53 years / Female INDICATIONS: Chest pain, shortness of breath. CLINICAL DATA: This is the patient's initial encounter. Patient reports that signs and symptoms have been present for 1 day and indicates a pain score of 5/10. MEDICAL/SURGICAL HISTORY: Renal disease, end stage. Hypertension. Liver mass. Hysterectomy. Live r resection. RADIATION DOSE: 10.68 CTDI (mGy) COMPARISON: No prior exams available for comparison. TECHNIQUE: Volumetric scanning was performed using a multi-row detector CT scanner during bolus infu moreno of 75 ml Omnipaque 350 (iohexol) nonionic water-soluble contrast as a single exam dose. The alexsander a was post processed with a variety of visualization algorithms including full volume maximum intensi ty projection and sliding thin slab reformation. Using automated exposure control and adjustment of the mA and/or kV according to patient size, radiation dose was kept as low as reasonably achievable t o obtain optimal diagnostic quality images. DICOM format image data is available electronically for review and comparison. FINDINGS: Pulmonary Arteries: Small filling defects in the posterior basilar branches of the left lower lobe p ulmonary artery indicating pulmonary emboli. No other abnormal filling defects identified. Lung: Moderate posterior left lower lobe atelectasis. Effusion: None. Mediastinum: Prominent ascending thoracic aorta measuring 4.5 cm in diameter. Mild coronary artery c alcification. Surgical clips seen at the right side of the mediastinum. No enlarged lymph nodes ident ified. Other: The axilla is unremarkable. Left subclavian dual-lumen catheter is in place with the tip of t he catheter at the cavoatrial junction. There is some apparent thrombus along the margin of the cedrick ter distally. Likely thrombus in the right atrium also noted. CONCLUSION: 1. Small pulmonary emboli of the posterior basilar branches of the left lower lobe. 2. Thrombus adhering to the distal left subclavian central venous catheter. 3. Thrombus within the right atrium. 4. Posterior left lower lung atelectasis. 5. Mildly prominent ascending thoracic aorta measuring 4.5 cm in diameter. Electronically signed by: Jamei Toscano MD Board Certified Radiologist 12/17/2018 6:27 AM EST
[2018-12-17] MEDS ORDERED: Heparin 10,000 UNITS/10 ML Vial (for IV use) IV.PUSH STA (06:35)
[2018-12-17 07:27] LABS: Activated Partial Thrombo Time 42.7 sec (23.4-31.7); INR 1.3 Ratio; Prothrombin Time 13.6 sec (9.8-11.6)
[2018-12-17] MEDS: Heparin Drip 25,000 UNIT/250 ML BAG IV.CONT PRN (07:56)
[2018-12-17] MEDS: Senna/Docusate Sodium 8.6/50 MG Tablet PO SCH ×2 (08:02→20:48)
--- NOTE | 2018-12-17 08:57 | US ---
EXAM DATE: 12/17/2018 8:50 AM EST AGE/SEX: 53 years / Female INDICATIONS: Pulmonary embolism. CLINICAL DATA: This is the patient's initial encounter. Patient reports that signs and symptoms have been present for 1 day and indicates a pain score of 0/10. MEDICAL/SURGICAL HISTORY: . End-stage renal disease. Hypertension. Liver mass, left lobe. . A-V fistula. Resection of liver. Knee replacement, total. COMPARISON: POI, US LEG, RIGHT, 07/09/2017. . TECHNIQUE: Venous ultrasound of both lower extremities was performed from the inguinal ligament to t he proximal calf. Real-time, color Doppler and spectral tracing, compression and augmentation techni ques were used. FINDINGS: Right Leg: Normal compression of the deep venous system from the inguinal region to the proximal deon f. No echogenic clot is seen. Normal response of the venous system to augmentation and respiration. Left Leg: Normal compression of the deep venous system from the inguinal region to the proximal calf . No echogenic clot is seen. Normal response of the venous system to augmentation and respiration. Other: There is a right inguinal chronic appearing fluid and debris collection again noted, currentl y measuring 2.6 x 2.3 x 4.9 cm. No internal vascularity or to and fro flow. CONCLUSION: 1. No venous thrombosis of either lower extremity. 2. Right inguinal fluid collection most consistent with seroma/chronic hematoma. Electronically signed by: Jann Bartholomew MD Board Certified Radiologist 12/17/2018 8:55 AM EST
[2018-12-17] MEDS: Mupirocin 2% Nasal Oint Topical Syringe EACH NARE SCH ×2 (09:16→20:47)
--- NOTE | 2018-12-17 09:31 | P.PNFP ---
Subjective Interval history: Overnight, a Halicat was called on the patient for hypotension associated with hypoxemia down to 75% on room air with shortness of breath and chest pain. She was placed on supplemental oxygen and an emergent CTA was performed showing small pulmonary emboli of the posterior left lower lobe. Also noted was thrombus adhering to the distal left subclavian CVC and thrombus within the right atrium of the heart. She was started on a heparin drip and placed on supplemental oxygen while being monitored in the [facility]. She feels that her breathing is better this morning and she currently denies any chest pain or significant shortness of breath. She does continue to have generalized pain and her blood pressures have been on the borderline low side. In summary, this is a 53-year-old female who presented to the emergency department with swelling and erythema around her permacath site. She does have end-stage renal disease and is on dialysis every Wednesday/Wednesday/Wednesday followed by Dr. Alejandre. Swelling and erythema around the graft site began 3 days ago and the patient associates chills on and off for 1 week. She endorses some nausea but denies any overt fevers, diaphoresis, or bowel changes. She does endorse significant right sided hip pain for 1 week that has progressively been getting worse and is described as 10/10 and stabbing in nature. PMH ESRD- M,W,F hx of HTN- she stopped meds for past 6 months due to low BPs hx of mass in liver PSH R total knee Liver resection FHx Mother-DM Father- DM Social hx lives with daughter tobacco- none alcohol- none illicit drugs- none Results - Labs Result diagrams: 12/17/18 01:15 12/16/18 11:05 Abnormal lab results 12/16/18 12/16/18 12/16/18 Range/Units 11:05 11:05 15:00 WBC 23.7 H (4.0-11.0) th/mm3 RBC 2.97 L (4.00-5.30) mil/mm3 Hgb 10.6 L (11.6-15.3) gm/dL Hct 31.1 L (35.0-46.0) % MCV 104.7 H (80.0-100.0) fL MCH 35.8 H (27.0-34.0) pg Plt Count (150-450) th/mm3 Neut % (Auto) 86.9 H (16.0-70.0) % Lymph % (Auto) 6.5 L (9.0-44.0) % [place] % (Auto) (0.0-8.0) % Neut # (Auto) 20.6 H (1.8-7.7) th/mm3 [place] # (Auto) 1.5 H (0.0-0.9) th/mm3 Seg Neuts % (Manual) (16-70) % Band Neuts % (Manual) (0-6) % Lymphocytes % (Manual) (9-44) % Abs Neuts (Manual) (1.8-7.7) th/mm3 Hypersegmented Neuts (None) Toxic Vacuolation (None) Dohle Bodies (None) Platelet Estimate (Normal) PT (9.8-11.6) sec APTT (23.4-31.7) sec D-Dimer Quant (PE/DVT) (0.00-0.50) mg/L FEU Sodium 133 L (136-145) meq/L BUN 47 H (7-18) mg/dL Creatinine 10.08 H* (0.50-1.00) mg/dL Estimated GFR 5 L (>89) mL/min POC Glucose (68-110) mg/dl Random Glucose 125 H (74-106) mg/dL Lactic Acid 0.1 L (0.4-2.0) mmol/L AST 51 H (15-37) U/L Troponin I (0.02-0.05) ng/mL Albumin 3.2 L (3.4-5.0) g/dL Folate Greater than 20.0 H (3.1-17.5) ng/mL 12/17/18 12/17/18 12/17/18 Range/Units 00:29 01:15 01:15 WBC (4.0-11.0) th/mm3 RBC (4.00-5.30) mil/mm3 Hgb (11.6-15.3) gm/dL Hct (35.0-46.0) % MCV (80.0-100.0) fL MCH (27.0-34.0) pg Plt Count (150-450) th/mm3 Neut % (Auto) (16.0-70.0) % Lymph % (Auto) (9.0-44.0) % [place] % (Auto) (0.0-8.0) % Neut # (Auto) (1.8-7.7) th/mm3 [place] # (Auto) (0.0-0.9) th/mm3 Seg Neuts % (Manual) (16-70) % Band Neuts % (Manual) (0-6) % Lymphocytes % (Manual) (9-44) % Abs Neuts (Manual) (1.8-7.7) th/mm3 Hypersegmented Neuts (None) Toxic Vacuolation (None) Dohle Bodies (None) Platelet Estimate (Normal) PT (9.8-11.6) sec APTT (23.4-31.7) sec D-Dimer Quant (PE/DVT) 31.25 H (0.00-0.50) mg/L FEU Sodium (136-145) meq/L BUN (7-18) mg/dL Creatinine (0.50-1.00) mg/dL Estimated GFR (>89) mL/min POC Glucose 116 H (68-110) mg/dl Random Glucose (74-106) mg/dL Lactic Acid (0.4-2.0) mmol/L AST (15-37) U/L Troponin I 0.08 H (0.02-0.05) ng/mL Albumin (3.4-5.0) g/dL Folate (3.1-17.5) ng/mL 12/17/18 12/17/18 Range/Units 01:15 07:00 WBC 17.8 H (4.0-11.0) th/mm3 RBC 2.83 L (4.00-5.30) mil/mm3 Hgb 9.9 L (11.6-15.3) gm/dL Hct 29.3 L (35.0-46.0) % MCV 103.4 H (80.0-100.0) fL MCH 34.8 H (27.0-34.0) pg Plt Count 117 L (150-450) th/mm3 Neut % (Auto) 82.2 H (16.0-70.0) % Lymph % (Auto) 6.9 L (9.0-44.0) % [place] % (Auto) 10.2 H (0.0-8.0) % Neut # (Auto) 14.6 H (1.8-7.7) th/mm3 [place] # (Auto) 1.8 H (0.0-0.9) th/mm3 Seg Neuts % (Manual) 79 H (16-70) % Band Neuts % (Manual) 12 H (0-6) % Lymphocytes % (Manual) 7 L (9-44) % Abs Neuts (Manual) 16.2 H (1.8-7.7) th/mm3 Hypersegmented Neuts 1+ H (None) Toxic Vacuolation Present H (None) Dohle Bodies Present H (None) Platelet Estimate Low L (Normal) PT 13.6 H (9.8-11.6) sec APTT 42.7 H (23.4-31.7) sec D-Dimer Quant (PE/DVT) (0.00-0.50) mg/L FEU Sodium (136-145) meq/L BUN (7-18) mg/dL Creatinine (0.50-1.00) mg/dL Estimated GFR (>89) mL/min POC Glucose (68-110) mg/dl Random Glucose (74-106) mg/dL Lactic Acid (0.4-2.0) mmol/L AST (15-37) U/L Troponin I (0.02-0.05) ng/mL Albumin (3.4-5.0) g/dL Folate (3.1-17.5) ng/mL Short CBC 12/16/18 12/17/18 Range/Units 11:05 01:15 WBC 23.7 H 17.8 H (4.0-11.0) th/mm3 Hgb 10.6 L 9.9 L (11.6-15.3) gm/dL Hct 31.1 L 29.3 L (35.0-46.0) % Plt Count 153 117 L (150-450) th/mm3 BMP 12/16/18 11:05 Sodium 133 L Potassium 5.1 Chloride 99 Carbon Dioxide 24.0 BUN 47 H Creatinine 10.08 H* Calcium 9.2 Cardiac Enzymes 12/17/18 Range/Units 01:15 Troponin I 0.08 H (0.02-0.05) ng/mL Liver Function 12/16/18 Range/Units 11:05 Total Bilirubin 0.5 (0.2-1.0) mg/dL AST 51 H (15-37) U/L ALT 21 (10-53) U/L Alkaline Phosphatase 101 (45-117) U/L Albumin 3.2 L (3.4-5.0) g/dL - Imaging Impressions Abdomen/Pelvis CT 12/16/18 08:45 CONCLUSION: 1. I do not see an acute intraperitoneal or pelvic process to explain current clinical symptoms. 2. Patient is status post cholecystectomy and hysterectomy. Surgical clips from a cholecystectomy extending up into the left hepatic lobe near the falciform ligament. 3. 4.4 cm oblong density in the right inguinal region has Hounsfield measurements suggesting a fluid collection. As such, diagnostic considerations would include predominantly seroma or lymphocele. Ultrasound could be performed for confirmation. No adenopathy. 4. Small, 1 cm umbilical hernia only contains fat. Hip CT 12/16/18 08:45 CONCLUSION: 1. Probable 4.4 cm oblong seroma or lymphocele in the right inguinal region. 2. Mild osteoarthritic changes in both hips. No fracture. Chest CTA 12/17/18 00:00 CONCLUSION: 1. Small pulmonary emboli of the posterior basilar branches of the left lower lobe. 2. Thrombus adhering to the distal left subclavian central venous catheter. 3. Thrombus within the right atrium. 4. Posterior left lower lung atelectasis. 5. Mildly prominent ascending thoracic aorta measuring 4.5 cm in diameter. Venous Doppler Study 12/17/18 00:00 CONCLUSION: 1. No venous thrombosis of either lower extremity. 2. Right inguinal fluid collection most consistent with seroma/chronic hematoma. Physical Exam Vital signs: Vital Signs 12/16/18 11:29 12/16/18 13:22 12/16/18 14:32 Temperature Pulse Rate 102 H 100 H 100 H Respiratory Rate 18 18 18 Blood Pressure 100/52 L 101/70 101/66 Pulse Oximetry 12/16/18 19:00 12/16/18 20:00 12/17/18 00:20 Temperature 102.0 F H 102.4 F H Pulse Rate 121 H 110 H Respiratory Rate 18 20 Blood Pressure 100/53 L 65/29 L Pulse Oximetry 93 L 75 L 12/17/18 00:25 12/17/18 00:35 12/17/18 02:15 Temperature Pulse Rate 116 H Respiratory Rate Blood Pressure 61/30 L 55/29 L Pulse Oximetry 99 100 Intake & Output 12/16/18 12/17/18 12/17/18 18:59 06:59 18:59 Intake Total 810 / 810 2660 / 2660 500 / 500 Output Total 1500 / 1500 0 / 0 Balance -690 / -690 2660 / 2660 500 / 500 Weight 106.2 kg 116.2 kg Intake: IV 750 / 750 2600 / 2600 500 / 500 Alburx 5% Inj 500 ML @ 250 mls/ 500 / 500 500 / 500 hr IV.SIG ONCE ONE Rx#:[id number] Zosyn 2.25 GM Premix 2.25 gm In 50 / 50 50 ml @ 100 mls/hr IV.SIG Q8H MARISSA Rx#:[id number] NS Inj 1,000 ML @ 1000 mls/hr 1000 / 1000 IV.SIG BOLUS MARISSA Rx#:[id number] NS Inj 500 ML @ 1000 mls/hr IV. 500 / 500 1000 / 1000 SIG BOLUS MARISSA Rx#:[id number] Vancomycin Inj 1,000 MG In NS 250 / 250 Inj 250 ML @ 250 mls/hr IV.SIG WITH DIALYSIS MARISSA Rx#:[id number] Oral 60 / 60 60 / 60 Output: Urine 0 / 0 Hemodialysis Amount 1500 / 1500 0 / 0 Other: # Voids 0 Date of Last Bowel Movement 12/14/18 # Bowel Movements 0 Weight On Admission 106.2 kg Narrative: GENERAL: obese Afro-[place] female lying in bed, in no acute distress. Wearing a nonrebreather mask this morning SKIN: Warm and dry. Areas of hyperpigmentation on the skin. Permacath in left upper chest with no obvious erythema or drainage around the site. Area is mildly swollen CARDIOVASCULAR: Tachycardic but regular rhythm. RESPIRATORY: Mildly increased work of breathing, however no acute respiratory distress. Bilateral lung sepulveda clear to auscultation. GASTROINTESTINAL: Abdomen soft, nondistended, nontender. Hepatic and splenic margins not palpable. MUSCULOSKELETAL: Extremities without clubbing, cyanosis, or edema. Negative Homans sign. No obvious deformities. Pain with movement of RLE. NEUROLOGICAL: Awake and alert. PSYCHIATRIC: Appropriate mood and affect; insight and judgment normal. Assessment and Plan - Assessment (1) Pulmonary embolism Code(s): I26.99 - Other pulmonary embolism without acute cor pulmonale Status : Acute Plan: Manuel called overnight due to sudden onset chest pain and hypoxemia. Chest CTA shows small pulmonary emboli associated with thrombus of the left sided CVC and thrombus in the atrium. -Continue heparin drip and will transition to oral anticoagulant such as Xarelto in the near future -Continue to monitor on telemetry -Obtain 2D transthoracic echocardiogram -Supplemental oxygen as needed to keep O2 saturation over 93% -Alternate albuterol and duo nebs breathing treatments -IR consulted for removal of permacath with clot on the end of the, will likely need placement of Vas-Cath -Request for dialysis today since patient was given contrast for the CTA yesterday evening Bilateral lower extremity venous Dopplers were negative for DVT Per patient, she did have a DVT when she was in seventh grade requiring treatment with heparin with subsequent resolution of this DVT. Given that this is not her first DVT, we will initiate a hypercoagulable workup (2) Sepsis Code(s): A41.9 - Sepsis, unspecified organism Status: Acute Plan: Likely source of his infection around permacath site IV antibiotics: Vancomycin with dialysis Zosyn renally dosed for dialysis Blood cultures drawn and pending Leukocytosis improving, down to 17.8 from 23.7 Lactic acid within normal limits IR consulted for removal of permacath with culture of the tip and likely placement of Vas-Cath to resume dialysis (3) Seroma Status: Acute Plan: Chronic issue for this patient: CT abdomen pelvis shows 4.4 cm oblong density in the right inguinal region has Hounsfield measurements suggesting a fluid collection. As such, diagnostic considerations would include predominantly seroma or lymphocele. She states that she has a history of drainage of the seroma by Dr. Montgomery. She stated that he told her if it reoccurs that it will have to be surgically removed. She does not want this procedure to happen. (4) End stage renal disease Code(s): N18.6 - End stage renal disease Status: Chronic Plan: Status post hemodialysis yesterday, requested dialysis today given IV contrast required for CTA Nephrology following, current hemodialysis schedule is Wednesday/Wednesday/Wednesday -Monitor BMP -Dialysis today (5) Anemia Code(s): D64.9 - Anemia, unspecified Status: Chronic Plan: Associated with chronic renal issues -Monitor and transfuse as needed (6) Hypertension Code(s): I10 - Essential (primary) hypertension Status: Chronic Plan: Not on any at home medications as patient has been hypotensive -Continue to monitor, consult critical care if pressor support required (7) Nutrition, metabolism, and development symptoms Code(s): R63.8 - Other symptoms and signs concerning food and fluid intake Status: Acute Plan: Fluids: tolerating PO Electrolytes: monitor and replete as needed Nutrition: renal diet DVT Prophylaxis: Patient currently on a heparin drip GI Prophylaxis: None indicated at this time (1) Pulmonary embolism Qualifiers: Pulmonary embolism type: unspecified Chronicity: acute Acute cor pulmonale presence: without acute cor pulmonale Qualified Code(s): I26.99 - Other pulmonary embolism without acute cor pulmonale (5) Anemia Qualifiers: Anemia type: unspecified type Qualified Code(s): D64.9 - Anemia, unspecified
[2018-12-17 10:01] LABS: Baso % (Auto) 0.2 % (0.0-2.0); Eos % (Auto) 0.3 % (0.0-4.0); Hematocrit 26.3 % (35.0-46.0); Hemoglobin 8.5 gm/dL (11.6-15.3); Lymph # (Auto) 1.1 th/mm3 (1.0-4.8); Lymph % (Auto) 7.6 % (9.0-44.0); Mean Corpuscular HGB Conc 32.4 % (32.0-36.0); Mean Corpuscular Hemoglobin 34.7 pg (27.0-34.0); Mean Corpuscular Volume 107.1 fL (80.0-100.0); Mean Platelet Volume 9.1 fL (7.0-11.0); Mono # (Auto) 0.9 th/mm3 (0.0-0.9); Mono % (Auto) 6.3 % (0.0-8.0); Neut % (Auto) 85.6 % (16.0-70.0); Platelet Count 99 th/mm3 (150-450); Red Blood Count 2.45 mil/mm3 (4.00-5.30); Red Cell Distribution Width 14.7 % (11.6-17.2)
[2018-12-17 10:44] LABS: Alanine Aminotransferase 22 U/L (10-53); Albumin 3.2 g/dL (3.4-5.0); Alkaline Phosphatase 68 U/L (45-117); Anion Gap 9 meq/L (5-15); Aspartate Aminotransferase 26 U/L (15-37); Blood Urea Nitrogen 40 mg/dL (7-18); Calcium 8.3 mg/dL (8.5-10.1); Carbon Dioxide 26.1 meq/L (21.0-32.0); Chloride 100 meq/L (98-107); Glomerular Filtration Rate 6 mL/min (>89); Glucose,Random 221 mg/dL (74-106); Potassium 3.9 meq/L (3.5-5.1); Sodium 135 meq/L (136-145); Total Protein 6.8 g/dL (6.4-8.2)
[2018-12-17 11:00] LABS: Lymphocytes 5 % (9-44); Monocytes 1 % (0-8)
[2018-12-17 11:01] LABS: Hypersegmented Neutrophils 1+
--- NOTE | 2018-12-17 12:43 | ECG ---
Date Performed: 12/17/2018 Time Performed: 09:02:20 PTAGE: 53 years EKG: Sinus rhythm NORMAL ECG PREVIOUS TRACING : 12/17/2018 01.01 Since the previous tracing, no significant change noted DOCTOR: Johnathan Alvarado Interpretating Date/Time 12/17/2018 12:42:09
[2018-12-17] MEDS ORDERED: Sod Chloride 0.9% Inj 500 ML IV.SIG SCH (12:45)
--- NOTE | 2018-12-17 13:23 | ECG ---
Date Performed: 12/17/2018 Time Performed: 01:01:16 PTAGE: 53 years EKG: Sinus tachycardia. Poor R wave progression - probable normal variant Borderline ECG PREVIOUS TRACING 10/10/2018 7,55: Since the previous tracing, no significant change noted DOCTOR: Johnathan Alvarado Interpretating Date/Time 12/17/2018 13:22:40
--- NOTE | 2018-12-17 15:14 | P.PNNP ---
Subjective Interval history: patient was transferred to ICU, became hypoxic. CTA revealed small pulmonary emboli and clots adhering to dialysis catheter. Also had a thrombus in the right atrium. Physical Exam Vital signs: Vital Signs 12/16/18 19:00 12/16/18 20:00 12/17/18 00:20 Temperature 102.0 F H 102.4 F H Pulse Rate 121 H 110 H Respiratory Rate 18 20 Blood Pressure 100/53 L 65/29 L Pulse Oximetry 93 L 75 L 12/17/18 00:25 12/17/18 00:35 12/17/18 02:15 Temperature Pulse Rate 116 H Respiratory Rate Blood Pressure 61/30 L 55/29 L Pulse Oximetry 99 100 12/17/18 04:45 12/17/18 05:00 12/17/18 05:15 Temperature Pulse Rate 80 82 Respiratory Rate 11 L 16 Blood Pressure 86/52 L 87/52 L 83/50 L Pulse Oximetry 100 100 12/17/18 05:30 12/17/18 06:00 12/17/18 06:04 Temperature Pulse Rate 85 90 88 Respiratory Rate 17 18 22 Blood Pressure 93/51 L 111/58 L Pulse Oximetry 12/17/18 06:15 12/17/18 06:30 12/17/18 06:45 Temperature Pulse Rate 89 87 80 Respiratory Rate 17 17 17 Blood Pressure 105/57 L 102/55 L 96/55 L Pulse Oximetry 85 L 100 12/17/18 07:00 12/17/18 07:15 12/17/18 07:30 Temperature Pulse Rate 86 88 90 Respiratory Rate 8 L 16 14 Blood Pressure 93/55 L 94/55 L 96/54 L Pulse Oximetry 100 100 100 12/17/18 07:45 12/17/18 08:00 12/17/18 08:15 Temperature 98.9 F Pulse Rate 84 87 87 Respiratory Rate 9 L 20 18 Blood Pressure 90/54 L 90/50 L 94/55 L Pulse Oximetry 100 100 100 12/17/18 08:30 12/17/18 08:45 12/17/18 09:00 Temperature Pulse Rate 82 83 81 Respiratory Rate 15 20 17 Blood Pressure 89/51 L 89/52 L 86/52 L Pulse Oximetry 100 100 100 12/17/18 09:15 12/17/18 09:30 12/17/18 09:45 Temperature Pulse Rate 92 H 86 85 Respiratory Rate 16 19 19 Blood Pressure 106/58 L 98/54 L 96/54 L Pulse Oximetry 99 97 100 12/17/18 10:00 12/17/18 10:15 12/17/18 10:30 Temperature Pulse Rate 84 86 93 H Respiratory Rate 14 19 14 Blood Pressure 93/51 L 96/54 L 99/54 L Pulse Oximetry 100 100 100 12/17/18 10:45 12/17/18 11:00 12/17/18 11:10 Temperature Pulse Rate 91 H 84 Respiratory Rate 19 19 Blood Pressure 101/58 L 92/54 L Pulse Oximetry 100 100 100 12/17/18 11:15 12/17/18 11:30 12/17/18 11:45 Temperature Pulse Rate 83 79 77 Respiratory Rate 16 12 13 Blood Pressure 92/51 L 78/48 L 76/45 L Pulse Oximetry 100 100 100 12/17/18 12:00 12/17/18 12:10 12/17/18 12:15 Temperature 98.4 F Pulse Rate 81 81 81 Respiratory Rate 15 17 17 Blood Pressure 80/50 L 79/46 L 95/50 L Pulse Oximetry 100 97 93 L 12/17/18 12:30 12/17/18 12:45 12/17/18 13:00 Temperature Pulse Rate 79 81 85 Respiratory Rate 16 18 25 H Blood Pressure 96/52 L 99/54 L 99/56 L Pulse Oximetry 98 94 L 12/17/18 13:15 12/17/18 14:00 Temperature Pulse Rate 84 85 Respiratory Rate 21 Blood Pressure 111/63 Pulse Oximetry 100 Intake & Output 12/16/18 12/17/18 12/17/18 18:59 06:59 18:59 Intake Total 810 / 810 2660 / 2660 1050 / 1050 Output Total 1500 / 1500 0 / 0 Balance -690 / -690 2660 / 2660 1050 / 1050 Weight 106.2 kg 116.2 kg Intake: IV 750 / 750 2600 / 2600 1050 / 1050 Alburx 5% Inj 500 ML @ 250 mls/ 500 / 500 500 / 500 hr IV.SIG ONCE ONE Rx#:[id number] Zosyn 2.25 GM Premix 2.25 gm In 50 / 50 50 / 50 50 ml @ 100 mls/hr IV.SIG Q8H MARISSA Rx#:[id number] NS Inj 500 ML @ 1000 mls/hr IV. 1000 / 1000 500 / 500 SIG BOLUS MARISSA Rx#:[id number] NS Inj 500 ML @ 1000 mls/hr IV. 500 / 500 1000 / 1000 SIG BOLUS MARISSA Rx#:[id number] Vancomycin Inj 1,000 MG In NS 250 / 250 Inj 250 ML @ 250 mls/hr IV.SIG WITH DIALYSIS MARISSA Rx#:[id number] Oral 60 / 60 60 / 60 Output: Urine 0 / 0 Hemodialysis Amount 1500 / 1500 0 / 0 Other: # Voids 0 Date of Last Bowel Movement 12/14/18 12/14/18 # Bowel Movements 0 Weight On Admission 106.2 kg - Constitutional no acute distress, chronically ill appearing - Routine HEENT Exam Head: Present: normocephalic, atraumatic Eye: Present: EOMI, PERRL - Routine Neck Exam Absent: JVD, lymphadenopathy, thyromegaly - Routine Respiratory Exam Present: CTA bilaterally - Routine Cardiovascular Exam Present: RRR, S1, S2 - Routine Abdominal Exam Present: soft, normoactive bowel sounds - Routine Extremities Exam Absent: edema - Routine Skin Exam Present: intact - Routine Neurological Exam Present: alert, oriented X3 - Routine Psychiatric Exam Present: normal thought process Assessment and Plan - Assessment (1) End stage renal disease Code(s): N18.6 - End stage renal disease Status: Chronic Plan: Dialysis will be continued MWF. Patient presented with leukocytosis. Blood cultures have been obtained. On empiric antibiotics. (2) Anemia Code(s): D64.9 - Anemia, unspecified Status: Chronic Qualifiers: Anemia type: unspecified type Qualified Code(s): D64.9 - Anemia, unspecified Plan: Epogen with dialysis. (3) Hypertension Code(s): I10 - Essential (primary) hypertension Status: Chronic Plan: No need for antihypertensive. BP is low. (4) Sepsis Code(s): A41.9 - Sepsis, unspecified organism Status: Acute Plan: Empiric antibiotics. IR consulted for removal of PermCath. (5) Metabolic bone disease Code(s): E88.9 - Metabolic disorder, unspecified; M90.80 - Osteopathy in diseases classified elsewhere, unspecified site Status: Acute Plan: Monitor phosphorus intermittently. Continue Sevelamer and Sensipar. (6) Pulmonary embolism Code(s): I26.99 - Other pulmonary embolism without acute cor pulmonale Status : Acute Qualifiers: Pulmonary embolism type: unspecified Chronicity: acute Acute cor pulmonale presence: without acute cor pulmonale Qualified Code(s): I26.99 - Other pulmonary embolism without acute cor pulmonale Plan: CTA was positive for PE. On heparin drip. Had clot adhering to dialysis catheter also a clot in the right atrium. IR consulted for removal of PermCath.
--- NOTE | 2018-12-17 17:10 | P.CONID ---
History of Present Illness Service: ID Consult date: 12/17/18 Requesting Physician: Christel Beltran R1 Reason for Consult: positive blood cultures Primary Care Provider: UNKNOWN Chief Complaint: right hip pain History of Present Illness: 53 yo female with ESRD on HD x 4 yrs has LUE AV graft that failed in September Has Permacath for about 1 month L IJ noted R hip pain, worsening over 1 week denies any prior surgeries or trauma in that hip admitted with worsening hip pain , maliase and hypotension Initially on the floor but later HALIcated to ICU with hypotention She has persistent hypotension requiring IVF No pressors blood clx within 1 day + for MSSA 03/02 She is on vancomycin and zosyn, reports no problems with abx (no rash, swellling ) she has seroma in inglinal area, not infected but that s nt where her pain is Review of Systems All other systems reviewed negative except as stated in HPI PMFSH - History History Provided By: Patient - Medical History Medical History: Medical History (Last Reviewed 12/17/18 @ 16:59 by Carmen Blank MD) 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 fistula End stage renal disease H/O: hysterectomy HTN (hypertension) Liver mass, left lobe - Surgical History Surgical History: Surgical History (Last Reviewed 12/17/18 @ 16:59 by Carmen Blank MD) H/O resection of liver History of knee replacement, total - Family History Family History: Family History (Last Reviewed 12/17/18 @ 16:59 by Carmen Blank MD) Other Family history of dementia Family history of diabetes mellitus Family history of hypertension Family history of paranoid schizophrenia - Social History I have reviewed the patient's Social History: Yes - Tobacco History Second Hand Smoke Exposure: No Smoking Status: Never smoker - Alcohol History How Often Do You Have a Drink Containing Alcohol: Never - Substance Use History Substance History: No History of Abuse - Travel History Recent Travel in the [place] Within the Last 8 Weeks: No Recent Travel Out of the Country Within the Last 8 Weeks: No - Immunization History Tetanus Immunization: <5 Years Hx Influenza Vaccine This Season: Yes Medications and Allergies Active Medications: Active Medications Acetaminophen (Tylenol) 650 mg PO Q4H PRN PRN Reason: Temp > 100.4, Pain 1-2 Last Admin: 12/16/18 21:51 Dose: 650 mg Hydrocodone Bitart/Acetaminophen ([place] 5/325) 1 tab PO Q4H PRN PRN Reason: PAIN SCALE 3 TO 5 Last Admin: 12/17/18 06:11 Dose: 1 tab Al Hydroxide/Mg Hydroxide (Milk Of Magnesia Liq) 30 ml PO Q12H PRN PRN Reason: Mild Constipation Bisacodyl (Dulcolax Supp) 10 mg RECTAL DAILY PRN PRN Reason: SEVERE CONSITIPATION Chlorhexidine Gluconate (Chlorhexidine 2% Cloth) 3 pack TOPICAL DAILY@0400 [facility] Stop: 12/22/18 03:59 Last Admin: 12/17/18 04:51 Dose: Not Given Chlorhexidine Gluconate (Chlorhexidine 2% Cloth) 3 pack TOPICAL DAILY@0400 PRN PRN Reason: Extra cloth needed Stop: 12/22/18 03:59 Cinacalcet (Sensipar) 30 mg PO DAILY [facility] Last Admin: 12/17/18 16:38 Dose: 30 mg Heparin Sodium (Porcine) (Heparin Inj) 5,000 units SQ Q12H [facility] Last Admin: 12/16/18 20:41 Dose: 5,000 units Vancomycin HCl 1,000 mg/ (Sodium Chloride) 250 mls @ 250 mls/hr IV.SIG WITH DIALYSIS [facility] Last Infusion: 12/16/18 18:00 Dose: Infused Piperacillin/Tazobactam/Dextrose (Zosyn 2.25 Gm Premix) 2.25 gm in 50 mls @ 100 mls/hr IV.SIG Q8H [facility] Last Infusion: 12/17/18 12:31 Dose: Infused Heparin Sodium/Dextrose (Heparin/D5w 25,000 U/250 Ml) 25,000 unit in 250 mls @ 10 mls/hr IV.CONT TITRATE PRN; Protocol PRN Reason: Per Protocol Last Titration: 12/17/18 16:45 Dose: 1,500 units/hr, 15 mls/hr Lactulose (Lactulose Liq) 30 ml PO DAILY PRN PRN Reason: SEVERE CONSITIPATION Mupirocin (Bactroban 2% Nasal Oint) 1 applicatio EACH NARE BID [facility] Stop: 12/21/18 21:01 Last Admin: 12/17/18 09:16 Dose: 1 applicatio Naloxone HCl (Narcan Inj) 0.4 mg IV.PUSH UNSCH PRN PRN Reason: SEE LABEL COMMENTS Ondansetron HCl (Zofran Inj) 4 mg IV.PUSH Q6H PRN PRN Reason: NAUSEA OR VOMITING Oxycodone HCl (Roxicodone) 10 mg PO Q4H PRN PRN Reason: PAIN SCALE 6-10 OR SEVERE SOB Last Admin: 12/16/18 21:51 Dose: 10 mg Senna/Docusate Sodium (Barby-Colace) 1 tab PO BID [facility] Last Admin: 12/17/18 08:02 Dose: Not Given Sennosides (Senokot) 17.2 mg PO Q12H PRN PRN Reason: Moderate Constipation Sevelamer Carbonate (Renvela) 1,600 mg PO TIDAC [facility] Sodium Chloride (Ns Flush) 2 ml IV.FLUSH BID [facility] Last Admin: 12/17/18 08:02 Dose: 2 ml Sodium Chloride (Ns Flush) 2 ml IV.FLUSH PRN PRN PRN Reason: FLUSH AFTER USING IV ACCESS Allergies Allergy/AdvReac Type Severity Reaction Status Date / Time cephalexin Allergy Severe Hives Verified 12/16/18 08:35 onion Allergy Severe Gastrointestinal Verified 12/16/18 08:35 Upset Sulfa (Sulfonamide AdvReac Intermediate Nausea/Vomi Verified 12/16/18 08:35 Antibiotics) ting Home Medications Medication Instructions Recorded Confirmed Type cinacalcet [Sensipar] 30 mg PO DAILY 10/06/18 12/16/18 History sevelamer carbonate [Renvela] 1,600 mg PO TID 10/06/18 12/16/18 History Exam Vital signs: Vital Signs 12/16/18 19:00 12/16/18 20:00 12/17/18 00:20 Temperature 102.0 F H 102.4 F H Pulse Rate 121 H 110 H Respiratory Rate 18 20 Blood Pressure 100/53 L 65/29 L Pulse Oximetry 93 L 75 L 12/17/18 00:25 12/17/18 00:35 12/17/18 02:15 Temperature Pulse Rate 116 H Respiratory Rate Blood Pressure 61/30 L 55/29 L Pulse Oximetry 99 100 12/17/18 04:45 12/17/18 05:00 12/17/18 05:15 Temperature Pulse Rate 80 82 Respiratory Rate 11 L 16 Blood Pressure 86/52 L 87/52 L 83/50 L Pulse Oximetry 100 100 12/17/18 05:30 12/17/18 06:00 12/17/18 06:04 Temperature Pulse Rate 85 90 88 Respiratory Rate 17 18 22 Blood Pressure 93/51 L 111/58 L Pulse Oximetry 12/17/18 06:15 12/17/18 06:30 12/17/18 06:45 Temperature Pulse Rate 89 87 80 Respiratory Rate 17 17 17 Blood Pressure 105/57 L 102/55 L 96/55 L Pulse Oximetry 85 L 100 12/17/18 07:00 12/17/18 07:15 12/17/18 07:30 Temperature Pulse Rate 86 88 90 Respiratory Rate 8 L 16 14 Blood Pressure 93/55 L 94/55 L 96/54 L Pulse Oximetry 100 100 100 12/17/18 07:45 12/17/18 08:00 12/17/18 08:15 Temperature 98.9 F Pulse Rate 84 87 87 Respiratory Rate 9 L 20 18 Blood Pressure 90/54 L 90/50 L 94/55 L Pulse Oximetry 100 100 100 12/17/18 08:30 12/17/18 08:45 12/17/18 09:00 Temperature Pulse Rate 82 83 81 Respiratory Rate 15 20 17 Blood Pressure 89/51 L 89/52 L 86/52 L Pulse Oximetry 100 100 100 12/17/18 09:15 12/17/18 09:30 12/17/18 09:45 Temperature Pulse Rate 92 H 86 85 Respiratory Rate 16 19 19 Blood Pressure 106/58 L 98/54 L 96/54 L Pulse Oximetry 99 97 100 12/17/18 10:00 12/17/18 10:15 12/17/18 10:30 Temperature Pulse Rate 84 86 93 H Respiratory Rate 14 19 14 Blood Pressure 93/51 L 96/54 L 99/54 L Pulse Oximetry 100 100 100 12/17/18 10:45 12/17/18 11:00 12/17/18 11:10 Temperature Pulse Rate 91 H 84 Respiratory Rate 19 19 Blood Pressure 101/58 L 92/54 L Pulse Oximetry 100 100 100 12/17/18 11:15 12/17/18 11:30 12/17/18 11:45 Temperature Pulse Rate 83 79 77 Respiratory Rate 16 12 13 Blood Pressure 92/51 L 78/48 L 76/45 L Pulse Oximetry 100 100 100 12/17/18 12:00 12/17/18 12:10 12/17/18 12:15 Temperature 98.4 F Pulse Rate 81 81 81 Respiratory Rate 15 17 17 Blood Pressure 80/50 L 79/46 L 95/50 L Pulse Oximetry 100 97 93 L 12/17/18 12:30 12/17/18 12:45 12/17/18 13:00 Temperature Pulse Rate 79 81 85 Respiratory Rate 16 18 25 H Blood Pressure 96/52 L 99/54 L 99/56 L Pulse Oximetry 98 94 L 12/17/18 13:15 12/17/18 13:30 12/17/18 13:45 Temperature Pulse Rate 84 85 93 H Respiratory Rate 21 20 26 H Blood Pressure 111/63 113/62 123/67 Pulse Oximetry 100 100 100 12/17/18 14:00 12/17/18 14:15 12/17/18 14:30 Temperature Pulse Rate 85 84 86 Respiratory Rate 25 H 23 19 Blood Pressure 111/58 L 111/60 117/60 Pulse Oximetry 100 100 100 12/17/18 14:45 12/17/18 15:00 12/17/18 15:15 Temperature Pulse Rate 85 84 83 Respiratory Rate 22 21 19 Blood Pressure 106/60 111/60 110/60 Pulse Oximetry 89 L 100 100 12/17/18 15:30 12/17/18 15:45 12/17/18 16:00 Temperature 99 F Pulse Rate 83 82 82 Respiratory Rate 19 17 19 Blood Pressure 113/61 109/58 L 112/59 L Pulse Oximetry 94 L 100 100 Intake & Output 12/16/18 12/17/18 12/17/18 18:59 06:59 18:59 Intake Total 810 / 810 2660 / 2660 1050 / 1050 Output Total 1500 / 1500 0 / 0 Balance -690 / -690 2660 / 2660 1050 / 1050 Weight 106.2 kg 116.2 kg Intake: IV 750 / 750 2600 / 2600 1050 / 1050 [place] 5% Inj 500 ML @ 250 mls/ 500 / 500 500 / 500 hr IV.SIG ONCE ONE Rx#:[id number] Zosyn 2.25 GM Premix 2.25 gm In 50 / 50 50 / 50 50 ml @ 100 mls/hr IV.SIG Q8H [facility] Rx#:[id number] NS Inj 500 ML @ 1000 mls/hr IV. 1000 / 1000 500 / 500 SIG BOLUS [facility] Rx#:[id number] NS Inj 500 ML @ 1000 mls/hr IV. 500 / 500 1000 / 1000 SIG BOLUS [facility] Rx#:[id number] Vancomycin Inj 1,000 MG In NS 250 / 250 Inj 250 ML @ 250 mls/hr IV.SIG WITH DIALYSIS [facility] Rx#:[id number] Oral 60 / 60 60 / 60 Output: Urine 0 / 0 Hemodialysis Amount 1500 / 1500 0 / 0 Other: # Voids 0 Date of Last Bowel Movement 12/14/18 12/14/18 # Bowel Movements 0 Weight On Admission 106.2 kg - Constitutional no acute distress, morbidly obese - Routine HEENT Exam Head: Present: normocephalic, atraumatic Eye: Present: EOMI, PERRL ENT: Present: mucous membranes moist, oropharynx clear - Routine Neck Exam Present: supple, full ROM. Absent: JVD, lymphadenopathy Comments: L IJ tunnelled cath in place not tender - Routine Respiratory Exam Present: CTA bilaterally. Absent: accessory muscle use, rales, respiratory distress - Routine Cardiovascular Exam Present: RRR, S1, S2. Absent: murmur, gallop, rubs - Routine Abdominal Exam Present: soft, normoactive bowel sounds. Absent: tenderness, distended Comments: AV graft in place LUE , no redness, pain or swelling - Routine Extremities Exam Present: full ROM. Absent: cyanosis, clubbing, edema Comments: R thigh laterally tender to palpatio - Routine Skin Exam Present: dry, warm. Absent: jaundice, rash - Routine Neurological Exam Present: alert, oriented X3, CN II-XII intact. Absent: sensory deficit, motor deficit - Routine Psychiatric Exam Present: normal affect, cooperative Results - Labs CBC & Chem 7: 12/17/18 09:39 12/17/18 09:39 Labs: Laboratory Results - last 24 hr 12/16/18 12/16/18 12/16/18 11:05 11:05 23:50 WBC RBC Hgb Hct MCV MCH MCHC RDW Plt Count MPV Prelim Diff (Auto) Neut % (Auto) Lymph % (Auto) [place] % (Auto) Eos % (Auto) Baso % (Auto) Neut # (Auto) Lymph # (Auto) [place] # (Auto) Eos # (Auto) Baso # (Auto) WBC Differential Seg Neuts % (Manual) Band Neuts % (Manual) Lymphocytes % (Manual) Monocytes % (Manual) Abs Neuts (Manual) Differential Comment Hypersegmented Neuts Toxic Vacuolation Dohle Bodies Platelet Estimate Platelet Morphology PT INR APTT D-Dimer Quant (PE/DVT) Sodium 133 L Potassium 5.1 Chloride 99 Carbon Dioxide 24.0 Anion Gap 10 BUN 47 H Creatinine 10.08 H* Estimated GFR 5 L POC Glucose Random Glucose 125 H Calcium 9.2 Total Bilirubin 0.5 AST 51 H ALT 21 Alkaline Phosphatase 101 Troponin I Total Protein 7.8 Albumin 3.2 L Vitamin B12 209 Cancelled Folate Greater than 20.0 H Cancelled Nasal Screen MRSA (PCR) HIV 1&2 Ab/P24 Ag 4thGn Nonreactive 12/17/18 12/17/18 12/17/18 00:29 01:15 01:15 WBC RBC Hgb Hct MCV MCH MCHC RDW Plt Count MPV Prelim Diff (Auto) Neut % (Auto) Lymph % (Auto) [place] % (Auto) Eos % (Auto) Baso % (Auto) Neut # (Auto) Lymph # (Auto) [place] # (Auto) Eos # (Auto) Baso # (Auto) WBC Differential Seg Neuts % (Manual) Band Neuts % (Manual) Lymphocytes % (Manual) Monocytes % (Manual) Abs Neuts (Manual) Differential Comment Hypersegmented Neuts Toxic Vacuolation Dohle Bodies Platelet Estimate Platelet Morphology PT INR APTT D-Dimer Quant (PE/DVT) 31.25 H Sodium Potassium Chloride Carbon Dioxide Anion Gap BUN Creatinine Estimated GFR POC Glucose 116 H Random Glucose Calcium Total Bilirubin AST ALT Alkaline Phosphatase Troponin I 0.08 H Total Protein Albumin Vitamin B12 Folate Nasal Screen MRSA (PCR) HIV 1&2 Ab/P24 Ag 4thGn 12/17/18 12/17/18 12/17/18 01:15 01:23 07:00 WBC 17.8 H RBC 2.83 L Hgb 9.9 L Hct 29.3 L MCV 103.4 H MCH 34.8 H MCHC 33.7 RDW 14.5 Plt Count 117 L MPV 9.3 Prelim Diff (Auto) Slide review pending Neut % (Auto) 82.2 H Lymph % (Auto) 6.9 L [place] % (Auto) 10.2 H Eos % (Auto) 0.6 Baso % (Auto) 0.1 Neut # (Auto) 14.6 H Lymph # (Auto) 1.2 [place] # (Auto) 1.8 H Eos # (Auto) 0.1 Baso # (Auto) 0.0 WBC Differential Manual diff final Seg Neuts % (Manual) 79 H Band Neuts % (Manual) 12 H Lymphocytes % (Manual) 7 L Monocytes % (Manual) 2 Abs Neuts (Manual) 16.2 H Differential Comment . Hypersegmented Neuts 1+ H Toxic Vacuolation Present H Dohle Bodies Present H Platelet Estimate Low L Platelet Morphology Normal PT 13.6 H INR 1.3 APTT 42.7 H D-Dimer Quant (PE/DVT) Sodium Potassium Chloride Carbon Dioxide Anion Gap BUN Creatinine Estimated GFR POC Glucose Random Glucose Calcium Total Bilirubin AST ALT Alkaline Phosphatase Troponin I Total Protein Albumin Vitamin B12 Folate Nasal Screen MRSA (PCR) Mrsa detected HIV 1&2 Ab/P24 Ag 4thGn 12/17/18 12/17/18 12/17/18 09:39 09:39 09:39 WBC 14.0 H RBC 2.45 L Hgb 8.5 L Hct 26.3 L MCV 107.1 H D MCH 34.7 H MCHC 32.4 RDW 14.7 Plt Count 99 L MPV 9.1 Prelim Diff (Auto) Slide review pending Neut % (Auto) 85.6 H Lymph % (Auto) 7.6 L [place] % (Auto) 6.3 Eos % (Auto) 0.3 Baso % (Auto) 0.2 Neut # (Auto) 12.0 H Lymph # (Auto) 1.1 [place] # (Auto) 0.9 Eos # (Auto) 0.0 Baso # (Auto) 0.0 WBC Differential Manual diff final Seg Neuts % (Manual) 89 H Band Neuts % (Manual) 5 Lymphocytes % (Manual) 5 L Monocytes % (Manual) 1 Abs Neuts (Manual) 13.2 H Differential Comment . Hypersegmented Neuts 1+ H Toxic Vacuolation Dohle Bodies Platelet Estimate Low L Platelet Morphology Enlarged H PT INR APTT D-Dimer Quant (PE/DVT) Sodium 135 L Potassium 3.9 D Chloride 100 Carbon Dioxide 26.1 Anion Gap 9 BUN 40 H Creatinine 7.91 H Estimated GFR 6 L POC Glucose Random Glucose 221 H Calcium 8.3 L D Total Bilirubin 0.5 AST 26 ALT 22 Alkaline Phosphatase 68 Troponin I 0.05 Total Protein 6.8 D Albumin 3.2 L Vitamin B12 Folate Nasal Screen MRSA (PCR) HIV 1&2 Ab/P24 Ag 4thGn 12/17/18 14:08 WBC RBC Hgb Hct MCV MCH MCHC RDW Plt Count MPV Prelim Diff (Auto) Neut % (Auto) Lymph % (Auto) [place] % (Auto) Eos % (Auto) Baso % (Auto) Neut # (Auto) Lymph # (Auto) [place] # (Auto) Eos # (Auto) Baso # (Auto) WBC Differential Seg Neuts % (Manual) Band Neuts % (Manual) Lymphocytes % (Manual) Monocytes % (Manual) Abs Neuts (Manual) Differential Comment Hypersegmented Neuts Toxic Vacuolation Dohle Bodies Platelet Estimate Platelet Morphology PT INR APTT 98.0 H* D D-Dimer Quant (PE/DVT) Sodium Potassium Chloride Carbon Dioxide Anion Gap BUN Creatinine Estimated GFR POC Glucose Random Glucose Calcium Total Bilirubin AST ALT Alkaline Phosphatase Troponin I Total Protein Albumin Vitamin B12 Folate Nasal Screen MRSA (PCR) HIV 1&2 Ab/P24 Ag 4thGn - Imaging Impressions Chest CTA 12/17/18 00:00 CONCLUSION: 1. Small pulmonary emboli of the posterior basilar branches of the left lower lobe. 2. Thrombus adhering to the distal left subclavian central venous catheter. 3. Thrombus within the right atrium. 4. Posterior left lower lung atelectasis. 5. Mildly prominent ascending thoracic aorta measuring 4.5 cm in diameter. Venous Doppler Study 12/17/18 00:00 CONCLUSION: 1. No venous thrombosis of either lower extremity. 2. Right inguinal fluid collection most consistent with seroma/chronic hematoma. Assessment and Plan - Plan ESRD, on HD HIgh grade MSSA bacteremia Source is [facility] Permacath AV graft Severe R thigh pain Fluid collection on Ct pelvis - not appear infected. Dw radiologist cephalosporin allergy but tolerates OK zosyn dc zosyn start oxacillin cont vanco for now untill ZEV done Remove permacath, place VASCATH for HD untill clears infx fu clx untill final MR R thigh US IGGYE harpreet RN dw radiologist dw Pt, family at b/s
[2018-12-18] MEDS ORDERED: Sod Chloride 0.9% Inj 1,000 ML IV.SIG SCH (02:17)
[2018-12-18] MEDS ORDERED: Albumin Human 5% Inj 500 ML IV.SIG ONE (02:17)
[2018-12-18] MEDS: Chlorhexidine Gluconate 2% 1 Pack (2 Cloths) TOPICAL SCH (03:53)
[2018-12-18] MEDS: Heparin Drip 25,000 UNIT/250 ML BAG IV.CONT PRN ×2 (03:53→15:53)
[2018-12-18] MEDS ORDERED: Chlorhexidine Gluconate 2% 1 Pack (2 Cloths) TOPICAL PRN (04:00)
[2018-12-18] MEDS ORDERED: Chlorhexidine Gluconate 2% 1 Pack (2 Cloths) TOPICAL SCH (04:00)
--- NOTE | 2018-12-18 08:20 | P.PNNP ---
Subjective Interval history: Patient with positive blood culture. Seen by ID. Note was reviewed. Physical Exam Vital signs: Vital Signs 12/17/18 08:30 12/17/18 08:45 12/17/18 09:00 Temperature Pulse Rate 82 83 81 Respiratory Rate 15 20 17 Blood Pressure 89/51 L 89/52 L 86/52 L Pulse Oximetry 100 100 100 12/17/18 09:15 12/17/18 09:30 12/17/18 09:45 Temperature Pulse Rate 92 H 86 85 Respiratory Rate 16 19 19 Blood Pressure 106/58 L 98/54 L 96/54 L Pulse Oximetry 99 97 100 12/17/18 10:00 12/17/18 10:15 12/17/18 10:30 Temperature Pulse Rate 84 86 93 H Respiratory Rate 14 19 14 Blood Pressure 93/51 L 96/54 L 99/54 L Pulse Oximetry 100 100 100 12/17/18 10:45 12/17/18 11:00 12/17/18 11:10 Temperature Pulse Rate 91 H 84 Respiratory Rate 19 19 Blood Pressure 101/58 L 92/54 L Pulse Oximetry 100 100 100 12/17/18 11:15 12/17/18 11:30 12/17/18 11:45 Temperature Pulse Rate 83 79 77 Respiratory Rate 16 12 13 Blood Pressure 92/51 L 78/48 L 76/45 L Pulse Oximetry 100 100 100 12/17/18 12:00 12/17/18 12:10 12/17/18 12:15 Temperature 98.4 F Pulse Rate 81 81 81 Respiratory Rate 15 17 17 Blood Pressure 80/50 L 79/46 L 95/50 L Pulse Oximetry 100 97 93 L 12/17/18 12:30 12/17/18 12:45 12/17/18 13:00 Temperature Pulse Rate 79 81 85 Respiratory Rate 16 18 25 H Blood Pressure 96/52 L 99/54 L 99/56 L Pulse Oximetry 98 94 L 12/17/18 13:15 12/17/18 13:30 12/17/18 13:45 Temperature Pulse Rate 84 85 93 H Respiratory Rate 21 20 26 H Blood Pressure 111/63 113/62 123/67 Pulse Oximetry 100 100 100 12/17/18 14:00 12/17/18 14:15 12/17/18 14:30 Temperature Pulse Rate 85 84 86 Respiratory Rate 25 H 23 19 Blood Pressure 111/58 L 111/60 117/60 Pulse Oximetry 100 100 100 12/17/18 14:45 12/17/18 15:00 12/17/18 15:15 Temperature Pulse Rate 85 84 83 Respiratory Rate 22 21 19 Blood Pressure 106/60 111/60 110/60 Pulse Oximetry 89 L 100 100 12/17/18 15:30 12/17/18 15:45 12/17/18 16:00 Temperature 99 F Pulse Rate 83 82 82 Respiratory Rate 19 17 19 Blood Pressure 113/61 109/58 L 112/59 L Pulse Oximetry 94 L 100 100 12/17/18 16:15 12/17/18 16:30 12/17/18 16:45 Temperature Pulse Rate 84 84 83 Respiratory Rate 19 22 23 Blood Pressure 100/60 103/61 107/60 Pulse Oximetry 100 100 100 12/17/18 17:00 12/17/18 17:15 12/17/18 17:30 Temperature Pulse Rate 85 83 82 Respiratory Rate 20 20 12 Blood Pressure 108/58 L 115/59 L 111/59 L Pulse Oximetry 98 100 100 12/17/18 18:00 12/17/18 18:30 12/17/18 19:00 Temperature Pulse Rate 85 86 83 Respiratory Rate 28 H 20 20 Blood Pressure 113/59 L 115/63 106/58 L Pulse Oximetry 100 99 100 12/17/18 19:30 12/17/18 19:45 12/17/18 19:49 Temperature Pulse Rate 85 90 89 Respiratory Rate 20 24 21 Blood Pressure 79/48 L 71/40 L 71/39 L Pulse Oximetry 99 100 99 12/17/18 19:50 12/17/18 20:00 12/17/18 20:10 Temperature 99.1 F Pulse Rate 85 80 80 Respiratory Rate 21 16 19 Blood Pressure 82/43 L 91/55 L 95/53 L Pulse Oximetry 98 98 99 12/17/18 20:20 12/17/18 20:30 12/17/18 20:40 Temperature Pulse Rate 78 76 78 Respiratory Rate 18 17 19 Blood Pressure 96/52 L 98/54 L 96/53 L Pulse Oximetry 100 100 100 12/17/18 20:50 12/17/18 21:00 12/17/18 21:10 Temperature Pulse Rate 78 88 80 Respiratory Rate 19 27 H 20 Blood Pressure 97/52 L 102/58 L 105/58 L Pulse Oximetry 100 100 100 12/17/18 21:20 12/17/18 21:30 12/17/18 21:33 Temperature Pulse Rate 80 82 Respiratory Rate 19 18 16 Blood Pressure 93/54 L 94/51 L Pulse Oximetry 100 100 12/17/18 21:40 12/17/18 21:50 12/17/18 22:00 Temperature Pulse Rate 80 81 80 Respiratory Rate 19 18 18 Blood Pressure 93/55 L 87/50 L 84/45 L Pulse Oximetry 100 100 100 12/17/18 22:10 12/17/18 22:12 12/17/18 22:20 Temperature Pulse Rate 80 81 79 Respiratory Rate 19 22 19 Blood Pressure 76/46 L 77/41 L 81/47 L Pulse Oximetry 100 100 100 12/17/18 22:30 12/17/18 22:45 12/17/18 23:00 Temperature Pulse Rate 79 77 79 Respiratory Rate 19 18 20 Blood Pressure 85/49 L 86/50 L 90/52 L Pulse Oximetry 100 100 100 12/17/18 23:15 12/17/18 23:30 12/17/18 23:45 Temperature Pulse Rate 76 77 77 Respiratory Rate 19 19 19 Blood Pressure 91/50 L 91/51 L 89/54 L Pulse Oximetry 100 100 100 12/18/18 00:00 12/18/18 00:15 12/18/18 00:30 Temperature Pulse Rate 74 78 74 Respiratory Rate 18 16 18 Blood Pressure 84/50 L 84/52 L 84/49 L Pulse Oximetry 99 100 100 12/18/18 00:45 12/18/18 01:00 12/18/18 01:15 Temperature Pulse Rate 74 76 73 Respiratory Rate 19 21 18 Blood Pressure 83/50 L 89/52 L 82/50 L Pulse Oximetry 100 100 100 12/18/18 01:30 12/18/18 01:38 12/18/18 01:45 Temperature Pulse Rate 76 73 73 Respiratory Rate 18 18 17 Blood Pressure 72/52 L 83/48 L 80/47 L Pulse Oximetry 100 100 100 12/18/18 01:56 12/18/18 02:00 12/18/18 02:12 Temperature Pulse Rate 74 73 73 Respiratory Rate 17 16 16 Blood Pressure 79/44 L 77/42 L 88/50 L Pulse Oximetry 100 99 100 12/18/18 02:16 12/18/18 02:30 12/18/18 02:45 Temperature Pulse Rate 72 71 68 Respiratory Rate 16 15 16 Blood Pressure 106/51 L 82/39 L 75/44 L Pulse Oximetry 100 100 100 12/18/18 03:00 12/18/18 03:11 12/18/18 03:14 Temperature Pulse Rate 66 66 70 Respiratory Rate 16 16 21 Blood Pressure 77/46 L 70/41 L 82/45 L Pulse Oximetry 100 100 100 12/18/18 03:15 12/18/18 03:30 12/18/18 03:45 Temperature Pulse Rate 70 66 72 Respiratory Rate 18 22 23 Blood Pressure 86/51 L 93/53 L 99/54 L Pulse Oximetry 100 100 97 12/18/18 04:00 12/18/18 04:15 12/18/18 04:30 Temperature Pulse Rate 75 78 72 Respiratory Rate 28 H 29 H 43 H Blood Pressure 108/56 L 116/59 L 113/53 L Pulse Oximetry 12/18/18 04:45 12/18/18 05:00 12/18/18 05:15 Temperature Pulse Rate 71 65 65 Respiratory Rate 19 18 15 Blood Pressure 110/53 L 111/53 L 109/54 L Pulse Oximetry 97 100 100 12/18/18 05:30 12/18/18 05:45 12/18/18 06:00 Temperature Pulse Rate 66 65 64 Respiratory Rate 14 14 15 Blood Pressure 100/52 L 97/48 L 99/47 L Pulse Oximetry 100 100 100 12/18/18 06:15 12/18/18 07:58 Temperature Pulse Rate 61 Respiratory Rate 14 Blood Pressure 100/49 L Pulse Oximetry 100 100 Intake & Output 12/17/18 12/18/18 12/18/18 18:59 06:59 18:59 Intake Total 1530 / 1530 2250 / 2250 Balance 1530 / 1530 2250 / 2250 Weight 110.7 kg Intake: IV 1050 / 1050 1950 / 1950 Heparin/D5W 25,000 U/250 mL 25, 250 / 250 000 unit In 250 ml @ 1,000 UNITS/HR 10 mls/hr IV.CONT TITRATE PRN Rx#:[id number] Alburx 5% Inj 500 ML @ 250 mls/ 500 / 500 500 / 500 hr IV.SIG ONCE ONE Rx#:[id number] Prostaphlin Inj 2 GM In NS Inj 200 / 200 100 ML @ 200 mls/hr IV.SIG Q6H MARISSA Rx#:[id number] Zosyn 2.25 GM Premix 2.25 gm In 50 / 50 50 ml @ 100 mls/hr IV.SIG Q8H MARISSA Rx#:[id number] NS Inj 1,000 ML @ 1000 mls/hr 500 / 500 1000 / 1000 IV.SIG BOLUS MARISSA Rx#:[id number] Oral 480 / 480 300 / 300 Other: Post Void Residual 0 Date of Last Bowel Movement 12/14/18 12/14/18 Narrative: GENERAL: obese Afro-[place]in[place] female lying in bed, in no acute distress. Wearing a nonrebreather mask this morning SKIN: Warm and dry. Areas of hyperpigmentation on the skin. Permacath in left upper chest with no obvious erythema or drainage around the site. Area is mildly swollen CARDIOVASCULAR: Tachycardic but regular rhythm. RESPIRATORY: Mildly increased work of breathing, however no acute respiratory distress. Bilateral lung sepulveda clear to auscultation. GASTROINTESTINAL: Abdomen soft, nondistended, nontender. Hepatic and splenic margins not palpable. MUSCULOSKELETAL: Extremities without clubbing, cyanosis, or edema. Negative Homans sign. No obvious deformities. Pain with movement of RLE. NEUROLOGICAL: Awake and alert. PSYCHIATRIC: Appropriate mood and affect; insight and judgment normal. Assessment and Plan - Assessment (1) End stage renal disease Code(s): N18.6 - End stage renal disease Status: Chronic Plan: Dialysis will be continued MW. Patient presented with leukocytosis. Positive blood culture: patient with sepsis. ID has been consulted. Needs PermCath removed. (2) Anemia Code(s): D64.9 - Anemia, unspecified Status: Chronic Qualifiers: Anemia type: unspecified type Qualified Code(s): D64.9 - Anemia, unspecified Plan: Epogen with dialysis. (3) Hypertension Code(s): I10 - Essential (primary) hypertension Status: Chronic Plan: No need for antihypertensive. BP is low. (4) Sepsis Code(s): A41.9 - Sepsis, unspecified organism Status: Acute Plan: Antibiotics per ID IR consulted for removal of PermCath. (5) Metabolic bone disease Code(s): E88.9 - Metabolic disorder, unspecified; M90.80 - Osteopathy in diseases classified elsewhere, unspecified site Status: Acute Plan: Monitor phosphorus intermittently. Continue Sevelamer and Sensipar. (6) Pulmonary embolism Code(s): I26.99 - Other pulmonary embolism without acute cor pulmonale Status : Acute Qualifiers: Pulmonary embolism type: unspecified Chronicity: acute Acute cor pulmonale presence: without acute cor pulmonale Qualified Code(s): I26.99 - Other pulmonary embolism without acute cor pulmonale Plan: CTA was positive for PE. On heparin drip. Had clot adhering to dialysis catheter also a clot in the right atrium. IR consulted for removal of PermCath.
[2018-12-18] MEDS: Senna/Docusate Sodium 8.6/50 MG Tablet PO SCH ×2 (08:52→22:16)
[2018-12-18] MEDS: Mupirocin 2% Nasal Oint Topical Syringe EACH NARE SCH ×2 (08:52→22:16)
[2018-12-18 08:54] LABS: Hematocrit 26.9 % (35.0-46.0); Hemoglobin 8.7 gm/dL (11.6-15.3); Mean Corpuscular HGB Conc 32.2 % (32.0-36.0); Mean Corpuscular Hemoglobin 34.7 pg (27.0-34.0); Mean Corpuscular Volume 107.9 fL (80.0-100.0); Mean Platelet Volume 9.5 fL (7.0-11.0); Platelet Count 103 th/mm3 (150-450); Red Blood Count 2.49 mil/mm3 (4.00-5.30); Red Cell Distribution Width 15.4 % (11.6-17.2); White Blood Count 14.3 th/mm3 (4.0-11.0)
[2018-12-18 09:29] LABS: Alanine Aminotransferase 15 U/L (10-53); Anion Gap 9 meq/L (5-15); Aspartate Aminotransferase 15 U/L (15-37); Blood Urea Nitrogen 52 mg/dL (7-18); Calcium 8.3 mg/dL (8.5-10.1); Carbon Dioxide 26.1 meq/L (21.0-32.0); Chloride 101 meq/L (98-107); Glomerular Filtration Rate 5 mL/min (>89); Glucose,Random 94 mg/dL (74-106); Phosphorus 4.5 mg/dL (2.5-4.9); Potassium 4.5 meq/L (3.5-5.1); Sodium 136 meq/L (136-145)
[2018-12-18 09:33] LABS: Alkaline Phosphatase 57 U/L (45-117); Total Protein 6.6 g/dL (6.4-8.2)
[2018-12-18 10:49] LABS: Eosinophils 2 % (0-4); Lymphocytes 11 % (9-44); Monocytes 6 % (0-8); Platelet Morphology Normal (Normal)
[2018-12-18 10:50] LABS: Hypersegmented Neutrophils 1+
--- NOTE | 2018-12-18 11:19 | MR ---
EXAM DATE: 12/18/2018 11:00 AM EST AGE/SEX: 53 years / Female INDICATIONS: Right hip pain. CLINICAL DATA: This is the patient's initial encounter. Patient reports that signs and symptoms have been present for 1 day and indicates a pain score of 6/10. MEDICAL/SURGICAL HISTORY: Hypertension. Liver mass. Hysterectomy. Total knee replacement, rig ht. Liver resection. COMPARISON: [facility] [place], CT ABDOMEN & PELVIS W/O CONTRAST, 02/08/2017. [facility] [place], CT ABDOMEN & PELVIS W/O CONT RAST, 12/16/2018. [facility] [place], CT ABDOMEN & PELVIS W CONTRAST, 05/17/2011. . TECHNIQUE: Multiplanar, multisequence MRI examination was performed without contrast. FINDINGS: The right femur is intact. No fracture, subluxation or significant joint space narrowing seen at the right hip. There is edema and/or hemorrhage in the distal gluteus and minimus muscle belly. The insertion is ind istinct but I don't see a fluid-filled gap. Indurated appearing fluid is seen in the right greater tr ochanter. There is a multiloculated 3.8 cm subcutaneous fluid collection in the right inguinal region there is been present for many years. It is slightly larger since 2010 but not significantly changed recently. This is most likely a lymphocele or chronic seroma/hematoma. There is a 1.8 cm, chronic and not significantly changed fluid collection at the right side of the va ginal introitus typical of a Bartholin's gland cyst. CONCLUSION: 1. No acute bone or joint abnormality. 2. There is greater trochanteric bursitis. Also some apparent tendinosis, strain and/or reactive timothy earing edema of distal gluteus minimus. No well-defined/measurable muscle/tendon tear. 3. Chronic multiloculated benign appearing fluid collection in the right inguinal region is also a c hronic Bartholin's gland cyst. Please see above. Electronically signed by: Jann Bartholomew MD Board Certified Radiologist 12/18/2018 11:18 AM EST
--- NOTE | 2018-12-18 12:28 | P.PNFP ---
Subjective Interval history: Patient seen and examined this morning. She states that she is feeling much better. Her breathing has improved. No chest pain, no fever/ chills. Her right hip pain has not improved. Patient's mother states that there is a family history of blood clots in her maternal grandfather, maternal uncle and in her mother herself. Patient was hypotensive overnight and started on Midodrine. <Barbara Tisha Harvey - 12/18/18 13:55> Results - Labs Result diagrams: 12/18/18 08:20 12/18/18 08:20 <KariJosé Miguel - 12/18/18 17:51> Abnormal lab results 12/17/18 12/18/18 12/18/18 Range/Units 23:59 08:20 08:20 WBC 14.3 H (4.0-11.0) th/mm3 RBC 2.49 L (4.00-5.30) mil/mm3 Hgb 8.7 L (11.6-15.3) gm/dL Hct 26.9 L (35.0-46.0) % MCV 107.9 H (80.0-100.0) fL MCH 34.7 H (27.0-34.0) pg Plt Count 103 L (150-450) th/mm3 Seg Neuts % (Manual) 75 H (16-70) % Abs Neuts (Manual) 11.6 H (1.8-7.7) th/mm3 Hypersegmented Neuts 1+ H (None) Platelet Estimate Low L (Normal) APTT 35.7 H 64.5 H D (23.4-31.7) sec BUN (7-18) mg/dL Creatinine (0.50-1.00) mg/dL Estimated GFR (>89) mL/min Calcium (8.5-10.1) mg/dL Albumin (3.4-5.0) g/dL 12/18/18 Range/Units 08:20 WBC (4.0-11.0) th/mm3 RBC (4.00-5.30) mil/mm3 Hgb (11.6-15.3) gm/dL Hct (35.0-46.0) % MCV (80.0-100.0) fL MCH (27.0-34.0) pg Plt Count (150-450) th/mm3 Seg Neuts % (Manual) (16-70) % Abs Neuts (Manual) (1.8-7.7) th/mm3 Hypersegmented Neuts (None) Platelet Estimate (Normal) APTT (23.4-31.7) sec BUN 52 H (7-18) mg/dL Creatinine 9.25 H (0.50-1.00) mg/dL Estimated GFR 5 L (>89) mL/min Calcium 8.3 L (8.5-10.1) mg/dL Albumin 3.0 L (3.4-5.0) g/dL Short CBC 12/18/18 Range/Units 08:20 WBC 14.3 H (4.0-11.0) th/mm3 Hgb 8.7 L (11.6-15.3) gm/dL Hct 26.9 L (35.0-46.0) % Plt Count 103 L (150-450) th/mm3 BMP 12/18/18 08:20 Sodium 136 Potassium 4.5 Chloride 101 Carbon Dioxide 26.1 BUN 52 H Creatinine 9.25 H Calcium 8.3 L Liver Function 12/18/18 Range/Units 08:20 Total Bilirubin 0.4 (0.2-1.0) mg/dL AST 15 (15-37) U/L ALT 15 (10-53) U/L Alkaline Phosphatase 57 (45-117) U/L Albumin 3.0 L (3.4-5.0) g/dL <José Miguel Pierce - 12/18/18 17:51> Abnormal lab results 12/17/18 12/17/18 12/17/18 Range/Units 14:08 16:35 23:59 WBC (4.0-11.0) th/mm3 RBC (4.00-5.30) mil/mm3 Hgb (11.6-15.3) gm/dL Hct (35.0-46.0) % MCV (80.0-100.0) fL MCH (27.0-34.0) pg Plt Count (150-450) th/mm3 Seg Neuts % (Manual) (16-70) % Abs Neuts (Manual) (1.8-7.7) th/mm3 Hypersegmented Neuts (None) Platelet Estimate (Normal) APTT 98.0 H* D 42.6 H D 35.7 H (23.4-31.7) sec BUN (7-18) mg/dL Creatinine (0.50-1.00) mg/dL Estimated GFR (>89) mL/min Calcium (8.5-10.1) mg/dL Albumin (3.4-5.0) g/dL 12/18/18 12/18/18 12/18/18 Range/Units 08:20 08:20 08:20 WBC 14.3 H (4.0-11.0) th/mm3 RBC 2.49 L (4.00-5.30) mil/mm3 Hgb 8.7 L (11.6-15.3) gm/dL Hct 26.9 L (35.0-46.0) % MCV 107.9 H (80.0-100.0) fL MCH 34.7 H (27.0-34.0) pg Plt Count 103 L (150-450) th/mm3 Seg Neuts % (Manual) 75 H (16-70) % Abs Neuts (Manual) 11.6 H (1.8-7.7) th/mm3 Hypersegmented Neuts 1+ H (None) Platelet Estimate Low L (Normal) APTT 64.5 H D (23.4-31.7) sec BUN 52 H (7-18) mg/dL Creatinine 9.25 H (0.50-1.00) mg/dL Estimated GFR 5 L (>89) mL/min Calcium 8.3 L (8.5-10.1) mg/dL Albumin 3.0 L (3.4-5.0) g/dL Short CBC 12/18/18 Range/Units 08:20 WBC 14.3 H (4.0-11.0) th/mm3 Hgb 8.7 L (11.6-15.3) gm/dL Hct 26.9 L (35.0-46.0) % Plt Count 103 L (150-450) th/mm3 BMP 12/18/18 08:20 Sodium 136 Potassium 4.5 Chloride 101 Carbon Dioxide 26.1 BUN 52 H Creatinine 9.25 H Calcium 8.3 L Cardiac Enzymes 12/17/18 Range/Units 16:35 Troponin I 0.04 (0.02-0.05) ng/mL Liver Function 12/18/18 Range/Units 08:20 Total Bilirubin 0.4 (0.2-1.0) mg/dL AST 15 (15-37) U/L ALT 15 (10-53) U/L Alkaline Phosphatase 57 (45-117) U/L Albumin 3.0 L (3.4-5.0) g/dL <Barbara Tisha Harvey - 12/18/18 12:28> - Imaging Impressions Femur MRI 12/18/18 00:00 CONCLUSION: 1. No acute bone or joint abnormality. 2. There is greater trochanteric bursitis. Also some apparent tendinosis, strain and/or reactive appearing edema of distal gluteus minimus. No well- defined/measurable muscle/tendon tear. 3. Chronic multiloculated benign appearing fluid collection in the right inguinal region is also a chronic Bartholin's gland cyst. Please see above. <José Miguel Pierce - 12/18/18 17:51> Impressions Femur MRI 12/18/18 00:00 CONCLUSION: 1. No acute bone or joint abnormality. 2. There is greater trochanteric bursitis. Also some apparent tendinosis, strain and/or reactive appearing edema of distal gluteus minimus. No well- defined/measurable muscle/tendon tear. 3. Chronic multiloculated benign appearing fluid collection in the right inguinal region is also a chronic Bartholin's gland cyst. Please see above. <Barbara Tisha Harvey - 12/18/18 12:28> Physical Exam Vital signs: Vital Signs 12/17/18 18:00 12/17/18 18:30 12/17/18 19:00 Temperature Pulse Rate 85 86 83 Respiratory Rate 28 H 20 20 Blood Pressure 113/59 L 115/63 106/58 L Pulse Oximetry 100 99 100 12/17/18 19:30 12/17/18 19:45 12/17/18 19:49 Temperature Pulse Rate 85 90 89 Respiratory Rate 20 24 21 Blood Pressure 79/48 L 71/40 L 71/39 L Pulse Oximetry 99 100 99 12/17/18 19:50 12/17/18 20:00 12/17/18 20:10 Temperature 99.1 F Pulse Rate 85 80 80 Respiratory Rate 21 16 19 Blood Pressure 82/43 L 91/55 L 95/53 L Pulse Oximetry 98 98 99 12/17/18 20:20 12/17/18 20:30 12/17/18 20:40 Temperature Pulse Rate 78 76 78 Respiratory Rate 18 17 19 Blood Pressure 96/52 L 98/54 L 96/53 L Pulse Oximetry 100 100 100 12/17/18 20:50 12/17/18 21:00 12/17/18 21:10 Temperature Pulse Rate 78 88 80 Respiratory Rate 19 27 H 20 Blood Pressure 97/52 L 102/58 L 105/58 L Pulse Oximetry 100 100 100 12/17/18 21:20 12/17/18 21:30 12/17/18 21:33 Temperature Pulse Rate 80 82 Respiratory Rate 19 18 16 Blood Pressure 93/54 L 94/51 L Pulse Oximetry 100 100 12/17/18 21:40 12/17/18 21:50 12/17/18 22:00 Temperature Pulse Rate 80 81 80 Respiratory Rate 19 18 18 Blood Pressure 93/55 L 87/50 L 84/45 L Pulse Oximetry 100 100 100 12/17/18 22:10 12/17/18 22:12 12/17/18 22:20 Temperature Pulse Rate 80 81 79 Respiratory Rate 19 22 19 Blood Pressure 76/46 L 77/41 L 81/47 L Pulse Oximetry 100 100 100 12/17/18 22:30 12/17/18 22:45 12/17/18 23:00 Temperature Pulse Rate 79 77 79 Respiratory Rate 19 18 20 Blood Pressure 85/49 L 86/50 L 90/52 L Pulse Oximetry 100 100 100 12/17/18 23:15 12/17/18 23:30 12/17/18 23:45 Temperature Pulse Rate 76 77 77 Respiratory Rate 19 19 19 Blood Pressure 91/50 L 91/51 L 89/54 L Pulse Oximetry 100 100 100 12/18/18 00:00 12/18/18 00:15 12/18/18 00:30 Temperature Pulse Rate 74 78 74 Respiratory Rate 18 16 18 Blood Pressure 84/50 L 84/52 L 84/49 L Pulse Oximetry 99 100 100 12/18/18 00:45 12/18/18 01:00 12/18/18 01:15 Temperature Pulse Rate 74 76 73 Respiratory Rate 19 21 18 Blood Pressure 83/50 L 89/52 L 82/50 L Pulse Oximetry 100 100 100 12/18/18 01:30 12/18/18 01:38 12/18/18 01:45 Temperature Pulse Rate 76 73 73 Respiratory Rate 18 18 17 Blood Pressure 72/52 L 83/48 L 80/47 L Pulse Oximetry 100 100 100 12/18/18 01:56 12/18/18 02:00 12/18/18 02:12 Temperature Pulse Rate 74 73 73 Respiratory Rate 17 16 16 Blood Pressure 79/44 L 77/42 L 88/50 L Pulse Oximetry 100 99 100 12/18/18 02:16 12/18/18 02:30 12/18/18 02:45 Temperature Pulse Rate 72 71 68 Respiratory Rate 16 15 16 Blood Pressure 106/51 L 82/39 L 75/44 L Pulse Oximetry 100 100 100 12/18/18 03:00 12/18/18 03:11 12/18/18 03:14 Temperature Pulse Rate 66 66 70 Respiratory Rate 16 16 21 Blood Pressure 77/46 L 70/41 L 82/45 L Pulse Oximetry 100 100 100 12/18/18 03:15 12/18/18 03:30 12/18/18 03:45 Temperature Pulse Rate 70 66 72 Respiratory Rate 18 22 23 Blood Pressure 86/51 L 93/53 L 99/54 L Pulse Oximetry 100 100 97 12/18/18 04:00 12/18/18 04:15 12/18/18 04:30 Temperature Pulse Rate 75 78 72 Respiratory Rate 28 H 29 H 43 H Blood Pressure 108/56 L 116/59 L 113/53 L Pulse Oximetry 12/18/18 04:45 12/18/18 05:00 12/18/18 05:15 Temperature Pulse Rate 71 65 65 Respiratory Rate 19 18 15 Blood Pressure 110/53 L 111/53 L 109/54 L Pulse Oximetry 97 100 100 12/18/18 05:30 12/18/18 05:45 12/18/18 06:00 Temperature Pulse Rate 66 65 64 Respiratory Rate 14 14 15 Blood Pressure 100/52 L 97/48 L 99/47 L Pulse Oximetry 100 100 100 12/18/18 06:15 12/18/18 07:00 12/18/18 07:15 Temperature Pulse Rate 61 57 L 75 Respiratory Rate 14 13 27 H Blood Pressure 100/49 L 80/42 L 108/57 L Pulse Oximetry 100 100 100 12/18/18 07:30 12/18/18 07:45 12/18/18 07:58 Temperature Pulse Rate 68 75 Respiratory Rate 22 30 H Blood Pressure 108/58 L 119/56 L Pulse Oximetry 100 100 12/18/18 08:00 12/18/18 08:15 12/18/18 08:30 Temperature 97.7 F Pulse Rate 65 71 65 Respiratory Rate 18 15 15 Blood Pressure 106/58 L 117/57 L 109/59 L Pulse Oximetry 100 100 12/18/18 08:45 12/18/18 09:00 12/18/18 09:15 Temperature Pulse Rate 72 75 73 Respiratory Rate 19 24 18 Blood Pressure 124/57 L 125/59 L 112/58 L Pulse Oximetry 100 100 12/18/18 09:30 12/18/18 09:45 12/18/18 10:00 Temperature Pulse Rate 70 69 68 Respiratory Rate 18 18 23 Blood Pressure 110/59 L 112/59 L 115/55 L Pulse Oximetry 92 L 95 12/18/18 10:15 12/18/18 11:09 12/18/18 12:00 Temperature 97.8 F Pulse Rate 71 71 70 Respiratory Rate 23 22 Blood Pressure 120/58 L Pulse Oximetry 98 96 12/18/18 12:15 12/18/18 13:00 12/18/18 14:00 Temperature Pulse Rate 66 64 72 Respiratory Rate 17 14 21 Blood Pressure 121/58 L Pulse Oximetry 95 99 97 12/18/18 15:00 12/18/18 15:18 12/18/18 15:30 Temperature Pulse Rate 69 68 67 Respiratory Rate 18 25 H 18 Blood Pressure 114/55 L 107/58 L Pulse Oximetry 90 L 88 L 91 L 12/18/18 16:00 Temperature 98.1 F Pulse Rate 68 Respiratory Rate 20 Blood Pressure 110/59 L Pulse Oximetry 94 L Intake & Output 12/17/18 12/18/18 12/18/18 18:59 06:59 18:59 Intake Total 1530 / 1530 2250 / 2250 300 / 300 Balance 1530 / 1530 2250 / 2250 300 / 300 Weight 110.7 kg Intake: IV 1050 / 1050 1950 / 1950 300 / 300 Heparin/D5W 25,000 U/250 mL 25, 250 / 250 100 / 100 000 unit In 250 ml @ 1,000 UNITS/HR 10 mls/hr IV.CONT TITRATE PRN Rx#:[id number] Alburx 5% Inj 500 ML @ 250 mls/ 500 / 500 500 / 500 hr IV.SIG ONCE ONE Rx#:[id number] Prostaphlin Inj 2 GM In NS Inj 200 / 200 200 / 200 100 ML @ 200 mls/hr IV.SIG Q6H MARISSA Rx#:[id number] Zosyn 2.25 GM Premix 2.25 gm In 50 / 50 50 ml @ 100 mls/hr IV.SIG Q8H MARISSA Rx#:[id number] NS Inj 1,000 ML @ 1000 mls/hr 500 / 500 1000 / 1000 IV.SIG BOLUS MARISSA Rx#:[id number] Oral 480 / 480 300 / 300 Other: Post Void Residual 0 Date of Last Bowel Movement 12/14/18 12/14/18 12/14/18 <José Miguel Pierce - 12/18/18 17:51> Vital Signs 12/17/18 12:30 12/17/18 12:45 12/17/18 13:00 Temperature Pulse Rate 79 81 85 Respiratory Rate 16 18 25 H Blood Pressure 96/52 L 99/54 L 99/56 L Pulse Oximetry 98 94 L 12/17/18 13:15 12/17/18 13:30 12/17/18 13:45 Temperature Pulse Rate 84 85 93 H Respiratory Rate 21 20 26 H Blood Pressure 111/63 113/62 123/67 Pulse Oximetry 100 100 100 12/17/18 14:00 12/17/18 14:15 12/17/18 14:30 Temperature Pulse Rate 85 84 86 Respiratory Rate 25 H 23 19 Blood Pressure 111/58 L 111/60 117/60 Pulse Oximetry 100 100 100 12/17/18 14:45 12/17/18 15:00 12/17/18 15:15 Temperature Pulse Rate 85 84 83 Respiratory Rate 22 21 19 Blood Pressure 106/60 111/60 110/60 Pulse Oximetry 89 L 100 100 12/17/18 15:30 12/17/18 15:45 12/17/18 16:00 Temperature 99 F Pulse Rate 83 82 82 Respiratory Rate 19 17 19 Blood Pressure 113/61 109/58 L 112/59 L Pulse Oximetry 94 L 100 100 12/17/18 16:15 12/17/18 16:30 12/17/18 16:45 Temperature Pulse Rate 84 84 83 Respiratory Rate 19 22 23 Blood Pressure 100/60 103/61 107/60 Pulse Oximetry 100 100 100 12/17/18 17:00 12/17/18 17:15 12/17/18 17:30 Temperature Pulse Rate 85 83 82 Respiratory Rate 20 20 12 Blood Pressure 108/58 L 115/59 L 111/59 L Pulse Oximetry 98 100 100 12/17/18 18:00 12/17/18 18:30 12/17/18 19:00 Temperature Pulse Rate 85 86 83 Respiratory Rate 28 H 20 20 Blood Pressure 113/59 L 115/63 106/58 L Pulse Oximetry 100 99 100 12/17/18 19:30 12/17/18 19:45 12/17/18 19:49 Temperature Pulse Rate 85 90 89 Respiratory Rate 20 24 21 Blood Pressure 79/48 L 71/40 L 71/39 L Pulse Oximetry 99 100 99 12/17/18 19:50 12/17/18 20:00 12/17/18 20:10 Temperature 99.1 F Pulse Rate 85 80 80 Respiratory Rate 21 16 19 Blood Pressure 82/43 L 91/55 L 95/53 L Pulse Oximetry 98 98 99 12/17/18 20:20 12/17/18 20:30 12/17/18 20:40 Temperature Pulse Rate 78 76 78 Respiratory Rate 18 17 19 Blood Pressure 96/52 L 98/54 L 96/53 L Pulse Oximetry 100 100 100 12/17/18 20:50 12/17/18 21:00 12/17/18 21:10 Temperature Pulse Rate 78 88 80 Respiratory Rate 19 27 H 20 Blood Pressure 97/52 L 102/58 L 105/58 L Pulse Oximetry 100 100 100 12/17/18 21:20 12/17/18 21:30 12/17/18 21:33 Temperature Pulse Rate 80 82 Respiratory Rate 19 18 16 Blood Pressure 93/54 L 94/51 L Pulse Oximetry 100 100 12/17/18 21:40 12/17/18 21:50 12/17/18 22:00 Temperature Pulse Rate 80 81 80 Respiratory Rate 19 18 18 Blood Pressure 93/55 L 87/50 L 84/45 L Pulse Oximetry 100 100 100 12/17/18 22:10 12/17/18 22:12 12/17/18 22:20 Temperature Pulse Rate 80 81 79 Respiratory Rate 19 22 19 Blood Pressure 76/46 L 77/41 L 81/47 L Pulse Oximetry 100 100 100 12/17/18 22:30 12/17/18 22:45 12/17/18 23:00 Temperature Pulse Rate 79 77 79 Respiratory Rate 19 18 20 Blood Pressure 85/49 L 86/50 L 90/52 L Pulse Oximetry 100 100 100 12/17/18 23:15 12/17/18 23:30 12/17/18 23:45 Temperature Pulse Rate 76 77 77 Respiratory Rate 19 19 19 Blood Pressure 91/50 L 91/51 L 89/54 L Pulse Oximetry 100 100 100 12/18/18 00:00 12/18/18 00:15 12/18/18 00:30 Temperature Pulse Rate 74 78 74 Respiratory Rate 18 16 18 Blood Pressure 84/50 L 84/52 L 84/49 L Pulse Oximetry 99 100 100 12/18/18 00:45 12/18/18 01:00 12/18/18 01:15 Temperature Pulse Rate 74 76 73 Respiratory Rate 19 21 18 Blood Pressure 83/50 L 89/52 L 82/50 L Pulse Oximetry 100 100 100 12/18/18 01:30 12/18/18 01:38 12/18/18 01:45 Temperature Pulse Rate 76 73 73 Respiratory Rate 18 18 17 Blood Pressure 72/52 L 83/48 L 80/47 L Pulse Oximetry 100 100 100 12/18/18 01:56 12/18/18 02:00 12/18/18 02:12 Temperature Pulse Rate 74 73 73 Respiratory Rate 17 16 16 Blood Pressure 79/44 L 77/42 L 88/50 L Pulse Oximetry 100 99 100 12/18/18 02:16 12/18/18 02:30 12/18/18 02:45 Temperature Pulse Rate 72 71 68 Respiratory Rate 16 15 16 Blood Pressure 106/51 L 82/39 L 75/44 L Pulse Oximetry 100 100 100 12/18/18 03:00 12/18/18 03:11 12/18/18 03:14 Temperature Pulse Rate 66 66 70 Respiratory Rate 16 16 21 Blood Pressure 77/46 L 70/41 L 82/45 L Pulse Oximetry 100 100 100 12/18/18 03:15 12/18/18 03:30 12/18/18 03:45 Temperature Pulse Rate 70 66 72 Respiratory Rate 18 22 23 Blood Pressure 86/51 L 93/53 L 99/54 L Pulse Oximetry 100 100 97 12/18/18 04:00 12/18/18 04:15 12/18/18 04:30 Temperature Pulse Rate 75 78 72 Respiratory Rate 28 H 29 H 43 H Blood Pressure 108/56 L 116/59 L 113/53 L Pulse Oximetry 12/18/18 04:45 12/18/18 05:00 12/18/18 05:15 Temperature Pulse Rate 71 65 65 Respiratory Rate 19 18 15 Blood Pressure 110/53 L 111/53 L 109/54 L Pulse Oximetry 97 100 100 12/18/18 05:30 12/18/18 05:45 12/18/18 06:00 Temperature Pulse Rate 66 65 64 Respiratory Rate 14 14 15 Blood Pressure 100/52 L 97/48 L 99/47 L Pulse Oximetry 100 100 100 12/18/18 06:15 12/18/18 07:00 12/18/18 07:15 Temperature Pulse Rate 61 57 L 75 Respiratory Rate 14 13 27 H Blood Pressure 100/49 L 80/42 L 108/57 L Pulse Oximetry 100 100 100 12/18/18 07:30 12/18/18 07:45 12/18/18 07:58 Temperature Pulse Rate 68 75 Respiratory Rate 22 30 H Blood Pressure 108/58 L 119/56 L Pulse Oximetry 100 100 12/18/18 08:00 12/18/18 08:15 12/18/18 08:30 Temperature 97.7 F Pulse Rate 65 71 65 Respiratory Rate 18 15 15 Blood Pressure 106/58 L 117/57 L 109/59 L Pulse Oximetry 100 100 12/18/18 08:45 12/18/18 09:00 12/18/18 09:15 Temperature Pulse Rate 72 75 73 Respiratory Rate 19 24 18 Blood Pressure 124/57 L 125/59 L 112/58 L Pulse Oximetry 100 100 12/18/18 09:30 12/18/18 09:45 12/18/18 10:00 Temperature Pulse Rate 70 69 68 Respiratory Rate 18 18 23 Blood Pressure 110/59 L 112/59 L 115/55 L Pulse Oximetry 92 L 95 12/18/18 10:15 12/18/18 11:09 12/18/18 12:00 Temperature 97.8 F Pulse Rate 71 71 70 Respiratory Rate 23 22 Blood Pressure 120/58 L Pulse Oximetry 98 96 Intake & Output 01/19/19 01/20/19 01/20/19 18:59 06:59 18:59 Intake Total 1530 / 1530 2250 / 2250 200 / 200 Balance 1530 / 1530 2250 / 2250 200 / 200 Weight 110.7 kg Intake: IV 1050 / 1050 1950 / 1950 200 / 200 Heparin/D5W 25,000 U/250 mL 25, 250 / 250 100 / 100 000 unit In 250 ml @ 1,000 UNITS/HR 10 mls/hr IV.CONT TITRATE PRN Rx#:[id number] Alburx 5% Inj 500 ML @ 250 mls/ 500 / 500 500 / 500 hr IV.SIG ONCE ONE Rx#:[id number] Prostaphlin Inj 2 GM In NS Inj 200 / 200 100 / 100 100 ML @ 200 mls/hr IV.SIG Q6H MARISSA Rx#:[id number] Zosyn 2.25 GM Premix 2.25 gm In 50 / 50 50 ml @ 100 mls/hr IV.SIG Q8H MARISSA Rx#:[id number] NS Inj 1,000 ML @ 1000 mls/hr 500 / 500 1000 / 1000 IV.SIG BOLUS MARISSA Rx#:[id number] Oral 480 / 480 300 / 300 Other: Post Void Residual 0 Date of Last Bowel Movement 12/14/18 12/14/18 12/14/18 <Barbara Tisha Harvey G - 12/18/18 12:28> Narrative: GENERAL: obese Afro-[place] female lying in bed, in no acute distress. Wearing NC this morning SKIN: Warm and dry. Areas of hyperpigmentation on the skin. Permacath in left upper chest with no obvious erythema or drainage around the site. Area is mildly swollen CARDIOVASCULAR: regular rate and rhythm. RESPIRATORY: No increased work of breathing. Bilateral lung sepulveda clear to auscultation. GASTROINTESTINAL: Abdomen soft, nondistended, nontender. Hepatic and splenic margins not palpable. MUSCULOSKELETAL: Extremities without clubbing, cyanosis, or edema. Negative Homans sign. No obvious deformities. Pain with movement of RLE. NEUROLOGICAL: Awake and alert. <Barbara Tisha Harvey - 12/18/18 13:38> Assessment and Plan - Assessment (1) Pulmonary embolism Code(s): I26.99 - Other pulmonary embolism without acute cor pulmonale Status : Acute (2) Sepsis Code(s): A41.9 - Sepsis, unspecified organism Status: Acute (3) Seroma Status: Acute (4) End stage renal disease Code(s): N18.6 - End stage renal disease Status: Chronic (5) Right hip pain Code(s): M25.551 - Pain in right hip Status: Acute (6) Anemia Code(s): D64.9 - Anemia, unspecified Status: Chronic (7) Hypertension Code(s): I10 - Essential (primary) hypertension Status: Chronic (8) Nutrition, metabolism, and development symptoms Code(s): R63.8 - Other symptoms and signs concerning food and fluid intake Status: Acute <José Miguel Pierce - 12/18/18 17:51> (1) Pulmonary embolism Code(s): I26.99 - Other pulmonary embolism without acute cor pulmonale Status : Acute Plan: -Hold heparin drip at this time due to pending procedure with PermCath removal, restart after procedure, and will transition to oral anticoagulant such as Xarelto in the near future -Continue to monitor on telemetry -2D transthoracic echocardiogram obtained this morning, results pending -Supplemental oxygen as needed to keep O2 saturation over 93% -Alternate albuterol and duo nebs breathing treatments -IR consulted for removal of PermCath with clot on the end of the tip, will likely need placement of Vas-Cath -Hypercoagulable panel pending (2) Sepsis Code(s): A41.9 - Sepsis, unspecified organism Status: Acute Plan: Likely source of infection around PermCath site IV antibiotics: Vancomycin with dialysis (12/16- ) Zosyn renally dosed for dialysis (12/16-12/17) Oxacillin 2g q6h(12/17- ) Blood cultures positive for staph aureus x4, awaiting susceptibility Leukocytosis improving, down to 14.3 Lactic acid within normal limits ID consulted, appreciate recommendations -DC Zosyn and start oxacillin -Remove PermCath placed Vas-Cath -Follow-up cultures -MRI right thigh, ultrasound LUE (3) Seroma Status: Acute Plan: Chronic issue for this patient: CT abdomen pelvis shows 4.4 cm oblong density in the right inguinal region has Hounsfield measurements suggesting a fluid collection. As such, diagnostic considerations would include predominantly seroma or lymphocele. She states that she has a history of drainage of the seroma by Dr. Montgomery. She stated that he told her if it reoccurs that it will have to be surgically removed. She does not want this procedure to happen. (4) End stage renal disease Code(s): N18.6 - End stage renal disease Status: Chronic Plan: Status post hemodialysis yesterday, requested dialysis today given IV contrast required for CTA Nephrology following, current hemodialysis schedule is Wednesday/Wednesday/Wednesday -Monitor BMP (5) Right hip pain Code(s): M25.551 - Pain in right hip Status: Acute Plan: Patient with right hip pain since 3 days prior to admission MRI right femur today shows greater trochanteric bursitis. Also some apparent tendinosis, strain, and/or reactive appearing edema of the distal gluteus minimus. (6) Anemia Code(s): D64.9 - Anemia, unspecified Status: Chronic Plan: Associated with chronic renal issues -Monitor and transfuse as needed (7) Hypertension Code(s): I10 - Essential (primary) hypertension Status: Chronic Plan: Not on any at home medications as patient has been hypotensive -Continue to monitor, consult critical care if pressor support required (8) Nutrition, metabolism, and development symptoms Code(s): R63.8 - Other symptoms and signs concerning food and fluid intake Status: Acute Plan: Fluids: tolerating PO Electrolytes: monitor and replete as needed Nutrition: renal diet DVT Prophylaxis: Patient currently on a heparin drip GI Prophylaxis: None indicated at this time <Tisha Larios - 12/18/18 13:40> - Attending Attestation Pt. examined personally independent of resident physician during medical rounds this morning I have read the above note and discussed the case with the resident physician I was involved in all medical decision making for this patient José Miguel Pierce MD <José Miguel Pierce - 12/18/18 17:51> <Tisha Larios - Last Filed: 12/18/18 13:40> (1) Pulmonary embolism Qualifiers: Pulmonary embolism type: unspecified Chronicity: acute Acute cor pulmonale presence: without acute cor pulmonale Qualified Code(s): I26.99 - Other pulmonary embolism without acute cor pulmonale (6) Anemia Qualifiers: Anemia type: unspecified type Qualified Code(s): D64.9 - Anemia, unspecified <Kari,José Miguel - Last Filed: 12/18/18 17:51> (1) Pulmonary embolism Qualifiers: Pulmonary embolism type: unspecified Chronicity: acute Acute cor pulmonale presence: without acute cor pulmonale Qualified Code(s): I26.99 - Other pulmonary embolism without acute cor pulmonale (6) Anemia Qualifiers: Anemia type: unspecified type Qualified Code(s): D64.9 - Anemia, unspecified <Tisha Larios - Last Filed: 12/18/18 13:40> (1) Pulmonary embolism Qualifiers: Pulmonary embolism type: unspecified Chronicity: acute Acute cor pulmonale presence: without acute cor pulmonale Qualified Code(s): I26.99 - Other pulmonary embolism without acute cor pulmonale (6) Anemia Qualifiers: Anemia type: unspecified type Qualified Code(s): D64.9 - Anemia, unspecified <Kari,José Miguel - Last Filed: 12/18/18 17:51> (1) Pulmonary embolism Qualifiers: Pulmonary embolism type: unspecified Chronicity: acute Acute cor pulmonale presence: without acute cor pulmonale Qualified Code(s): I26.99 - Other pulmonary embolism without acute cor pulmonale (6) Anemia Qualifiers: Anemia type: unspecified type Qualified Code(s): D64.9 - Anemia, unspecified
--- NOTE | 2018-12-18 13:45 | ECHRPT ---
Indication: SEPSIS POSS ENDOCARDITIS CONCLUSIONS Normal left ventricular size. Wall thickness is normal. The left ventricular systolic function is normal with an estimated ejection fraction of 55%. There is mild tricuspid valve regurgitation. The estimated pulmonary arterial pressure is 34 mmHg. BP: / HR: Rhythm: Sinus MEASUREMENTS (Male / Female) Normal Values Technical Quality:Poor 2D ECHO LV Diastolic Diameter PLAX 4.7 cm 4.2 - 5.9 / 3.9 - 5.3 cm LV Systolic Diameter PLAX 3.7 cm IVS Diastolic Thickness 1.1 cm 0.6 - 1.0 / 0.6 - 0.9 cm LVPW Diastolic Thickness 1.0 cm 0.6 - 1.0 / 0.6 - 0.9 cm LV Relative Wall Thickness 0.4 RV Internal Dim ED PLAX 3.4 cm LVOT Diameter 1.8 cm Aortic Root Diameter 3.3 cm DOPPLER Mitral E Point Velocity 117.0 cm/s Mitral A Point Velocity 118.0 cm/s Mitral E to A Ratio 1.0 LV E' Lateral Velocity 6.9 cm/s Mitral E to LV E' Lateral Ratio 16.9 TR Peak Velocity 244.0 cm/s TR Peak Gradient 23.8 mmHg Right Atrial Pressure 10.0 mmHg Pulmonary Artery Systolic Pressu 33.8 mmHg Right Ventricular Systolic Press 33.8 mmHg PV Peak Velocity 106.0 cm/s PV Peak Gradient 4.5 mmHg FINDINGS LEFT VENTRICLE Normal left ventricular size. Wall thickness is normal. The left ventricular systolic function is normal with an estimated ejection fraction of 55%. There was limited left ventricular wall motion assessment due to poor endocardial visualization. RIGHT VENTRICLE The right ventricle was not well visualized. LEFT ATRIUM The left atrial size is normal. RIGHT ATRIUM The right atrium is not well visualized. ATRIAL SEPTUM Normal atrial septal thickness without atrial level shunting by limited color doppler interrogation. AORTA The aortic root and proximal ascending aorta are not well visualized. MITRAL VALVE Structurally normal mitral valve. No mitral valve stenosis or regurgitation. AORTIC VALVE Trileaflet aortic valve. TRICUSPID VALVE There is mild tricuspid valve regurgitation. The estimated pulmonary arterial pressure is 34 mmHg. PULMONARY VALVE No pulmonary valve regurgitation or stenosis. VESSELS The inferior vena cava is normal in size. PERICARDIUM No pericardial effusion. Eris Garcia MD, FACC (Electronically Signed) Final Date:18 December 2018 13:43
[2018-12-18 17:10] LABS: Activated Partial Thrombo Time 25.7 sec (23.4-31.7); Prothrombin Time 10.2 sec (9.8-11.6)
[2018-12-19 00:51] LABS: Hematocrit 27.2 % (35.0-46.0); Mean Corpuscular HGB Conc 33.2 % (32.0-36.0); Mean Corpuscular Hemoglobin 34.7 pg (27.0-34.0); Mean Corpuscular Volume 104.4 fL (80.0-100.0); Mean Platelet Volume 9.3 fL (7.0-11.0); Platelet Count 126 th/mm3 (150-450); Red Blood Count 2.61 mil/mm3 (4.00-5.30); Red Cell Distribution Width 14.7 % (11.6-17.2)
[2018-12-19 01:12] LABS: Carbon Dioxide 23.4 meq/L (21.0-32.0); Potassium 4.5 meq/L (3.5-5.1)
--- NOTE | 2018-12-19 03:30 | ECG ---
Date Performed: 12/17/2018 Time Performed: 16:54:27 PTAGE: 53 years EKG: Sinus rhythm NORMAL ECG PREVIOUS TRACING : 12/17/2018 09.02 Since the previous tracing, no significant change noted DOCTOR: Johnathan Alvarado Interpretating Date/Time 12/19/2018 03:29:43
[2018-12-19] MEDS: Chlorhexidine Gluconate 2% 1 Pack (2 Cloths) TOPICAL SCH (04:38)
[2018-12-19] MEDS ORDERED: *Heparin 10,000 UNITS/10 ML Vial Periprocedural ONLY ONE (09:30)
--- NOTE | 2018-12-19 09:56 | P.PNFP ---
Subjective Interval history: Ms Paige was seen on rounds today. Her hypertension continue last night her Midrin was increased to 10 mg. Her blood pressures have been more stable this a.m. She reports that she feels much better, her breathing is improved. She has continued leg pain. She denies any chest pain, abdominal pain, nausea, fevers, chills. <Devin BrowningChristel E - 12/19/18 09:55> Results - Labs Result diagrams: 12/19/18 00:25 12/19/18 00:25 <José Miguel Pierce - 12/19/18 15:12> Abnormal lab results 12/19/18 12/19/18 12/19/18 Range/Units 00:25 00:25 00:25 WBC 14.0 H (4.0-11.0) th/mm3 RBC 2.61 L (4.00-5.30) mil/mm3 Hgb 9.0 L (11.6-15.3) gm/dL Hct 27.2 L (35.0-46.0) % MCV 104.4 H D (80.0-100.0) fL MCH 34.7 H (27.0-34.0) pg Plt Count 126 L (150-450) th/mm3 APTT 50.3 H D (23.4-31.7) sec Sodium 133 L (136-145) meq/L BUN 61 H (7-18) mg/dL Creatinine 10.18 H* (0.50-1.00) mg/dL Estimated GFR 5 L (>89) mL/min Calcium 8.0 L (8.5-10.1) mg/dL 12/19/18 Range/Units 12:22 WBC (4.0-11.0) th/mm3 RBC (4.00-5.30) mil/mm3 Hgb (11.6-15.3) gm/dL Hct (35.0-46.0) % MCV (80.0-100.0) fL MCH (27.0-34.0) pg Plt Count (150-450) th/mm3 APTT 50.2 H (23.4-31.7) sec Sodium (136-145) meq/L BUN (7-18) mg/dL Creatinine (0.50-1.00) mg/dL Estimated GFR (>89) mL/min Calcium (8.5-10.1) mg/dL Short CBC 12/19/18 Range/Units 00:25 WBC 14.0 H (4.0-11.0) th/mm3 Hgb 9.0 L (11.6-15.3) gm/dL Hct 27.2 L (35.0-46.0) % Plt Count 126 L (150-450) th/mm3 BMP 12/19/18 00:25 Sodium 133 L Potassium 4.5 Chloride 101 Carbon Dioxide 23.4 BUN 61 H Creatinine 10.18 H* Calcium 8.0 L <José Miguel Pierce - 12/19/18 15:12> Abnormal lab results 12/18/18 12/19/18 12/19/18 Range/Units 08:20 00:25 00:25 WBC (4.0-11.0) th/mm3 RBC (4.00-5.30) mil/mm3 Hgb (11.6-15.3) gm/dL Hct (35.0-46.0) % MCV (80.0-100.0) fL MCH (27.0-34.0) pg Plt Count (150-450) th/mm3 Seg Neuts % (Manual) 75 H (16-70) % Abs Neuts (Manual) 11.6 H (1.8-7.7) th/mm3 Hypersegmented Neuts 1+ H (None) Platelet Estimate Low L (Normal) APTT 50.3 H D (23.4-31.7) sec Sodium 133 L (136-145) meq/L BUN 61 H (7-18) mg/dL Creatinine 10.18 H* (0.50-1.00) mg/dL Estimated GFR 5 L (>89) mL/min Calcium 8.0 L (8.5-10.1) mg/dL 12/19/18 Range/Units 00:25 WBC 14.0 H (4.0-11.0) th/mm3 RBC 2.61 L (4.00-5.30) mil/mm3 Hgb 9.0 L (11.6-15.3) gm/dL Hct 27.2 L (35.0-46.0) % MCV 104.4 H D (80.0-100.0) fL MCH 34.7 H (27.0-34.0) pg Plt Count 126 L (150-450) th/mm3 Seg Neuts % (Manual) (16-70) % Abs Neuts (Manual) (1.8-7.7) th/mm3 Hypersegmented Neuts (None) Platelet Estimate (Normal) APTT (23.4-31.7) sec Sodium (136-145) meq/L BUN (7-18) mg/dL Creatinine (0.50-1.00) mg/dL Estimated GFR (>89) mL/min Calcium (8.5-10.1) mg/dL Short CBC 12/19/18 Range/Units 00:25 WBC 14.0 H (4.0-11.0) th/mm3 Hgb 9.0 L (11.6-15.3) gm/dL Hct 27.2 L (35.0-46.0) % Plt Count 126 L (150-450) th/mm3 BMP 12/19/18 00:25 Sodium 133 L Potassium 4.5 Chloride 101 Carbon Dioxide 23.4 BUN 61 H Creatinine 10.18 H* Calcium 8.0 L <Christel Ellington - 12/19/18 09:55> - Imaging Impressions Catheter Placement 12/19/18 00:00 CONCLUSION: 1. Uncomplicated line placement as above. 2. Sonographically, multiple collateral vessels are seen in the region of the right internal jugular suggesting a central high-grade stenosis/occlusion. The vein was not accessed, however. <José Miguel Pierce - 12/19/18 15:12> Impressions Femur MRI 12/18/18 00:00 CONCLUSION: 1. No acute bone or joint abnormality. 2. There is greater trochanteric bursitis. Also some apparent tendinosis, strain and/or reactive appearing edema of distal gluteus minimus. No well- defined/measurable muscle/tendon tear. 3. Chronic multiloculated benign appearing fluid collection in the right inguinal region is also a chronic Bartholin's gland cyst. Please see above. <Christel Ellington - 12/19/18 09:55> Physical Exam Vital signs: Vital Signs 12/18/18 15:18 12/18/18 15:30 12/18/18 16:00 Temperature 98.1 F Pulse Rate 68 67 68 Respiratory Rate 25 H 18 20 Blood Pressure 114/55 L 107/58 L 110/59 L Pulse Oximetry 88 L 91 L 94 L 12/18/18 16:30 12/18/18 17:00 12/18/18 17:30 Temperature Pulse Rate 67 66 63 Respiratory Rate 24 20 18 Blood Pressure 109/57 L 103/56 L 105/54 L Pulse Oximetry 94 L 94 L 93 L 12/18/18 18:00 12/18/18 18:30 12/18/18 19:00 Temperature Pulse Rate 72 71 71 Respiratory Rate 21 23 23 Blood Pressure 118/60 129/66 126/64 Pulse Oximetry 94 L 91 L 92 L 12/18/18 19:30 12/18/18 20:00 12/18/18 20:01 Temperature 98.6 F Pulse Rate 74 68 68 Respiratory Rate 23 19 20 Blood Pressure 133/66 95/54 L Pulse Oximetry 91 L 91 L 91 L 12/18/18 20:30 12/18/18 21:00 12/18/18 21:30 Temperature Pulse Rate 66 64 65 Respiratory Rate 18 18 16 Blood Pressure 90/52 L 91/53 L 95/53 L Pulse Oximetry 92 L 92 L 92 L 12/18/18 22:00 12/18/18 22:01 12/18/18 22:30 Temperature Pulse Rate 67 67 73 Respiratory Rate 18 23 20 Blood Pressure 120/56 L 131/62 Pulse Oximetry 93 L 93 L 96 12/18/18 23:00 12/18/18 23:30 12/19/18 00:00 Temperature 97.6 F Pulse Rate 69 65 64 Respiratory Rate 18 17 18 Blood Pressure 111/58 L 104/51 L 94/52 L Pulse Oximetry 96 96 94 L 12/19/18 00:30 12/19/18 01:00 12/19/18 01:30 Temperature Pulse Rate 69 62 62 Respiratory Rate 19 18 17 Blood Pressure 108/54 L 98/52 L 90/53 L Pulse Oximetry 96 93 L 94 L 12/19/18 02:00 12/19/18 02:01 12/19/18 02:10 Temperature Pulse Rate 57 L 59 L 60 Respiratory Rate 16 16 17 Blood Pressure 80/43 L 79/42 L Pulse Oximetry 95 95 94 L 12/19/18 02:30 12/19/18 02:45 12/19/18 03:00 Temperature Pulse Rate 56 L 56 L 56 L Respiratory Rate 16 17 16 Blood Pressure 79/42 L 78/44 L 80/43 L Pulse Oximetry 93 L 91 L 91 L 12/19/18 03:15 12/19/18 03:30 12/19/18 03:45 Temperature Pulse Rate 56 L 56 L 55 L Respiratory Rate 17 16 15 Blood Pressure 83/46 L 87/49 L 81/46 L Pulse Oximetry 91 L 92 L 93 L 12/19/18 04:00 12/19/18 04:15 12/19/18 04:20 Temperature Pulse Rate 59 L 54 L 53 L Respiratory Rate 18 15 15 Blood Pressure 85/48 L 79/40 L 79/43 L Pulse Oximetry 93 L 93 L 93 L 12/19/18 04:30 12/19/18 04:45 12/19/18 05:00 Temperature Pulse Rate 60 60 Respiratory Rate 22 19 Blood Pressure 80/42 L 92/53 L Pulse Oximetry 93 L 96 12/19/18 05:21 12/19/18 05:30 12/19/18 05:45 Temperature Pulse Rate 60 64 58 L Respiratory Rate 20 28 H 21 Blood Pressure 94/52 L 113/57 L 100/51 L Pulse Oximetry 95 93 L 94 L 12/19/18 06:00 12/19/18 06:15 12/19/18 06:30 Temperature Pulse Rate 56 L 55 L 58 L Respiratory Rate 19 16 18 Blood Pressure 96/52 L 95/54 L 97/53 L Pulse Oximetry 94 L 94 L 94 L 12/19/18 06:45 12/19/18 07:00 12/19/18 07:15 Temperature Pulse Rate 56 L 55 L 56 L Respiratory Rate 20 18 21 Blood Pressure 94/52 L 99/52 L 97/51 L Pulse Oximetry 94 L 95 94 L 12/19/18 07:30 12/19/18 07:45 12/19/18 08:00 Temperature Pulse Rate 53 L 59 L 62 Respiratory Rate 20 32 H 26 H Blood Pressure 87/49 L 91/50 L 102/57 L Pulse Oximetry 93 L 91 L 93 L 12/19/18 08:15 12/19/18 08:30 12/19/18 08:45 Temperature Pulse Rate 58 L 63 66 Respiratory Rate 27 H 19 24 Blood Pressure 99/56 L 110/58 L 118/62 Pulse Oximetry 93 L 93 L 95 12/19/18 10:00 12/19/18 10:50 12/19/18 10:56 Temperature Pulse Rate 62 62 67 Respiratory Rate 20 Blood Pressure 114/57 L Pulse Oximetry 12/19/18 11:00 12/19/18 11:16 12/19/18 11:30 Temperature Pulse Rate 68 67 69 Respiratory Rate 24 18 22 Blood Pressure 119/58 L 128/64 Pulse Oximetry 93 L 12/19/18 11:45 12/19/18 12:00 12/19/18 12:15 Temperature Pulse Rate 66 78 72 Respiratory Rate 21 22 22 Blood Pressure 124/60 126/63 130/66 Pulse Oximetry 92 L 88 L 95 12/19/18 12:30 12/19/18 12:45 12/19/18 13:00 Temperature 98.2 F Pulse Rate 73 78 62 Respiratory Rate 20 25 H 19 Blood Pressure 122/63 125/63 106/55 L Pulse Oximetry 90 L 94 L 92 L 12/19/18 13:16 12/19/18 13:30 12/19/18 13:45 Temperature Pulse Rate 61 71 63 Respiratory Rate 20 21 21 Blood Pressure 113/56 L 111/57 L 104/56 L Pulse Oximetry 12/19/18 14:00 12/19/18 14:15 Temperature Pulse Rate 58 L 58 L Respiratory Rate 19 Blood Pressure 97/55 L 99/53 L Pulse Oximetry 86 L Intake & Output 12/18/18 12/19/18 12/19/18 18:59 06:59 18:59 Intake Total 1080 / 1080 560 / 560 350 / 350 Output Total 0 / 0 Balance 1080 / 1080 560 / 560 350 / 350 Weight 112.7 kg Intake: IV 300 / 300 200 / 200 350 / 350 Heparin/D5W 25,000 U/250 mL 25, 100 / 100 000 unit In 250 ml @ 1,000 UNITS/HR 10 mls/hr IV.CONT TITRATE PRN Rx#:[id number] Prostaphlin Inj 2 GM In NS Inj 200 / 200 200 / 200 100 / 100 100 ML @ 200 mls/hr IV.SIG Q6H MARISSA Rx#:[id number] Vancomycin Inj 1,000 MG In NS 250 / 250 Inj 250 ML @ 250 mls/hr IV.SIG WITH [facility] Rx#:[id number] Oral 780 / 780 360 / 360 Output: Urine 0 / 0 Hemodialysis Amount 0 / 0 Other: Post Void Residual 0 # Voids 0 Date of Last Bowel Movement 12/14/18 12/14/18 12/14/18 # Bowel Movements 0 <José Miguel Pierce - 12/19/18 15:12> Vital Signs 12/18/18 10:00 12/18/18 10:15 12/18/18 11:09 Temperature Pulse Rate 68 71 71 Respiratory Rate 23 23 Blood Pressure 115/55 L 120/58 L Pulse Oximetry 98 12/18/18 12:00 12/18/18 12:15 12/18/18 13:00 Temperature 97.8 F Pulse Rate 70 66 64 Respiratory Rate 22 17 14 Blood Pressure 121/58 L Pulse Oximetry 96 95 99 12/18/18 14:00 12/18/18 15:00 12/18/18 15:18 Temperature Pulse Rate 72 69 68 Respiratory Rate 21 18 25 H Blood Pressure 114/55 L Pulse Oximetry 97 90 L 88 L 12/18/18 15:30 12/18/18 16:00 12/18/18 16:30 Temperature 98.1 F Pulse Rate 67 68 67 Respiratory Rate 18 20 24 Blood Pressure 107/58 L 110/59 L 109/57 L Pulse Oximetry 91 L 94 L 94 L 12/18/18 17:00 12/18/18 17:30 12/18/18 18:00 Temperature Pulse Rate 66 63 72 Respiratory Rate 20 18 21 Blood Pressure 103/56 L 105/54 L 118/60 Pulse Oximetry 94 L 93 L 94 L 12/18/18 18:30 12/18/18 19:00 12/18/18 19:30 Temperature Pulse Rate 71 71 74 Respiratory Rate 23 23 23 Blood Pressure 129/66 126/64 133/66 Pulse Oximetry 91 L 92 L 91 L 12/18/18 20:00 12/18/18 20:01 12/18/18 20:30 Temperature 98.6 F Pulse Rate 68 68 66 Respiratory Rate 19 20 18 Blood Pressure 95/54 L 90/52 L Pulse Oximetry 91 L 91 L 92 L 12/18/18 21:00 12/18/18 21:30 12/18/18 22:00 Temperature Pulse Rate 64 65 67 Respiratory Rate 18 16 18 Blood Pressure 91/53 L 95/53 L Pulse Oximetry 92 L 92 L 93 L 12/18/18 22:01 12/18/18 22:30 12/18/18 23:00 Temperature Pulse Rate 67 73 69 Respiratory Rate 23 20 18 Blood Pressure 120/56 L 131/62 111/58 L Pulse Oximetry 93 L 96 96 12/18/18 23:30 12/19/18 00:00 12/19/18 00:30 Temperature 97.6 F Pulse Rate 65 64 69 Respiratory Rate 17 18 19 Blood Pressure 104/51 L 94/52 L 108/54 L Pulse Oximetry 96 94 L 96 12/19/18 01:00 12/19/18 01:30 12/19/18 02:00 Temperature Pulse Rate 62 62 57 L Respiratory Rate 18 17 16 Blood Pressure 98/52 L 90/53 L Pulse Oximetry 93 L 94 L 95 12/19/18 02:01 12/19/18 02:10 12/19/18 02:30 Temperature Pulse Rate 59 L 60 56 L Respiratory Rate 16 17 16 Blood Pressure 80/43 L 79/42 L 79/42 L Pulse Oximetry 95 94 L 93 L 12/19/18 02:45 12/19/18 03:00 12/19/18 03:15 Temperature Pulse Rate 56 L 56 L 56 L Respiratory Rate 17 16 17 Blood Pressure 78/44 L 80/43 L 83/46 L Pulse Oximetry 91 L 91 L 91 L 12/19/18 03:30 12/19/18 03:45 12/19/18 04:00 Temperature Pulse Rate 56 L 55 L 59 L Respiratory Rate 16 15 18 Blood Pressure 87/49 L 81/46 L 85/48 L Pulse Oximetry 92 L 93 L 93 L 12/19/18 04:15 12/19/18 04:20 12/19/18 06:00 Temperature Pulse Rate 54 L 53 L 56 L Respiratory Rate 15 15 Blood Pressure 79/40 L 79/43 L Pulse Oximetry 93 L 93 L Intake & Output 12/18/18 12/19/18 12/19/18 18:59 06:59 18:59 Intake Total 1080 / 1080 560 / 560 Output Total 0 / 0 Balance 1080 / 1080 560 / 560 Weight 112.7 kg Intake: IV 300 / 300 200 / 200 Heparin/D5W 25,000 U/250 mL 25, 100 / 100 000 unit In 250 ml @ 1,000 UNITS/HR 10 mls/hr IV.CONT TITRATE PRN Rx#:[id number] Prostaphlin Inj 2 GM In NS Inj 200 / 200 200 / 200 100 ML @ 200 mls/hr IV.SIG Q6H MARISSA Rx#:[id number] Oral 780 / 780 360 / 360 Output: Urine 0 / 0 Hemodialysis Amount 0 / 0 Other: Post Void Residual 0 # Voids 0 Date of Last Bowel Movement 12/14/18 12/14/18 # Bowel Movements 0 <Christel Ellington Dioni - 12/19/18 09:55> Narrative: GENERAL: obese Afro-[place] female lying in bed, in no acute distress. Wearing NC SKIN: Warm and dry. Permacath removed yesterday, bandage clean dry and intact. No surrounding erythema. CARDIOVASCULAR: regular rate and rhythm. RESPIRATORY: No increased work of breathing. Bilateral lung sepulveda clear to auscultation. NEUROLOGICAL: Awake and alert. <Christel Ellington Dioni - 12/19/18 09:55> Assessment and Plan - Assessment (1) Pulmonary embolism Code(s): I26.99 - Other pulmonary embolism without acute cor pulmonale Status : Acute (2) Sepsis Code(s): A41.9 - Sepsis, unspecified organism Status: Acute (3) Hypotension Code(s): I95.9 - Hypotension, unspecified Status: Acute (4) Seroma Status: Acute (5) End stage renal disease Code(s): N18.6 - End stage renal disease Status: Chronic (6) Right hip pain Code(s): M25.551 - Pain in right hip Status: Acute (7) Anemia Code(s): D64.9 - Anemia, unspecified Status: Chronic (8) Nutrition, metabolism, and development symptoms Code(s): R63.8 - Other symptoms and signs concerning food and fluid intake Status: Acute <José Miguel Pierce - 12/19/18 15:12> (1) Pulmonary embolism Code(s): I26.99 - Other pulmonary embolism without acute cor pulmonale Status : Acute Plan: -Hold heparin drip at this time due to pending procedure with Vas-Cath placement today, restart after procedure, and will transition to oral anticoagulant such as Xarelto in the near future -Continue to monitor on telemetry -2D transthoracic echocardiogram with ejection fraction of 55% and a pulmonary artery pressure of 34 -Supplemental oxygen as needed to keep O2 saturation over 93% -Alternate albuterol and duo nebs breathing treatments -Hypercoagulable panel pending (2) Sepsis Code(s): A41.9 - Sepsis, unspecified organism Status: Acute Plan: Likely source of infection around PermCath site IV antibiotics: Vancomycin with dialysis (12/16- ) Oxacillin 2g q6h(12/17- ) -Zosyn discontinued -Blood cultures positive for staph aureus x4, awaiting susceptibility (3) Hypotension Code(s): I95.9 - Hypotension, unspecified Status: Acute Plan: -Midodrine 10 mg daily -Continue to monitor, maintain maps greater than 65 (4) Seroma Status: Acute Plan: Chronic issue for this patient: CT abdomen pelvis shows 4.4 cm oblong density in the right inguinal region has Hounsfield measurements suggesting a fluid collection. As such, diagnostic considerations would include predominantly seroma or lymphocele. She states that she has a history of drainage of the seroma by Dr. Montgomery. She stated that he told her if it reoccurs that it will have to be surgically removed. She does not want this procedure to happen. (5) End stage renal disease Code(s): N18.6 - End stage renal disease Status: Chronic Plan: Patient is due for dialysis today, will get Vas-Cath placement so that she can receive her dialysis later this evening Nephrology following, current hemodialysis schedule is Wednesday/Wednesday/Wednesday -Monitor BMP (6) Right hip pain Code(s): M25.551 - Pain in right hip Status: Acute Plan: Patient with right hip pain since 3 days prior to admission MRI right femur shows greater trochanteric bursitis. Also some apparent tendinosis, strain, and/or reactive appearing edema of the distal gluteus minimus. Continue to monitor (7) Anemia Code(s): D64.9 - Anemia, unspecified Status: Chronic Plan: Associated with chronic renal issues -Monitor and transfuse as needed (8) Nutrition, metabolism, and development symptoms Code(s): R63.8 - Other symptoms and signs concerning food and fluid intake Status: Acute Plan: Fluids: tolerating PO Electrolytes: monitor and replete as needed Nutrition: renal diet DVT Prophylaxis: Patient currently on a heparin drip GI Prophylaxis: None indicated at this time <Christel Ellington - 12/19/18 09:45> - Assessment and Plan Discussed Condition With: Dr Pierce <Christel Ellington - 12/19/18 09:55> - Attending Attestation Pt. examined independently from resident physician Patient case discussed with resident physician I have read the above note and agree with the assessment/plan as discussed with me I was involved in all medical decision making for this patient José Miguel Pierce MD <José Miguel Pierce - 12/19/18 15:12> <Christel Ellington - Last Filed: 12/19/18 09:45> (1) Pulmonary embolism Qualifiers: Pulmonary embolism type: unspecified Chronicity: acute Acute cor pulmonale presence: without acute cor pulmonale Qualified Code(s): I26.99 - Other pulmonary embolism without acute cor pulmonale (7) Anemia Qualifiers: Anemia type: unspecified type Qualified Code(s): D64.9 - Anemia, unspecified <José Miguel Pierce - Last Filed: 12/19/18 15:12> (1) Pulmonary embolism Qualifiers: Pulmonary embolism type: unspecified Chronicity: acute Acute cor pulmonale presence: without acute cor pulmonale Qualified Code(s): I26.99 - Other pulmonary embolism without acute cor pulmonale (7) Anemia Qualifiers: Anemia type: unspecified type Qualified Code(s): D64.9 - Anemia, unspecified <Devin Christel Browning - Last Filed: 12/19/18 09:45> (1) Pulmonary embolism Qualifiers: Pulmonary embolism type: unspecified Chronicity: acute Acute cor pulmonale presence: without acute cor pulmonale Qualified Code(s): I26.99 - Other pulmonary embolism without acute cor pulmonale (7) Anemia Qualifiers: Anemia type: unspecified type Qualified Code(s): D64.9 - Anemia, unspecified <José Miguel Pierce - Last Filed: 12/19/18 15:12> (1) Pulmonary embolism Qualifiers: Pulmonary embolism type: unspecified Chronicity: acute Acute cor pulmonale presence: without acute cor pulmonale Qualified Code(s): I26.99 - Other pulmonary embolism without acute cor pulmonale (7) Anemia Qualifiers: Anemia type: unspecified type Qualified Code(s): D64.9 - Anemia, unspecified
[2018-12-19] MEDS ORDERED: Sod Chloride 0.9% Inj 1,000 ML OTHER PRN ×2 (10:16)
[2018-12-19] MEDS ORDERED: Albumin Human 25% Inj 100 ML IV.SIG PRN (10:16)
[2018-12-19] MEDS ORDERED: Sod Chloride 0.9% Inj 1,000 ML IV.CONT PRN (10:16)
[2018-12-19] MEDS ORDERED: Acetaminophen 325 MG Tablet PO PRN (10:16)
[2018-12-19] MEDS ORDERED: Heparin 10,000 UNITS/10 ML Vial (for IV use) OTHER PRN (10:16)
[2018-12-19] MEDS ORDERED: Gelatin 12 MM/7 MM Topical Foam TOPICAL PRN (10:16)
--- NOTE | 2018-12-19 10:26 | P.PNNP ---
Subjective Interval history: Patient was seen, no distress. IR consulted for VasCath placement for HD. Patient gets dialysis MWF. Physical Exam Vital signs: Vital Signs 12/18/18 11:09 12/18/18 12:00 12/18/18 12:15 Temperature 97.8 F Pulse Rate 71 70 66 Respiratory Rate 22 17 Blood Pressure 121/58 L Pulse Oximetry 96 95 12/18/18 13:00 12/18/18 14:00 12/18/18 15:00 Temperature Pulse Rate 64 72 69 Respiratory Rate 14 21 18 Blood Pressure Pulse Oximetry 99 97 90 L 12/18/18 15:18 12/18/18 15:30 12/18/18 16:00 Temperature 98.1 F Pulse Rate 68 67 68 Respiratory Rate 25 H 18 20 Blood Pressure 114/55 L 107/58 L 110/59 L Pulse Oximetry 88 L 91 L 94 L 12/18/18 16:30 12/18/18 17:00 12/18/18 17:30 Temperature Pulse Rate 67 66 63 Respiratory Rate 24 20 18 Blood Pressure 109/57 L 103/56 L 105/54 L Pulse Oximetry 94 L 94 L 93 L 12/18/18 18:00 12/18/18 18:30 12/18/18 19:00 Temperature Pulse Rate 72 71 71 Respiratory Rate 21 23 23 Blood Pressure 118/60 129/66 126/64 Pulse Oximetry 94 L 91 L 92 L 12/18/18 19:30 12/18/18 20:00 12/18/18 20:01 Temperature 98.6 F Pulse Rate 74 68 68 Respiratory Rate 23 19 20 Blood Pressure 133/66 95/54 L Pulse Oximetry 91 L 91 L 91 L 12/18/18 20:30 12/18/18 21:00 12/18/18 21:30 Temperature Pulse Rate 66 64 65 Respiratory Rate 18 18 16 Blood Pressure 90/52 L 91/53 L 95/53 L Pulse Oximetry 92 L 92 L 92 L 12/18/18 22:00 12/18/18 22:01 12/18/18 22:30 Temperature Pulse Rate 67 67 73 Respiratory Rate 18 23 20 Blood Pressure 120/56 L 131/62 Pulse Oximetry 93 L 93 L 96 12/18/18 23:00 12/18/18 23:30 12/19/18 00:00 Temperature 97.6 F Pulse Rate 69 65 64 Respiratory Rate 18 17 18 Blood Pressure 111/58 L 104/51 L 94/52 L Pulse Oximetry 96 96 94 L 12/19/18 00:30 12/19/18 01:00 12/19/18 01:30 Temperature Pulse Rate 69 62 62 Respiratory Rate 19 18 17 Blood Pressure 108/54 L 98/52 L 90/53 L Pulse Oximetry 96 93 L 94 L 12/19/18 02:00 12/19/18 02:01 12/19/18 02:10 Temperature Pulse Rate 57 L 59 L 60 Respiratory Rate 16 16 17 Blood Pressure 80/43 L 79/42 L Pulse Oximetry 95 95 94 L 12/19/18 02:30 12/19/18 02:45 12/19/18 03:00 Temperature Pulse Rate 56 L 56 L 56 L Respiratory Rate 16 17 16 Blood Pressure 79/42 L 78/44 L 80/43 L Pulse Oximetry 93 L 91 L 91 L 12/19/18 03:15 12/19/18 03:30 12/19/18 03:45 Temperature Pulse Rate 56 L 56 L 55 L Respiratory Rate 17 16 15 Blood Pressure 83/46 L 87/49 L 81/46 L Pulse Oximetry 91 L 92 L 93 L 12/19/18 04:00 12/19/18 04:15 12/19/18 04:20 Temperature Pulse Rate 59 L 54 L 53 L Respiratory Rate 18 15 15 Blood Pressure 85/48 L 79/40 L 79/43 L Pulse Oximetry 93 L 93 L 93 L 12/19/18 06:00 Temperature Pulse Rate 56 L Respiratory Rate Blood Pressure Pulse Oximetry Intake & Output 12/18/18 12/19/18 12/19/18 18:59 06:59 18:59 Intake Total 1080 / 1080 560 / 560 Output Total 0 / 0 Balance 1080 / 1080 560 / 560 Weight 112.7 kg Intake: IV 300 / 300 200 / 200 Heparin/D5W 25,000 U/250 mL 25, 100 / 100 000 unit In 250 ml @ 1,000 UNITS/HR 10 mls/hr IV.CONT TITRATE PRN Rx#:[id number] Prostaphlin Inj 2 GM In NS Inj 200 / 200 200 / 200 100 ML @ 200 mls/hr IV.SIG Q6H MARISSA Rx#:[id number] Oral 780 / 780 360 / 360 Output: Urine 0 / 0 Hemodialysis Amount 0 / 0 Other: Post Void Residual 0 # Voids 0 Date of Last Bowel Movement 12/14/18 12/14/18 # Bowel Movements 0 Narrative: GENERAL: obese, no acute distress. SKIN: Warm and dry. Permcath removed yesterday, bandage clean dry and intact. No surrounding erythema. CARDIOVASCULAR: regular rate and rhythm. RESPIRATORY: No respiratory distress. Bilateral lung sepulveda clear to auscultation. Extremities: No edema, pulses palpable bilaterally. NEUROLOGICAL: Awake and alert. Assessment and Plan - Assessment (1) End stage renal disease Code(s): N18.6 - End stage renal disease Status: Chronic Plan: Dialysis MWF. PermCath removed yesterday. Patient to have VasCath placed today and then dialysis after. Avoid nephrotoxic agents. Monitor fluid and electrolytes. (2) Anemia Code(s): D64.9 - Anemia, unspecified Status: Chronic Qualifiers: Anemia type: unspecified type Qualified Code(s): D64.9 - Anemia, unspecified Plan: Epogen with dialysis. (3) Hypertension Code(s): I10 - Essential (primary) hypertension Status: Chronic Plan: No need for antihypertensive. BP is low. On Midodrine. (4) Sepsis Code(s): A41.9 - Sepsis, unspecified organism Status: Acute Plan: Antibiotics per ID. On Oxacillin and Vancomycin. PermCath removed yesterday. (5) Metabolic bone disease Code(s): E88.9 - Metabolic disorder, unspecified; M90.80 - Osteopathy in diseases classified elsewhere, unspecified site Status: Acute Plan: Monitor phosphorus intermittently. On Sevelamer and Sensipar. (6) Pulmonary embolism Code(s): I26.99 - Other pulmonary embolism without acute cor pulmonale Status : Acute Qualifiers: Pulmonary embolism type: unspecified Chronicity: acute Acute cor pulmonale presence: without acute cor pulmonale Qualified Code(s): I26.99 - Other pulmonary embolism without acute cor pulmonale Plan: CTA was positive for PE. On heparin drip. Currently on hold for VasCath placement and to be restarted after. Had clot adhering to dialysis catheter also a clot in the right atrium. PermCath removed.
--- NOTE | 2018-12-19 11:02 | P.RAD ---
Post Procedure Progress Note - Pre Procedure Diagnosis (1) End stage renal disease (2) Sepsis - Post Procedure Diagnosis (1) End stage renal disease (2) Sepsis - Procedure Information Procedure Date: 12/19/18 Supervising Radiologist: Dionicio Christensen MD Estimated blood loss (mL): 4 Anesthesia: Local, Analgesia, Conscious Sedation - Plan of Activity Patient to Unit: ROPU Patient Condition: Good See PACS Report for procedural detail/treatment. [facility] Radiology Procedures right Subclavian Hemodialysis Catheter Non-Tunneled Placement Device: dual lumen Citizen Of [place]: 14 PICC Line Length (cm): 20 - Additional Detail Findings: Sonographically, appears right IJ occluded with multiple collaterals
[2018-12-19 11:05] LABS: Prothrombin Time 10.6 sec (9.8-11.6)
[2018-12-19] MEDS: Senna/Docusate Sodium 8.6/50 MG Tablet PO SCH ×2 (11:06→20:07)
[2018-12-19] MEDS: Mupirocin 2% Nasal Oint Topical Syringe EACH NARE SCH ×2 (11:08→20:07)
--- NOTE | 2018-12-19 11:34 | IR ---
EXAM DATE: 12/19/2018 10:56 AM EST AGE/SEX: 53 years / Female INDICATIONS: Patient presents with end-stage renal disease in need of dialysis catheter placement fo r emergent dialysis. CLINICAL DATA: This is the patient's sequela encounter. Patient reports that signs and symptoms have been present for 1 week and indicates a pain score of 10/10. MEDICAL/SURGICAL HISTORY: . ESRD, HTN, History of liver mass, Anemia, Sepsis. . Right total kn ee, Liver resection, A-V fistula, Hysterectomy. COMPARISON: No prior exams available for comparison. FLUORO TIME (min): 3.01 IMAGE SERIES: 2 RADIATION DOSE: 34 mGy CAK ACCESS SITE: Right subclavian vein MEDICATION(S): 1 mg lorazepam (Ativan) IV DEVICE(S): 14 [place] double lumen 20cm Schon catheter . . PROCEDURE : 1. Ultrasound-guided guided venipuncture. 2. Fluoroscopic guided central line placement. The risks, benefits and alternatives to the procedure were explained and verbal and written consent w as obtained. The site was prepped in sterile fashion. Full sterile technique was used, including ca p, mask, sterile gloves and gown and a large sterile sheet. Hand hygiene and 2% chlorhexidine prep w as utilized per protocol for cutaneous antisepsis with appropriate dry time for site. The skin and subcutaneous tissues were infiltrated with local anesthetic solution. With ultrasound gu idance a dermatotomy created and subcutaneous dissection was performed. A small incision was made. A micropuncture set was used to gain access with ultrasound guidance and serial dilatation was perfor med to accept the catheter as prescribed above. The catheter was advanced into position under direct fluoroscopic visualization, and was advanced with the tip at the junction of the superior vena cava and rt atrium. The catheter was fixed in place with suture and a sterile dressing was applied. Of note, patient was sonographically evaluated over the right neck. However, extensive collaterals ar e identified in the region of the internal jugular vein and the vessel appears to taper off at the th oracic inlet and is presumably highly stenosed/occluded. No attempt was made to access the right IJ, however. The patient tolerated the procedure well and there were no complications. CONCLUSION: 1. Uncomplicated line placement as above. 2. Sonographically, multiple collateral vessels are seen in the region of the right internal jugular suggesting a central high-grade stenosis/occlusion. The vein was not accessed, however. Electronically signed by: Dionicio Christensen MD Board Certified Radiologist 12/19/2018 11:33 AM EST
[2018-12-19] MEDS: Vancomycin Inj 1,000 MG in Sodium Chlor 0.9% Inj 250 ML IV.SIG SCH (11:58)
[2018-12-19] MEDS: Heparin 10,000 UNITS/10 ML Vial (for IV use) OTHER PRN (11:58)
[2018-12-19] MEDS: Heparin Drip 25,000 UNIT/250 ML BAG IV.CONT PRN (17:41)
--- NOTE | 2018-12-19 19:35 | P.PNID ---
Subjective Remarks: pt co sever R thigh/hip pain MR did not showe any acute pathology no fever has R sided Vascath Permacath was removed confirmed MSSA Antibiotics: oxacillin vanco Allergies/Adverse Reactions: Allergies cephalexin Allergy (Severe, Verified 12/16/18 08:35) Hives onion Allergy (Severe, Verified 12/16/18 08:35) Gastrointestinal Upset Sulfa (Sulfonamide Antibiotics) Adverse Reaction (Intermediate, Verified 08:35) Nausea/Vomiting Objective Vital Signs 12/18/18 20:00 12/18/18 20:01 12/18/18 20:30 Temperature 98.6 F Pulse Rate 68 68 66 Respiratory Rate 19 20 18 Blood Pressure 95/54 L 90/52 L Pulse Oximetry 91 L 91 L 92 L 12/18/18 21:00 12/18/18 21:30 12/18/18 22:00 Temperature Pulse Rate 64 65 67 Respiratory Rate 18 16 18 Blood Pressure 91/53 L 95/53 L Pulse Oximetry 92 L 92 L 93 L 12/18/18 22:01 12/18/18 22:30 12/18/18 23:00 Temperature Pulse Rate 67 73 69 Respiratory Rate 23 20 18 Blood Pressure 120/56 L 131/62 111/58 L Pulse Oximetry 93 L 96 96 12/18/18 23:30 12/19/18 00:00 12/19/18 00:30 Temperature 97.6 F Pulse Rate 65 64 69 Respiratory Rate 17 18 19 Blood Pressure 104/51 L 94/52 L 108/54 L Pulse Oximetry 96 94 L 96 12/19/18 01:00 12/19/18 01:30 12/19/18 02:00 Temperature Pulse Rate 62 62 57 L Respiratory Rate 18 17 16 Blood Pressure 98/52 L 90/53 L Pulse Oximetry 93 L 94 L 95 12/19/18 02:01 12/19/18 02:10 12/19/18 02:30 Temperature Pulse Rate 59 L 60 56 L Respiratory Rate 16 17 16 Blood Pressure 80/43 L 79/42 L 79/42 L Pulse Oximetry 95 94 L 93 L 12/19/18 02:45 12/19/18 03:00 12/19/18 03:15 Temperature Pulse Rate 56 L 56 L 56 L Respiratory Rate 17 16 17 Blood Pressure 78/44 L 80/43 L 83/46 L Pulse Oximetry 91 L 91 L 91 L 12/19/18 03:30 12/19/18 03:45 12/19/18 04:00 Temperature Pulse Rate 56 L 55 L 59 L Respiratory Rate 16 15 18 Blood Pressure 87/49 L 81/46 L 85/48 L Pulse Oximetry 92 L 93 L 93 L 12/19/18 04:15 12/19/18 04:20 12/19/18 04:30 Temperature Pulse Rate 54 L 53 L Respiratory Rate 15 15 Blood Pressure 79/40 L 79/43 L 80/42 L Pulse Oximetry 93 L 93 L 12/19/18 04:45 12/19/18 05:00 12/19/18 05:21 Temperature Pulse Rate 60 60 60 Respiratory Rate 22 19 20 Blood Pressure 92/53 L 94/52 L Pulse Oximetry 93 L 96 95 12/19/18 05:30 12/19/18 05:45 12/19/18 06:00 Temperature Pulse Rate 64 58 L 56 L Respiratory Rate 28 H 21 19 Blood Pressure 113/57 L 100/51 L 96/52 L Pulse Oximetry 93 L 94 L 94 L 12/19/18 06:15 12/19/18 06:30 12/19/18 06:45 Temperature Pulse Rate 55 L 58 L 56 L Respiratory Rate 16 18 20 Blood Pressure 95/54 L 97/53 L 94/52 L Pulse Oximetry 94 L 94 L 94 L 12/19/18 07:00 12/19/18 07:15 12/19/18 07:30 Temperature Pulse Rate 55 L 56 L 53 L Respiratory Rate 18 21 20 Blood Pressure 99/52 L 97/51 L 87/49 L Pulse Oximetry 95 94 L 93 L 12/19/18 07:45 12/19/18 08:00 12/19/18 08:15 Temperature Pulse Rate 59 L 62 58 L Respiratory Rate 32 H 26 H 27 H Blood Pressure 91/50 L 102/57 L 99/56 L Pulse Oximetry 91 L 93 L 93 L 12/19/18 08:30 12/19/18 08:45 12/19/18 10:00 Temperature Pulse Rate 63 66 62 Respiratory Rate 19 24 Blood Pressure 110/58 L 118/62 Pulse Oximetry 93 L 95 12/19/18 10:50 12/19/18 10:56 12/19/18 11:00 Temperature Pulse Rate 62 67 68 Respiratory Rate 20 24 Blood Pressure 114/57 L Pulse Oximetry 93 L 12/19/18 11:16 12/19/18 11:30 12/19/18 11:45 Temperature Pulse Rate 67 69 66 Respiratory Rate 18 22 21 Blood Pressure 119/58 L 128/64 124/60 Pulse Oximetry 92 L 12/19/18 12:00 12/19/18 12:15 12/19/18 12:30 Temperature Pulse Rate 78 72 73 Respiratory Rate 22 22 20 Blood Pressure 126/63 130/66 122/63 Pulse Oximetry 88 L 95 90 L 12/19/18 12:45 12/19/18 13:00 12/19/18 13:16 Temperature 98.2 F Pulse Rate 78 62 61 Respiratory Rate 25 H 19 20 Blood Pressure 125/63 106/55 L 113/56 L Pulse Oximetry 94 L 92 L 12/19/18 13:30 12/19/18 13:45 12/19/18 14:00 Temperature Pulse Rate 71 63 58 L Respiratory Rate 21 21 21 Blood Pressure 111/57 L 104/56 L 97/55 L Pulse Oximetry 86 L 12/19/18 14:15 12/19/18 16:00 12/19/18 17:50 Temperature Pulse Rate 58 L 58 L Respiratory Rate 19 Blood Pressure 99/53 L Pulse Oximetry 100 12/19/18 18:00 Temperature Pulse Rate 58 L Respiratory Rate Blood Pressure Pulse Oximetry Intake & Output 12/19/18 12/19/18 12/20/18 06:59 18:59 06:59 Intake Total 560 / 560 960 / 960 Output Total 0 / 0 1999 Balance 560 / 560 -1040 / -1040 Weight 112.7 kg Intake: IV 200 / 200 700 / 700 Heparin/D5W 25,000 U/250 mL 25, 250 / 250 000 unit In 250 ml @ Per Protocol IV.CONT TITRATE PRN Rx #:[id number] Prostaphlin Inj 2 GM In NS Inj 200 / 200 200 / 200 100 ML @ 200 mls/hr IV.SIG Q6H MARISSA Rx#:[id number] Vancomycin Inj 1,000 MG In NS 250 / 250 Inj 250 ML @ 250 mls/hr IV.SIG WITH DIALYSIS MARISSA Rx#:[id number] Oral 360 / 360 260 / 260 Output: Urine 0 / 0 Hemodialysis Amount 0 / 0 1999 Other: Post Void Residual 0 # Voids 0 Date of Last Bowel Movement 12/14/18 12/14/18 # Bowel Movements 0 12/18/18 13:15 Catheter Tip - Subclavian Wound Culture - Preliminary Staphylococcus aureus 12/19/18 11:39 Blood - Peripheral Aerobic Blood Culture - Pending 12/19/18 11:39 Blood - Peripheral Anaerobic Blood Culture - Pending 12/19/18 11:45 Blood - Peripheral Aerobic Blood Culture - Pending 12/19/18 11:45 Blood - Peripheral Anaerobic Blood Culture - Pending 12/16/18 15:00 Blood - Peripheral Aerobic Blood Culture - Final Staphylococcus aureus 12/16/18 15:00 Blood - Peripheral Anaerobic Blood Culture - Final Staphylococcus aureus 12/16/18 15:00 Blood - Peripheral Aerobic Blood Culture - Final Staphylococcus aureus 12/16/18 15:00 Blood - Peripheral Anaerobic Blood Culture - Final Staphylococcus aureus Lab - Hematology Results 12/18/18 12/19/18 08:20 00:25 WBC 14.3 H 14.0 H RBC 2.49 L 2.61 L Hgb 8.7 L 9.0 L Hct 26.9 L 27.2 L MCV 107.9 H 104.4 H D MCH 34.7 H 34.7 H MCHC 32.2 33.2 RDW 15.4 14.7 Plt Count 103 L 126 L MPV 9.5 9.3 Prelim Diff (Auto) Manual diff required WBC Differential Manual diff final Seg Neuts % (Manual) 75 H Band Neuts % (Manual) 6 Lymphocytes % (Manual) 11 Monocytes % (Manual) 6 Eosinophils % (Manual) 2 Abs Neuts (Manual) 11.6 H Differential Comment . Hypersegmented Neuts 1+ H Platelet Estimate Low L Platelet Morphology Normal Lab - Chemistry Results 12/18/18 12/19/18 08:20 00:25 Sodium 136 133 L Potassium 4.5 4.5 Chloride 101 101 Carbon Dioxide 26.1 23.4 Anion Gap 9 9 BUN 52 H 61 H Creatinine 9.25 H 10.18 H* Estimated GFR 5 L 5 L Random Glucose 94 D 104 Calcium 8.3 L 8.0 L Phosphorus 4.5 Total Bilirubin 0.4 AST 15 ALT 15 Alkaline Phosphatase 57 Total Protein 6.6 Albumin 3.0 L Imaging: ITS Impressions Abdomen/Pelvis CT 12/16/18 08:45 CONCLUSION: 1. I do not see an acute intraperitoneal or pelvic process to explain current clinical symptoms. 2. Patient is status post cholecystectomy and hysterectomy. Surgical clips from a cholecystectomy extending up into the left hepatic lobe near the falciform ligament. 3. 4.4 cm oblong density in the right inguinal region has Hounsfield measurements suggesting a fluid collection. As such, diagnostic considerations would include predominantly seroma or lymphocele. Ultrasound could be performed for confirmation. No adenopathy. 4. Small, 1 cm umbilical hernia only contains fat. Hip CT 12/16/18 08:45 CONCLUSION: 1. Probable 4.4 cm oblong seroma or lymphocele in the right inguinal region. 2. Mild osteoarthritic changes in both hips. No fracture. Chest CTA 12/17/18 00:00 CONCLUSION: 1. Small pulmonary emboli of the posterior basilar branches of the left lower lobe. 2. Thrombus adhering to the distal left subclavian central venous catheter. 3. Thrombus within the right atrium. 4. Posterior left lower lung atelectasis. 5. Mildly prominent ascending thoracic aorta measuring 4.5 cm in diameter. Venous Doppler Study 12/17/18 00:00 CONCLUSION: 1. No venous thrombosis of either lower extremity. 2. Right inguinal fluid collection most consistent with seroma/chronic hematoma. Femur MRI 12/18/18 00:00 CONCLUSION: 1. No acute bone or joint abnormality. 2. There is greater trochanteric bursitis. Also some apparent tendinosis, strain and/or reactive appearing edema of distal gluteus minimus. No well- defined/measurable muscle/tendon tear. 3. Chronic multiloculated benign appearing fluid collection in the right inguinal region is also a chronic Bartholin's gland cyst. Please see above. Catheter Placement 12/19/18 00:00 CONCLUSION: 1. Uncomplicated line placement as above. 2. Sonographically, multiple collateral vessels are seen in the region of the right internal jugular suggesting a central high-grade stenosis/occlusion. The vein was not accessed, however. Physical Exam: GENERAL: NAD morbid obesity SKIN: Warm and dry. HEAD: Atraumatic. Normocephalic. EYES: Pupils equal and round. No scleral icterus. No injection or drainage. ENT: No nasal bleeding or discharge. Mucous membranes pink and moist. NECK: Trachea midline. No JVD. CARDIOVASCULAR: Regular rate and rhythm. RESPIRATORY: No accessory muscle use. Clear to auscultation. Breath sounds equal bilaterally. GASTROINTESTINAL: Abdomen soft, non-tender, nondistended. Hepatic and splenic margins not palpable. MUSCULOSKELETAL: Extremities without clubbing, cyanosis, or edema. No obvious deformities. NEUROLOGICAL: Awake and alert. No obvious cranial nerve deficits. Motor grossly within normal limits. Five out of 5 muscle strength in the arms and legs. Normal speech. PSYCHIATRIC: calm, coopertive LINEs: R IJ vascath in place LUE AV graft no tenderness, no edenma, no erythema Assessment and Plan - Plan ESRD, on HD HIgh grade MSS[facility] AV graft Severe R thigh pain Fluid collection on Ct pelvis - not appear infected. Dw radiologist cephalosporin allergy but tolerates OK zosyn cont oxacillin dc vanco f repeat BC 2 D echo consult ortho for ongoing pain w/u harpreet Pt, family at b/s
[2018-12-20 05:01] LABS: Hemoglobin 8.9 gm/dL (11.6-15.3); Mean Corpuscular Hemoglobin 34.7 pg (27.0-34.0); Mean Corpuscular Volume 105.1 fL (80.0-100.0); Mean Platelet Volume 9.1 fL (7.0-11.0); Platelet Count 159 th/mm3 (150-450); Red Blood Count 2.57 mil/mm3 (4.00-5.30); Red Cell Distribution Width 14.7 % (11.6-17.2); White Blood Count 14.7 th/mm3 (4.0-11.0)
[2018-12-20 05:29] LABS: Alanine Aminotransferase 18 U/L (10-53); Albumin 2.5 g/dL (3.4-5.0); Alkaline Phosphatase 78 U/L (45-117); Anion Gap 8 meq/L (5-15); Aspartate Aminotransferase 12 U/L (15-37); Blood Urea Nitrogen 38 mg/dL (7-18); Calcium 8.2 mg/dL (8.5-10.1); Carbon Dioxide 28.9 meq/L (21.0-32.0); Chloride 100 meq/L (98-107); Glomerular Filtration Rate 7 mL/min (>89); Glucose,Random 110 mg/dL (74-106); Potassium 4.3 meq/L (3.5-5.1); Sodium 137 meq/L (136-145); Total Protein 6.5 g/dL (6.4-8.2)
[2018-12-20] MEDS: Chlorhexidine Gluconate 2% 1 Pack (2 Cloths) TOPICAL SCH (06:04)
--- NOTE | 2018-12-20 06:57 | P.CONOP ---
[facility] Orthopedics Consult Note - [facility] Consult date: 12/20/18 Chief complaint: Sepsis/ right buttock pain Narrative: Brissa is a 53-year-old female. She works here [employer]. She was work last week when she had an episode of hypotension. A halicat was called. She was found to have significant hypotension. She was admitted for treatment. She was found to have an infected catheter for dialysis. This is been removed. She also complains of approximately 1 week history of right hip pain. Pain is minimal at rest. Pain is worse with movement or lying on her right side. She is currently on IV antibiotics. She denies any falls or traumatic injuries to her right hip. Review of Systems Patient denies fevers, chills, weight loss, headache, visual changes, hearing loss, chest pain, palpitations, shortness of breath, nausea, vomiting, no urinary changes, diarrhea, bowel changes, neck pain, back pain, skin rashes, weakness of extremities, easy bleeding, enlarged lymph nodes, numbness of extremities, anxiety, or depression. She complains of right sided hip pain. Patient's social history, past medical history, and family history were reviewed on chart and with patient. [facility] - History History Provided By: Patient - Medical History Medical History: Medical History (Last Reviewed 12/20/18 @ 06:52 by Ammon Leavitt MD) Methicillin resistant Staphylococcus aureus culture positive Onset Date: ~ A-V fistula End stage renal disease H/O: hysterectomy HTN (hypertension) Liver mass, left lobe - Surgical History Surgical History: Surgical History (Last Reviewed 12/20/18 @ 06:52 by Ammon Leavitt MD) H/O resection of liver History of knee replacement, total - Family History Family History: Family History (Last Reviewed 12/20/18 @ 06:52 by Ammon Leavitt MD) Other Family history of dementia Family history of diabetes mellitus Family history of hypertension Family history of paranoid schizophrenia - Social History I have reviewed the patient's Social History: Yes - Tobacco History Second Hand Smoke Exposure: No Smoking Status: Never smoker - Alcohol History How Often Do You Have a Drink Containing Alcohol: Never - Substance Use History Substance History: No History of Abuse - Travel History Recent Travel in the [facility] Within the Last 8 Weeks: No Recent Travel Out of the Country Within the Last 8 Weeks: No - Immunization History Tetanus Immunization: <5 Years Hx Influenza Vaccine This Season: Yes Medications and Allergies Active Medications: Active Medications Acetaminophen (Tylenol) 650 mg PO Q4H PRN PRN Reason: Temp > 100.4, Pain 1-2 Last Admin: 12/16/18 21:51 Dose: 650 mg Acetaminophen (Tylenol) 650 mg PO UNSCH PRN PRN Reason: SEE LABEL COMMENTS Hydrocodone Bitart/Acetaminophen ([place] 5/325) 1 tab PO Q4H PRN PRN Reason: PAIN SCALE 3 TO 5 Last Admin: 12/20/18 06:06 Dose: 1 tab Al Hydroxide/Mg Hydroxide (Milk Of Calderon Calix) 30 ml PO Q12H PRN PRN Reason: Mild Constipation Bisacodyl (Dulcolax Supp) 10 mg RECTAL DAILY PRN PRN Reason: SEVERE CONSITIPATION Chlorhexidine Gluconate (Chlorhexidine 2% Cloth) 3 pack TOPICAL DAILY@0400 [facility] Stop: 12/22/18 03:59 Last Admin: 12/20/18 06:04 Dose: Not Given Chlorhexidine Gluconate (Chlorhexidine 2% Cloth) 3 pack TOPICAL DAILY@0400 PRN PRN Reason: Extra cloth needed Stop: 12/22/18 03:59 Cinacalcet (Sensipar) 30 mg PO DAILY [facility] Last Admin: 12/19/18 11:06 Dose: 30 mg Clonidine HCl (Catapres) 0.1 mg PO UNSCH PRN PRN Reason: SEE LABEL COMMENTS Diphenhydramine HCl (Benadryl) 25 mg PO UNSCH PRN PRN Reason: SEE LABEL COMMENTS Epoetin Horacio (Epogen Inj) 10,000 unit IV.PUSH UNSCH PRN PRN Reason: SEE LABEL COMMENTS Last Admin: 12/19/18 11:58 Dose: 10,000 unit Gelatin (Gelfoam 12 Mm/7 Mm Topical) 1 foam TOPICAL PRN PRN PRN Reason: help stop bleeding from site Gentamicin Sulfate (Gentamicin Inj) 20 mg OTHER WITH DIALYSIS PRN PRN Reason: Dwell Gentamycin Lock Last Admin: 12/19/18 11:58 Dose: 20 mg Heparin Sodium (Porcine) (Heparin Inj) 5,000 units SQ Q12H [facility] Last Admin: 12/16/18 20:41 Dose: 5,000 units Heparin Sodium (Porcine) (Heparin Inj) 8,000 units OTHER WITH DIALYSIS PRN PRN Reason: for machine prime Heparin Sodium (Porcine) (Heparin Inj) 1,000 units OTHER WITH DIALYSIS PRN PRN Reason: Dwell Heparin to Fill Catheter Last Admin: 12/19/18 11:58 Dose: 1,000 units Oxacillin Sodium 2 gm/ Sodium (Chloride) 100 mls @ 200 mls/hr IV.SIG Q6H [facility] Last Admin: 12/20/18 06:04 Dose: 200 mls/hr Heparin Sodium/Dextrose (Heparin/D5w 25,000 U/250 Ml) 25,000 unit in 250 mls @ 0 mls/hr IV.CONT TITRATE PRN; Protocol PRN Reason: Per Protocol Last Titration: 12/19/18 18:14 Dose: 1,600 units/hr, 16 mls/hr Albumin Human (Flexbumin 25% Inj) 100 mls @ 60 mls/hr IV.SIG WITH DIALYSIS PRN PRN Reason: hypotension / volume replace Sodium Chloride (Ns Inj) 1,000 mls @ 200 mls/hr OTHER .Q5H PRN PRN Reason: for dialyzer flush PRN Sodium Chloride (Ns Inj) 1,000 mls @ 0 mls/hr IV.CONT .Q0M PRN PRN Reason: hypotension / volume replace Sodium Chloride (Ns Inj) 1,000 mls @ 0 mls/hr OTHER .Q0M PRN PRN Reason: for prime and rinse back Lactulose (Lactulose Liq) 30 ml PO DAILY PRN PRN Reason: SEVERE CONSITIPATION Mannitol (Mannitol Inj) 12.5 gm IV.PUSH UNSCH PRN PRN Reason: hypotension / volume replace Midodrine (Proamatine) 10 mg PO Q4HR [facility] Last Admin: 12/20/18 06:06 Dose: 10 mg Mupirocin (Bactroban 2% Nasal Oint) 1 applicatio EACH NARE BID [facility] Stop: 12/21/18 21:01 Last Admin: 12/19/18 20:07 Dose: 1 applicatio Naloxone HCl (Narcan Inj) 0.4 mg IV.PUSH UNSCH PRN PRN Reason: SEE LABEL COMMENTS Nitroglycerin (Nitrostat Sl) 0.4 mg SL Q5M PRN PRN Reason: CHEST PAIN Ondansetron HCl (Zofran Inj) 4 mg IV.PUSH Q6H PRN PRN Reason: NAUSEA OR VOMITING Ondansetron HCl (Zofran Inj) 4 mg IV.PUSH UNSCH PRN PRN Reason: NAUSEA OR VOMITING Oxycodone HCl (Roxicodone) 10 mg PO Q4H PRN PRN Reason: PAIN SCALE 6-10 OR SEVERE SOB Last Admin: 12/16/18 21:51 Dose: 10 mg Senna/Docusate Sodium (Barby-Colace) 1 tab PO BID [facility] Last Admin: 12/19/18 20:07 Dose: 1 tab Sennosides (Senokot) 17.2 mg PO Q12H PRN PRN Reason: Moderate Constipation Last Admin: 12/19/18 11:05 Dose: 17.2 mg Sevelamer Carbonate (Renvela) 1,600 mg PO TIDAC [facility] Last Admin: 12/19/18 17:09 Dose: 1,600 mg Sodium Chloride (Ns Flush) 2 ml IV.FLUSH BID [facility] Last Admin: 12/19/18 20:07 Dose: 2 ml Sodium Chloride (Ns Flush) 2 ml IV.FLUSH PRN PRN PRN Reason: FLUSH AFTER USING IV ACCESS Sodium Chloride (Ns Flush) 5 ml IV.FLUSH PRN PRN PRN Reason: flush each lumen during HD Allergies Allergy/AdvReac Type Severity Reaction Status Date / Time cephalexin Allergy Severe Hives Verified 12/16/18 08:35 onion Allergy Severe Gastrointestinal Verified 12/16/18 08:35 Upset Sulfa (Sulfonamide AdvReac Intermediate Nausea/Vomi Verified 12/16/18 08:35 Antibiotics) ting Home Medications Medication Instructions Recorded Confirmed Type cinacalcet [Sensipar] 30 mg PO DAILY 10/06/18 12/16/18 History sevelamer carbonate [Renvela] 1,600 mg PO TID 10/06/18 12/16/18 History Exam Vital signs: Vital Signs 12/19/18 07:00 12/19/18 07:15 12/19/18 07:30 Temperature Pulse Rate 55 L 56 L 53 L Respiratory Rate 18 20 Blood Pressure 99/52 L 97/51 L 87/49 L Pulse Oximetry 95 94 L 93 L 12/19/18 07:45 12/19/18 08:00 12/19/18 08:15 Temperature Pulse Rate 59 L 62 58 L Respiratory Rate 32 H 26 H 27 H Blood Pressure 91/50 L 102/57 L 99/56 L Pulse Oximetry 91 L 93 L 93 L 12/19/18 08:30 12/19/18 08:45 12/19/18 10:00 Temperature Pulse Rate 63 66 62 Respiratory Rate 19 24 Blood Pressure 110/58 L 118/62 Pulse Oximetry 93 L 95 12/19/18 10:50 12/19/18 10:56 12/19/18 11:00 Temperature Pulse Rate 62 67 68 Respiratory Rate 20 24 Blood Pressure 114/57 L Pulse Oximetry 93 L 12/19/18 11:16 12/19/18 11:30 12/19/18 11:45 Temperature Pulse Rate 67 69 66 Respiratory Rate 18 22 21 Blood Pressure 119/58 L 128/64 124/60 Pulse Oximetry 92 L 12/19/18 12:00 12/19/18 12:15 12/19/18 12:30 Temperature Pulse Rate 78 72 73 Respiratory Rate 22 22 20 Blood Pressure 126/63 130/66 122/63 Pulse Oximetry 88 L 95 90 L 12/19/18 12:45 12/19/18 13:00 12/19/18 13:16 Temperature 98.2 F Pulse Rate 78 62 61 Respiratory Rate 25 H 19 20 Blood Pressure 125/63 106/55 L 113/56 L Pulse Oximetry 94 L 92 L 12/19/18 13:30 12/19/18 13:45 12/19/18 14:00 Temperature Pulse Rate 71 63 58 L Respiratory Rate 21 21 21 Blood Pressure 111/57 L 104/56 L 97/55 L Pulse Oximetry 86 L 12/19/18 14:15 12/19/18 16:00 12/19/18 17:50 Temperature Pulse Rate 58 L 58 L Respiratory Rate 19 Blood Pressure 99/53 L Pulse Oximetry 100 12/19/18 18:00 12/19/18 20:00 Temperature Pulse Rate 58 L 73 Respiratory Rate 19 Blood Pressure Pulse Oximetry 93 L Intake & Output 12/19/18 12/19/18 12/20/18 06:59 18:59 06:59 Intake Total 560 / 560 960 / 960 100 / 100 Output Total 0 / 0 1999 / 1999 Balance 560 / 560 -1040 / -1040 100 / 100 Weight 112.7 kg Intake: IV 200 / 200 700 / 700 100 / 100 Heparin/D5W 25,000 U/250 mL 25, 250 / 250 000 unit In 250 ml @ Per Protocol IV.CONT TITRATE PRN Rx #:[id number] Prostaphlin Inj 2 GM In NS Inj 200 / 200 200 / 200 100 / 100 100 ML @ 200 mls/hr IV.SIG Q6H [facility] Rx#:[id number] Vancomycin Inj 1,000 MG In NS 250 / 250 Inj 250 ML @ 250 mls/hr IV.SIG WITH DIALYSIS [facility] Rx#:[id number] Oral 360 / 360 260 / 260 Output: Urine 0 / 0 Hemodialysis Amount 0 / 0 1999 Other: Post Void Residual 0 # Voids 0 Date of Last Bowel Movement 12/14/18 12/14/18 12/14/18 # Bowel Movements 0 Narrative: Griselda is a 53-year-old female. General: Awake and alert. No acute distress. Appears well-developed well- nourished Head: Normocephalic, atraumatic pupils are equal Neck: Soft, nontender, trachea midline Abdomen: Soft, nondistended Examination of right arm reveals no pain or deformity with shoulder, elbow, or wrist motion. Skin is intact. Radial pulse is palpable. Normal capillary refill in fingers. Sensation is intact in radial, ulnar, and median nerve distributions. Captain'S Assistant strength is +5. No lymphadenopathy noted. Examination of left arm reveals no pain or deformity with shoulder, elbow, or wrist motion. Skin is intact. Radial pulse is palpable. Normal capillary refill in fingers. Sensation is intact in radial, ulnar, and median nerve distributions. Captain'S Assistant strength is +5. No lymphadenopathy noted. Examination of left lower extremity reveals no pain or deformity with hip, knee , or ankle motion. Skin is intact. Sensation is intact in left foot. Dorsalis pedis pulse is palpable. Normal capillary refill and feet. Thigh and calf compartments are soft. No lymphadenopathy noted. +5 strength of ankle dorsiflexion and plantarflexion. Examination of right lower extremity reveals no pain or deformity with knee or ankle motion. She has minimal pain with gentle hip motion. She does have tenderness to palpation directly over the trochanteric bursa and gluteus medius tendon insertion onto the trochanter. Skin is intact. Sensation is intact in right foot. Dorsalis pedis pulse is palpable. Normal capillary refill and feet. Thigh and calf compartments are soft. No lymphadenopathy noted. +5 strength of ankle dorsiflexion and plantarflexion. Results - Labs Result Diagrams: 12/20/18 04:13 12/20/18 04:13 Labs: Laboratory Results - last 24 hr 12/19/18 12/19/18 12/19/18 12:22 12:22 20:31 WBC RBC Hgb Hct MCV MCH MCHC RDW Plt Count MPV PT 10.6 INR 1.0 APTT 50.2 H 42.7 H Sodium Potassium Chloride Carbon Dioxide Anion Gap BUN Creatinine Estimated GFR Random Glucose Calcium Total Bilirubin AST ALT Alkaline Phosphatase Total Protein Albumin 12/20/18 12/20/18 12/20/18 04:13 04:13 04:13 WBC 14.7 H RBC 2.57 L Hgb 8.9 L Hct 27.0 L MCV 105.1 H MCH 34.7 H MCHC 33.0 RDW 14.7 Plt Count 159 MPV 9.1 PT INR APTT 46.4 H Sodium 137 Potassium 4.3 Chloride 100 Carbon Dioxide 28.9 Anion Gap 8 BUN 38 H Creatinine 7.14 H Estimated GFR 7 L Random Glucose 110 H Calcium 8.2 L Total Bilirubin 0.3 AST 12 L ALT 18 Alkaline Phosphatase 78 Total Protein 6.5 Albumin 2.5 L - Diagnostic results Imaging: Impressions Catheter Placement 12/19/18 00:00 CONCLUSION: 1. Uncomplicated line placement as above. 2. Sonographically, multiple collateral vessels are seen in the region of the right internal jugular suggesting a central high-grade stenosis/occlusion. The vein was not accessed, however. Hip MRI: report reviewed, image reviewed Assessment and Plan - Assessment and Plan Griselda has approximately 1 week history of right-sided hip pain. MRI was reviewed. There is no significant fluid collection around her hip or bursa. She does have a small fluid collection in her groin which is essentially unchanged from previous exams. Clinically she has trochanteric bursitis with mild abductor tendinitis. I would recommend conservative treatment. I would recommend ice. Anti-inflammatories would be helpful if she were able to take them. If the pain continues or worsens, she may benefit from a steroid injection of her trochanteric bursa. Patient is in agreement with this. All questions were answered. A mid-level provider in my office (nurse practitioner or physician team assistant) may see this patient on follow-up visits and continue to implement the objectives of this plan including: Starting or adjusting medications, injections , cast application, orthotics, brace application, physical therapy, radiological studies (including x-ray, MRI, CT, ultrasound, bone scan), vascular studies, neurologic studies, specialist consultation, and proceeding with surgical management, as appropriate.
[2018-12-20] MEDS: Mupirocin 2% Nasal Oint Topical Syringe EACH NARE SCH ×2 (08:49→20:27)
[2018-12-20] MEDS: Senna/Docusate Sodium 8.6/50 MG Tablet PO SCH ×2 (08:49→22:34)
--- NOTE | 2018-12-20 09:45 | P.PNFP ---
Subjective Interval history: Patient seen and examined this morning. She states that she is feeling better. She is eating more and tolerating food without abdominal pain. No nausea/vomiting. She is also breathing better, no chest pain. Her right hip pain has slightly improved. She trying to be do in bed exercises to see if she can tolerate the pain. <BarbaraTisha Orozco - 12/20/18 10:02> Results - Labs Result diagrams: 12/20/18 04:13 12/20/18 04:13 <José Miguel Pierce - 12/20/18 22:55> Abnormal lab results 12/20/18 12/20/18 12/20/18 Range/Units 04:13 04:13 04:13 WBC 14.7 H (4.0-11.0) th/mm3 RBC 2.57 L (4.00-5.30) mil/mm3 Hgb 8.9 L (11.6-15.3) gm/dL Hct 27.0 L (35.0-46.0) % MCV 105.1 H (80.0-100.0) fL MCH 34.7 H (27.0-34.0) pg APTT 46.4 H (23.4-31.7) sec BUN 38 H (7-18) mg/dL Creatinine 7.14 H (0.50-1.00) mg/dL Estimated GFR 7 L (>89) mL/min Random Glucose 110 H (74-106) mg/dL Calcium 8.2 L (8.5-10.1) mg/dL AST 12 L (15-37) U/L Albumin 2.5 L (3.4-5.0) g/dL Short CBC 12/20/18 Range/Units 04:13 WBC 14.7 H (4.0-11.0) th/mm3 Hgb 8.9 L (11.6-15.3) gm/dL Hct 27.0 L (35.0-46.0) % Plt Count 159 (150-450) th/mm3 BMP 12/20/18 04:13 Sodium 137 Potassium 4.3 Chloride 100 Carbon Dioxide 28.9 BUN 38 H Creatinine 7.14 H Calcium 8.2 L Liver Function 12/20/18 Range/Units 04:13 Total Bilirubin 0.3 (0.2-1.0) mg/dL AST 12 L (15-37) U/L ALT 18 (10-53) U/L Alkaline Phosphatase 78 (45-117) U/L Albumin 2.5 L (3.4-5.0) g/dL <José Miguel Pierce - 12/20/18 22:55> Abnormal lab results 12/19/18 12/19/18 12/20/18 Range/Units 12:22 20:31 04:13 WBC 14.7 H (4.0-11.0) th/mm3 RBC 2.57 L (4.00-5.30) mil/mm3 Hgb 8.9 L (11.6-15.3) gm/dL Hct 27.0 L (35.0-46.0) % MCV 105.1 H (80.0-100.0) fL MCH 34.7 H (27.0-34.0) pg APTT 50.2 H 42.7 H (23.4-31.7) sec BUN (7-18) mg/dL Creatinine (0.50-1.00) mg/dL Estimated GFR (>89) mL/min Random Glucose (74-106) mg/dL Calcium (8.5-10.1) mg/dL AST (15-37) U/L Albumin (3.4-5.0) g/dL 12/20/18 12/20/18 Range/Units 04:13 04:13 WBC (4.0-11.0) th/mm3 RBC (4.00-5.30) mil/mm3 Hgb (11.6-15.3) gm/dL Hct (35.0-46.0) % MCV (80.0-100.0) fL MCH (27.0-34.0) pg APTT 46.4 H (23.4-31.7) sec BUN 38 H (7-18) mg/dL Creatinine 7.14 H (0.50-1.00) mg/dL Estimated GFR 7 L (>89) mL/min Random Glucose 110 H (74-106) mg/dL Calcium 8.2 L (8.5-10.1) mg/dL AST 12 L (15-37) U/L Albumin 2.5 L (3.4-5.0) g/dL Short CBC 12/20/18 Range/Units 04:13 WBC 14.7 H (4.0-11.0) th/mm3 Hgb 8.9 L (11.6-15.3) gm/dL Hct 27.0 L (35.0-46.0) % Plt Count 159 (150-450) th/mm3 BMP 12/20/18 04:13 Sodium 137 Potassium 4.3 Chloride 100 Carbon Dioxide 28.9 BUN 38 H Creatinine 7.14 H Calcium 8.2 L Liver Function 12/20/18 Range/Units 04:13 Total Bilirubin 0.3 (0.2-1.0) mg/dL AST 12 L (15-37) U/L ALT 18 (10-53) U/L Alkaline Phosphatase 78 (45-117) U/L Albumin 2.5 L (3.4-5.0) g/dL <Tisha Larios - 12/20/18 09:44> - Imaging Impressions Catheter Placement 12/19/18 00:00 CONCLUSION: 1. Uncomplicated line placement as above. 2. Sonographically, multiple collateral vessels are seen in the region of the right internal jugular suggesting a central high-grade stenosis/occlusion. The vein was not accessed, however. <Tisha Lraios - 12/20/18 09:44> Physical Exam Vital signs: Vital Signs 12/20/18 00:00 12/20/18 02:00 12/20/18 04:00 Temperature Pulse Rate 73 73 73 Respiratory Rate Blood Pressure Pulse Oximetry 12/20/18 06:00 12/20/18 08:00 12/20/18 10:00 Temperature 97.9 F Pulse Rate 73 60 60 Respiratory Rate 23 Blood Pressure 114/55 L Pulse Oximetry 96 12/20/18 10:15 12/20/18 10:30 12/20/18 10:45 Temperature Pulse Rate 63 65 67 Respiratory Rate 24 26 H 28 H Blood Pressure 145/66 H 150/72 H 155/75 H Pulse Oximetry 95 94 L 95 12/20/18 11:00 12/20/18 11:15 12/20/18 11:30 Temperature Pulse Rate 60 56 L 59 L Respiratory Rate 20 19 24 Blood Pressure 126/63 124/60 126/61 Pulse Oximetry 95 95 95 12/20/18 11:45 12/20/18 12:00 12/20/18 12:15 Temperature 98.4 F Pulse Rate 58 L 57 L 58 L Respiratory Rate 20 19 20 Blood Pressure 117/56 L 122/59 L 119/56 L Pulse Oximetry 94 L 95 96 12/20/18 12:30 12/20/18 13:00 12/20/18 13:30 Temperature Pulse Rate 62 72 62 Respiratory Rate 21 25 H 19 Blood Pressure 125/61 139/81 130/61 Pulse Oximetry 95 94 L 95 12/20/18 14:00 12/20/18 14:30 12/20/18 15:00 Temperature Pulse Rate 66 61 62 Respiratory Rate 20 25 H 21 Blood Pressure 131/68 127/64 124/63 Pulse Oximetry 92 L 95 94 L 12/20/18 15:30 12/20/18 16:00 12/20/18 16:30 Temperature Pulse Rate 63 55 L 54 L Respiratory Rate 21 19 22 Blood Pressure 121/63 107/55 L 104/56 L Pulse Oximetry 95 93 L 93 L 12/20/18 17:00 12/20/18 17:30 12/20/18 18:00 Temperature Pulse Rate 54 L 53 L 63 Respiratory Rate 23 18 24 Blood Pressure 103/51 L 101/54 L 137/65 Pulse Oximetry 92 L 92 L 93 L 12/20/18 18:30 12/20/18 19:00 12/20/18 19:30 Temperature Pulse Rate 60 62 61 Respiratory Rate 21 20 20 Blood Pressure 124/60 123/63 120/59 L Pulse Oximetry 94 L 95 94 L 12/20/18 20:00 12/20/18 21:57 12/20/18 22:00 Temperature 98.4 F Pulse Rate 65 63 Respiratory Rate 20 Blood Pressure 126/64 Pulse Oximetry 95 95 Intake & Output 12/20/18 12/20/18 12/21/18 06:59 18:59 06:59 Intake Total 340 / 340 1030 / 1030 100 / 100 Output Total 0 / 0 15 / 15 Balance 340 / 340 1015 / 1015 100 / 100 Weight 112.7 kg Intake: IV 100 / 100 550 / 550 100 / 100 Heparin/D5W 25,000 U/250 mL 25, 250 / 250 000 unit In 250 ml @ Per Protocol IV.CONT TITRATE PRN Rx #:[id number] Prostaphlin Inj 2 GM In NS Inj 100 / 100 300 / 300 100 / 100 100 ML @ 200 mls/hr IV.SIG Q6H [facility] Rx#:[id number] Oral 240 / 240 480 / 480 Output: Urine 0 / 0 0 / 0 Emesis Other: Post Void Residual 0 # Voids 0 Date of Last Bowel Movement 12/14/18 12/14/18 12/14/18 # Bowel Movements 0 0 # Emeses 1 <Kari,José Miguel - 12/20/18 22:55> Vital Signs 12/19/18 10:00 12/19/18 10:50 12/19/18 10:56 Temperature Pulse Rate 62 62 67 Respiratory Rate 20 Blood Pressure 114/57 L Pulse Oximetry 12/19/18 11:00 12/19/18 11:16 12/19/18 11:30 Temperature Pulse Rate 68 67 69 Respiratory Rate 24 18 22 Blood Pressure 119/58 L 128/64 Pulse Oximetry 93 L 12/19/18 11:45 12/19/18 12:00 12/19/18 12:15 Temperature Pulse Rate 66 78 72 Respiratory Rate 21 22 Blood Pressure 124/60 126/63 130/66 Pulse Oximetry 92 L 88 L 95 12/19/18 12:30 12/19/18 12:45 12/19/18 13:00 Temperature 98.2 F Pulse Rate 73 78 62 Respiratory Rate 20 25 H 19 Blood Pressure 122/63 125/63 106/55 L Pulse Oximetry 90 L 94 L 92 L 12/19/18 13:16 12/19/18 13:30 12/19/18 13:45 Temperature Pulse Rate 61 71 63 Respiratory Rate 20 21 21 Blood Pressure 113/56 L 111/57 L 104/56 L Pulse Oximetry 12/19/18 14:00 12/19/18 14:15 12/19/18 16:00 Temperature Pulse Rate 58 L 58 L 58 L Respiratory Rate 21 19 Blood Pressure 97/55 L 99/53 L Pulse Oximetry 86 L 12/19/18 17:50 12/19/18 18:00 12/19/18 20:00 Temperature Pulse Rate 58 L 73 Respiratory Rate 19 Blood Pressure Pulse Oximetry 100 93 L 12/19/18 22:00 12/20/18 00:00 12/20/18 02:00 Temperature Pulse Rate 73 73 73 Respiratory Rate Blood Pressure Pulse Oximetry 12/20/18 04:00 12/20/18 06:00 Temperature Pulse Rate 73 73 Respiratory Rate Blood Pressure Pulse Oximetry Intake & Output 12/19/18 12/20/18 12/20/18 18:59 06:59 18:59 Intake Total 960 / 960 340 / 340 200 / 200 Output Total 1999 0 / 0 Balance -1040 / -1040 340 / 340 200 / 200 Weight 112.7 kg Intake: IV 700 / 700 100 / 100 200 / 200 Heparin/D5W 25,000 U/250 mL 25, 250 / 250 000 unit In 250 ml @ Per Protocol IV.CONT TITRATE PRN Rx #:[id number] Prostaphlin Inj 2 GM In NS Inj 200 / 200 100 / 100 200 / 200 100 ML @ 200 mls/hr IV.SIG Q6H [facility] Rx#:[id number] Vancomycin Inj 1,000 MG In NS 250 / 250 Inj 250 ML @ 250 mls/hr IV.SIG WITH DIALYSIS [facility] Rx#:[id number] Oral 260 / 260 240 / 240 Output: Urine 0 / 0 Hemodialysis Amount 1999 Other: Post Void Residual 0 # Voids 0 Date of Last Bowel Movement 12/14/18 12/14/18 # Bowel Movements 0 <Tisha Larios - 12/20/18 09:44> Narrative: GENERAL: obese [place] female sitting up in bed, in no acute distress. Wearing NC. SKIN: Warm and dry. Left chest, bandage clean dry and intact. No surrounding erythema. Vascath in right chest, no swelling or surrounding erythema. CARDIOVASCULAR: regular rate and rhythm. RESPIRATORY: No increased work of breathing. Bilateral lung sepulveda clear to auscultation. NEUROLOGICAL: Awake and alert. <Tisha Larios - 12/20/18 10:02> Assessment and Plan - Assessment (1) Pulmonary embolism Code(s): I26.99 - Other pulmonary embolism without acute cor pulmonale Status : Acute (2) Sepsis Code(s): A41.9 - Sepsis, unspecified organism Status: Acute (3) Hypotension Code(s): I95.9 - Hypotension, unspecified Status: Acute (4) Seroma Status: Acute (5) End stage renal disease Code(s): N18.6 - End stage renal disease Status: Chronic (6) Right hip pain Code(s): M25.551 - Pain in right hip Status: Acute (7) Anemia Code(s): D64.9 - Anemia, unspecified Status: Chronic (8) Nutrition, metabolism, and development symptoms Code(s): R63.8 - Other symptoms and signs concerning food and fluid intake Status: Acute <José Miguel Pierce - 12/20/18 22:55> (1) Pulmonary embolism Code(s): I26.99 - Other pulmonary embolism without acute cor pulmonale Status : Acute Plan: -Continue heparin drip titrated per protocol and will transition to oral anticoagulant. Warfarin is likely the best option due to her extensive clotting hx. -Continue to monitor on telemetry -2D transthoracic echocardiogram with ejection fraction of 55% and a pulmonary artery pressure of 34. Right atrium not well visualized (thrombus found in this location on CTA) -Supplemental oxygen as needed to keep O2 saturation over 93% -Alternate albuterol and duo nebs breathing treatments -Hypercoagulable panel pending (2) Sepsis Code(s): A41.9 - Sepsis, unspecified organism Status: Acute Plan: Likely source of infection around PermCath site IV antibiotics: Vancomycin with dialysis (12/16-12/19) Oxacillin 2g q6h(12/17- ), will discuss duration of therapy with ID -Blood cultures positive for staph aureus x4, awaiting susceptibility -Repeat blood cultures pending (3) Hypotension Code(s): I95.9 - Hypotension, unspecified Status: Acute Plan: BPs in the 130s-150s/80s during exam this morning -Midodrine 10 mg daily -Continue to monitor, maintain maps greater than 65 (4) Seroma Status: Acute Plan: Chronic issue for this patient: CT abdomen pelvis shows 4.4 cm oblong density in the right inguinal region has Hounsfield measurements suggesting a fluid collection. As such, diagnostic considerations would include predominantly seroma or lymphocele. She states that she has a history of drainage of the seroma by Dr. Montgomery. She stated that he told her if it reoccurs that it will have to be surgically removed. She does not want this procedure to happen. (5) End stage renal disease Code(s): N18.6 - End stage renal disease Status: Chronic Plan: Patient is due for dialysis today, will get Vas-Cath placement so that she can receive her dialysis later this evening Nephrology following, current hemodialysis schedule is Wednesday/Wednesday/Wednesday -Monitor BMP (6) Right hip pain Code(s): M25.551 - Pain in right hip Status: Acute Plan: Patient with right hip pain since 3 days prior to admission MRI right femur shows greater trochanteric bursitis. Also some apparent tendinosis, strain, and/or reactive appearing edema of the distal gluteus minimus. Ortho consulted, appreciate recommendations -Conservative management -If continues or worsens, may benefit from a steroid injection of her trochanteric bursa. Continue to monitor (7) Anemia Code(s): D64.9 - Anemia, unspecified Status: Chronic Plan: Associated with chronic renal issues -Monitor and transfuse as needed (8) Nutrition, metabolism, and development symptoms Code(s): R63.8 - Other symptoms and signs concerning food and fluid intake Status: Acute Plan: Fluids: tolerating PO Electrolytes: monitor and replete as needed Nutrition: renal diet DVT Prophylaxis: Patient currently on a heparin drip GI Prophylaxis: None indicated at this time <Tisha Larios - 12/20/18 17:06> - Attending Attestation Patient case discussed with resident physicians I have independently examined the patient I have read the above note and agree with the assessment and plan as discussed with me I was involved in all medical decision making for this patient José Miguel Pierce MD <José Miguel Pierce - 12/20/18 22:55> <Tisha Larios - Last Filed: 12/20/18 17:06> (1) Pulmonary embolism Qualifiers: Pulmonary embolism type: unspecified Chronicity: acute Acute cor pulmonale presence: without acute cor pulmonale Qualified Code(s): I26.99 - Other pulmonary embolism without acute cor pulmonale (7) Anemia Qualifiers: Anemia type: unspecified type Qualified Code(s): D64.9 - Anemia, unspecified <José Miguel Pierce - Last Filed: 12/20/18 22:55> (1) Pulmonary embolism Qualifiers: Pulmonary embolism type: unspecified Chronicity: acute Acute cor pulmonale presence: without acute cor pulmonale Qualified Code(s): I26.99 - Other pulmonary embolism without acute cor pulmonale (7) Anemia Qualifiers: Anemia type: unspecified type Qualified Code(s): D64.9 - Anemia, unspecified <Tisha Larios G - Last Filed: 12/20/18 17:06> (1) Pulmonary embolism Qualifiers: Pulmonary embolism type: unspecified Chronicity: acute Acute cor pulmonale presence: without acute cor pulmonale Qualified Code(s): I26.99 - Other pulmonary embolism without acute cor pulmonale (7) Anemia Qualifiers: Anemia type: unspecified type Qualified Code(s): D64.9 - Anemia, unspecified <José Miguel Pierce - Last Filed: 12/20/18 22:55> (1) Pulmonary embolism Qualifiers: Pulmonary embolism type: unspecified Chronicity: acute Acute cor pulmonale presence: without acute cor pulmonale Qualified Code(s): I26.99 - Other pulmonary embolism without acute cor pulmonale (7) Anemia Qualifiers: Anemia type: unspecified type Qualified Code(s): D64.9 - Anemia, unspecified
--- NOTE | 2018-12-20 10:26 | P.PNNP ---
Subjective Interval history: Patient was seen, no distress, states she is feeling better today. Patient dialyzed yesterday, 2 L removed. Patient gets dialysis MWF. VasCath placed yesterday for dialysis. <Shelia Mendez - Last Filed: 12/20/18 10:17> Physical Exam Vital signs: Vital Signs 12/19/18 10:50 12/19/18 10:56 12/19/18 11:00 Temperature Pulse Rate 62 67 68 Respiratory Rate 20 24 Blood Pressure 114/57 L Pulse Oximetry 93 L 12/19/18 11:16 12/19/18 11:30 12/19/18 11:45 Temperature Pulse Rate 67 69 66 Respiratory Rate 18 22 21 Blood Pressure 119/58 L 128/64 124/60 Pulse Oximetry 92 L 12/19/18 12:00 12/19/18 12:15 12/19/18 12:30 Temperature Pulse Rate 78 72 73 Respiratory Rate 22 22 20 Blood Pressure 126/63 130/66 122/63 Pulse Oximetry 88 L 95 90 L 12/19/18 12:45 12/19/18 13:00 12/19/18 13:16 Temperature 98.2 F Pulse Rate 78 62 61 Respiratory Rate 25 H 19 20 Blood Pressure 125/63 106/55 L 113/56 L Pulse Oximetry 94 L 92 L 12/19/18 13:30 12/19/18 13:45 12/19/18 14:00 Temperature Pulse Rate 71 63 58 L Respiratory Rate 21 21 21 Blood Pressure 111/57 L 104/56 L 97/55 L Pulse Oximetry 86 L 12/19/18 14:15 12/19/18 16:00 12/19/18 17:50 Temperature Pulse Rate 58 L 58 L Respiratory Rate 19 Blood Pressure 99/53 L Pulse Oximetry 100 12/19/18 18:00 12/19/18 20:00 12/19/18 22:00 Temperature Pulse Rate 58 L 73 73 Respiratory Rate 19 Blood Pressure Pulse Oximetry 93 L 12/20/18 00:00 12/20/18 02:00 12/20/18 04:00 Temperature Pulse Rate 73 73 73 Respiratory Rate Blood Pressure Pulse Oximetry 12/20/18 06:00 Temperature Pulse Rate 73 Respiratory Rate Blood Pressure Pulse Oximetry Intake & Output 12/19/18 12/20/18 12/20/18 18:59 06:59 18:59 Intake Total 960 / 960 340 / 340 200 / 200 Output Total 1999 0 / 0 Balance -1040 / -1040 340 / 340 200 / 200 Weight 112.7 kg Intake: IV 700 / 700 100 / 100 200 / 200 Heparin/D5W 25,000 U/250 mL 25, 250 / 250 000 unit In 250 ml @ Per Protocol IV.CONT TITRATE PRN Rx #:[id number] Prostaphlin Inj 2 GM In NS Inj 200 / 200 100 / 100 200 / 200 100 ML @ 200 mls/hr IV.SIG Q6H [facility] Rx#:[id number] Vancomycin Inj 1,000 MG In NS 250 / 250 Inj 250 ML @ 250 mls/hr IV.SIG WITH DIALYSIS [facility] Rx#:[id number] Oral 260 / 260 240 / 240 Output: Urine 0 / 0 Hemodialysis Amount 1999 Other: Post Void Residual 0 # Voids 0 Date of Last Bowel Movement 12/14/18 12/14/18 # Bowel Movements 0 - Constitutional no acute distress - Routine HEENT Exam Head: Present: normocephalic Eye: Present: EOMI ENT: Present: mucous membranes moist - Routine Neck Exam Present: trachea midline. Absent: tracheal deviation - Routine Respiratory Exam Present: CTA bilaterally. Absent: accessory muscle use, respiratory distress Comments: On nasal cannula. - Routine Cardiovascular Exam Present: S1, S2 - Routine Abdominal Exam Present: soft, normoactive bowel sounds. Absent: tenderness - Routine Extremities Exam Present: AV fistula, vascular access. Absent: edema - Routine Skin Exam Present: intact - Routine Neurological Exam Present: alert, oriented X3 - Routine Psychiatric Exam Present: normal affect <Shelia Mendez - Last Filed: 12/20/18 10:17> Vital signs: Vital Signs 12/19/18 11:16 12/19/18 11:30 12/19/18 11:45 Temperature Pulse Rate 67 69 66 Respiratory Rate 18 22 21 Blood Pressure 119/58 L 128/64 124/60 Pulse Oximetry 92 L 12/19/18 12:00 12/19/18 12:15 12/19/18 12:30 Temperature Pulse Rate 78 72 73 Respiratory Rate 22 22 20 Blood Pressure 126/63 130/66 122/63 Pulse Oximetry 88 L 95 90 L 12/19/18 12:45 12/19/18 13:00 12/19/18 13:16 Temperature 98.2 F Pulse Rate 78 62 61 Respiratory Rate 25 H 19 20 Blood Pressure 125/63 106/55 L 113/56 L Pulse Oximetry 94 L 92 L 12/19/18 13:30 12/19/18 13:45 12/19/18 14:00 Temperature Pulse Rate 71 63 58 L Respiratory Rate Blood Pressure 111/57 L 104/56 L 97/55 L Pulse Oximetry 86 L 12/19/18 14:15 12/19/18 16:00 12/19/18 17:50 Temperature Pulse Rate 58 L 58 L Respiratory Rate 19 Blood Pressure 99/53 L Pulse Oximetry 100 12/19/18 18:00 12/19/18 20:00 12/19/18 22:00 Temperature Pulse Rate 58 L 73 73 Respiratory Rate 19 Blood Pressure Pulse Oximetry 93 L 12/20/18 00:00 12/20/18 02:00 12/20/18 04:00 Temperature Pulse Rate 73 73 73 Respiratory Rate Blood Pressure Pulse Oximetry 12/20/18 06:00 12/20/18 08:00 12/20/18 10:00 Temperature Pulse Rate 73 60 60 Respiratory Rate Blood Pressure Pulse Oximetry 94 L Intake & Output 12/19/18 12/20/18 12/20/18 18:59 06:59 18:59 Intake Total 960 / 960 340 / 340 200 / 200 Output Total 1999 0 / 0 Balance -1040 / -1040 340 / 340 200 / 200 Weight 112.7 kg Intake: IV 700 / 700 100 / 100 200 / 200 Heparin/D5W 25,000 U/250 mL 25, 250 / 250 000 unit In 250 ml @ Per Protocol IV.CONT TITRATE PRN Rx #:[id number] Prostaphlin Inj 2 GM In NS Inj 200 / 200 100 / 100 200 / 200 100 ML @ 200 mls/hr IV.SIG Q6H [facility] Rx#:[id number] Vancomycin Inj 1,000 MG In NS 250 / 250 Inj 250 ML @ 250 mls/hr IV.SIG WITH DIALYSIS [facility] Rx#:[id number] Oral 260 / 260 240 / 240 Output: Urine 0 / 0 Hemodialysis Amount 1999 Other: Post Void Residual 0 # Voids 0 Date of Last Bowel Movement 12/14/18 12/14/18 12/14/18 # Bowel Movements 0 <Hoskote,Devante - Last Filed: 12/20/18 11:12> Assessment and Plan - Assessment (1) End stage renal disease Code(s): N18.6 - End stage renal disease Status: Chronic Plan: Patient dialyzed yesterday, 2 L removed. Patient gets dialysis MWF. VasCath placed yesterday for dialysis. Avoid nephrotoxic agents. Monitor fluid and electrolytes. (2) Anemia Code(s): D64.9 - Anemia, unspecified Status: Chronic Qualifiers: Anemia type: unspecified type Qualified Code(s): D64.9 - Anemia, unspecified Plan: Epogen with dialysis. (3) Hypertension Code(s): I10 - Essential (primary) hypertension Status: Chronic Plan: No need for antihypertensive. BP is low. Remains on Midodrine. (4) Sepsis Code(s): A41.9 - Sepsis, unspecified organism Status: Acute Plan: Antibiotics per ID. On Oxacillin and Vancomycin. (5) Metabolic bone disease Code(s): E88.9 - Metabolic disorder, unspecified; M90.80 - Osteopathy in diseases classified elsewhere, unspecified site Status: Acute Plan: Monitor phosphorus intermittently. On Sevelamer and Sensipar. (6) Pulmonary embolism Code(s): I26.99 - Other pulmonary embolism without acute cor pulmonale Status : Acute Qualifiers: Pulmonary embolism type: unspecified Chronicity: acute Acute cor pulmonale presence: without acute cor pulmonale Qualified Code(s): I26.99 - Other pulmonary embolism without acute cor pulmonale Plan: CTA was positive for PE. On heparin drip. (7) Right hip pain Code(s): M25.551 - Pain in right hip Status: Acute Plan: Scan showed greater trochanteric bursitis. Ortho was consulted. They recommended conservative treatment and if the pain continues or worsens, steroid injection of her trochanteric bursa. <Shelia Mendez - Last Filed: 12/20/18 10:17> - Assessment (1) End stage renal disease Code(s): N18.6 - End stage renal disease Status: Chronic (2) Anemia Code(s): D64.9 - Anemia, unspecified Status: Chronic Qualifiers: Anemia type: unspecified type Qualified Code(s): D64.9 - Anemia, unspecified (3) Hypertension Code(s): I10 - Essential (primary) hypertension Status: Chronic (4) Sepsis Code(s): A41.9 - Sepsis, unspecified organism Status: Acute (5) Metabolic bone disease Code(s): E88.9 - Metabolic disorder, unspecified; M90.80 - Osteopathy in diseases classified elsewhere, unspecified site Status: Acute (6) Pulmonary embolism Code(s): I26.99 - Other pulmonary embolism without acute cor pulmonale Status : Acute Qualifiers: Pulmonary embolism type: unspecified Chronicity: acute Acute cor pulmonale presence: without acute cor pulmonale Qualified Code(s): I26.99 - Other pulmonary embolism without acute cor pulmonale (7) Right hip pain Code(s): M25.551 - Pain in right hip Status: Acute - Attending Attestation Patient was seen and examined. Agree with above assessment and plan. Once a new PermCath is placed, patient can be switched to Apixaban. She is growing MSSA. Now on Oxacillin. Vancomycin has been discontinued. <Devante Alejandre - Last Filed: 12/20/18 11:12>
[2018-12-20] MEDS: Heparin Drip 25,000 UNIT/250 ML BAG IV.CONT PRN (13:57)
--- NOTE | 2018-12-20 18:24 | P.PNID ---
Subjective Remarks: another + blood clx from yday, ID /S P pt co severe R thigh/hip pain pt was evaluated by ortho - input appreciated MR did not showe any acute pathology no fever has R sided Vascath Permacath was removed confirmed MSSA Antibiotics: oxacillin Allergies/Adverse Reactions: Allergies cephalexin Allergy (Severe, Verified 12/16/18 08:35) Hives onion Allergy (Severe, Verified 12/16/18 08:35) Gastrointestinal Upset Sulfa (Sulfonamide Antibiotics) Adverse Reaction (Intermediate, Verified 08:35) Nausea/Vomiting Objective Vital Signs 12/19/18 20:00 12/19/18 22:00 12/20/18 00:00 Temperature Pulse Rate 73 73 73 Respiratory Rate 19 Blood Pressure Pulse Oximetry 93 L 12/20/18 02:00 12/20/18 04:00 12/20/18 06:00 Temperature Pulse Rate 73 73 73 Respiratory Rate Blood Pressure Pulse Oximetry 12/20/18 08:00 12/20/18 10:00 12/20/18 12:00 Temperature 97.9 F 98.4 F Pulse Rate 60 60 57 L Respiratory Rate 23 19 Blood Pressure 114/55 L 122/59 L Pulse Oximetry 96 95 12/20/18 14:00 12/20/18 16:00 Temperature Pulse Rate 66 55 L Respiratory Rate 19 Blood Pressure 107/55 L Pulse Oximetry 93 L Intake & Output 12/19/18 12/20/18 12/20/18 18:59 06:59 18:59 Intake Total 960 / 960 340 / 340 550 / 550 Output Total 1999 0 / 0 Balance -1040 / -1040 340 / 340 550 / 550 Weight 112.7 kg Intake: IV 700 / 700 100 / 100 550 / 550 Heparin/D5W 25,000 U/250 mL 25, 250 / 250 250 / 250 000 unit In 250 ml @ Per Protocol IV.CONT TITRATE PRN Rx #:[id number] Prostaphlin Inj 2 GM In NS Inj 200 / 200 100 / 100 300 / 300 100 ML @ 200 mls/hr IV.SIG Q6H MARISSA Rx#:[id number] Vancomycin Inj 1,000 MG In NS 250 / 250 Inj 250 ML @ 250 mls/hr IV.SIG WITH DIALYSIS MARISSA Rx#:[id number] Oral 260 / 260 240 / 240 Output: Urine 0 / 0 Hemodialysis Amount 1999 Other: Post Void Residual 0 # Voids 0 Date of Last Bowel Movement 12/14/18 12/14/18 12/14/18 # Bowel Movements 0 12/19/18 11:45 Blood - Peripheral Aerobic Blood Culture - Preliminary gram positive cocci 12/19/18 11:45 Blood - Peripheral Anaerobic Blood Culture - Preliminary No growth in 1 day 12/18/18 13:15 Catheter Tip - Subclavian Wound Culture - Final Staphylococcus aureus 12/19/18 11:39 Blood - Peripheral Aerobic Blood Culture - Preliminary No growth in 1 day 12/19/18 11:39 Blood - Peripheral Anaerobic Blood Culture - Preliminary No growth in 1 day 12/16/18 15:00 Blood - Peripheral Aerobic Blood Culture - Final Staphylococcus aureus 12/16/18 15:00 Blood - Peripheral Anaerobic Blood Culture - Final Staphylococcus aureus 12/16/18 15:00 Blood - Peripheral Aerobic Blood Culture - Final Staphylococcus aureus 12/16/18 15:00 Blood - Peripheral Anaerobic Blood Culture - Final Staphylococcus aureus Lab - Hematology Results 12/19/18 12/20/18 00:25 04:13 WBC 14.0 H 14.7 H RBC 2.61 L 2.57 L Hgb 9.0 L 8.9 L Hct 27.2 L 27.0 L MCV 104.4 H D 105.1 H MCH 34.7 H 34.7 H MCHC 33.2 33.0 RDW 14.7 14.7 Plt Count 126 L 159 MPV 9.3 9.1 Lab - Chemistry Results 12/19/18 12/20/18 00:25 04:13 Sodium 133 L 137 Potassium 4.5 4.3 Chloride 101 100 Carbon Dioxide 23.4 28.9 Anion Gap 9 8 BUN 61 H 38 H Creatinine 10.18 H* 7.14 H Estimated GFR 5 L 7 L Random Glucose 104 110 H Calcium 8.0 L 8.2 L Total Bilirubin 0.3 AST 12 L ALT 18 Alkaline Phosphatase 78 Total Protein 6.5 Albumin 2.5 L Imaging: ITS Impressions Abdomen/Pelvis CT 12/16/18 08:45 CONCLUSION: 1. I do not see an acute intraperitoneal or pelvic process to explain current clinical symptoms. 2. Patient is status post cholecystectomy and hysterectomy. Surgical clips from a cholecystectomy extending up into the left hepatic lobe near the falciform ligament. 3. 4.4 cm oblong density in the right inguinal region has Hounsfield measurements suggesting a fluid collection. As such, diagnostic considerations would include predominantly seroma or lymphocele. Ultrasound could be performed for confirmation. No adenopathy. 4. Small, 1 cm umbilical hernia only contains fat. Hip CT 12/16/18 08:45 CONCLUSION: 1. Probable 4.4 cm oblong seroma or lymphocele in the right inguinal region. 2. Mild osteoarthritic changes in both hips. No fracture. Chest CTA 12/17/18 00:00 CONCLUSION: 1. Small pulmonary emboli of the posterior basilar branches of the left lower lobe. 2. Thrombus adhering to the distal left subclavian central venous catheter. 3. Thrombus within the right atrium. 4. Posterior left lower lung atelectasis. 5. Mildly prominent ascending thoracic aorta measuring 4.5 cm in diameter. Venous Doppler Study 12/17/18 00:00 CONCLUSION: 1. No venous thrombosis of either lower extremity. 2. Right inguinal fluid collection most consistent with seroma/chronic hematoma. Femur MRI 12/18/18 00:00 CONCLUSION: 1. No acute bone or joint abnormality. 2. There is greater trochanteric bursitis. Also some apparent tendinosis, strain and/or reactive appearing edema of distal gluteus minimus. No well- defined/measurable muscle/tendon tear. 3. Chronic multiloculated benign appearing fluid collection in the right inguinal region is also a chronic Bartholin's gland cyst. Please see above. Catheter Placement 12/19/18 00:00 CONCLUSION: 1. Uncomplicated line placement as above. 2. Sonographically, multiple collateral vessels are seen in the region of the right internal jugular suggesting a central high-grade stenosis/occlusion. The vein was not accessed, however. Physical Exam: GENERAL: NAD morbid obesity SKIN: Warm and dry. EYES: Pupils equal and round. No scleral icterus. No injection or drainage. ENT: No nasal bleeding or discharge. Mucous membranes pink and moist. CARDIOVASCULAR: Regular rate and rhythm. RESPIRATORY: No accessory muscle use. Clear to auscultation. Breath sounds equal bilaterally. GASTROINTESTINAL: Abdomen soft, non-tender, nondistended. Hepatic and splenic margins not palpable. MUSCULOSKELETAL: Extremities without clubbing, cyanosis, or edema. No obvious deformities. NEUROLOGICAL: Awake and alert. No obvious cranial nerve deficits. Motor grossly within normal limits. Five out of 5 muscle strength in the arms and legs. Normal speech. PSYCHIATRIC: calm, coopertive LINEs: R IJ vascath in place LUE AV graft no tenderness, no edenma, no erythema Assessment and Plan - Plan ESRD, on HD HIgh grade MSSA bacteremia 2 D echo negative permacath removed New + blood clx Source is likley vascular denvice Permacath AV graft Severe R thigh pain Fluid collection on Ct pelvis - not appear infected. Dw radiologist cephalosporin allergy but tolerates OK zosyn cont oxacillin fu + BC will repeat clx if + will consider WBC scan to eval AV graft and OMID
[2018-12-21] MEDS: Chlorhexidine Gluconate 2% 1 Pack (2 Cloths) TOPICAL SCH (03:06)
[2018-12-21] MEDS: Heparin Drip 25,000 UNIT/250 ML BAG IV.CONT PRN ×2 (05:41→21:28)
[2018-12-21 07:45] LABS: Hematocrit 27.2 % (35.0-46.0); Hemoglobin 9.1 gm/dL (11.6-15.3); Mean Corpuscular HGB Conc 33.5 % (32.0-36.0); Mean Corpuscular Volume 104.3 fL (80.0-100.0); Mean Platelet Volume 8.9 fL (7.0-11.0); Platelet Count 221 th/mm3 (150-450); Red Blood Count 2.61 mil/mm3 (4.00-5.30); Red Cell Distribution Width 15.1 % (11.6-17.2); White Blood Count 13.8 th/mm3 (4.0-11.0)
[2018-12-21] MEDS: Vitamin B Complex/Vit C/Folic Tablet PO SCH (08:04)
[2018-12-21] MEDS: Mupirocin 2% Nasal Oint Topical Syringe EACH NARE SCH ×2 (08:04→21:15)
[2018-12-21] MEDS: Senna/Docusate Sodium 8.6/50 MG Tablet PO SCH ×2 (08:04→21:16)
[2018-12-21 08:13] LABS: Alanine Aminotransferase 17 U/L (10-53); Albumin 2.4 g/dL (3.4-5.0); Alkaline Phosphatase 103 U/L (45-117); Anion Gap 11 meq/L (5-15); Aspartate Aminotransferase 18 U/L (15-37); Blood Urea Nitrogen 49 mg/dL (7-18); Calcium 8.6 mg/dL (8.5-10.1); Carbon Dioxide 28.3 meq/L (21.0-32.0); Chloride 96 meq/L (98-107); Glomerular Filtration Rate 6 mL/min (>89); Glucose,Random 93 mg/dL (74-106); Potassium 4.2 meq/L (3.5-5.1); Sodium 135 meq/L (136-145); Total Protein 6.7 g/dL (6.4-8.2)
--- NOTE | 2018-12-21 09:14 | IR ---
EXAM DATE: 12/18/2018 1:30 PM EST AGE/SEX: 53 years / Female INDICATIONS: Patient with a history of positive blood cultures. CLINICAL DATA: This is the patient's subsequent encounter. Patient reports that signs and symptoms h ave been present for 1 day and indicates a pain score of 6/10. MEDICAL/SURGICAL HISTORY: . ESRD HTN . AV Fistula COMPARISON: . FLUORO TIME (min): 0 IMAGE SERIES: ACCESS SITE: Left Permcath . . PROCEDURE: 1. PermaCath removal. The risks, benefits and alternatives to the procedure were explained and verbal and written consent w as obtained. The site was prepped in sterile fashion. Full sterile technique was used, including ca p, mask, sterile gloves and gown and a large sterile sheet. Hand hygiene and 2% chlorhexidine and/or betadine/alcohol prep was utilized per protocol for cutaneous antisepsis. The skin and subcutaneous tissues were infiltrated with local anesthetic solution. The tract was anesthetized with 1% Lidocaine using. The Permcath was dissected from the subcutaneous tissues and easily removed in one piece. Manual pressure was applied to the venotomy site until hem ostasis was obtained. Sterile dressing was applied. The patient tolerated the procedure well and there were no complications. CONCLUSION: 1. Uncomplicated Permcath removal. Electronically signed by: Ar Morris MD Board Certified Radiologist 12/21/2018 9:12 AM EST
--- NOTE | 2018-12-21 10:43 | P.PNFP ---
Subjective Interval history: Patient seen and examined this morning. She states that she is doing well. She worked with PT and has gotten out of the bed to do exercises. She is able to tolerate this by taking pain medication before hand. She feels that her breathing has improved. No chest pain, no fever/chills. She vomited once yesterday after eating a big breakfast. She states that she will try to take it slower today with her eating by having light meals. <Barbara HarveyTisha - 12/21/18 10:42> Results - Labs Result diagrams: 12/21/18 06:05 12/21/18 06:05 <José Miguel Pierce - 12/21/18 21:51> Abnormal lab results 12/17/18 12/21/18 12/21/18 Range/Units 12:00 06:05 06:05 WBC 13.8 H (4.0-11.0) th/mm3 RBC 2.61 L (4.00-5.30) mil/mm3 Hgb 9.1 L (11.6-15.3) gm/dL Hct 27.2 L (35.0-46.0) % MCV 104.3 H (80.0-100.0) fL MCH 35.0 H (27.0-34.0) pg APTT 64.6 H D (23.4-31.7) sec Thrombin Time Greater than 100 H (13-19) sec LA PTT Screen Greater than 200 H (< OR = 40) seconds dRVVT Screen Greater than 200 H (< OR = 45) seconds LA dRVVT Confirm Positive A (NEGATIVE) Hexagonal Phase Confirm Positive A (NEGATIVE) Sodium (136-145) meq/L Chloride (98-107) meq/L BUN (7-18) mg/dL Creatinine (0.50-1.00) mg/dL Estimated GFR (>89) mL/min Albumin (3.4-5.0) g/dL 12/21/18 Range/Units 06:05 WBC (4.0-11.0) th/mm3 RBC (4.00-5.30) mil/mm3 Hgb (11.6-15.3) gm/dL Hct (35.0-46.0) % MCV (80.0-100.0) fL MCH (27.0-34.0) pg APTT (23.4-31.7) sec Thrombin Time (13-19) sec LA PTT Screen (< OR = 40) seconds dRVVT Screen (< OR = 45) seconds LA dRVVT Confirm (NEGATIVE) Hexagonal Phase Confirm (NEGATIVE) Sodium 135 L (136-145) meq/L Chloride 96 L (98-107) meq/L BUN 49 H (7-18) mg/dL Creatinine 8.82 H (0.50-1.00) mg/dL Estimated GFR 6 L (>89) mL/min Albumin 2.4 L (3.4-5.0) g/dL Short CBC 12/21/18 Range/Units 06:05 WBC 13.8 H (4.0-11.0) th/mm3 Hgb 9.1 L (11.6-15.3) gm/dL Hct 27.2 L (35.0-46.0) % Plt Count 221 D (150-450) th/mm3 BMP 12/21/18 06:05 Sodium 135 L Potassium 4.2 Chloride 96 L Carbon Dioxide 28.3 BUN 49 H Creatinine 8.82 H Calcium 8.6 Liver Function 12/21/18 Range/Units 06:05 Total Bilirubin 0.3 (0.2-1.0) mg/dL AST 18 (15-37) U/L ALT 17 (10-53) U/L Alkaline Phosphatase 103 (45-117) U/L Albumin 2.4 L (3.4-5.0) g/dL <José Miguel Pierce - 12/21/18 21:51> Abnormal lab results 12/21/18 12/21/18 12/21/18 Range/Units 06:05 06:05 06:05 WBC 13.8 H (4.0-11.0) th/mm3 RBC 2.61 L (4.00-5.30) mil/mm3 Hgb 9.1 L (11.6-15.3) gm/dL Hct 27.2 L (35.0-46.0) % MCV 104.3 H (80.0-100.0) fL MCH 35.0 H (27.0-34.0) pg APTT 64.6 H D (23.4-31.7) sec Sodium 135 L (136-145) meq/L Chloride 96 L (98-107) meq/L BUN 49 H (7-18) mg/dL Creatinine 8.82 H (0.50-1.00) mg/dL Estimated GFR 6 L (>89) mL/min Albumin 2.4 L (3.4-5.0) g/dL Short CBC 12/21/18 Range/Units 06:05 WBC 13.8 H (4.0-11.0) th/mm3 Hgb 9.1 L (11.6-15.3) gm/dL Hct 27.2 L (35.0-46.0) % Plt Count 221 D (150-450) th/mm3 BMP 12/21/18 06:05 Sodium 135 L Potassium 4.2 Chloride 96 L Carbon Dioxide 28.3 BUN 49 H Creatinine 8.82 H Calcium 8.6 Liver Function 12/21/18 Range/Units 06:05 Total Bilirubin 0.3 (0.2-1.0) mg/dL AST 18 (15-37) U/L ALT 17 (10-53) U/L Alkaline Phosphatase 103 (45-117) U/L Albumin 2.4 L (3.4-5.0) g/dL <Tisha Larios - 12/21/18 10:42> - Imaging Impressions Tube Removal 12/18/18 00:00 CONCLUSION: 1. Uncomplicated Permcath removal. <José Miguel Pierce - 12/21/18 21:51> Impressions Tube Removal 12/18/18 00:00 CONCLUSION: 1. Uncomplicated Permcath removal. <Tisha Larios - 12/21/18 10:42> Physical Exam Vital signs: Vital Signs 12/20/18 21:57 12/20/18 22:00 12/20/18 23:00 Temperature Pulse Rate 63 56 L Respiratory Rate 22 19 Blood Pressure 122/60 111/57 L Pulse Oximetry 95 94 L 94 L 12/21/18 00:00 12/21/18 01:00 12/21/18 02:00 Temperature 98.6 F Pulse Rate 59 L 66 68 Respiratory Rate 20 27 H 23 Blood Pressure 118/63 125/64 Pulse Oximetry 79 L 91 L 91 L 12/21/18 03:00 12/21/18 04:00 12/21/18 06:00 Temperature 98.2 F Pulse Rate 72 62 60 Respiratory Rate 30 H 23 Blood Pressure 115/64 Pulse Oximetry 92 L 92 L 12/21/18 08:00 12/21/18 10:00 12/21/18 12:00 Temperature 98 F 97.9 F Pulse Rate 54 L 66 70 Respiratory Rate 19 23 Blood Pressure 109/58 L 140/78 Pulse Oximetry 95 94 L 12/21/18 13:26 12/21/18 16:00 12/21/18 19:35 Temperature 97.3 F L 98.5 F 97.9 F Pulse Rate 77 69 78 Respiratory Rate 20 20 18 Blood Pressure 127/73 120/61 130/67 Pulse Oximetry 94 L 98 97 Intake & Output 12/21/18 12/21/18 12/22/18 06:59 18:59 06:59 Intake Total 930 / 930 200 / 200 250 / 250 Output Total 1999 Balance 930 / 930 -1800 / -1800 250 / 250 Weight 112.6 kg Intake: IV 450 / 450 200 / 200 250 / 250 Heparin/D5W 25,000 U/250 mL 25, 250 / 250 250 / 250 000 unit In 250 ml @ Per Protocol IV.CONT TITRATE PRN Rx #:[id number] Prostaphlin Inj 2 GM In NS Inj 200 / 200 200 / 200 100 ML @ 200 mls/hr IV.SIG Q6H MARISSA Rx#:[id number] Oral 480 / 480 Output: Hemodialysis Amount 1999 Other: Date of Last Bowel Movement 12/21/18 12/21/18 # Bowel Movements 1 <José Miguel Pierce - 12/21/18 21:51> Vital Signs 12/20/18 10:45 12/20/18 11:00 12/20/18 11:15 Temperature Pulse Rate 67 60 56 L Respiratory Rate 28 H 20 19 Blood Pressure 155/75 H 126/63 124/60 Pulse Oximetry 95 95 95 12/20/18 11:30 12/20/18 11:45 12/20/18 12:00 Temperature 98.4 F Pulse Rate 59 L 58 L 57 L Respiratory Rate 24 20 19 Blood Pressure 126/61 117/56 L 122/59 L Pulse Oximetry 95 94 L 95 12/20/18 12:15 12/20/18 12:30 12/20/18 13:00 Temperature Pulse Rate 58 L 62 72 Respiratory Rate 20 21 25 H Blood Pressure 119/56 L 125/61 139/81 Pulse Oximetry 96 95 94 L 12/20/18 13:30 12/20/18 14:00 12/20/18 14:30 Temperature Pulse Rate 62 66 61 Respiratory Rate 19 20 25 H Blood Pressure 130/61 131/68 127/64 Pulse Oximetry 95 92 L 95 12/20/18 15:00 12/20/18 15:30 12/20/18 16:00 Temperature Pulse Rate 62 63 55 L Respiratory Rate 21 21 19 Blood Pressure 124/63 121/63 107/55 L Pulse Oximetry 94 L 95 93 L 12/20/18 16:30 12/20/18 17:00 12/20/18 17:30 Temperature Pulse Rate 54 L 54 L 53 L Respiratory Rate 22 23 18 Blood Pressure 104/56 L 103/51 L 101/54 L Pulse Oximetry 93 L 92 L 92 L 12/20/18 18:00 12/20/18 18:30 12/20/18 19:00 Temperature Pulse Rate 63 60 62 Respiratory Rate 24 21 20 Blood Pressure 137/65 124/60 123/63 Pulse Oximetry 93 L 94 L 95 12/20/18 19:30 12/20/18 20:00 12/20/18 21:00 Temperature 98.4 F Pulse Rate 61 65 69 Respiratory Rate 20 20 19 Blood Pressure 120/59 L 126/64 128/67 Pulse Oximetry 94 L 95 94 L 12/20/18 21:57 12/20/18 22:00 12/20/18 23:00 Temperature Pulse Rate 63 56 L Respiratory Rate 22 19 Blood Pressure 122/60 111/57 L Pulse Oximetry 95 94 L 94 L 12/21/18 00:00 12/21/18 01:00 12/21/18 02:00 Temperature 98.6 F Pulse Rate 59 L 66 68 Respiratory Rate 20 27 H 23 Blood Pressure 118/63 125/64 Pulse Oximetry 79 L 91 L 91 L 12/21/18 03:00 12/21/18 04:00 12/21/18 06:00 Temperature 98.2 F Pulse Rate 72 62 60 Respiratory Rate 30 H 23 Blood Pressure 115/64 Pulse Oximetry 92 L 92 L 12/21/18 08:00 12/21/18 10:00 Temperature 98 F Pulse Rate 54 L 66 Respiratory Rate 19 Blood Pressure 109/58 L Pulse Oximetry 95 Intake & Output 12/20/18 12/21/18 12/21/18 18:59 06:59 18:59 Intake Total 1030 / 1030 930 / 930 100 / 100 Output Total Balance 1015 / 1015 930 / 930 100 / 100 Weight 112.6 kg Intake: IV 550 / 550 450 / 450 100 / 100 Heparin/D5W 25,000 U/250 mL 25, 250 / 250 250 / 250 000 unit In 250 ml @ Per Protocol IV.CONT TITRATE PRN Rx #:[id number] Prostaphlin Inj 2 GM In NS Inj 300 / 300 200 / 200 100 / 100 100 ML @ 200 mls/hr IV.SIG Q6H MARISSA Rx#:[id number] Oral 480 / 480 480 / 480 Output: Urine 0 / 0 Emesis Other: Date of Last Bowel Movement 12/14/18 12/21/18 12/21/18 # Bowel Movements 0 1 # Emeses 1 <Tisha Larios - 12/21/18 10:42> Narrative: GENERAL: obese Afro-[place] female sitting up in bed, in no acute distress. Wearing NC 2.5L. Receiving hemodialysis. SKIN: Warm and dry. Left chest, bandage clean dry and intact. No surrounding erythema. Vascath in right chest, no swelling or surrounding erythema. An ice pack is draped over the Vas-Cath. CARDIOVASCULAR: regular rate and rhythm. RESPIRATORY: No increased work of breathing. Bilateral lung sepulveda clear to auscultation. NEUROLOGICAL: Awake and alert. <Tisha Larios - 12/21/18 10:42> Assessment and Plan - Assessment (1) Pulmonary embolism Code(s): I26.99 - Other pulmonary embolism without acute cor pulmonale Status : Acute (2) Sepsis Code(s): A41.9 - Sepsis, unspecified organism Status: Acute (3) Hypotension Code(s): I95.9 - Hypotension, unspecified Status: Acute (4) Seroma Status: Acute (5) End stage renal disease Code(s): N18.6 - End stage renal disease Status: Chronic (6) Right hip pain Code(s): M25.551 - Pain in right hip Status: Acute (7) Anemia Code(s): D64.9 - Anemia, unspecified Status: Chronic (8) Nutrition, metabolism, and development symptoms Code(s): R63.8 - Other symptoms and signs concerning food and fluid intake Status: Acute <José Miguel Pierce - 12/21/18 21:51> (1) Pulmonary embolism Code(s): I26.99 - Other pulmonary embolism without acute cor pulmonale Status : Acute Plan: -Continue heparin drip titrated per protocol and will transition to oral anticoagulant. Warfarin is likely the best option due to her extensive clotting hx. -Continue to monitor on telemetry -2D transthoracic echocardiogram with ejection fraction of 55% and a pulmonary artery pressure of 34. Right atrium not well visualized (thrombus found in this location on CTA) -Supplemental oxygen as needed to keep O2 saturation over 93% -Alternate albuterol and duo nebs breathing treatments -Hypercoagulable panel pending (2) Sepsis Code(s): A41.9 - Sepsis, unspecified organism Status: Acute Plan: Likely source of infection around PermCath site IV antibiotics: Vancomycin with dialysis (12/16-12/19) Oxacillin 2g q6h(12/17- ), will discuss duration of therapy with ID -Blood cultures positive for staph aureus x4, awaiting susceptibility -Repeat blood cultures positive x2 for staph aureus likely due to being drawn directly after infected PermCath was removed. -Repeat blood cultures today (3) Hypotension Code(s): I95.9 - Hypotension, unspecified Status: Acute Plan: BPs in the 110s-120s/60s overnight -Midodrine 10 mg every 6 hours daily -Continue to monitor, maintain maps greater than 65 (4) Seroma Status: Acute Plan: Chronic issue for this patient: CT abdomen pelvis shows 4.4 cm oblong density in the right inguinal region has Hounsfield measurements suggesting a fluid collection. As such, diagnostic considerations would include predominantly seroma or lymphocele. She states that she has a history of drainage of the seroma by Dr. Montgomery. She stated that he told her if it reoccurs that it will have to be surgically removed. She does not want this procedure to happen. (5) End stage renal disease Code(s): N18.6 - End stage renal disease Status: Chronic Plan: Patient is due for dialysis today, will get Vas-Cath placement so that she can receive her dialysis later this evening Nephrology following, current hemodialysis schedule is Wednesday/Wednesday/Wednesday -Monitor BMP (6) Right hip pain Code(s): M25.551 - Pain in right hip Status: Acute Plan: Patient with right hip pain since 3 days prior to admission MRI right femur shows greater trochanteric bursitis. Also some apparent tendinosis, strain, and/or reactive appearing edema of the distal gluteus minimus. Ortho consulted, appreciate recommendations -Conservative management -If continues or worsens, may benefit from a steroid injection of her trochanteric bursa. Continue to monitor Physical therapy recommends rehab Consult OT (7) Anemia Code(s): D64.9 - Anemia, unspecified Status: Chronic Plan: Associated with chronic renal issues -Monitor and transfuse as needed (8) Nutrition, metabolism, and development symptoms Code(s): R63.8 - Other symptoms and signs concerning food and fluid intake Status: Acute Plan: Fluids: tolerating PO Electrolytes: monitor and replete as needed Nutrition: renal diet DVT Prophylaxis: Patient currently on a heparin drip GI Prophylaxis: None indicated at this time <Tisha Larios - 12/21/18 15:26> - Attending Attestation Patient case discussed with resident physicians I have independently examined the patient I have read the above note and agree with the assessment and plan as discussed with me I was involved in all medical decision making for this patient José Miguel Pierce MD <José Miguel Pierce - 12/21/18 21:51> <Tisha Larios - Last Filed: 12/21/18 15:26> (1) Pulmonary embolism Qualifiers: Pulmonary embolism type: unspecified Chronicity: acute Acute cor pulmonale presence: without acute cor pulmonale Qualified Code(s): I26.99 - Other pulmonary embolism without acute cor pulmonale (7) Anemia Qualifiers: Anemia type: unspecified type Qualified Code(s): D64.9 - Anemia, unspecified <José Miguel Pierce - Last Filed: 12/21/18 21:51> (1) Pulmonary embolism Qualifiers: Pulmonary embolism type: unspecified Chronicity: acute Acute cor pulmonale presence: without acute cor pulmonale Qualified Code(s): I26.99 - Other pulmonary embolism without acute cor pulmonale (7) Anemia Qualifiers: Anemia type: unspecified type Qualified Code(s): D64.9 - Anemia, unspecified <Tisha Larios G - Last Filed: 12/21/18 15:26> (1) Pulmonary embolism Qualifiers: Pulmonary embolism type: unspecified Chronicity: acute Acute cor pulmonale presence: without acute cor pulmonale Qualified Code(s): I26.99 - Other pulmonary embolism without acute cor pulmonale (7) Anemia Qualifiers: Anemia type: unspecified type Qualified Code(s): D64.9 - Anemia, unspecified <José Miguel Pierce - Last Filed: 12/21/18 21:51> (1) Pulmonary embolism Qualifiers: Pulmonary embolism type: unspecified Chronicity: acute Acute cor pulmonale presence: without acute cor pulmonale Qualified Code(s): I26.99 - Other pulmonary embolism without acute cor pulmonale (7) Anemia Qualifiers: Anemia type: unspecified type Qualified Code(s): D64.9 - Anemia, unspecified
[2018-12-21] MEDS: Heparin 10,000 UNITS/10 ML Vial (for IV use) OTHER PRN (11:45)
--- NOTE | 2018-12-21 12:01 | P.PNNP ---
Subjective Interval history: Patient was seen, no distress, states she is feeling better today. Patient seen on dialysis on 3K, 230 ml/min, UF goal of 2.8 L. <Shelia Mendez - Last Filed: 12/21/18 11:57> Physical Exam Vital signs: Vital Signs 12/20/18 12:00 12/20/18 12:15 12/20/18 12:30 Temperature 98.4 F Pulse Rate 57 L 58 L 62 Respiratory Rate 19 20 21 Blood Pressure 122/59 L 119/56 L 125/61 Pulse Oximetry 95 96 95 12/20/18 13:00 12/20/18 13:30 12/20/18 14:00 Temperature Pulse Rate 72 62 66 Respiratory Rate 25 H 19 20 Blood Pressure 139/81 130/61 131/68 Pulse Oximetry 94 L 95 92 L 12/20/18 14:30 12/20/18 15:00 12/20/18 15:30 Temperature Pulse Rate 61 62 63 Respiratory Rate 25 H 21 21 Blood Pressure 127/64 124/63 121/63 Pulse Oximetry 95 94 L 95 12/20/18 16:00 12/20/18 16:30 12/20/18 17:00 Temperature Pulse Rate 55 L 54 L 54 L Respiratory Rate 19 22 23 Blood Pressure 107/55 L 104/56 L 103/51 L Pulse Oximetry 93 L 93 L 92 L 12/20/18 17:30 12/20/18 18:00 12/20/18 18:30 Temperature Pulse Rate 53 L 63 60 Respiratory Rate 18 24 21 Blood Pressure 101/54 L 137/65 124/60 Pulse Oximetry 92 L 93 L 94 L 12/20/18 19:00 12/20/18 19:30 12/20/18 20:00 Temperature 98.4 F Pulse Rate 62 61 65 Respiratory Rate 20 20 20 Blood Pressure 123/63 120/59 L 126/64 Pulse Oximetry 95 94 L 95 12/20/18 21:00 12/20/18 21:57 12/20/18 22:00 Temperature Pulse Rate 69 63 Respiratory Rate 19 22 Blood Pressure 128/67 122/60 Pulse Oximetry 94 L 95 94 L 12/20/18 23:00 12/21/18 00:00 12/21/18 01:00 Temperature 98.6 F Pulse Rate 56 L 59 L 66 Respiratory Rate 19 20 27 H Blood Pressure 111/57 L 118/63 125/64 Pulse Oximetry 94 L 79 L 91 L 12/21/18 02:00 12/21/18 03:00 12/21/18 04:00 Temperature 98.2 F Pulse Rate 68 72 62 Respiratory Rate 23 30 H 23 Blood Pressure 115/64 Pulse Oximetry 91 L 92 L 92 L 12/21/18 06:00 12/21/18 08:00 12/21/18 10:00 Temperature 98 F Pulse Rate 60 54 L 66 Respiratory Rate 19 Blood Pressure 109/58 L Pulse Oximetry 95 Intake & Output 12/20/18 12/21/18 12/21/18 18:59 06:59 18:59 Intake Total 1030 / 1030 930 / 930 100 / 100 Output Total Balance 1015 / 1015 930 / 930 100 / 100 Weight 112.6 kg Intake: IV 550 / 550 450 / 450 100 / 100 Heparin/D5W 25,000 U/250 mL 25, 250 / 250 250 / 250 000 unit In 250 ml @ Per Protocol IV.CONT TITRATE PRN Rx #:[id number] Prostaphlin Inj 2 GM In NS Inj 300 / 300 200 / 200 100 / 100 100 ML @ 200 mls/hr IV.SIG Q6H MARISSA Rx#:[id number] Oral 480 / 480 480 / 480 Output: Urine 0 / 0 Emesis Other: Date of Last Bowel Movement 12/14/18 12/21/18 12/21/18 # Bowel Movements 0 1 # Emeses 1 Narrative: GENERAL: NAD. Receiving hemodialysis. SKIN: Warm and dry. Left chest, bandage clean dry and intact. No surrounding erythema. Vascath in right chest, no swelling or surrounding erythema. An ice pack is draped over the Vas-Cath. CARDIOVASCULAR: regular rate and rhythm. RESPIRATORY: Bilateral lung sepulveda clear to auscultation. No respiratory distress. NEUROLOGICAL: Awake and alert. <Shelia Mendez - Last Filed: 12/21/18 11:57> Vital signs: Vital Signs 12/20/18 18:30 12/20/18 19:00 12/20/18 19:30 Temperature Pulse Rate 60 62 61 Respiratory Rate 21 20 20 Blood Pressure 124/60 123/63 120/59 L Pulse Oximetry 94 L 95 94 L 12/20/18 20:00 12/20/18 21:00 12/20/18 21:57 Temperature 98.4 F Pulse Rate 65 69 Respiratory Rate 20 19 Blood Pressure 126/64 128/67 Pulse Oximetry 95 94 L 95 12/20/18 22:00 12/20/18 23:00 12/21/18 00:00 Temperature 98.6 F Pulse Rate 63 56 L 59 L Respiratory Rate 22 19 20 Blood Pressure 122/60 111/57 L 118/63 Pulse Oximetry 94 L 94 L 79 L 12/21/18 01:00 12/21/18 02:00 12/21/18 03:00 Temperature 98.2 F Pulse Rate 66 68 72 Respiratory Rate 27 H 23 30 H Blood Pressure 125/64 Pulse Oximetry 91 L 91 L 92 L 12/21/18 04:00 12/21/18 06:00 12/21/18 08:00 Temperature 98 F Pulse Rate 62 60 54 L Respiratory Rate 23 19 Blood Pressure 115/64 109/58 L Pulse Oximetry 92 L 95 12/21/18 10:00 12/21/18 12:00 12/21/18 13:26 Temperature 97.9 F 97.3 F L Pulse Rate 66 70 77 Respiratory Rate 23 20 Blood Pressure 140/78 127/73 Pulse Oximetry 94 L 94 L 12/21/18 16:00 Temperature 98.5 F Pulse Rate 69 Respiratory Rate 20 Blood Pressure 120/61 Pulse Oximetry 98 Intake & Output 12/20/18 12/21/18 12/21/18 18:59 06:59 18:59 Intake Total 1030 / 1030 930 / 930 200 / 200 Output Total 1999 Balance 1015 / 1015 930 / 930 -1800 / -1800 Weight 112.6 kg Intake: IV 550 / 550 450 / 450 200 / 200 Heparin/D5W 25,000 U/250 mL 25, 250 / 250 250 / 250 000 unit In 250 ml @ Per Protocol IV.CONT TITRATE PRN Rx #:[id number] Prostaphlin Inj 2 GM In NS Inj 300 / 300 200 / 200 200 / 200 100 ML @ 200 mls/hr IV.SIG Q6H MARISSA Rx#:[id number] Oral 480 / 480 480 / 480 Output: Urine 0 / 0 Emesis Hemodialysis Amount 1999 Other: Date of Last Bowel Movement 12/14/18 12/21/18 12/21/18 # Bowel Movements 0 1 # Emeses 1 <Devante Alejandre - Last Filed: 12/21/18 18:15> Assessment and Plan - Assessment (1) End stage renal disease Code(s): N18.6 - End stage renal disease Status: Chronic Plan: Patient gets dialysis MWF. Patient seen on dialysis on 3K, 230 ml/min, UF goal of 2.8 L. Avoid nephrotoxic agents. Monitor fluid and electrolytes. (2) Anemia Code(s): D64.9 - Anemia, unspecified Status: Chronic Qualifiers: Anemia type: unspecified type Qualified Code(s): D64.9 - Anemia, unspecified Plan: Epogen with dialysis. (3) Hypertension Code(s): I10 - Essential (primary) hypertension Status: Chronic Plan: No need for antihypertensive. BP is low. Remains on Midodrine. (4) Sepsis Code(s): A41.9 - Sepsis, unspecified organism Status: Acute Plan: Antibiotics per ID. On Oxacillin. (5) Metabolic bone disease Code(s): E88.9 - Metabolic disorder, unspecified; M90.80 - Osteopathy in diseases classified elsewhere, unspecified site Status: Acute Plan: Monitor phosphorus intermittently. On Sevelamer and Sensipar. (6) Pulmonary embolism Code(s): I26.99 - Other pulmonary embolism without acute cor pulmonale Status : Acute Qualifiers: Pulmonary embolism type: unspecified Chronicity: acute Acute cor pulmonale presence: without acute cor pulmonale Qualified Code(s): I26.99 - Other pulmonary embolism without acute cor pulmonale Plan: CTA was positive for PE. On heparin drip. Don't start Coumadin, patient needs more procedures. (7) Right hip pain Code(s): M25.551 - Pain in right hip Status: Acute Plan: Scan showed greater trochanteric bursitis. Ortho was consulted. They recommended conservative treatment and if the pain continues or worsens, steroid injection of her trochanteric bursa. <Shelia Mendez - Last Filed: 12/21/18 11:57> - Assessment (1) End stage renal disease Code(s): N18.6 - End stage renal disease Status: Chronic (2) Anemia Code(s): D64.9 - Anemia, unspecified Status: Chronic Qualifiers: Anemia type: unspecified type Qualified Code(s): D64.9 - Anemia, unspecified (3) Hypertension Code(s): I10 - Essential (primary) hypertension Status: Chronic (4) Sepsis Code(s): A41.9 - Sepsis, unspecified organism Status: Acute (5) Metabolic bone disease Code(s): E88.9 - Metabolic disorder, unspecified; M90.80 - Osteopathy in diseases classified elsewhere, unspecified site Status: Acute (6) Pulmonary embolism Code(s): I26.99 - Other pulmonary embolism without acute cor pulmonale Status : Acute Qualifiers: Pulmonary embolism type: unspecified Chronicity: acute Acute cor pulmonale presence: without acute cor pulmonale Qualified Code(s): I26.99 - Other pulmonary embolism without acute cor pulmonale (7) Right hip pain Code(s): M25.551 - Pain in right hip Status: Acute - Attending Attestation patient was seen and examined. Agree with above assessment and plan. Seen during dialysis. Catheter not working well, unfortunately she has right a subclavian vein VasCath placed. Has AVF in the right arm: needed another step surgery. Most recent blood culture from 12/19, growing Staph aureus again. On Oxacillin. <Devante Alejandre - Last Filed: 12/21/18 18:15>
[2018-12-21 13:52] LABS: Dil Russell Viper Venom Conf ( POSITIVE (NEGATIVE); Dil Russell Viper Venom Time M CORRECTED (CORRECTED); Lupus Anticoagulant PTT Screen Greater Than 200 seconds (< OR = 40)
--- NOTE | 2018-12-21 18:38 | P.PNID ---
Subjective Remarks: improved BP and she remains afebrile Permacath was removed on Wednesday feels ok no pain in LUE Antibiotics: oxacillin Allergies/Adverse Reactions: Allergies cephalexin Allergy (Severe, Verified 12/16/18 08:35) Hives onion Allergy (Severe, Verified 12/16/18 08:35) Gastrointestinal Upset Sulfa (Sulfonamide Antibiotics) Adverse Reaction (Intermediate, Verified 08:35) Nausea/Vomiting Objective Vital Signs 12/20/18 19:00 12/20/18 19:30 12/20/18 20:00 Temperature 98.4 F Pulse Rate 62 61 65 Respiratory Rate 20 20 20 Blood Pressure 123/63 120/59 L 126/64 Pulse Oximetry 95 94 L 95 12/20/18 21:00 12/20/18 21:57 12/20/18 22:00 Temperature Pulse Rate 69 63 Respiratory Rate 19 22 Blood Pressure 128/67 122/60 Pulse Oximetry 94 L 95 94 L 12/20/18 23:00 12/21/18 00:00 12/21/18 01:00 Temperature 98.6 F Pulse Rate 56 L 59 L 66 Respiratory Rate 19 20 27 H Blood Pressure 111/57 L 118/63 125/64 Pulse Oximetry 94 L 79 L 91 L 12/21/18 02:00 12/21/18 03:00 12/21/18 04:00 Temperature 98.2 F Pulse Rate 68 72 62 Respiratory Rate 23 30 H 23 Blood Pressure 115/64 Pulse Oximetry 91 L 92 L 92 L 12/21/18 06:00 12/21/18 08:00 12/21/18 10:00 Temperature 98 F Pulse Rate 60 54 L 66 Respiratory Rate 19 Blood Pressure 109/58 L Pulse Oximetry 95 12/21/18 12:00 12/21/18 13:26 12/21/18 16:00 Temperature 97.9 F 97.3 F L 98.5 F Pulse Rate 70 77 69 Respiratory Rate 23 20 20 Blood Pressure 140/78 127/73 120/61 Pulse Oximetry 94 L 94 L 98 Intake & Output 12/20/18 12/21/18 12/21/18 18:59 06:59 18:59 Intake Total 1030 / 1030 930 / 930 200 / 200 Output Total 1999 Balance 1015 / 1015 930 / 930 -1800 / -1800 Weight 112.6 kg Intake: IV 550 / 550 450 / 450 200 / 200 Heparin/D5W 25,000 U/250 mL 25, 250 / 250 250 / 250 000 unit In 250 ml @ Per Protocol IV.CONT TITRATE PRN Rx #:[id number] Prostaphlin Inj 2 GM In NS Inj 300 / 300 200 / 200 200 / 200 100 ML @ 200 mls/hr IV.SIG Q6H MARISSA Rx#:[id number] Oral 480 / 480 480 / 480 Output: Urine 0 / 0 Emesis Hemodialysis Amount 1999 Other: Date of Last Bowel Movement 12/14/18 12/21/18 12/21/18 # Bowel Movements 0 1 # Emeses 1 12/21/18 11:59 Blood - Peripheral Aerobic Blood Culture - Pending 12/21/18 11:59 Blood - Peripheral Anaerobic Blood Culture - Pending 12/21/18 11:51 Blood - Peripheral Aerobic Blood Culture - Pending 12/21/18 11:51 Blood - Peripheral Anaerobic Blood Culture - Pending 12/19/18 11:39 Blood - Peripheral Aerobic Blood Culture - Final Staphylococcus aureus 12/19/18 11:39 Blood - Peripheral Anaerobic Blood Culture - Preliminary No growth in 2 days 12/19/18 11:45 Blood - Peripheral Aerobic Blood Culture - Final Staphylococcus aureus 12/19/18 11:45 Blood - Peripheral Anaerobic Blood Culture - Preliminary No growth in 2 days 12/18/18 13:15 Catheter Tip - Subclavian Wound Culture - Final Staphylococcus aureus 12/16/18 15:00 Blood - Peripheral Aerobic Blood Culture - Final Staphylococcus aureus 12/16/18 15:00 Blood - Peripheral Anaerobic Blood Culture - Final Staphylococcus aureus 12/16/18 15:00 Blood - Peripheral Aerobic Blood Culture - Final Staphylococcus aureus 12/16/18 15:00 Blood - Peripheral Anaerobic Blood Culture - Final Staphylococcus aureus Lab - Hematology Results 12/20/18 12/21/18 04:13 06:05 WBC 14.7 H 13.8 H RBC 2.57 L 2.61 L Hgb 8.9 L 9.1 L Hct 27.0 L 27.2 L MCV 105.1 H 104.3 H MCH 34.7 H 35.0 H MCHC 33.0 33.5 RDW 14.7 15.1 Plt Count 159 221 D MPV 9.1 8.9 Lab - Chemistry Results 12/20/18 12/21/18 04:13 06:05 Sodium 137 135 L Potassium 4.3 4.2 Chloride 100 96 L Carbon Dioxide 28.9 28.3 Anion Gap 8 11 BUN 38 H 49 H Creatinine 7.14 H 8.82 H Estimated GFR 7 L 6 L Random Glucose 110 H 93 Calcium 8.2 L 8.6 Total Bilirubin 0.3 0.3 AST 12 L 18 ALT 18 17 Alkaline Phosphatase 78 103 Total Protein 6.5 6.7 Albumin 2.5 L 2.4 L Imaging: ITS Impressions Abdomen/Pelvis CT 12/16/18 08:45 CONCLUSION: 1. I do not see an acute intraperitoneal or pelvic process to explain current clinical symptoms. 2. Patient is status post cholecystectomy and hysterectomy. Surgical clips from a cholecystectomy extending up into the left hepatic lobe near the falciform ligament. 3. 4.4 cm oblong density in the right inguinal region has Hounsfield measurements suggesting a fluid collection. As such, diagnostic considerations would include predominantly seroma or lymphocele. Ultrasound could be performed for confirmation. No adenopathy. 4. Small, 1 cm umbilical hernia only contains fat. Hip CT 12/16/18 08:45 CONCLUSION: 1. Probable 4.4 cm oblong seroma or lymphocele in the right inguinal region. 2. Mild osteoarthritic changes in both hips. No fracture. Chest CTA 12/17/18 00:00 CONCLUSION: 1. Small pulmonary emboli of the posterior basilar branches of the left lower lobe. 2. Thrombus adhering to the distal left subclavian central venous catheter. 3. Thrombus within the right atrium. 4. Posterior left lower lung atelectasis. 5. Mildly prominent ascending thoracic aorta measuring 4.5 cm in diameter. Venous Doppler Study 12/17/18 00:00 CONCLUSION: 1. No venous thrombosis of either lower extremity. 2. Right inguinal fluid collection most consistent with seroma/chronic hematoma. Femur MRI 12/18/18 00:00 CONCLUSION: 1. No acute bone or joint abnormality. 2. There is greater trochanteric bursitis. Also some apparent tendinosis, strain and/or reactive appearing edema of distal gluteus minimus. No well- defined/measurable muscle/tendon tear. 3. Chronic multiloculated benign appearing fluid collection in the right inguinal region is also a chronic Bartholin's gland cyst. Please see above. Tube Removal 12/18/18 00:00 CONCLUSION: 1. Uncomplicated Permcath removal. Catheter Placement 12/19/18 00:00 CONCLUSION: 1. Uncomplicated line placement as above. 2. Sonographically, multiple collateral vessels are seen in the region of the right internal jugular suggesting a central high-grade stenosis/occlusion. The vein was not accessed, however. Physical Exam: GENERAL: NAD morbid obesity SKIN: Warm and dry. EYES: Pupils equal and round. No scleral icterus. No injection or drainage. ENT: No nasal bleeding or discharge. Mucous membranes pink and moist. CARDIOVASCULAR: Regular rate and rhythm. RESPIRATORY: No accessory muscle use. Clear to auscultation. Breath sounds equal bilaterally. GASTROINTESTINAL: Abdomen soft, non-tender, nondistended. Hepatic and splenic margins not palpable. MUSCULOSKELETAL: Extremities without clubbing, cyanosis, or edema. No obvious deformities. NEUROLOGICAL: Awake and alert. No obvious cranial nerve deficits. Motor grossly within normal limits. Five out of 5 muscle strength in the arms and legs. Normal speech. PSYCHIATRIC: calm, coopertive LINEs: R IJ vascath in place - pt states was not working very well LUE AV graft no tenderness, no edenma, no erythema Assessment and Plan - Plan ESRD, on HD HIgh grade MSSA bacteremia 2 D echo negative permacath removed New + blood clx (was done on the day with Permacath in) Source is [facility] vascular device Permacath AV graft not appear infected cliniclly Severe R thigh pain Fluid collection on Ct pelvis - not appear infected. Dw radiologist cephalosporin allergy but tolerates OK zosyn cont oxacillin will repeat clx if + will consider WBC scan to eval AV graft and OMID if new clx + again
[2018-12-22 03:51] LABS: Activated Protein C Resistance 5.1 ratio (> OR = 2.1)
[2018-12-22 09:53] LABS: Hematocrit 27.1 % (35.0-46.0); Mean Corpuscular HGB Conc 33.2 % (32.0-36.0); Mean Corpuscular Hemoglobin 34.8 pg (27.0-34.0); Mean Corpuscular Volume 104.9 fL (80.0-100.0); Mean Platelet Volume 8.7 fL (7.0-11.0); Platelet Count 272 th/mm3 (150-450); Red Blood Count 2.58 mil/mm3 (4.00-5.30); White Blood Count 15.4 th/mm3 (4.0-11.0)
[2018-12-22] MEDS: Senna/Docusate Sodium 8.6/50 MG Tablet PO SCH ×2 (09:53→21:33)
[2018-12-22] MEDS: Vitamin B Complex/Vit C/Folic Tablet PO SCH (09:53)
--- NOTE | 2018-12-22 10:22 | P.PNFP ---
Subjective Interval history: Patient seen and examined this morning. States that she is not feeling well today. Is having trouble breathing and feels lightheaded/ dizzy while sitting. She had just finished working with physical therapy and states that that went well. She is also noticed that her right arm feels weak and is extremely swollen. No chest pain, no abdominal pain, tolerating diet. No vomiting. Had a bowel movement yesterday but it was hard in consistency. <Barbara HarveyTisha Dm - 12/22/18 10:22> Results - Labs Result diagrams: 12/22/18 08:15 12/22/18 08:15 <José Miguel Pierce - 12/22/18 16:41> Abnormal lab results 12/22/18 12/22/18 12/22/18 Range/Units 08:15 08:15 08:15 WBC 15.4 H (4.0-11.0) th/mm3 RBC 2.58 L (4.00-5.30) mil/mm3 Hgb 9.0 L (11.6-15.3) gm/dL Hct 27.1 L (35.0-46.0) % MCV 104.9 H (80.0-100.0) fL MCH 34.8 H (27.0-34.0) pg APTT 66.1 H (23.4-31.7) sec Sodium 135 L (136-145) meq/L Chloride 96 L (98-107) meq/L BUN 42 H (7-18) mg/dL Creatinine 8.23 H (0.50-1.00) mg/dL Estimated GFR 6 L (>89) mL/min Short CBC 12/22/18 Range/Units 08:15 WBC 15.4 H (4.0-11.0) th/mm3 Hgb 9.0 L (11.6-15.3) gm/dL Hct 27.1 L (35.0-46.0) % Plt Count 272 (150-450) th/mm3 BMP 12/22/18 08:15 Sodium 135 L Potassium 4.5 Chloride 96 L Carbon Dioxide 27.6 BUN 42 H Creatinine 8.23 H Calcium 9.0 <José Miguel Pierce - 12/22/18 16:41> Abnormal lab results 12/17/18 12/22/18 Range/Units 12:00 08:15 WBC 15.4 H (4.0-11.0) th/mm3 RBC 2.58 L (4.00-5.30) mil/mm3 Hgb 9.0 L (11.6-15.3) gm/dL Hct 27.1 L (35.0-46.0) % MCV 104.9 H (80.0-100.0) fL MCH 34.8 H (27.0-34.0) pg Thrombin Time Greater than 100 H (13-19) sec LA PTT Screen Greater than 200 H (< OR = 40) seconds dRVVT Screen Greater than 200 H (< OR = 45) seconds LA dRVVT Confirm Positive A (NEGATIVE) Hexagonal Phase Confirm Positive A (NEGATIVE) Short CBC 12/22/18 Range/Units 08:15 WBC 15.4 H (4.0-11.0) th/mm3 Hgb 9.0 L (11.6-15.3) gm/dL Hct 27.1 L (35.0-46.0) % Plt Count 272 (150-450) th/mm3 <Tisha Larios - 12/22/18 10:22> Physical Exam Vital signs: Vital Signs 12/21/18 19:35 12/21/18 20:00 12/21/18 23:00 Temperature 97.9 F 98 F Pulse Rate 78 77 59 L Respiratory Rate 18 18 18 Blood Pressure 130/67 108/59 L Pulse Oximetry 97 98 12/22/18 00:00 12/22/18 04:00 12/22/18 05:00 Temperature 97.5 F L Pulse Rate 58 L 65 81 Respiratory Rate 18 Blood Pressure 106/60 Pulse Oximetry 97 12/22/18 08:00 12/22/18 12:00 Temperature 98.0 F 98.0 F Pulse Rate 64 62 Respiratory Rate 18 18 Blood Pressure 136/76 137/76 Pulse Oximetry 98 99 Intake & Output 12/21/18 12/22/18 12/22/18 18:59 06:59 18:59 Intake Total 200 / 200 690 / 690 350 / 350 Output Total 1999 0 / 0 Balance -1800 / -1800 690 / 690 350 / 350 Weight 113.4 kg Intake: IV 200 / 200 450 / 450 350 / 350 Heparin/D5W 25,000 U/250 mL 25, 250 / 250 250 / 250 000 unit In 250 ml @ Per Protocol IV.CONT TITRATE PRN Rx #:[id number] Prostaphlin Inj 2 GM In NS Inj 200 / 200 200 / 200 100 / 100 100 ML @ 200 mls/hr IV.SIG Q6H MARISSA Rx#:[id number] Oral 240 / 240 Output: Urine 0 / 0 Hemodialysis Amount 1999 Other: Date of Last Bowel Movement 12/21/18 12/22/18 12/22/18 # Bowel Movements 1 <José Miguel Pierce - 12/22/18 16:41> Vital Signs 12/21/18 10:00 12/21/18 12:00 12/21/18 13:26 Temperature 97.9 F 97.3 F L Pulse Rate 66 70 77 Respiratory Rate 23 20 Blood Pressure 140/78 127/73 Pulse Oximetry 94 L 94 L 12/21/18 16:00 12/21/18 19:35 12/21/18 20:00 Temperature 98.5 F 97.9 F Pulse Rate 69 78 77 Respiratory Rate 20 18 18 Blood Pressure 120/61 130/67 Pulse Oximetry 98 97 12/21/18 23:00 12/22/18 00:00 12/22/18 04:00 Temperature 98 F Pulse Rate 59 L 58 L 65 Respiratory Rate 18 Blood Pressure 108/59 L Pulse Oximetry 98 12/22/18 05:00 12/22/18 08:00 Temperature 97.5 F L 98.0 F Pulse Rate 81 64 Respiratory Rate 18 18 Blood Pressure 106/60 136/76 Pulse Oximetry 97 98 Intake & Output 12/21/18 12/22/18 12/22/18 18:59 06:59 18:59 Intake Total 200 / 200 690 / 690 Output Total 1999 0 / 0 Balance -1800 / -1800 690 / 690 Weight 113.4 kg Intake: IV 200 / 200 450 / 450 Heparin/D5W 25,000 U/250 mL 25, 250 / 250 000 unit In 250 ml @ Per Protocol IV.CONT TITRATE PRN Rx #:[id number] Prostaphlin Inj 2 GM In NS Inj 200 / 200 200 / 200 100 ML @ 200 mls/hr IV.SIG Q6H MARISSA Rx#:[id number] Oral 240 / 240 Output: Urine 0 / 0 Hemodialysis Amount 1999 Other: Date of Last Bowel Movement 12/21/18 12/22/18 # Bowel Movements 1 <Tisha Larios - 12/22/18 10:22> Narrative: GENERAL: obese Afro-[place] female sitting in chair, in no acute distress. SKIN: Warm and dry. Left chest, bandage clean dry and intact. No surrounding erythema. Vascath in right chest, no swelling or surrounding erythema. An ice pack is draped over the Vas-Cath. CARDIOVASCULAR: regular rate and rhythm. RESPIRATORY: Increased work of breathing. Bilateral lung sepulveda clear to auscultation. Decreased breath sounds at bilateral bases. Pulse ox during exam showed 98% on 2.5 L nasal cannula with HR 68. Extremities: Nonpitting edema of the right arm. Greatly swollen compared to the left arm. No edema of the lower extremities. Strength 5/5 in upper extremities. Sensation intact. NEUROLOGICAL: Awake and alert. <Tisha Larios - 12/22/18 10:22> Assessment and Plan - Assessment (1) Pulmonary embolism Code(s): I26.99 - Other pulmonary embolism without acute cor pulmonale Status : Acute (2) Sepsis Code(s): A41.9 - Sepsis, unspecified organism Status: Acute (3) Hypotension Code(s): I95.9 - Hypotension, unspecified Status: Acute (4) Seroma Status: Acute (5) End stage renal disease Code(s): N18.6 - End stage renal disease Status: Chronic (6) Right hip pain Code(s): M25.551 - Pain in right hip Status: Acute (7) Anemia Code(s): D64.9 - Anemia, unspecified Status: Chronic (8) Nutrition, metabolism, and development symptoms Code(s): R63.8 - Other symptoms and signs concerning food and fluid intake Status: Acute <José Miguel Pierce - 12/22/18 16:41> (1) Pulmonary embolism Code(s): I26.99 - Other pulmonary embolism without acute cor pulmonale Status : Acute Plan: RUE swelling noted on physical exam today. Venous Doppler ordered. -Continue heparin drip titrated per protocol and will transition to oral anticoagulant. Warfarin is likely the best option due to her extensive clotting hx, will hold off on starting this until patient receives PermCath. -Continue to monitor on telemetry -2D transthoracic echocardiogram with ejection fraction of 55% and a pulmonary artery pressure of 34. Right atrium not well visualized (thrombus found in this location on CTA) -Supplemental oxygen as needed to keep O2 saturation over 93% -Alternate albuterol and duo nebs breathing treatments -Hypercoagulable panel shows that the lupus anticoagulant was affected by the patient being on heparin at the time of draw. Other results pending. (2) Sepsis Code(s): A41.9 - Sepsis, unspecified organism Status: Acute Plan: Likely source of infection around PermCath site IV antibiotics: Vancomycin with dialysis (12/16-12/19) Oxacillin 2g q6h(12/17- ), will discuss duration of therapy with ID -Blood cultures positive for staph aureus x4, awaiting susceptibility -Repeat blood cultures positive x2 for staph aureus likely due to being drawn directly after infected PermCath was removed. -Repeat blood cultures on 12/21, pending (3) Hypotension Code(s): I95.9 - Hypotension, unspecified Status: Acute Plan: BPs in the 110s-120s/60s overnight -Midodrine 10 mg every 6 hours daily -Continue to monitor, maintain maps greater than 65 (4) Seroma Status: Acute Plan: Chronic issue for this patient: CT abdomen pelvis shows 4.4 cm oblong density in the right inguinal region has Hounsfield measurements suggesting a fluid collection. As such, diagnostic considerations would include predominantly seroma or lymphocele. She states that she has a history of drainage of the seroma by Dr. Montgomery. She stated that he told her if it reoccurs that it will have to be surgically removed. She does not want this procedure to happen. (5) End stage renal disease Code(s): N18.6 - End stage renal disease Status: Chronic Plan: Patient is due for dialysis today, will get Vas-Cath placement so that she can receive her dialysis later this evening Nephrology following, current hemodialysis schedule is Wednesday/Wednesday/Wednesday -Monitor BMP (6) Right hip pain Code(s): M25.551 - Pain in right hip Status: Acute Plan: Patient with right hip pain since 3 days prior to admission MRI right femur shows greater trochanteric bursitis. Also some apparent tendinosis, strain, and/or reactive appearing edema of the distal gluteus minimus. Ortho consulted, appreciate recommendations -Conservative management -If continues or worsens, may benefit from a steroid injection of her trochanteric bursa. Continue to monitor Physical therapy recommends rehab OT recommends rehab (7) Anemia Code(s): D64.9 - Anemia, unspecified Status: Chronic Plan: Associated with chronic renal issues -Monitor and transfuse as needed (8) Nutrition, metabolism, and development symptoms Code(s): R63.8 - Other symptoms and signs concerning food and fluid intake Status: Acute Plan: Fluids: tolerating PO Electrolytes: monitor and replete as needed Nutrition: renal diet DVT Prophylaxis: Patient currently on a heparin drip GI Prophylaxis: None indicated at this time <Tisha Larios - 12/22/18 13:52> - Attending Attestation Patient case discussed with resident physicians I have independently examined the patient I have read the above note and agree with the assessment and plan as discussed with me I was involved in all medical decision making for this patient José Miguel Pierce MD <José Miguel Pierce - 12/22/18 16:41> <Tisha Larios - Last Filed: 12/22/18 13:52> (1) Pulmonary embolism Qualifiers: Pulmonary embolism type: unspecified Chronicity: acute Acute cor pulmonale presence: without acute cor pulmonale Qualified Code(s): I26.99 - Other pulmonary embolism without acute cor pulmonale (7) Anemia Qualifiers: Anemia type: unspecified type Qualified Code(s): D64.9 - Anemia, unspecified <José Miguel Pierce - Last Filed: 12/22/18 16:41> (1) Pulmonary embolism Qualifiers: Pulmonary embolism type: unspecified Chronicity: acute Acute cor pulmonale presence: without acute cor pulmonale Qualified Code(s): I26.99 - Other pulmonary embolism without acute cor pulmonale (7) Anemia Qualifiers: Anemia type: unspecified type Qualified Code(s): D64.9 - Anemia, unspecified <Tisha Larios G - Last Filed: 12/22/18 13:52> (1) Pulmonary embolism Qualifiers: Pulmonary embolism type: unspecified Chronicity: acute Acute cor pulmonale presence: without acute cor pulmonale Qualified Code(s): I26.99 - Other pulmonary embolism without acute cor pulmonale (7) Anemia Qualifiers: Anemia type: unspecified type Qualified Code(s): D64.9 - Anemia, unspecified <José Miguel Pierce - Last Filed: 12/22/18 16:41> (1) Pulmonary embolism Qualifiers: Pulmonary embolism type: unspecified Chronicity: acute Acute cor pulmonale presence: without acute cor pulmonale Qualified Code(s): I26.99 - Other pulmonary embolism without acute cor pulmonale (7) Anemia Qualifiers: Anemia type: unspecified type Qualified Code(s): D64.9 - Anemia, unspecified
[2018-12-22 10:24] LABS: Carbon Dioxide 27.6 meq/L (21.0-32.0); Potassium 4.5 meq/L (3.5-5.1)
[2018-12-22] MEDS: Heparin Drip 25,000 UNIT/250 ML BAG IV.CONT PRN (13:31)
--- NOTE | 2018-12-22 16:48 | P.PNNP ---
Subjective Interval history: Sitting up in chair. Denies any shortness of breath. Reports nausea and vomiting earlier today but improved today. <Usha Hargrove - Last Filed: 12/22/18 16:44> Physical Exam Vital signs: Vital Signs 12/21/18 19:35 12/21/18 20:00 12/21/18 23:00 Temperature 97.9 F 98 F Pulse Rate 78 77 59 L Respiratory Rate 18 18 18 Blood Pressure 130/67 108/59 L Pulse Oximetry 97 98 12/22/18 00:00 12/22/18 04:00 12/22/18 05:00 Temperature 97.5 F L Pulse Rate 58 L 65 81 Respiratory Rate 18 Blood Pressure 106/60 Pulse Oximetry 97 12/22/18 08:00 12/22/18 12:00 Temperature 98.0 F 98.0 F Pulse Rate 64 62 Respiratory Rate 18 18 Blood Pressure 136/76 137/76 Pulse Oximetry 98 99 Intake & Output 12/21/18 12/22/18 12/22/18 18:59 06:59 18:59 Intake Total 200 / 200 690 / 690 350 / 350 Output Total 1999 0 / 0 Balance -1800 / -1800 690 / 690 350 / 350 Weight 113.4 kg Intake: IV 200 / 200 450 / 450 350 / 350 Heparin/D5W 25,000 U/250 mL 25, 250 / 250 250 / 250 000 unit In 250 ml @ Per Protocol IV.CONT TITRATE PRN Rx #:[id number] Prostaphlin Inj 2 GM In NS Inj 200 / 200 200 / 200 100 / 100 100 ML @ 200 mls/hr IV.SIG Q6H MARISSA Rx#:[id number] Oral 240 / 240 Output: Urine 0 / 0 Hemodialysis Amount 1999 Other: Date of Last Bowel Movement 12/21/18 12/22/18 12/22/18 # Bowel Movements 1 Narrative: GENERAL: obese Afro-[place] female sitting in chair, in no acute distress. SKIN: Warm and dry. Left chest, bandage clean dry and intact. No surrounding erythema. Vascath in right chest, no swelling or surrounding erythema. An ice pack is draped over the Vas-Cath. CARDIOVASCULAR: regular rate and rhythm. RESPIRATORY: Bilateral lung sepulveda clear to auscultation. Decreased breath sounds at bilateral bases. Extremities: Nonpitting edema of the right arm. NEUROLOGICAL: Awake and alert. <Usha Hargrove - Last Filed: 12/22/18 16:44> Vital signs: Vital Signs 12/21/18 23:00 12/22/18 00:00 12/22/18 04:00 Temperature 98 F Pulse Rate 59 L 58 L 65 Respiratory Rate 18 Blood Pressure 108/59 L Pulse Oximetry 98 12/22/18 05:00 12/22/18 08:00 12/22/18 12:00 Temperature 97.5 F L 98.0 F 98.0 F Pulse Rate 81 58 L 72 Respiratory Rate 18 18 18 Blood Pressure 106/60 136/76 137/76 Pulse Oximetry 97 98 99 12/22/18 16:00 Temperature 97.9 F Pulse Rate 66 Respiratory Rate 18 Blood Pressure 144/78 H Pulse Oximetry 99 Intake & Output 12/22/18 12/22/18 12/23/18 06:59 18:59 06:59 Intake Total 690 / 690 810 / 810 Output Total 0 / 0 Balance 690 / 690 810 / 810 Weight 113.4 kg Intake: IV 450 / 450 450 / 450 Heparin/D5W 25,000 U/250 mL 25, 250 / 250 250 / 250 000 unit In 250 ml @ Per Protocol IV.CONT TITRATE PRN Rx #:[id number] Prostaphlin Inj 2 GM In NS Inj 200 / 200 200 / 200 100 ML @ 200 mls/hr IV.SIG Q6H MARISSA Rx#:[id number] Oral 240 / 240 360 / 360 Output: Urine 0 / 0 Other: # Voids 0 Date of Last Bowel Movement 12/22/18 12/22/18 # Bowel Movements 1 1 <Jonathan Galloway - Last Filed: 12/22/18 20:44> Assessment and Plan - Assessment (1) End stage renal disease Code(s): N18.6 - End stage renal disease Status: Chronic Plan: Patient gets dialysis MWF. HD yesterday with removal of 2 liters of fluid Avoid nephrotoxic agents. Monitor fluid and electrolytes. HD planned for tomorrow will remove fluid as tolerated. (2) Anemia Code(s): D64.9 - Anemia, unspecified Status: Chronic Qualifiers: Anemia type: unspecified type Qualified Code(s): D64.9 - Anemia, unspecified Plan: Epogen with dialysis. (3) Hypertension Code(s): I10 - Essential (primary) hypertension Status: Chronic Plan: No need for antihypertensive. BP is low. Remains on Midodrine. (4) Sepsis Code(s): A41.9 - Sepsis, unspecified organism Status: Acute Plan: Antibiotics per ID. On Oxacillin. (5) Metabolic bone disease Code(s): E88.9 - Metabolic disorder, unspecified; M90.80 - Osteopathy in diseases classified elsewhere, unspecified site Status: Acute Plan: Monitor phosphorus intermittently. On Sevelamer and Sensipar. (6) Pulmonary embolism Code(s): I26.99 - Other pulmonary embolism without acute cor pulmonale Status : Acute Qualifiers: Pulmonary embolism type: unspecified Chronicity: acute Acute cor pulmonale presence: without acute cor pulmonale Qualified Code(s): I26.99 - Other pulmonary embolism without acute cor pulmonale Plan: CTA was positive for PE. (7) Right hip pain Code(s): M25.551 - Pain in right hip Status: Acute Plan: Scan showed greater trochanteric bursitis. Ortho was consulted. They recommended conservative treatment and if the pain continues or worsens, steroid injection of her trochanteric bursa. <Usha Hargrove - Last Filed: 12/22/18 16:44> - Assessment (1) End stage renal disease Code(s): N18.6 - End stage renal disease Status: Chronic Plan: Patient seen and examined, agree with above.Patient now on IV Heparin, HD will be in AM, remove fluid as tolerated. (2) Anemia Code(s): D64.9 - Anemia, unspecified Status: Chronic Qualifiers: Anemia type: unspecified type Qualified Code(s): D64.9 - Anemia, unspecified (3) Hypertension Code(s): I10 - Essential (primary) hypertension Status: Chronic (4) Sepsis Code(s): A41.9 - Sepsis, unspecified organism Status: Acute (5) Metabolic bone disease Code(s): E88.9 - Metabolic disorder, unspecified; M90.80 - Osteopathy in diseases classified elsewhere, unspecified site Status: Acute (6) Pulmonary embolism Code(s): I26.99 - Other pulmonary embolism without acute cor pulmonale Status : Acute Qualifiers: Pulmonary embolism type: unspecified Chronicity: acute Acute cor pulmonale presence: without acute cor pulmonale Qualified Code(s): I26.99 - Other pulmonary embolism without acute cor pulmonale (7) Right hip pain Code(s): M25.551 - Pain in right hip Status: Acute <Jonathan Galloway - Last Filed: 12/22/18 20:44>
[2018-12-22 16:54] LABS: Factor V Leiden Mutation Negative (Negative); Protein C Antigen 36 % (70-150)
--- NOTE | 2018-12-22 19:38 | US ---
EXAM DATE: 12/22/2018 6:49 PM EST AGE/SEX: 53 years / Female INDICATIONS: Right arm swelling. Patient has an AV fistula. CLINICAL DATA: This is the patient's subsequent encounter. Patient reports that signs and symptoms h ave been present for 1 day and indicates a pain score of 5/10. MEDICAL/SURGICAL HISTORY: Hypertension. End stage renal disease. A-V fistula. Left lobe liver m ass. Hysterectomy. History resection of liver. Total knee replacement. COMPARISON: No prior exams available for comparison. FINDINGS: The jugular subclavian and axillary veins are fully compressible and demonstrate normal wa veforms and augmentation response. The brachial and basilic veins were noncompressible however there was extensive overlying edema. No definite echogenic thrombus is visualized. There is normal color fl ow and augmentation response. Other: None. CONCLUSION: 1. No evidence of deep venous thrombosis. 2. The brachial and basilic veins were noncompressible which may be due to overlying edema. Electronically signed by: Charlie Martinez MD Board Certified Radiologist 12/22/2018 7:10 PM EST
[2018-12-23] MEDS: Heparin Drip 25,000 UNIT/250 ML BAG IV.CONT PRN ×2 (06:05→22:23)
[2018-12-23 07:49] LABS: Baso # (Auto) 0.1 th/mm3 (0.0-0.2); Baso % (Auto) 0.5 % (0.0-2.0); Eos # (Auto) 0.4 th/mm3 (0.0-0.4); Eos % (Auto) 2.8 % (0.0-4.0); Hematocrit 25.5 % (35.0-46.0); Hemoglobin 8.2 gm/dL (11.6-15.3); Lymph # (Auto) 2.5 th/mm3 (1.0-4.8); Lymph % (Auto) 17.8 % (9.0-44.0); Mean Corpuscular HGB Conc 32.1 % (32.0-36.0); Mean Platelet Volume 8.8 fL (7.0-11.0); Mono # (Auto) 0.9 th/mm3 (0.0-0.9); Mono % (Auto) 6.6 % (0.0-8.0); Neut % (Auto) 72.3 % (16.0-70.0); Platelet Count 283 th/mm3 (150-450); Red Cell Distribution Width 15.3 % (11.6-17.2); White Blood Count 13.8 th/mm3 (4.0-11.0)
--- NOTE | 2018-12-23 08:09 | P.PNFP ---
Subjective Interval history: Ms Paige was seen on rounds this morning. She is Sitting up on side of bed, bathing. Reports that breathing is slightly better than yesterday. Hasn't required O2 for about 2 hours. She reports that her right arm swelling went down yesterday evening. It has increased again this morning with the use of the right arm. Continued R hip pain, improved with medication. She denies any chest pain, calf pain, fevers, chills, nausea. <Christel Ellington - 12/23/18 09:46> Results - Labs Result diagrams: 12/23/18 05:52 12/23/18 05:52 <José Miguel Pierce - 12/23/18 14:20> Abnormal lab results 12/17/18 12/23/18 12/23/18 Range/Units 12:00 05:52 05:52 WBC 13.8 H (4.0-11.0) th/mm3 RBC 2.40 L (4.00-5.30) mil/mm3 Hgb 8.2 L (11.6-15.3) gm/dL Hct 25.5 L (35.0-46.0) % MCV 106.0 H (80.0-100.0) fL Neut % (Auto) 72.3 H (16.0-70.0) % Neut # (Auto) 10.0 H (1.8-7.7) th/mm3 Eosinophils % (Manual) 5 H (0-4) % Metamyelocytes % (Man) 3 H (0-1) % Promyelocytes % (Man) 1 H (0-0) % Abs Neuts (Manual) 10.4 H (1.8-7.7) th/mm3 Nucleated RBCs/100 WBC 1 H (0-0) /100 WBC APTT (23.4-31.7) sec Protein C Antigen 36 L (70-150) % Antithrombin III Activ 54 L (80-120) % normal Sodium 134 L (136-145) meq/L Chloride 96 L (98-107) meq/L BUN 51 H (7-18) mg/dL Creatinine 9.54 H (0.50-1.00) mg/dL Estimated GFR 5 L (>89) mL/min 12/23/18 Range/Units 05:52 WBC (4.0-11.0) th/mm3 RBC (4.00-5.30) mil/mm3 Hgb (11.6-15.3) gm/dL Hct (35.0-46.0) % MCV (80.0-100.0) fL Neut % (Auto) (16.0-70.0) % Neut # (Auto) (1.8-7.7) th/mm3 Eosinophils % (Manual) (0-4) % Metamyelocytes % (Man) (0-1) % Promyelocytes % (Man) (0-0) % Abs Neuts (Manual) (1.8-7.7) th/mm3 Nucleated RBCs/100 WBC (0-0) /100 WBC APTT 74.6 H (23.4-31.7) sec Protein C Antigen (70-150) % Antithrombin III Activ (80-120) % normal Sodium (136-145) meq/L Chloride (98-107) meq/L BUN (7-18) mg/dL Creatinine (0.50-1.00) mg/dL Estimated GFR (>89) mL/min Short CBC 12/23/18 Range/Units 05:52 WBC 13.8 H (4.0-11.0) th/mm3 Hgb 8.2 L (11.6-15.3) gm/dL Hct 25.5 L (35.0-46.0) % Plt Count 283 (150-450) th/mm3 BMP 12/23/18 05:52 Sodium 134 L Potassium 4.5 Chloride 96 L Carbon Dioxide 26.8 BUN 51 H Creatinine 9.54 H Calcium 8.6 <José Miguel Pierce - 12/23/18 14:20> Abnormal lab results 12/17/18 12/22/18 12/22/18 Range/Units 12:00 08:15 08:15 WBC 15.4 H (4.0-11.0) th/mm3 RBC 2.58 L (4.00-5.30) mil/mm3 Hgb 9.0 L (11.6-15.3) gm/dL Hct 27.1 L (35.0-46.0) % MCV 104.9 H (80.0-100.0) fL MCH 34.8 H (27.0-34.0) pg Neut % (Auto) (16.0-70.0) % Neut # (Auto) (1.8-7.7) th/mm3 APTT (23.4-31.7) sec Protein C Antigen 36 L (70-150) % Antithrombin III Activ 54 L (80-120) % normal Sodium 135 L (136-145) meq/L Chloride 96 L (98-107) meq/L BUN 42 H (7-18) mg/dL Creatinine 8.23 H (0.50-1.00) mg/dL Estimated GFR 6 L (>89) mL/min 12/22/18 12/23/18 12/23/18 Range/Units 08:15 05:52 05:52 WBC 13.8 H (4.0-11.0) th/mm3 RBC 2.40 L (4.00-5.30) mil/mm3 Hgb 8.2 L (11.6-15.3) gm/dL Hct 25.5 L (35.0-46.0) % MCV 106.0 H (80.0-100.0) fL MCH (27.0-34.0) pg Neut % (Auto) 72.3 H (16.0-70.0) % Neut # (Auto) 10.0 H (1.8-7.7) th/mm3 APTT 66.1 H 74.6 H (23.4-31.7) sec Protein C Antigen (70-150) % Antithrombin III Activ (80-120) % normal Sodium (136-145) meq/L Chloride (98-107) meq/L BUN (7-18) mg/dL Creatinine (0.50-1.00) mg/dL Estimated GFR (>89) mL/min Short CBC 12/22/18 12/23/18 Range/Units 08:15 05:52 WBC 15.4 H 13.8 H (4.0-11.0) th/mm3 Hgb 9.0 L 8.2 L (11.6-15.3) gm/dL Hct 27.1 L 25.5 L (35.0-46.0) % Plt Count 272 283 (150-450) th/mm3 BMP 12/22/18 08:15 Sodium 135 L Potassium 4.5 Chloride 96 L Carbon Dioxide 27.6 BUN 42 H Creatinine 8.23 H Calcium 9.0 <Christel Ellington Dioni - 12/23/18 08:09> - Imaging Impressions Venous Doppler Study 12/22/18 00:00 CONCLUSION: 1. No evidence of deep venous thrombosis. 2. The brachial and basilic veins were noncompressible which may be due to overlying edema. <José Miguel Pierce - 12/23/18 14:20> Impressions Venous Doppler Study 12/22/18 00:00 CONCLUSION: 1. No evidence of deep venous thrombosis. 2. The brachial and basilic veins were noncompressible which may be due to overlying edema. <Devin Christel Browning Dioni - 12/23/18 08:09> Physical Exam Vital signs: Vital Signs 12/22/18 16:00 12/22/18 18:00 12/22/18 19:50 Temperature 97.9 F 98.1 F Pulse Rate 66 69 Respiratory Rate 18 18 Blood Pressure 144/78 H 155/77 H Pulse Oximetry 99 99 98 12/22/18 20:00 12/23/18 00:00 12/23/18 00:10 Temperature 98 F Pulse Rate 68 53 L 53 L Respiratory Rate 16 18 Blood Pressure 130/72 Pulse Oximetry 100 12/23/18 04:00 12/23/18 05:20 Temperature 97.5 F L Pulse Rate 50 L 58 L Respiratory Rate 18 Blood Pressure 126/63 Pulse Oximetry 100 Intake & Output 12/22/18 12/23/18 12/23/18 18:59 06:59 18:59 Intake Total 810 / 810 570 / 570 Output Total 1999 Balance 810 / 810 570 / 570 -1999 Weight 114.6 kg Intake: IV 450 / 450 450 / 450 Heparin/D5W 25,000 U/250 mL 25, 250 / 250 250 / 250 000 unit In 250 ml @ Per Protocol IV.CONT TITRATE PRN Rx #:[id number] Prostaphlin Inj 2 GM In NS Inj 200 / 200 200 / 200 100 ML @ 200 mls/hr IV.SIG Q6H MARISSA Rx#:[id number] Oral 360 / 360 120 / 120 Output: Hemodialysis Amount 1999 Other: # Voids 0 0 Date of Last Bowel Movement 12/22/18 12/22/18 # Bowel Movements 1 0 <José Miguel Pierce - 12/23/18 14:20> Vital Signs 12/22/18 12:00 12/22/18 16:00 12/22/18 18:00 Temperature 98.0 F 97.9 F 98.1 F Pulse Rate 72 66 69 Respiratory Rate 18 18 18 Blood Pressure 137/76 144/78 H 155/77 H Pulse Oximetry 99 99 99 12/22/18 19:50 12/22/18 20:00 12/23/18 00:00 Temperature Pulse Rate 68 53 L Respiratory Rate 16 Blood Pressure Pulse Oximetry 98 12/23/18 00:10 12/23/18 04:00 12/23/18 05:20 Temperature 98 F 97.5 F L Pulse Rate 53 L 50 L 58 L Respiratory Rate 18 18 Blood Pressure 130/72 126/63 Pulse Oximetry 100 100 Intake & Output 12/22/18 12/23/18 12/23/18 18:59 06:59 18:59 Intake Total 810 / 810 570 / 570 Balance 810 / 810 570 / 570 Weight 114.6 kg Intake: IV 450 / 450 450 / 450 Heparin/D5W 25,000 U/250 mL 25, 250 / 250 250 / 250 000 unit In 250 ml @ Per Protocol IV.CONT TITRATE PRN Rx #:[id number] Prostaphlin Inj 2 GM In NS Inj 200 / 200 200 / 200 100 ML @ 200 mls/hr IV.SIG Q6H MARISSA Rx#:[id number] Oral 360 / 360 120 / 120 Other: # Voids 0 0 Date of Last Bowel Movement 12/22/18 # Bowel Movements 1 0 <Christel Ellington - 12/23/18 08:09> Narrative: GENERAL: obese Afro-[place] female sitting on the side of the bed, no acute distress, on room air SKIN: Warm and dry. Left chest, bandage clean dry and intact. No surrounding erythema. Vascath in right chest, no swelling or surrounding erythema. CARDIOVASCULAR: regular rate and rhythm. RESPIRATORY: Bilateral lung sepulveda clear to auscultation. Decreased breath sounds at bilateral bases. No use of accessory muscles Extremities: Nonpitting edema of the right arm. NEUROLOGICAL: Awake and alert. <Christel Ellington 12/23/18 09:46> Assessment and Plan - Assessment (1) Pulmonary embolism Code(s): I26.99 - Other pulmonary embolism without acute cor pulmonale Status : Acute (2) Sepsis Code(s): A41.9 - Sepsis, unspecified organism Status: Acute (3) Hypotension Code(s): I95.9 - Hypotension, unspecified Status: Acute (4) Seroma Status: Acute (5) End stage renal disease Code(s): N18.6 - End stage renal disease Status: Chronic (6) Right hip pain Code(s): M25.551 - Pain in right hip Status: Acute (7) Anemia Code(s): D64.9 - Anemia, unspecified Status: Chronic (8) Nutrition, metabolism, and development symptoms Code(s): R63.8 - Other symptoms and signs concerning food and fluid intake Status: Acute <José Miguel Pierce - 12/23/18 14:20> (1) Pulmonary embolism Code(s): I26.99 - Other pulmonary embolism without acute cor pulmonale Status : Acute Plan: -Continue heparin drip titrated per protocol and will transition to oral anticoagulant once vascular makes recommendations regarding AV fistula. Due to decreased protein C activity patient is at increased risk for warfarin skin necrosis, will consider DOAC -Continue to monitor on telemetry -2D transthoracic echocardiogram with ejection fraction of 55% and a pulmonary artery pressure of 34. Right atrium not well visualized (thrombus found in this location on CTA) -Venous Doppler of right upper extremity yesterday negative for DVT -Supplemental oxygen as needed to keep O2 saturation over 93% -Alternate albuterol and duo nebs breathing treatments -Hypercoagulable panel shows low protein C antigen as well as low Antithrombin III activity (of note patient was started on heparin therapy when these labs were drawn) (2) Sepsis Code(s): A41.9 - Sepsis, unspecified organism Status: Acute Plan: Likely source of infection around PermCath site IV antibiotics: Vancomycin with dialysis (12/16-12/19) Oxacillin 2g q6h(12/17- ), will discuss duration of therapy with ID -Blood cultures positive for staph aureus x4, sensitive to oxacillin -Repeat blood cultures positive x2 for staph aureus likely due to being drawn directly after infected PermCath was removed. -Repeat blood cultures on 12/21, no growth times 1 day continue to follow (3) Hypotension Code(s): I95.9 - Hypotension, unspecified Status: Acute Plan: Patient has maintained blood pressures and has even had some elevations up to 155/77. -Midodrine 10 mg every 6 hours daily, held -Continue to monitor, maintain maps greater than 65 (4) Seroma Status: Acute Plan: Chronic issue for this patient: CT abdomen pelvis shows 4.4 cm oblong density in the right inguinal region has Hounsfield measurements suggesting a fluid collection. As such, diagnostic considerations would include predominantly seroma or lymphocele. She states that she has a history of drainage of the seroma by Dr. Montgomery. She stated that he told her if it reoccurs that it will have to be surgically removed. She does not want this procedure to happen. (5) End stage renal disease Code(s): N18.6 - End stage renal disease Status: Chronic Plan: Patient is due for dialysis today Nephrology following, current hemodialysis schedule is Wednesday/Wednesday/Wednesday -Monitor BMP (6) Right hip pain Code(s): M25.551 - Pain in right hip Status: Acute Plan: Patient with right hip pain since 3 days prior to admission MRI right femur shows greater trochanteric bursitis. Also some apparent tendinosis, strain, and/or reactive appearing edema of the distal gluteus minimus. Ortho consulted, appreciate recommendations -Conservative management -If continues or worsens, may benefit from a steroid injection of her trochanteric bursa. Continue to monitor Physical therapy recommends rehab OT recommends rehab (7) Anemia Code(s): D64.9 - Anemia, unspecified Status: Chronic Plan: Associated with chronic renal issues -Monitor and transfuse as needed (8) Nutrition, metabolism, and development symptoms Code(s): R63.8 - Other symptoms and signs concerning food and fluid intake Status: Acute Plan: Fluids: tolerating PO Electrolytes: monitor and replete as needed Nutrition: renal diet DVT Prophylaxis: Patient currently on a heparin drip GI Prophylaxis: None indicated at this time <Christel Ellington - 12/23/18 10:25> - Assessment and Plan Discussed Condition With: Dr Pierce <Christel Ellington 12/23/18 09:46> - Attending Attestation Patient case discussed with resident physicians I have independently examined the patient I have read the above note and agree with the assessment and plan as discussed with me I was involved in all medical decision making for this patient José Miguel MD Kari <José Miguel Pierce - 12/23/18 14:20> <Christel Ellington E - Last Filed: 12/23/18 10:25> (1) Pulmonary embolism Qualifiers: Pulmonary embolism type: unspecified Chronicity: acute Acute cor pulmonale presence: without acute cor pulmonale Qualified Code(s): I26.99 - Other pulmonary embolism without acute cor pulmonale (7) Anemia Qualifiers: Anemia type: unspecified type Qualified Code(s): D64.9 - Anemia, unspecified <KariJosé Miguel - Last Filed: 12/23/18 14:20> (1) Pulmonary embolism Qualifiers: Pulmonary embolism type: unspecified Chronicity: acute Acute cor pulmonale presence: without acute cor pulmonale Qualified Code(s): I26.99 - Other pulmonary embolism without acute cor pulmonale (7) Anemia Qualifiers: Anemia type: unspecified type Qualified Code(s): D64.9 - Anemia, unspecified <Christel Ellington E - Last Filed: 12/23/18 10:25> (1) Pulmonary embolism Qualifiers: Pulmonary embolism type: unspecified Chronicity: acute Acute cor pulmonale presence: without acute cor pulmonale Qualified Code(s): I26.99 - Other pulmonary embolism without acute cor pulmonale (7) Anemia Qualifiers: Anemia type: unspecified type Qualified Code(s): D64.9 - Anemia, unspecified <José Miguel Pierce - Last Filed: 12/23/18 14:20> (1) Pulmonary embolism Qualifiers: Pulmonary embolism type: unspecified Chronicity: acute Acute cor pulmonale presence: without acute cor pulmonale Qualified Code(s): I26.99 - Other pulmonary embolism without acute cor pulmonale (7) Anemia Qualifiers: Anemia type: unspecified type Qualified Code(s): D64.9 - Anemia, unspecified
[2018-12-23 08:16] LABS: Calcium 8.6 mg/dL (8.5-10.1); Carbon Dioxide 26.8 meq/L (21.0-32.0); Potassium 4.5 meq/L (3.5-5.1)
[2018-12-23 09:19] LABS: Eosinophils 5 % (0-4); Lymphocytes 15 % (9-44); Metamyelocytes 3 % (0-1); Monocytes 5 % (0-8); Promyelocyte 1 % (0-0); Tallied Nucleated RBC 1 (0-0)
[2018-12-23 09:20] LABS: Platelet Estimate Normal (Normal); Platelet Morphology Normal (Normal)
[2018-12-23] MEDS: Vitamin B Complex/Vit C/Folic Tablet PO SCH (09:41)
[2018-12-23] MEDS: Senna/Docusate Sodium 8.6/50 MG Tablet PO SCH ×2 (09:41→20:11)
[2018-12-23] MEDS: Heparin 10,000 UNITS/10 ML Vial (for IV use) OTHER PRN (12:30)
--- NOTE | 2018-12-23 18:15 | P.PNID ---
Subjective Remarks: ifeels fatigues denies back pain remains afebrile Permacath was removed on Wednesday feels ok no pain in LUE NGTD in blood clx Antibiotics: oxacillin Allergies/Adverse Reactions: Allergies cephalexin Allergy (Severe, Verified 12/16/18 08:35) Hives onion Allergy (Severe, Verified 12/16/18 08:35) Gastrointestinal Upset Sulfa (Sulfonamide Antibiotics) Adverse Reaction (Intermediate, Verified 08:35) Nausea/Vomiting Objective Vital Signs 12/22/18 19:50 12/22/18 20:00 12/23/18 00:00 Temperature Pulse Rate 68 53 L Respiratory Rate 16 Blood Pressure Pulse Oximetry 98 12/23/18 00:10 12/23/18 04:00 12/23/18 05:20 Temperature 98 F 97.5 F L Pulse Rate 53 L 50 L 58 L Respiratory Rate 18 18 Blood Pressure 130/72 126/63 Pulse Oximetry 100 100 12/23/18 12:00 Temperature Pulse Rate 59 L Respiratory Rate Blood Pressure Pulse Oximetry Intake & Output 12/22/18 12/23/18 12/23/18 18:59 06:59 18:59 Intake Total 810 / 810 570 / 570 100 / 100 Output Total 1999 Balance 810 / 810 570 / 570 -1900 / -1900 Weight 114.6 kg Intake: IV 450 / 450 450 / 450 100 / 100 Heparin/D5W 25,000 U/250 mL 25, 250 / 250 250 / 250 000 unit In 250 ml @ Per Protocol IV.CONT TITRATE PRN Rx #:[id number] Prostaphlin Inj 2 GM In NS Inj 200 / 200 200 / 200 100 / 100 100 ML @ 200 mls/hr IV.SIG Q6H MARISSA Rx#:[id number] Oral 360 / 360 120 / 120 Output: Hemodialysis Amount 1999 Other: # Voids 0 0 Date of Last Bowel Movement 12/22/18 12/22/18 # Bowel Movements 1 0 12/21/18 11:59 Blood - Peripheral Aerobic Blood Culture - Preliminary No growth in 2 days 12/21/18 11:59 Blood - Peripheral Anaerobic Blood Culture - Preliminary No growth in 2 days 12/21/18 11:51 Blood - Peripheral Aerobic Blood Culture - Preliminary No growth in 2 days 12/21/18 11:51 Blood - Peripheral Anaerobic Blood Culture - Preliminary No growth in 2 days 12/19/18 11:39 Blood - Peripheral Aerobic Blood Culture - Final Staphylococcus aureus 12/19/18 11:39 Blood - Peripheral Anaerobic Blood Culture - Preliminary No growth in 4 days 12/19/18 11:45 Blood - Peripheral Aerobic Blood Culture - Final Staphylococcus aureus 12/19/18 11:45 Blood - Peripheral Anaerobic Blood Culture - Preliminary No growth in 4 days Lab - Hematology Results 12/22/18 12/23/18 08:15 05:52 WBC 15.4 H 13.8 H RBC 2.58 L 2.40 L Hgb 9.0 L 8.2 L Hct 27.1 L 25.5 L MCV 104.9 H 106.0 H MCH 34.8 H 34.0 MCHC 33.2 32.1 RDW 15.0 15.3 Plt Count 272 283 MPV 8.7 8.8 Prelim Diff (Auto) Slide review pending Neut % (Auto) 72.3 H Lymph % (Auto) 17.8 [place] % (Auto) 6.6 Eos % (Auto) 2.8 Baso % (Auto) 0.5 Neut # (Auto) 10.0 H Lymph # (Auto) 2.5 [place] # (Auto) 0.9 Eos # (Auto) 0.4 Baso # (Auto) 0.1 WBC Differential Manual diff final Seg Neuts % (Manual) 69 Band Neuts % (Manual) 2 Lymphocytes % (Manual) 15 Monocytes % (Manual) 5 Eosinophils % (Manual) 5 H Metamyelocytes % (Man) 3 H Promyelocytes % (Man) 1 H Abs Neuts (Manual) 10.4 H Nucleated RBCs/100 WBC 1 H Differential Comment . Platelet Estimate Normal Platelet Morphology Normal Lab - Chemistry Results 12/22/18 12/23/18 08:15 05:52 Sodium 135 L 134 L Potassium 4.5 4.5 Chloride 96 L 96 L Carbon Dioxide 27.6 26.8 Anion Gap 11 11 BUN 42 H 51 H Creatinine 8.23 H 9.54 H Estimated GFR 6 L 5 L Random Glucose 80 75 Calcium 9.0 8.6 Imaging: ITS Impressions Abdomen/Pelvis CT 12/16/18 08:45 CONCLUSION: 1. I do not see an acute intraperitoneal or pelvic process to explain current clinical symptoms. 2. Patient is status post cholecystectomy and hysterectomy. Surgical clips from a cholecystectomy extending up into the left hepatic lobe near the falciform ligament. 3. 4.4 cm oblong density in the right inguinal region has Hounsfield measurements suggesting a fluid collection. As such, diagnostic considerations would include predominantly seroma or lymphocele. Ultrasound could be performed for confirmation. No adenopathy. 4. Small, 1 cm umbilical hernia only contains fat. Hip CT 12/16/18 08:45 CONCLUSION: 1. Probable 4.4 cm oblong seroma or lymphocele in the right inguinal region. 2. Mild osteoarthritic changes in both hips. No fracture. Chest CTA 12/17/18 00:00 CONCLUSION: 1. Small pulmonary emboli of the posterior basilar branches of the left lower lobe. 2. Thrombus adhering to the distal left subclavian central venous catheter. 3. Thrombus within the right atrium. 4. Posterior left lower lung atelectasis. 5. Mildly prominent ascending thoracic aorta measuring 4.5 cm in diameter. Femur MRI 12/18/18 00:00 CONCLUSION: 1. No acute bone or joint abnormality. 2. There is greater trochanteric bursitis. Also some apparent tendinosis, strain and/or reactive appearing edema of distal gluteus minimus. No well- defined/measurable muscle/tendon tear. 3. Chronic multiloculated benign appearing fluid collection in the right inguinal region is also a chronic Bartholin's gland cyst. Please see above. Tube Removal 12/18/18 00:00 CONCLUSION: 1. Uncomplicated Permcath removal. Catheter Placement 12/19/18 00:00 CONCLUSION: 1. Uncomplicated line placement as above. 2. Sonographically, multiple collateral vessels are seen in the region of the right internal jugular suggesting a central high-grade stenosis/occlusion. The vein was not accessed, however. Venous Doppler Study 12/22/18 00:00 CONCLUSION: 1. No evidence of deep venous thrombosis. 2. The brachial and basilic veins were noncompressible which may be due to overlying edema. Physical Exam: GENERAL: NAD morbid obesity SKIN: Warm and dry. EYES: Pupils equal and round. No scleral icterus. No injection or drainage. ENT: No nasal bleeding or discharge. Mucous membranes pink and moist. CARDIOVASCULAR: Regular rate and rhythm. RESPIRATORY: No accessory muscle use. Clear to auscultation. Breath sounds equal bilaterally. GASTROINTESTINAL: Abdomen soft, non-tender, nondistended. Hepatic and splenic margins not palpable. MUSCULOSKELETAL: Extremities without clubbing, cyanosis, or edema. No obvious deformities. NEUROLOGICAL: Awake and alert. Non focal. Normal speech. PSYCHIATRIC: calm, cooperative LINEs: R IJ vascath in place LUE AV graft no tenderness, no edenma, no erythema Assessment and Plan - Plan ESRD, on HD HIgh grade MSSA bacteremia 2 D echo negative permacath removed New + blood clx (was done on the day with Permacath in) Source is [employer] vascular device Permacath AV graft not appear infected cliniclly Severe R thigh pain Fluid collection on Ct pelvis - not appear infected. Dw radiologist cephalosporin allergy but tolerates OK zosyn cont oxacillin If last BC remain negative OK to dc with IV abx (will do cefazolin 2 gm p each HD) x 4 wks from 1st neg clx Will repeat BC 2 weeks after abx If post reatment clx remain negative then she will be cleared for AVF If more postitive clx (including the pending one) pt will need to undergo additional testing to establish the nidus for infection - will consider WBC scan to eval AV graft and OMID if new clx + again Instructed to report fevers, back pain
--- NOTE | 2018-12-23 22:01 | P.PNNP ---
Subjective Interval history: Patient seen, sitting on chair, complaining of swelling of Rt. arm, no SOB. Physical Exam Vital signs: Vital Signs 12/23/18 00:00 12/23/18 00:10 12/23/18 04:00 Temperature 98 F Pulse Rate 53 L 53 L 50 L Respiratory Rate 16 18 Blood Pressure 130/72 Pulse Oximetry 100 12/23/18 05:20 12/23/18 08:00 12/23/18 12:00 Temperature 97.5 F L 97.5 F L Pulse Rate 58 L 72 59 L Respiratory Rate 18 18 Blood Pressure 126/63 128/80 Pulse Oximetry 100 98 12/23/18 16:00 12/23/18 17:00 12/23/18 20:00 Temperature 98.0 F 98.2 F Pulse Rate 83 82 80 Respiratory Rate 18 18 Blood Pressure 141/66 H 125/68 Pulse Oximetry 97 99 Intake & Output 12/23/18 12/23/18 12/24/18 06:59 18:59 06:59 Intake Total 570 / 570 580 / 580 Output Total 1999 Balance 570 / 570 -1420 / -1420 Weight 114.6 kg Intake: IV 450 / 450 100 / 100 Heparin/D5W 25,000 U/250 mL 25, 250 / 250 000 unit In 250 ml @ Per Protocol IV.CONT TITRATE PRN Rx #:[id number] Prostaphlin Inj 2 GM In NS Inj 200 / 200 100 / 100 100 ML @ 200 mls/hr IV.SIG Q6H MARISSA Rx#:[id number] Oral 120 / 120 480 / 480 Output: Hemodialysis Amount 1999 Other: # Voids 0 0 Date of Last Bowel Movement 12/22/18 # Bowel Movements 0 Narrative: GENERAL: obese Afro-[place] female sitting on the side of the bed, no acute distress, on room air SKIN: Warm and dry. Left chest, bandage clean dry and intact. No surrounding erythema. Vascath in right chest, no swelling or surrounding erythema. CARDIOVASCULAR: regular rate and rhythm. RESPIRATORY: Bilateral lung sepulveda clear to auscultation. Decreased breath sounds at bilateral bases. No use of accessory muscles Extremities: Nonpitting edema of the right arm. NEUROLOGICAL: Awake and alert. Assessment and Plan - Assessment (1) End stage renal disease Code(s): N18.6 - End stage renal disease Status: Chronic Plan: Patient with End stage renal disease, on HD, Patient has been diagnosed with PE. Patient now on IV Heparin, HD done in AM, tolerated well. (2) Anemia Code(s): D64.9 - Anemia, unspecified Status: Chronic Qualifiers: Anemia type: unspecified type Qualified Code(s): D64.9 - Anemia, unspecified Plan: Epogen with dialysis. (3) Hypertension Code(s): I10 - Essential (primary) hypertension Status: Chronic Plan: No need for antihypertensive. BP is low. Remains on Midodrine. (4) Sepsis Code(s): A41.9 - Sepsis, unspecified organism Status: Acute Plan: Antibiotics per ID. On Oxacillin. (5) Metabolic bone disease Code(s): E88.9 - Metabolic disorder, unspecified; M90.80 - Osteopathy in diseases classified elsewhere, unspecified site Status: Acute Plan: Monitor phosphorus intermittently. On Sevelamer and Sensipar. (6) Pulmonary embolism Code(s): I26.99 - Other pulmonary embolism without acute cor pulmonale Status : Acute Qualifiers: Pulmonary embolism type: unspecified Chronicity: acute Acute cor pulmonale presence: without acute cor pulmonale Qualified Code(s): I26.99 - Other pulmonary embolism without acute cor pulmonale Plan: CTA was positive for PE. (7) Right hip pain Code(s): M25.551 - Pain in right hip Status: Acute Plan: Scan showed greater trochanteric bursitis. Ortho was consulted. They recommended conservative treatment and if the pain continues or worsens, steroid injection of her trochanteric bursa.
[2018-12-24] MEDS: Senna/Docusate Sodium 8.6/50 MG Tablet PO SCH ×2 (08:33→20:48)
[2018-12-24] MEDS: Vitamin B Complex/Vit C/Folic Tablet PO SCH (08:33)
--- NOTE | 2018-12-24 08:34 | P.PNFP ---
Subjective Interval history: Ms Paige was seen on rounds this morning. She reports that her breathing is slightly improved from yesterday. She has been off of nasal cannula oxygen this morning. She denies any new pains and states that her right hip pain is stable. She states that her right arm swelling is much improved. She denies any chest pain, calf pain, nausea, vomiting, diarrhea. She reports that Dr. Raines came to see her and stated that she is on the schedule for 1029 morning to go for surgery on her AVF. She has many questions regarding her blood cultures and antibiotics. <Christel Ellington - 12/24/18 09:52> Results - Labs Result diagrams: 12/24/18 06:20 12/24/18 06:20 <José Miguel Pierce - 12/24/18 13:21> Abnormal lab results 12/24/18 12/24/18 12/24/18 Range/Units 06:20 06:20 06:20 WBC 14.1 H (4.0-11.0) th/mm3 RBC 2.51 L (4.00-5.30) mil/mm3 Hgb 8.8 L (11.6-15.3) gm/dL Hct 26.4 L (35.0-46.0) % MCV 104.9 H (80.0-100.0) fL MCH 35.2 H (27.0-34.0) pg APTT 71.8 H (23.4-31.7) sec Sodium 135 L (136-145) meq/L Chloride 96 L (98-107) meq/L BUN 42 H (7-18) mg/dL Creatinine 8.47 H (0.50-1.00) mg/dL Estimated GFR 6 L (>89) mL/min Short CBC 12/24/18 Range/Units 06:20 WBC 14.1 H (4.0-11.0) th/mm3 Hgb 8.8 L (11.6-15.3) gm/dL Hct 26.4 L (35.0-46.0) % Plt Count 300 (150-450) th/mm3 BMP 12/24/18 06:20 Sodium 135 L Potassium 4.5 Chloride 96 L Carbon Dioxide 26.1 BUN 42 H Creatinine 8.47 H Calcium 8.9 <José Miguel Pierce - 12/24/18 13:21> Abnormal lab results 12/23/18 Range/Units 05:52 Eosinophils % (Manual) 5 H (0-4) % Metamyelocytes % (Man) 3 H (0-1) % Promyelocytes % (Man) 1 H (0-0) % Abs Neuts (Manual) 10.4 H (1.8-7.7) th/mm3 Nucleated RBCs/100 WBC 1 H (0-0) /100 WBC <Devin Christel Browning E - 12/24/18 08:33> Physical Exam Vital signs: Vital Signs 12/23/18 16:00 12/23/18 17:00 12/23/18 20:00 Temperature 98.0 F 98.2 F Pulse Rate 83 82 82 Respiratory Rate 18 18 Blood Pressure 141/66 H 125/68 Pulse Oximetry 97 99 12/24/18 00:00 12/24/18 00:15 12/24/18 04:00 Temperature 97.4 F L Pulse Rate 77 70 62 Respiratory Rate 17 18 18 Blood Pressure 125/66 Pulse Oximetry 98 12/24/18 05:15 12/24/18 08:00 12/24/18 12:00 Temperature 97.4 F L 98.2 F 97.7 F Pulse Rate 72 86 88 Respiratory Rate 18 18 18 Blood Pressure 150/74 H 167/95 H 142/89 H Pulse Oximetry 100 100 97 12/24/18 12:47 Temperature Pulse Rate Respiratory Rate Blood Pressure Pulse Oximetry 98 Intake & Output 12/23/18 12/24/18 12/24/18 18:59 06:59 18:59 Intake Total 580 / 580 650 / 650 100 / 100 Output Total 1999 Balance -1420 / -1420 650 / 650 100 / 100 Weight 114.9 kg Intake: IV 100 / 100 450 / 450 100 / 100 Heparin/D5W 25,000 U/250 mL 25, 250 / 250 000 unit In 250 ml @ Per Protocol IV.CONT TITRATE PRN Rx #:[id number] Prostaphlin Inj 2 GM In NS Inj 100 / 100 200 / 200 100 / 100 100 ML @ 200 mls/hr IV.SIG Q6H MARISSA Rx#:[id number] Oral 480 / 480 200 / 200 Output: Hemodialysis Amount 1999 Other: # Voids 0 0 Date of Last Bowel Movement 12/22/18 # Bowel Movements 0 <José Miguel Pierce - 12/24/18 13:21> Vital Signs 12/23/18 12:00 12/23/18 16:00 12/23/18 17:00 Temperature 98.0 F Pulse Rate 59 L 83 82 Respiratory Rate 18 Blood Pressure 141/66 H Pulse Oximetry 97 12/23/18 20:00 12/24/18 00:00 12/24/18 00:15 Temperature 98.2 F 97.4 F L Pulse Rate 82 77 70 Respiratory Rate 18 17 18 Blood Pressure 125/68 125/66 Pulse Oximetry 99 98 12/24/18 04:00 12/24/18 05:15 Temperature 97.4 F L Pulse Rate 62 72 Respiratory Rate 18 18 Blood Pressure 150/74 H Pulse Oximetry 100 Intake & Output 12/23/18 12/24/18 12/24/18 18:59 06:59 18:59 Intake Total 580 / 580 650 / 650 Output Total 1999 Balance -1420 / -1420 650 / 650 Weight 114.9 kg Intake: IV 100 / 100 450 / 450 Heparin/D5W 25,000 U/250 mL 25, 250 / 250 000 unit In 250 ml @ Per Protocol IV.CONT TITRATE PRN Rx #:[id number] Prostaphlin Inj 2 GM In NS Inj 100 / 100 200 / 200 100 ML @ 200 mls/hr IV.SIG Q6H MARISSA Rx#:[id number] Oral 480 / 480 200 / 200 Output: Hemodialysis Amount 1999 Other: # Voids 0 0 Date of Last Bowel Movement 12/22/18 # Bowel Movements 0 <Christel Ellington - 12/24/18 08:33> Narrative: GENERAL: obese Afro-[place] female sitting in a chair, no acute distress, on room air SKIN: Left chest, bandage clean dry and intact. No surrounding erythema. Vascath in right chest, no swelling or surrounding erythema, no tenderness surrounding CARDIOVASCULAR: regular rate and rhythm. RESPIRATORY: Bilateral lung sepulveda clear to auscultation. Decreased breath sounds at bilateral bases. No use of accessory muscles Extremities: Trace edema of right arm surrounding the wrist, improved from previous exam NEUROLOGICAL: Awake and alert. <Christel Ellington - 12/24/18 09:52> Assessment and Plan - Assessment (1) Pulmonary embolism Code(s): I26.99 - Other pulmonary embolism without acute cor pulmonale Status : Acute (2) Sepsis Code(s): A41.9 - Sepsis, unspecified organism Status: Acute (3) Hypotension Code(s): I95.9 - Hypotension, unspecified Status: Acute (4) Seroma Status: Acute (5) End stage renal disease Code(s): N18.6 - End stage renal disease Status: Chronic (6) Right hip pain Code(s): M25.551 - Pain in right hip Status: Acute (7) Anemia Code(s): D64.9 - Anemia, unspecified Status: Chronic (8) Nutrition, metabolism, and development symptoms Code(s): R63.8 - Other symptoms and signs concerning food and fluid intake Status: Acute <José Miguel Pierce - 12/24/18 13:21> (1) Pulmonary embolism Code(s): I26.99 - Other pulmonary embolism without acute cor pulmonale Status : Acute Plan: -Continue heparin drip titrated per protocol and will transition to oral anticoagulant once patient has completed her AV fistula procedures. Due to decreased protein C activity patient is at increased risk for warfarin skin necrosis, will consider DOAC -Continue to monitor on telemetry -Supplemental oxygen as needed to keep O2 saturation over 93% -Alternate albuterol and duo nebs breathing treatments -2D transthoracic echocardiogram with ejection fraction of 55% and a pulmonary artery pressure of 34. Right atrium not well visualized (thrombus found in this location on CTA) -Venous Doppler of right upper extremity negative for DVT -Hypercoagulable panel shows low protein C antigen as well as low Antithrombin III activity (of note patient was started on heparin therapy when these labs were drawn) (2) Sepsis Code(s): A41.9 - Sepsis, unspecified organism Status: Acute Plan: Likely source of infection around PermCath site IV antibiotics: Vancomycin with dialysis (12/16-12/19) Oxacillin 2g q6h(12/17- ) ID recommendations for d/c- cefazolin 2 g with each hemodialysis for 4 weeks after first negative blood culture. Repeat blood cultures 2 weeks after antibiotics. -Blood cultures positive for staph aureus x4, sensitive to oxacillin -Repeat blood cultures positive x2 for staph aureus likely due to being drawn shortly after infected PermCath was removed. -Repeat blood cultures on 12/21, no growth times 2 day continue to follow (3) Hypotension Code(s): I95.9 - Hypotension, unspecified Status: Acute Plan: Patient has maintained blood pressures and has even had some elevations -Midodrine 10 mg every 6 hours daily, held -Continue to monitor, maintain maps greater than 65 (4) Seroma Status: Acute Plan: Chronic issue for this patient: CT abdomen pelvis shows 4.4 cm oblong density in the right inguinal region has Hounsfield measurements suggesting a fluid collection. As such, diagnostic considerations would include predominantly seroma or lymphocele. She states that she has a history of drainage of the seroma by Dr. Montgomery. She stated that he told her if it reoccurs that it will have to be surgically removed. She does not want this procedure to happen. (5) End stage renal disease Code(s): N18.6 - End stage renal disease Status: Chronic Plan: Plans for AV fistula surgery on Wednesday Nephrology following, current hemodialysis schedule is Wednesday/Wednesday/Wednesday -Monitor BMP (6) Right hip pain Code(s): M25.551 - Pain in right hip Status: Acute Plan: Patient with right hip pain since 3 days prior to admission MRI right femur shows greater trochanteric bursitis. Also some apparent tendinosis, strain, and/or reactive appearing edema of the distal gluteus minimus. Ortho consulted, appreciate recommendations -Conservative management -If continues or worsens, may benefit from a steroid injection of her trochanteric bursa. Continue to monitor Physical therapy recommends rehab OT recommends rehab (7) Anemia Code(s): D64.9 - Anemia, unspecified Status: Chronic Plan: Associated with chronic renal issues -Monitor and transfuse as needed (8) Nutrition, metabolism, and development symptoms Code(s): R63.8 - Other symptoms and signs concerning food and fluid intake Status: Acute Plan: Fluids: tolerating PO Electrolytes: monitor and replete as needed Nutrition: renal diet DVT Prophylaxis: Patient currently on a heparin drip GI Prophylaxis: None indicated at this time <Christel Ellington 12/24/18 11:37> - Assessment and Plan Discussed Condition With: Dr Pierce <Christel Ellington 12/24/18 09:52> - Attending Attestation Patient case discussed with resident physicians I have independently examined the patient I have read the above note and agree with the assessment and plan as discussed with me I was involved in all medical decision making for this patient José Miguel Pierce MD <José Miguel Pierce - 12/24/18 13:21> <Christel Ellington E - Last Filed: 12/24/18 11:37> (1) Pulmonary embolism Qualifiers: Pulmonary embolism type: unspecified Chronicity: acute Acute cor pulmonale presence: without acute cor pulmonale Qualified Code(s): I26.99 - Other pulmonary embolism without acute cor pulmonale (7) Anemia Qualifiers: Anemia type: unspecified type Qualified Code(s): D64.9 - Anemia, unspecified <José Miguel Pierce - Last Filed: 12/24/18 13:21> (1) Pulmonary embolism Qualifiers: Pulmonary embolism type: unspecified Chronicity: acute Acute cor pulmonale presence: without acute cor pulmonale Qualified Code(s): I26.99 - Other pulmonary embolism without acute cor pulmonale (7) Anemia Qualifiers: Anemia type: unspecified type Qualified Code(s): D64.9 - Anemia, unspecified <Christel Ellington - Last Filed: 12/24/18 11:37> (1) Pulmonary embolism Qualifiers: Pulmonary embolism type: unspecified Chronicity: acute Acute cor pulmonale presence: without acute cor pulmonale Qualified Code(s): I26.99 - Other pulmonary embolism without acute cor pulmonale (7) Anemia Qualifiers: Anemia type: unspecified type Qualified Code(s): D64.9 - Anemia, unspecified <José Miguel Pierce - Last Filed: 12/24/18 13:21> (1) Pulmonary embolism Qualifiers: Pulmonary embolism type: unspecified Chronicity: acute Acute cor pulmonale presence: without acute cor pulmonale Qualified Code(s): I26.99 - Other pulmonary embolism without acute cor pulmonale (7) Anemia Qualifiers: Anemia type: unspecified type Qualified Code(s): D64.9 - Anemia, unspecified
[2018-12-24 08:45] LABS: Hematocrit 26.4 % (35.0-46.0); Hemoglobin 8.8 gm/dL (11.6-15.3); Mean Corpuscular HGB Conc 33.6 % (32.0-36.0); Mean Corpuscular Hemoglobin 35.2 pg (27.0-34.0); Mean Corpuscular Volume 104.9 fL (80.0-100.0); Mean Platelet Volume 8.6 fL (7.0-11.0); Platelet Count 300 th/mm3 (150-450); Red Blood Count 2.51 mil/mm3 (4.00-5.30); Red Cell Distribution Width 15.1 % (11.6-17.2); White Blood Count 14.1 th/mm3 (4.0-11.0)
[2018-12-24 09:12] LABS: Calcium 8.9 mg/dL (8.5-10.1); Carbon Dioxide 26.1 meq/L (21.0-32.0); Potassium 4.5 meq/L (3.5-5.1)
--- NOTE | 2018-12-24 12:45 | P.PNNP ---
Subjective Interval history: , Denies any chest pain or shortness of breath, remains on heparin Hemodialysis done yesterday Physical Exam Vital signs: Vital Signs 12/23/18 16:00 12/23/18 17:00 12/23/18 20:00 Temperature 98.0 F 98.2 F Pulse Rate 83 82 82 Respiratory Rate 18 18 Blood Pressure 141/66 H 125/68 Pulse Oximetry 97 99 12/24/18 00:00 12/24/18 00:15 12/24/18 04:00 Temperature 97.4 F L Pulse Rate 77 70 62 Respiratory Rate 17 18 18 Blood Pressure 125/66 Pulse Oximetry 98 12/24/18 05:15 12/24/18 08:00 Temperature 97.4 F L 98.2 F Pulse Rate 72 86 Respiratory Rate 18 18 Blood Pressure 150/74 H 167/95 H Pulse Oximetry 100 100 Intake & Output 12/23/18 12/24/18 12/24/18 18:59 06:59 18:59 Intake Total 580 / 580 650 / 650 100 / 100 Output Total 1999 Balance -1420 / -1420 650 / 650 100 / 100 Weight 114.9 kg Intake: IV 100 / 100 450 / 450 100 / 100 Heparin/D5W 25,000 U/250 mL 25, 250 / 250 000 unit In 250 ml @ Per Protocol IV.CONT TITRATE PRN Rx #:[id number] Prostaphlin Inj 2 GM In NS Inj 100 / 100 200 / 200 100 / 100 100 ML @ 200 mls/hr IV.SIG Q6H MARISSA Rx#:[id number] Oral 480 / 480 200 / 200 Output: Hemodialysis Amount 1999 Other: # Voids 0 0 Date of Last Bowel Movement 12/22/18 # Bowel Movements 0 Narrative: GENERAL: obese Afro-[place] female sitting in a chair, no acute distress, on room air SKIN: Left chest, bandage clean dry and intact. No surrounding erythema. Vascath in right chest, no swelling or surrounding erythema, no tenderness surrounding CARDIOVASCULAR: regular rate and rhythm. RESPIRATORY: Bilateral lung sepulveda clear to auscultation. Decreased breath sounds at bilateral bases. No use of accessory muscles Extremities: Trace edema of right arm surrounding the wrist, improved from previous exam NEUROLOGICAL: Awake and alert. Assessment and Plan - Assessment (1) End stage renal disease Code(s): N18.6 - End stage renal disease Status: Chronic Plan: Patient with End stage renal disease, on HD, Patient has been diagnosed with PE. Patient now on IV Heparin, Hemodialysis done Wednesday, Wednesday and Wednesday Continue supportive care, she has temporary catheter on the right subclavian Plan to get a AV fistula on the right arm (2) Anemia Code(s): D64.9 - Anemia, unspecified Status: Chronic Qualifiers: Anemia type: unspecified type Qualified Code(s): D64.9 - Anemia, unspecified Plan: Epogen with dialysis. (3) Hypertension Code(s): I10 - Essential (primary) hypertension Status: Chronic Plan: No need for antihypertensive. BP is low. Remains on Midodrine. (4) Sepsis Code(s): A41.9 - Sepsis, unspecified organism Status: Acute Plan: Antibiotics per ID. On Oxacillin. (5) Metabolic bone disease Code(s): E88.9 - Metabolic disorder, unspecified; M90.80 - Osteopathy in diseases classified elsewhere, unspecified site Status: Acute Plan: Monitor phosphorus intermittently. On Sevelamer and Sensipar. (6) Pulmonary embolism Code(s): I26.99 - Other pulmonary embolism without acute cor pulmonale Status : Acute Qualifiers: Pulmonary embolism type: unspecified Chronicity: acute Acute cor pulmonale presence: without acute cor pulmonale Qualified Code(s): I26.99 - Other pulmonary embolism without acute cor pulmonale Plan: CTA was positive for PE. (7) Right hip pain Code(s): M25.551 - Pain in right hip Status: Acute Plan: Scan showed greater trochanteric bursitis. Ortho was consulted. They recommended conservative treatment and if the pain continues or worsens, steroid injection of her trochanteric bursa.
[2018-12-24] MEDS: Heparin Drip 25,000 UNIT/250 ML BAG IV.CONT PRN (17:04)
[2018-12-25] MEDS: Senna/Docusate Sodium 8.6/50 MG Tablet PO SCH ×2 (08:42→21:02)
[2018-12-25] MEDS: Vitamin B Complex/Vit C/Folic Tablet PO SCH (08:42)
[2018-12-25 09:22] LABS: Hematocrit 24.9 % (35.0-46.0); Hemoglobin 8.3 gm/dL (11.6-15.3); Mean Corpuscular HGB Conc 33.6 % (32.0-36.0); Mean Corpuscular Hemoglobin 34.9 pg (27.0-34.0); Mean Platelet Volume 8.4 fL (7.0-11.0); Platelet Count 273 th/mm3 (150-450); Red Blood Count 2.39 mil/mm3 (4.00-5.30); Red Cell Distribution Width 14.8 % (11.6-17.2); White Blood Count 13.3 th/mm3 (4.0-11.0)
--- NOTE | 2018-12-25 10:01 | P.PNFP ---
Subjective Interval history: Ms Royal floyd. She reports right ear stuffiness with no significant pain. She denies any shortness of breath, chest pain, abdominal pain, nausea, vomiting , fevers, chills. She has been off of oxygen since yesterday afternoon. She reports that the swelling of her right arm has decreased with elevation of the extremity. She denies any calf pain or worsening shortness of breath when she is moving around the room. <Christel Ellignton - 12/25/18 10:00> Results - Labs Result diagrams: 12/25/18 07:36 12/25/18 07:36 <José Miguel Pierce - 12/25/18 11:51> Abnormal lab results 12/25/18 12/25/18 12/25/18 Range/Units 07:36 07:36 07:36 WBC 13.3 H (4.0-11.0) th/mm3 RBC 2.39 L (4.00-5.30) mil/mm3 Hgb 8.3 L (11.6-15.3) gm/dL Hct 24.9 L (35.0-46.0) % MCV 104.0 H (80.0-100.0) fL MCH 34.9 H (27.0-34.0) pg APTT 79.0 H (23.4-31.7) sec Sodium 134 L (136-145) meq/L Chloride 95 L (98-107) meq/L BUN 51 H (7-18) mg/dL Creatinine 10.05 H* D (0.50-1.00) mg/dL Estimated GFR 5 L (>89) mL/min Random Glucose 68 L (74-106) mg/dL Short CBC 12/25/18 Range/Units 07:36 WBC 13.3 H (4.0-11.0) th/mm3 Hgb 8.3 L (11.6-15.3) gm/dL Hct 24.9 L (35.0-46.0) % Plt Count 273 (150-450) th/mm3 BMP 12/25/18 07:36 Sodium 134 L Potassium 4.8 Chloride 95 L Carbon Dioxide 25.5 BUN 51 H Creatinine 10.05 H* D Calcium 8.7 <José Miguel Pierce - 12/25/18 11:51> Abnormal lab results 12/25/18 12/25/18 Range/Units 07:36 07:36 WBC 13.3 H (4.0-11.0) th/mm3 RBC 2.39 L (4.00-5.30) mil/mm3 Hgb 8.3 L (11.6-15.3) gm/dL Hct 24.9 L (35.0-46.0) % MCV 104.0 H (80.0-100.0) fL MCH 34.9 H (27.0-34.0) pg APTT 79.0 H (23.4-31.7) sec Short CBC 12/25/18 Range/Units 07:36 WBC 13.3 H (4.0-11.0) th/mm3 Hgb 8.3 L (11.6-15.3) gm/dL Hct 24.9 L (35.0-46.0) % Plt Count 273 (150-450) th/mm3 <Devin Christel Browning E - 12/25/18 10:00> Physical Exam Vital signs: Vital Signs 12/24/18 12:00 12/24/18 12:47 12/24/18 16:00 Temperature 97.7 F 98.0 F Pulse Rate 89 77 Respiratory Rate 18 18 Blood Pressure 142/89 H 118/72 Pulse Oximetry 97 98 96 12/24/18 20:00 12/25/18 00:00 12/25/18 03:05 Temperature 98.1 F 98.4 F Pulse Rate 81 67 77 Respiratory Rate 18 18 Blood Pressure 163/90 H 150/93 H Pulse Oximetry 98 96 12/25/18 04:00 12/25/18 08:00 12/25/18 08:34 Temperature 98.3 F Pulse Rate 72 77 72 Respiratory Rate 18 Blood Pressure 155/78 H Pulse Oximetry 98 Intake & Output 12/24/18 12/25/18 12/25/18 18:59 06:59 18:59 Intake Total 930 / 930 320 / 320 350 / 350 Output Total 0 / 0 Balance 930 / 930 320 / 320 350 / 350 Weight 115 kg Intake: IV 450 / 450 200 / 200 350 / 350 Heparin/D5W 25,000 U/250 mL 25, 250 / 250 250 / 250 000 unit In 250 ml @ Per Protocol IV.CONT TITRATE PRN Rx #:[id number] Prostaphlin Inj 2 GM In NS Inj 200 / 200 200 / 200 100 / 100 100 ML @ 200 mls/hr IV.SIG Q6H MARISSA Rx#:[id number] Oral 480 / 480 120 / 120 Output: Urine 0 / 0 Other: # Voids 1 Date of Last Bowel Movement 12/24/18 # Bowel Movements 1 0 <José Miguel Pierce - 12/25/18 11:51> Vital Signs 12/24/18 10:45 12/24/18 12:00 12/24/18 12:47 Temperature 98.4 F 97.7 F Pulse Rate 77 89 Respiratory Rate 18 18 Blood Pressure 150/93 H 142/89 H Pulse Oximetry 96 97 98 12/24/18 16:00 12/24/18 20:00 12/25/18 00:00 Temperature 98.0 F 98.1 F Pulse Rate 77 81 67 Respiratory Rate 18 18 Blood Pressure 118/72 163/90 H Pulse Oximetry 96 98 12/25/18 03:05 12/25/18 04:00 12/25/18 08:34 Temperature 98.4 F 98.3 F Pulse Rate 77 72 72 Respiratory Rate 18 18 Blood Pressure 150/93 H 155/78 H Pulse Oximetry 96 98 Intake & Output 12/24/18 12/25/18 12/25/18 18:59 06:59 18:59 Intake Total 930 / 930 320 / 320 100 / 100 Output Total 0 / 0 Balance 930 / 930 320 / 320 100 / 100 Weight 115 kg Intake: IV 450 / 450 200 / 200 100 / 100 Heparin/D5W 25,000 U/250 mL 25, 250 / 250 000 unit In 250 ml @ Per Protocol IV.CONT TITRATE PRN Rx #:[id number] Prostaphlin Inj 2 GM In NS Inj 200 / 200 200 / 200 100 / 100 100 ML @ 200 mls/hr IV.SIG Q6H MARISSA Rx#:[id number] Oral 480 / 480 120 / 120 Output: Urine 0 / 0 Other: # Voids 1 # Bowel Movements 1 0 <Devin Christel Browning Dioni - 12/25/18 10:00> Narrative: GENERAL: obese Afro-[place]er female sitting in bed, no acute distress. On room air HEENT: Right ear shows dull tympanic membrane, no erythema, no bulging. No pain in or around the ear SKIN: Left chest, bandage clean dry and intact. No surrounding erythema. Vascath in right chest, no swelling or surrounding erythema, no tenderness surrounding CARDIOVASCULAR: regular rate and rhythm. RESPIRATORY: Bilateral lung sepulveda clear to auscultation. Decreased breath sounds at bilateral bases. No use of accessory muscles Extremities: Trace edema of right arm surrounding the wrist, improved from previous exam, nonerythematous. No edema of lower extremities, no calf tenderness to palpation <Christel Ellington - 12/25/18 10:00> Assessment and Plan - Assessment (1) Pulmonary embolism Code(s): I26.99 - Other pulmonary embolism without acute cor pulmonale Status : Acute (2) Sepsis Code(s): A41.9 - Sepsis, unspecified organism Status: Acute (3) Hypotension Code(s): I95.9 - Hypotension, unspecified Status: Acute (4) Seroma Status: Acute (5) End stage renal disease Code(s): N18.6 - End stage renal disease Status: Chronic (6) Right hip pain Code(s): M25.551 - Pain in right hip Status: Acute (7) Anemia Code(s): D64.9 - Anemia, unspecified Status: Chronic (8) Nutrition, metabolism, and development symptoms Code(s): R63.8 - Other symptoms and signs concerning food and fluid intake Status: Acute <José Miguel Pierce - 12/25/18 11:51> (1) Pulmonary embolism Code(s): I26.99 - Other pulmonary embolism without acute cor pulmonale Status : Acute Plan: -Continue heparin drip titrated per protocol and will transition to oral anticoagulant once patient has completed her AV fistula procedures (likely tomorrow). Due to decreased protein C activity patient is at increased risk for warfarin skin necrosis, will consider DOAC -Continue to monitor on telemetry -Supplemental oxygen as needed to keep O2 saturation over 93% -Alternate albuterol and duo nebs breathing treatments -2D transthoracic echocardiogram with ejection fraction of 55% and a pulmonary artery pressure of 34. Right atrium not well visualized (thrombus found in this location on CTA) -Venous Doppler of right upper extremity negative for DVT -Hypercoagulable panel shows low protein C antigen as well as low Antithrombin III activity (of note patient was started on heparin therapy when these labs were drawn) (2) Sepsis Code(s): A41.9 - Sepsis, unspecified organism Status: Acute Plan: Likely source of infection around PermCath site IV antibiotics: Vancomycin with dialysis (12/16-12/19) Oxacillin 2g q6h(12/17- ) ID recommendations for d/c- cefazolin 2 g with each hemodialysis for 4 weeks after first negative blood culture. Repeat blood cultures 2 weeks after antibiotics. -Blood cultures positive for staph aureus x4, sensitive to oxacillin -Repeat blood cultures positive x2 for staph aureus likely due to being drawn shortly after infected PermCath was removed. -Repeat blood cultures on 12/21, no growth times 2 day continue to follow (3) Hypotension Code(s): I95.9 - Hypotension, unspecified Status: Acute Plan: Patient has maintained blood pressures and has even had some elevations -Midodrine 10 mg every 6 hours daily, held -Continue to monitor, maintain maps greater than 65 (4) Seroma Status: Acute Plan: Chronic issue for this patient: CT abdomen pelvis shows 4.4 cm oblong density in the right inguinal region has Hounsfield measurements suggesting a fluid collection. As such, diagnostic considerations would include predominantly seroma or lymphocele. She states that she has a history of drainage of the seroma by Dr. Montgomery. She stated that he told her if it reoccurs that it will have to be surgically removed. She does not want this procedure to happen. (5) End stage renal disease Code(s): N18.6 - End stage renal disease Status: Chronic Plan: Plans for AV fistula surgery on Wednesday patient reports that she is on the schedule with Dr. Raines for 10:30 AM Nephrology following, current hemodialysis schedule is Wednesday/Wednesday/Wednesday -Monitor BMP (6) Right hip pain Code(s): M25.551 - Pain in right hip Status: Acute Plan: Patient with right hip pain since 3 days prior to admission MRI right femur shows greater trochanteric bursitis. Also some apparent tendinosis, strain, and/or reactive appearing edema of the distal gluteus minimus. Ortho consulted, appreciate recommendations -Conservative management -If continues or worsens, may benefit from a steroid injection of her trochanteric bursa. Continue to monitor Physical therapy recommends rehab OT recommends rehab (7) Anemia Code(s): D64.9 - Anemia, unspecified Status: Chronic Plan: Associated with chronic renal issues -Monitor and transfuse as needed (8) Nutrition, metabolism, and development symptoms Code(s): R63.8 - Other symptoms and signs concerning food and fluid intake Status: Acute Plan: Fluids: tolerating PO Electrolytes: monitor and replete as needed Nutrition: renal diet DVT Prophylaxis: Patient currently on a heparin drip GI Prophylaxis: None indicated at this time <Christel Ellington - 12/25/18 09:56> - Assessment and Plan Discussed Condition With: Dr Pierce <Christel Ellington - 12/25/18 10:00> - Attending Attestation Patient case discussed with resident physicians I have independently examined the patient I have read the above note and agree with the assessment and plan as discussed with me I was involved in all medical decision making for this patient José Miguel Pierce MD <José Miguel Pierce - 12/25/18 11:51> <Christel Ellington - Last Filed: 12/25/18 09:56> (1) Pulmonary embolism Qualifiers: Pulmonary embolism type: unspecified Chronicity: acute Acute cor pulmonale presence: without acute cor pulmonale Qualified Code(s): I26.99 - Other pulmonary embolism without acute cor pulmonale (7) Anemia Qualifiers: Anemia type: unspecified type Qualified Code(s): D64.9 - Anemia, unspecified <José Miguel Pierce - Last Filed: 12/25/18 11:51> (1) Pulmonary embolism Qualifiers: Pulmonary embolism type: unspecified Chronicity: acute Acute cor pulmonale presence: without acute cor pulmonale Qualified Code(s): I26.99 - Other pulmonary embolism without acute cor pulmonale (7) Anemia Qualifiers: Anemia type: unspecified type Qualified Code(s): D64.9 - Anemia, unspecified <Devin BrowningChristel E - Last Filed: 12/25/18 09:56> (1) Pulmonary embolism Qualifiers: Pulmonary embolism type: unspecified Chronicity: acute Acute cor pulmonale presence: without acute cor pulmonale Qualified Code(s): I26.99 - Other pulmonary embolism without acute cor pulmonale (7) Anemia Qualifiers: Anemia type: unspecified type Qualified Code(s): D64.9 - Anemia, unspecified <José Miguel Pierce - Last Filed: 12/25/18 11:51> (1) Pulmonary embolism Qualifiers: Pulmonary embolism type: unspecified Chronicity: acute Acute cor pulmonale presence: without acute cor pulmonale Qualified Code(s): I26.99 - Other pulmonary embolism without acute cor pulmonale (7) Anemia Qualifiers: Anemia type: unspecified type Qualified Code(s): D64.9 - Anemia, unspecified
[2018-12-25 10:13] LABS: Calcium 8.7 mg/dL (8.5-10.1); Carbon Dioxide 25.5 meq/L (21.0-32.0); Potassium 4.8 meq/L (3.5-5.1)
--- NOTE | 2018-12-25 10:26 | P.PNADD ---
Addendum to Inpatient Note Additional information: Off service note Ms Paige was admitted on 12/16 for right hip pain and sepsis. She was placed on vancomycin and Zosyn. CT showed known seroma surrounding the hip. Overnight she had low blood pressures as low as 55/29 as well as oxygen saturations as low as 75%. She was transferred to the ICU. At that time she was having chest pain, tachycardia. EKG showed sinus tach no ST changes, troponin negative. D-dimer was ordered and was elevated, CTA showed pulmonary embolism left lower lobe. Thrombus is also noted in the right atrium of the heart as well as the central venous catheter. She was started on heparin drip and IR was consulted to change her Vas-Cath. Blood cultures positive for staph aureus, mostly pansensitive. Infectious disease was consulted and started patient on oxacillin, DC'd and Zosyn. Repeat blood cultures were drawn immediately post removal of permacath, and were again growing gram-positive cocci. Third set of blood cultures drawn, no growth to date. Blood pressures improving with treatment of infection, midodrine held. Right upper extremity began to swell, negative ultrasound for DVT. Patient does have protein C deficiency per laboratory studies, increased risk for warfarin-induced skin necrosis so will likely require DOAC. Patient is on schedule with Dr. Raines for 10:30 AM on 12/26 for AV fistula surgery. After surgery consider transition to oral anticoagulant and possible admission to [place] inpatient rehab.
[2018-12-25] MEDS: Heparin Drip 25,000 UNIT/250 ML BAG IV.CONT PRN (11:16)
--- NOTE | 2018-12-25 12:24 | P.PNNP ---
Subjective Interval history: Patient is doing well denies shortness of breath, she is scheduled for AV fistula placement on the right, hemodialysis is scheduled for tomorrow Physical Exam Vital signs: Vital Signs 12/24/18 12:47 12/24/18 16:00 12/24/18 20:00 Temperature 98.0 F 98.1 F Pulse Rate 77 81 Respiratory Rate 18 18 Blood Pressure 118/72 163/90 H Pulse Oximetry 98 96 98 12/25/18 00:00 12/25/18 03:05 12/25/18 04:00 Temperature 98.4 F Pulse Rate 67 77 72 Respiratory Rate 18 Blood Pressure 150/93 H Pulse Oximetry 96 12/25/18 08:00 12/25/18 08:34 Temperature 98.3 F Pulse Rate 77 72 Respiratory Rate 18 Blood Pressure 155/78 H Pulse Oximetry 98 Intake & Output 12/24/18 12/25/18 12/25/18 18:59 06:59 18:59 Intake Total 930 / 930 320 / 320 350 / 350 Output Total 0 / 0 Balance 930 / 930 320 / 320 350 / 350 Weight 115 kg Intake: IV 450 / 450 200 / 200 350 / 350 Heparin/D5W 25,000 U/250 mL 25, 250 / 250 250 / 250 000 unit In 250 ml @ Per Protocol IV.CONT TITRATE PRN Rx #:[id number] Prostaphlin Inj 2 GM In NS Inj 200 / 200 200 / 200 100 / 100 100 ML @ 200 mls/hr IV.SIG Q6H MARISSA Rx#:[id number] Oral 480 / 480 120 / 120 Output: Urine 0 / 0 Other: # Voids 1 Date of Last Bowel Movement 12/24/18 # Bowel Movements 1 0 Narrative: GENERAL: Laying in bed alert no deficit SKIN: Warm and dry. HEAD: Normocephalic. EYES: No scleral icterus. No injection or drainage. NECK: Supple, trachea midline. No JVD or lymphadenopathy. CARDIOVASCULAR: Regular rate and rhythm without murmurs, gallops, or rubs. RESPIRATORY: Breath sounds equal bilaterally. No accessory muscle use. GASTROINTESTINAL: Abdomen soft, non-tender, nondistended. MUSCULOSKELETAL: No cyanosis, 1+ edema. BACK: Nontender without obvious deformity. No CVA tenderness. Assessment and Plan - Assessment (1) End stage renal disease Code(s): N18.6 - End stage renal disease Status: Chronic Plan: Patient with End stage renal disease, on HD, Patient has been diagnosed with PE. Patient now on IV Heparin, Hemodialysis schedule is Wednesday, Wednesday and Wednesday Continue supportive care, she has temporary catheter on the right subclavian Plan to get a AV fistula on the right arm (2) Anemia Code(s): D64.9 - Anemia, unspecified Status: Chronic Qualifiers: Anemia type: unspecified type Qualified Code(s): D64.9 - Anemia, unspecified Plan: Epogen with dialysis. (3) Hypertension Code(s): I10 - Essential (primary) hypertension Status: Chronic Plan: No need for antihypertensive. BP is low. Remains on Midodrine. (4) Sepsis Code(s): A41.9 - Sepsis, unspecified organism Status: Acute Plan: Antibiotics per ID. On Oxacillin. Staphylococcus aureus last 3 cultures negative (5) Metabolic bone disease Code(s): E88.9 - Metabolic disorder, unspecified; M90.80 - Osteopathy in diseases classified elsewhere, unspecified site Status: Acute Plan: Monitor phosphorus intermittently. On Sevelamer and Sensipar. (6) Pulmonary embolism Code(s): I26.99 - Other pulmonary embolism without acute cor pulmonale Status : Acute Qualifiers: Pulmonary embolism type: unspecified Chronicity: acute Acute cor pulmonale presence: without acute cor pulmonale Qualified Code(s): I26.99 - Other pulmonary embolism without acute cor pulmonale Plan: CTA was positive for PE. (7) Right hip pain Code(s): M25.551 - Pain in right hip Status: Acute Plan: Scan showed greater trochanteric bursitis. Ortho was consulted. They recommended conservative treatment and if the pain continues or worsens, steroid injection of her trochanteric bursa.
[2018-12-26] MEDS: Heparin Drip 25,000 UNIT/250 ML BAG IV.CONT PRN (06:42)
[2018-12-26 08:22] LABS: Baso # (Auto) 0.1 th/mm3 (0.0-0.2); Baso % (Auto) 0.5 % (0.0-2.0); Eos # (Auto) 0.3 th/mm3 (0.0-0.4); Eos % (Auto) 1.7 % (0.0-4.0); Hematocrit 23.7 % (35.0-46.0); Lymph % (Auto) 13.3 % (9.0-44.0); Mean Corpuscular HGB Conc 33.7 % (32.0-36.0); Mean Corpuscular Hemoglobin 35.3 pg (27.0-34.0); Mean Corpuscular Volume 104.6 fL (80.0-100.0); Mean Platelet Volume 8.4 fL (7.0-11.0); Mono # (Auto) 0.7 th/mm3 (0.0-0.9); Mono % (Auto) 4.6 % (0.0-8.0); Neut # (Auto) 11.9 th/mm3 (1.8-7.7); Neut % (Auto) 79.9 % (16.0-70.0); Platelet Count 238 th/mm3 (150-450); Red Blood Count 2.27 mil/mm3 (4.00-5.30); Red Cell Distribution Width 15.2 % (11.6-17.2); White Blood Count 14.9 th/mm3 (4.0-11.0)
[2018-12-26 08:55] LABS: Alanine Aminotransferase 20 U/L (10-53); Albumin 2.2 g/dL (3.4-5.0); Anion Gap 14 meq/L (5-15); Aspartate Aminotransferase 15 U/L (15-37); Blood Urea Nitrogen 56 mg/dL (7-18); Calcium 8.5 mg/dL (8.5-10.1); Carbon Dioxide 25.2 meq/L (21.0-32.0); Chloride 94 meq/L (98-107); Glomerular Filtration Rate 4 mL/min (>89); Glucose,Random 66 mg/dL (74-106); Potassium 5.1 meq/L (3.5-5.1); Sodium 133 meq/L (136-145)
[2018-12-26] MEDS: Senna/Docusate Sodium 8.6/50 MG Tablet PO SCH ×2 (08:56→20:54)
[2018-12-26] MEDS: Vitamin B Complex/Vit C/Folic Tablet PO SCH (08:57)
[2018-12-26 08:59] LABS: Alkaline Phosphatase 119 U/L (45-117); Total Protein 6.5 g/dL (6.4-8.2)
[2018-12-26 09:10] LABS: Eosinophils 2 % (0-4); Lymphocytes 11 % (9-44); Metamyelocytes 2 % (0-1); Monocytes 3 % (0-8); Myelocytes 2 % (0-0)
[2018-12-26 09:11] LABS: Platelet Estimate Normal (Normal); Platelet Morphology Normal (Normal)
--- NOTE | 2018-12-26 10:17 | P.PNFP ---
Subjective Interval history: Patient seen and examine this am. No acute events overnight. Patient reports she feels well. Her breathing has improved and is comfortable. O2 sat in the past 24hr have been 96-99 on RA. BP elevated this am 160/88. Denies CP, sob, fever or chills. No complaints. Pt has been npo anticipating av fistula revision surgery. <Mila HarveyFrankie Stuart - 12/26/18 10:17> Results - Labs Result diagrams: 12/26/18 06:37 12/26/18 06:37 <José Miguel Pierce - 12/26/18 17:24> Abnormal lab results 12/25/18 12/26/18 12/26/18 Range/Units 22:41 06:37 06:37 WBC 14.9 H (4.0-11.0) th/mm3 RBC 2.27 L (4.00-5.30) mil/mm3 Hgb 8.0 L (11.6-15.3) gm/dL Hct 23.7 L (35.0-46.0) % MCV 104.6 H (80.0-100.0) fL MCH 35.3 H (27.0-34.0) pg Neut % (Auto) 79.9 H (16.0-70.0) % Neut # (Auto) 11.9 H (1.8-7.7) th/mm3 Seg Neuts % (Manual) 75 H (16-70) % Metamyelocytes % (Man) 2 H (0-1) % Myelocytes % (Man) 2 H (0-0) % Abs Neuts (Manual) 12.5 H (1.8-7.7) th/mm3 APTT 57.2 H 64.1 H (23.4-31.7) sec Sodium (136-145) meq/L Chloride (98-107) meq/L BUN (7-18) mg/dL Creatinine (0.50-1.00) mg/dL Estimated GFR (>89) mL/min Random Glucose (74-106) mg/dL Alkaline Phosphatase (45-117) U/L Albumin (3.4-5.0) g/dL 12/26/18 Range/Units 06:37 WBC (4.0-11.0) th/mm3 RBC (4.00-5.30) mil/mm3 Hgb (11.6-15.3) gm/dL Hct (35.0-46.0) % MCV (80.0-100.0) fL MCH (27.0-34.0) pg Neut % (Auto) (16.0-70.0) % Neut # (Auto) (1.8-7.7) th/mm3 Seg Neuts % (Manual) (16-70) % Metamyelocytes % (Man) (0-1) % Myelocytes % (Man) (0-0) % Abs Neuts (Manual) (1.8-7.7) th/mm3 APTT (23.4-31.7) sec Sodium 133 L (136-145) meq/L Chloride 94 L (98-107) meq/L BUN 56 H (7-18) mg/dL Creatinine 11.30 H* D (0.50-1.00) mg/dL Estimated GFR 4 L (>89) mL/min Random Glucose 66 L (74-106) mg/dL Alkaline Phosphatase 119 H (45-117) U/L Albumin 2.2 L (3.4-5.0) g/dL Short CBC 12/26/18 Range/Units 06:37 WBC 14.9 H (4.0-11.0) th/mm3 Hgb 8.0 L (11.6-15.3) gm/dL Hct 23.7 L (35.0-46.0) % Plt Count 238 (150-450) th/mm3 BMP 12/26/18 06:37 Sodium 133 L Potassium 5.1 Chloride 94 L Carbon Dioxide 25.2 BUN 56 H Creatinine 11.30 H* D Calcium 8.5 Liver Function 12/26/18 Range/Units 06:37 Total Bilirubin 0.2 (0.2-1.0) mg/dL AST 15 (15-37) U/L ALT 20 (10-53) U/L Alkaline Phosphatase 119 H (45-117) U/L Albumin 2.2 L (3.4-5.0) g/dL <José Miguel Pierce - 12/26/18 17:24> Abnormal lab results 12/25/18 12/25/18 12/25/18 Range/Units 07:36 16:33 22:41 WBC (4.0-11.0) th/mm3 RBC (4.00-5.30) mil/mm3 Hgb (11.6-15.3) gm/dL Hct (35.0-46.0) % MCV (80.0-100.0) fL MCH (27.0-34.0) pg Neut % (Auto) (16.0-70.0) % Neut # (Auto) (1.8-7.7) th/mm3 Seg Neuts % (Manual) (16-70) % Metamyelocytes % (Man) (0-1) % Myelocytes % (Man) (0-0) % Abs Neuts (Manual) (1.8-7.7) th/mm3 APTT 56.1 H D 57.2 H (23.4-31.7) sec Sodium 134 L (136-145) meq/L Chloride 95 L (98-107) meq/L BUN 51 H (7-18) mg/dL Creatinine 10.05 H* D (0.50-1.00) mg/dL Estimated GFR 5 L (>89) mL/min Random Glucose 68 L (74-106) mg/dL Alkaline Phosphatase (45-117) U/L Albumin (3.4-5.0) g/dL 12/26/18 12/26/18 12/26/18 Range/Units 06:37 06:37 06:37 WBC 14.9 H (4.0-11.0) th/mm3 RBC 2.27 L (4.00-5.30) mil/mm3 Hgb 8.0 L (11.6-15.3) gm/dL Hct 23.7 L (35.0-46.0) % MCV 104.6 H (80.0-100.0) fL MCH 35.3 H (27.0-34.0) pg Neut % (Auto) 79.9 H (16.0-70.0) % Neut # (Auto) 11.9 H (1.8-7.7) th/mm3 Seg Neuts % (Manual) 75 H (16-70) % Metamyelocytes % (Man) 2 H (0-1) % Myelocytes % (Man) 2 H (0-0) % Abs Neuts (Manual) 12.5 H (1.8-7.7) th/mm3 APTT 64.1 H (23.4-31.7) sec Sodium 133 L (136-145) meq/L Chloride 94 L (98-107) meq/L BUN 56 H (7-18) mg/dL Creatinine 11.30 H* D (0.50-1.00) mg/dL Estimated GFR 4 L (>89) mL/min Random Glucose 66 L (74-106) mg/dL Alkaline Phosphatase 119 H (45-117) U/L Albumin 2.2 L (3.4-5.0) g/dL Short CBC 12/26/18 Range/Units 06:37 WBC 14.9 H (4.0-11.0) th/mm3 Hgb 8.0 L (11.6-15.3) gm/dL Hct 23.7 L (35.0-46.0) % Plt Count 238 (150-450) th/mm3 BMP 12/25/18 12/26/18 07:36 06:37 Sodium 134 L 133 L Potassium 4.8 5.1 Chloride 95 L 94 L Carbon Dioxide 25.5 25.2 BUN 51 H 56 H Creatinine 10.05 H* D 11.30 H* D Calcium 8.7 8.5 Liver Function 12/26/18 Range/Units 06:37 Total Bilirubin 0.2 (0.2-1.0) mg/dL AST 15 (15-37) U/L ALT 20 (10-53) U/L Alkaline Phosphatase 119 H (45-117) U/L Albumin 2.2 L (3.4-5.0) g/dL <Frankie Newman D - 12/26/18 10:17> Physical Exam Vital signs: Vital Signs 12/25/18 17:50 12/25/18 20:00 12/26/18 00:00 Temperature 98.0 F 98.5 F 98.1 F Pulse Rate 78 72 78 Respiratory Rate 18 18 18 Blood Pressure 152/82 H 154/79 H 151/79 H Pulse Oximetry 98 97 97 12/26/18 03:45 12/26/18 04:00 12/26/18 07:45 Temperature 98.1 F 98.2 F Pulse Rate 76 73 80 Respiratory Rate 18 17 Blood Pressure 133/78 160/88 H Pulse Oximetry 99 97 12/26/18 08:00 12/26/18 12:54 12/26/18 13:00 Temperature 98.1 F Pulse Rate 88 81 77 Respiratory Rate 18 17 Blood Pressure 131/80 150/79 H Pulse Oximetry 97 100 100 12/26/18 13:15 12/26/18 13:30 Temperature 98.6 F Pulse Rate 72 72 Respiratory Rate 16 18 Blood Pressure 140/84 155/85 H Pulse Oximetry 100 100 Intake & Output 12/25/18 12/26/18 12/26/18 18:59 06:59 18:59 Intake Total 450 / 450 450 / 450 350 / 350 Output Total 400 / 400 3510 / 3510 Balance 50 / 50 450 / 450 -3160 / -3160 Weight 116.5 kg Intake: IV 450 / 450 450 / 450 100 / 100 Heparin/D5W 25,000 U/250 mL 25, 250 / 250 250 / 250 000 unit In 250 ml @ Per Protocol IV.CONT TITRATE PRN Rx #:[id number] Prostaphlin Inj 2 GM In NS Inj 200 / 200 200 / 200 100 / 100 100 ML @ 200 mls/hr IV.SIG Q6H MARISSA Rx#:[id number] Oral 0 / 0 0 / 0 Anesthesia Amount 250 / 250 Output: Urine 400 / 400 0 / 0 Hemodialysis Amount 3500 / 3500 Estimated Blood Loss 10 / 10 Other: # Voids 0 Date of Last Bowel Movement 12/24/18 12/24/18 # Bowel Movements 1 0 <José Miguel Pierce - 12/26/18 17:24> Vital Signs 12/25/18 12:00 12/25/18 13:19 12/25/18 16:00 Temperature 98.2 F Pulse Rate 85 87 82 Respiratory Rate 20 Blood Pressure 154/82 H Pulse Oximetry 99 12/25/18 17:50 12/25/18 20:00 12/26/18 00:00 Temperature 98.0 F 98.5 F 98.1 F Pulse Rate 78 72 78 Respiratory Rate 18 18 18 Blood Pressure 152/82 H 154/79 H 151/79 H Pulse Oximetry 98 97 97 12/26/18 03:45 12/26/18 04:00 12/26/18 07:45 Temperature 98.1 F 98.2 F Pulse Rate 76 73 80 Respiratory Rate 18 17 Blood Pressure 133/78 160/88 H Pulse Oximetry 99 97 Intake & Output 12/25/18 12/26/18 12/26/18 18:59 06:59 18:59 Intake Total 450 / 450 450 / 450 Output Total 400 / 400 Balance 50 / 50 450 / 450 Weight 116.5 kg Intake: IV 450 / 450 450 / 450 Heparin/D5W 25,000 U/250 mL 25, 250 / 250 250 / 250 000 unit In 250 ml @ Per Protocol IV.CONT TITRATE PRN Rx #:[id number] Prostaphlin Inj 2 GM In NS Inj 200 / 200 200 / 200 100 ML @ 200 mls/hr IV.SIG Q6H MARISSA Rx#:[id number] Oral 0 / 0 Output: Urine 400 / 400 Other: # Voids 0 Date of Last Bowel Movement 12/24/18 12/24/18 # Bowel Movements 1 0 <Frankie Newman D - 12/26/18 10:17> Narrative: Narrative: GENERAL: no acute distress, siting up on chair. On room air HEENT: No pain in or around the ears SKIN: Left chest, bandage clean dry and intact. No surrounding erythema. Vascath in right chest, no swelling or surrounding erythema, no tenderness surrounding CARDIOVASCULAR: regular rate and rhythm. RESPIRATORY: Bilateral lung sepulveda clear to auscultation. No use of accessory muscles, no wheezing Extremities: Trace edema of right arm surrounding the wrist, improved from previous exam, nonerythematous. No edema of lower extremities, no calf tenderness to palpation <Frankie Newman D - 12/26/18 10:17> Assessment and Plan - Assessment (1) Pulmonary embolism Code(s): I26.99 - Other pulmonary embolism without acute cor pulmonale Status : Acute (2) Sepsis Code(s): A41.9 - Sepsis, unspecified organism Status: Acute (3) Hypotension Code(s): I95.9 - Hypotension, unspecified Status: Resolved (4) Seroma Status: Acute (5) End stage renal disease Code(s): N18.6 - End stage renal disease Status: Chronic (6) Right hip pain Code(s): M25.551 - Pain in right hip Status: Acute (7) Anemia Code(s): D64.9 - Anemia, unspecified Status: Chronic (8) Nutrition, metabolism, and development symptoms Code(s): R63.8 - Other symptoms and signs concerning food and fluid intake Status: Acute <José Miguel Pierce - 12/26/18 17:24> (1) Pulmonary embolism Code(s): I26.99 - Other pulmonary embolism without acute cor pulmonale Status : Acute Plan: -Continue heparin drip titrated per protocol and will transition to oral anticoagulant once patient has completed her AV fistula procedures (likely today ). Due to decreased protein C activity patient is at increased risk for warfarin skin necrosis, will consider DOAC -Continue to monitor on telemetry -Supplemental oxygen as needed to keep O2 saturation over 93% -Alternate albuterol and duo nebs breathing treatments -2D transthoracic echocardiogram with ejection fraction of 55% and a pulmonary artery pressure of 34. Right atrium not well visualized (thrombus found in this location on CTA) -Venous Doppler of right upper extremity negative for DVT -Hypercoagulable panel shows low protein C antigen as well as low Antithrombin III activity (of note patient was started on heparin therapy when these labs were drawn) (2) Sepsis Code(s): A41.9 - Sepsis, unspecified organism Status: Acute Plan: Likely source of infection around PermCath site IV antibiotics: Vancomycin with dialysis (12/16-12/19) Oxacillin 2g q6h(12/17- ) ID recommendations for d/c- cefazolin 2 g with each hemodialysis for 4 weeks after first negative blood culture. Repeat blood cultures 2 weeks after antibiotics. -Blood cultures positive for staph aureus x4, sensitive to oxacillin -Repeat blood cultures positive x2 for staph aureus likely due to being drawn shortly after infected PermCath was removed. -Repeat blood cultures on 12/21, no growth x 4 days (3) Hypotension Code(s): I95.9 - Hypotension, unspecified Status: Resolved Plan: Patient has maintained blood pressures and has even had some elevations. BP elevated to 160/88 this am, pt asymptomatic -Midodrine 10 mg every 6 hours daily, held -Continue to monitor, maintain maps greater than 65 (4) Seroma Status: Acute Plan: Chronic issue for this patient: CT abdomen pelvis shows 4.4 cm oblong density in the right inguinal region has Hounsfield measurements suggesting a fluid collection. As such, diagnostic considerations would include predominantly seroma or lymphocele. She states that she has a history of drainage of the seroma by Dr. Montgomery. She stated that he told her if it reoccurs that it will have to be surgically removed. She does not want this procedure to happen. (5) End stage renal disease Code(s): N18.6 - End stage renal disease Status: Chronic Plan: Plans for AV fistula surgery on today, patient reports that she is on the schedule with Dr. Raines for 10:30 AM Nephrology following, current hemodialysis schedule is Wednesday/Wednesday/Wednesday -Monitor BMP (6) Right hip pain Code(s): M25.551 - Pain in right hip Status: Acute Plan: Patient with right hip pain since 3 days prior to admission MRI right femur shows greater trochanteric bursitis. Also some apparent tendinosis, strain, and/or reactive appearing edema of the distal gluteus minimus. Ortho consulted, appreciate recommendations -Conservative management -If continues or worsens, may benefit from a steroid injection of her trochanteric bursa. Continue to monitor Physical therapy recommends rehab OT recommends rehab (7) Anemia Code(s): D64.9 - Anemia, unspecified Status: Chronic Plan: Associated with chronic renal issues -Monitor and transfuse as needed -h/h stable (8) Nutrition, metabolism, and development symptoms Code(s): R63.8 - Other symptoms and signs concerning food and fluid intake Status: Acute Plan: Fluids: tolerating PO Electrolytes: monitor and replete as needed Nutrition: renal diet DVT Prophylaxis: Patient currently on a heparin drip GI Prophylaxis: None indicated at this time <Frankie Newman - 12/26/18 10:03> - Attending Attestation Pt. examined independently of resident team and case was discussed with resident team I have read the above note and agree with the assessment/plan as discussed with me I was involved in all medical decision making for this patient José Miguel Pierce MD <José Miguel Pierce - 12/26/18 17:24> <Calzado R2,Frankie D - Last Filed: 12/26/18 10:03> (1) Pulmonary embolism Qualifiers: Pulmonary embolism type: unspecified Chronicity: acute Acute cor pulmonale presence: without acute cor pulmonale Qualified Code(s): I26.99 - Other pulmonary embolism without acute cor pulmonale (7) Anemia Qualifiers: Anemia type: unspecified type Qualified Code(s): D64.9 - Anemia, unspecified <Kari,José Miguel - Last Filed: 12/26/18 17:24> (1) Pulmonary embolism Qualifiers: Pulmonary embolism type: unspecified Chronicity: acute Acute cor pulmonale presence: without acute cor pulmonale Qualified Code(s): I26.99 - Other pulmonary embolism without acute cor pulmonale (7) Anemia Qualifiers: Anemia type: unspecified type Qualified Code(s): D64.9 - Anemia, unspecified <Calzado R2,Frankie D - Last Filed: 12/26/18 10:03> (1) Pulmonary embolism Qualifiers: Pulmonary embolism type: unspecified Chronicity: acute Acute cor pulmonale presence: without acute cor pulmonale Qualified Code(s): I26.99 - Other pulmonary embolism without acute cor pulmonale (7) Anemia Qualifiers: Anemia type: unspecified type Qualified Code(s): D64.9 - Anemia, unspecified <Kari,José Miguel - Last Filed: 12/26/18 17:24> (1) Pulmonary embolism Qualifiers: Pulmonary embolism type: unspecified Chronicity: acute Acute cor pulmonale presence: without acute cor pulmonale Qualified Code(s): I26.99 - Other pulmonary embolism without acute cor pulmonale (7) Anemia Qualifiers: Anemia type: unspecified type Qualified Code(s): D64.9 - Anemia, unspecified
[2018-12-26] MEDS ORDERED: Heparin - SQ 10,000 UNITS/ML Vial ONE (10:29)
[2018-12-26] MEDS ORDERED: Bupivacaine/Epinephrine PF Inj 0.5% 30 ML Vial ONE (10:29)
[2018-12-26] MEDS ORDERED: Phenylephrine/NS 1000 MCG/10ML Syringe IV.PUSH ONE (10:55)
[2018-12-26] MEDS ORDERED: Protamine Sulfate Inj 50 MG/5 ML Vial ONE (11:26)
[2018-12-26] MEDS ORDERED: fentaNYL Citrate Inj 100 MCG/2 ML Ampul ONE (13:05)
--- NOTE | 2018-12-26 16:47 | P.PNNP ---
Subjective Interval history: Seen during hemodialysis, tolerating well. S/p AVF in right arm, dressing on. <Usha Hargrove - Last Filed: 12/26/18 16:38> Physical Exam Vital signs: Vital Signs 12/25/18 17:50 12/25/18 20:00 12/26/18 00:00 Temperature 98.0 F 98.5 F 98.1 F Pulse Rate 78 72 78 Respiratory Rate 18 18 18 Blood Pressure 152/82 H 154/79 H 151/79 H Pulse Oximetry 98 97 97 12/26/18 03:45 12/26/18 04:00 12/26/18 07:45 Temperature 98.1 F 98.2 F Pulse Rate 76 73 80 Respiratory Rate 18 17 Blood Pressure 133/78 160/88 H Pulse Oximetry 99 97 12/26/18 08:00 12/26/18 12:54 12/26/18 13:00 Temperature 98.1 F Pulse Rate 88 81 77 Respiratory Rate 18 17 Blood Pressure 131/80 150/79 H Pulse Oximetry 97 100 100 12/26/18 13:15 12/26/18 13:30 Temperature 98.6 F Pulse Rate 72 72 Respiratory Rate 16 18 Blood Pressure 140/84 155/85 H Pulse Oximetry 100 100 Intake & Output 12/25/18 12/26/18 12/26/18 18:59 06:59 18:59 Intake Total 450 / 450 450 / 450 350 / 350 Output Total 400 / 400 10 / 10 Balance 50 / 50 450 / 450 340 / 340 Weight 116.5 kg Intake: IV 450 / 450 450 / 450 100 / 100 Heparin/D5W 25,000 U/250 mL 25, 250 / 250 250 / 250 000 unit In 250 ml @ Per Protocol IV.CONT TITRATE PRN Rx #:[id number] Prostaphlin Inj 2 GM In NS Inj 200 / 200 200 / 200 100 / 100 100 ML @ 200 mls/hr IV.SIG Q6H MARISSA Rx#:[id number] Oral 0 / 0 0 / 0 Anesthesia Amount 250 / 250 Output: Urine 400 / 400 0 / 0 Estimated Blood Loss Other: # Voids 0 Date of Last Bowel Movement 12/24/18 12/24/18 # Bowel Movements 1 0 Narrative: GENERAL: alert and oriented. SKIN: Warm and dry. right arm with dressing, dry and intact. NECK: Supple, trachea midline. No JVD CARDIOVASCULAR: Regular rate and rhythm without murmurs, gallops, or rubs. Vas cath in right chest wall. RESPIRATORY: Breath sounds equal bilaterally. No accessory muscle use. GASTROINTESTINAL: Abdomen soft, non-tender, nondistended. MUSCULOSKELETAL: No cyanosis, mild lower extremity edema. BACK: Nontender without obvious deformity. No CVA tenderness. <Usha Hargrove - Last Filed: 12/26/18 16:38> Vital signs: Vital Signs 12/26/18 00:00 12/26/18 03:45 12/26/18 04:00 Temperature 98.1 F 98.1 F Pulse Rate 78 76 73 Respiratory Rate 18 18 Blood Pressure 151/79 H 133/78 Pulse Oximetry 97 99 12/26/18 07:45 12/26/18 08:00 12/26/18 12:54 Temperature 98.2 F 98.1 F Pulse Rate 80 88 81 Respiratory Rate 17 18 Blood Pressure 160/88 H 131/80 Pulse Oximetry 97 97 100 12/26/18 13:00 12/26/18 13:15 12/26/18 13:30 Temperature 98.6 F Pulse Rate 77 72 72 Respiratory Rate 17 16 18 Blood Pressure 150/79 H 140/84 155/85 H Pulse Oximetry 100 100 100 12/26/18 16:00 Temperature Pulse Rate 64 Respiratory Rate Blood Pressure Pulse Oximetry Intake & Output 12/26/18 12/26/18 12/27/18 06:59 18:59 06:59 Intake Total 450 / 450 830 / 830 Output Total 3510 / 3510 Balance 450 / 450 -2680 / -2680 Weight 116.5 kg Intake: IV 450 / 450 100 / 100 Heparin/D5W 25,000 U/250 mL 25, 250 / 250 000 unit In 250 ml @ Per Protocol IV.CONT TITRATE PRN Rx #:[id number] Prostaphlin Inj 2 GM In NS Inj 200 / 200 100 / 100 100 ML @ 200 mls/hr IV.SIG Q6H MARISSA Rx#:[id number] Oral 0 / 0 480 / 480 Anesthesia Amount 250 / 250 Output: Urine 0 / 0 Hemodialysis Amount 3500 / 3500 Estimated Blood Loss 10 / 10 Other: # Voids 0 Date of Last Bowel Movement 12/24/18 # Bowel Movements 0 <Dianelys Galloway Q - Last Filed: 12/26/18 21:29> Assessment and Plan - Assessment (1) End stage renal disease Code(s): N18.6 - End stage renal disease Status: Chronic Plan: Patient gets dialysis MWF. Patient has been diagnosed with PE. Patient on IV Heparin, Monitor fluid and electrolytes. Epogen with dialysis Seen during Hemodialysis will plan to remove 3 liters of fluid. (2) Anemia Code(s): D64.9 - Anemia, unspecified Status: Chronic Qualifiers: Anemia type: unspecified type Qualified Code(s): D64.9 - Anemia, unspecified Plan: Epogen with dialysis. (3) Hypertension Code(s): I10 - Essential (primary) hypertension Status: Chronic Plan: No need for antihypertensive. BP is low. Remains on Midodrine. (4) Sepsis Code(s): A41.9 - Sepsis, unspecified organism Status: Acute Plan: Antibiotics per ID. On Oxacillin. Staphylococcus aureus last 3 cultures negative (5) Metabolic bone disease Code(s): E88.9 - Metabolic disorder, unspecified; M90.80 - Osteopathy in diseases classified elsewhere, unspecified site Status: Acute Plan: Monitor phosphorus intermittently. On Sevelamer and Sensipar. (6) Pulmonary embolism Code(s): I26.99 - Other pulmonary embolism without acute cor pulmonale Status : Acute Qualifiers: Pulmonary embolism type: unspecified Chronicity: acute Acute cor pulmonale presence: without acute cor pulmonale Qualified Code(s): I26.99 - Other pulmonary embolism without acute cor pulmonale Plan: CTA was positive for PE. (7) Right hip pain Code(s): M25.551 - Pain in right hip Status: Acute Plan: Scan showed greater trochanteric bursitis. Ortho was consulted. They recommended conservative treatment and if the pain continues or worsens, steroid injection of her trochanteric bursa. <Usha Hargrove - Last Filed: 12/26/18 16:38> - Assessment (1) End stage renal disease Code(s): N18.6 - End stage renal disease Status: Chronic Plan: Patient seen and examined, agree with above. Seen during HD. Will need chronic anticoagulation. (2) Anemia Code(s): D64.9 - Anemia, unspecified Status: Chronic Qualifiers: Anemia type: unspecified type Qualified Code(s): D64.9 - Anemia, unspecified (3) Hypertension Code(s): I10 - Essential (primary) hypertension Status: Chronic (4) Sepsis Code(s): A41.9 - Sepsis, unspecified organism Status: Acute (5) Metabolic bone disease Code(s): E88.9 - Metabolic disorder, unspecified; M90.80 - Osteopathy in diseases classified elsewhere, unspecified site Status: Acute (6) Pulmonary embolism Code(s): I26.99 - Other pulmonary embolism without acute cor pulmonale Status : Acute Qualifiers: Pulmonary embolism type: unspecified Chronicity: acute Acute cor pulmonale presence: without acute cor pulmonale Qualified Code(s): I26.99 - Other pulmonary embolism without acute cor pulmonale (7) Right hip pain Code(s): M25.551 - Pain in right hip Status: Acute <Jonathan Galloway - Last Filed: 12/26/18 21:29>
[2018-12-26] MEDS: Heparin 10,000 UNITS/10 ML Vial (for IV use) OTHER PRN (17:00)
--- NOTE | 2018-12-26 18:01 | P.PNADD ---
Addendum to Inpatient Note Additional information: h/o cephalexin allergy precludes use of cefazolin !st choice will be oxacillin (via tunneled cath) if access approved by nephrology Vancomycin is 2nd option
[2018-12-27] MEDS: Heparin Drip 25,000 UNIT/250 ML BAG IV.CONT PRN (02:42)
[2018-12-27 06:29] LABS: Baso # (Auto) 0.1 th/mm3 (0.0-0.2); Baso % (Auto) 0.5 % (0.0-2.0); Eos # (Auto) 0.1 th/mm3 (0.0-0.4); Eos % (Auto) 0.9 % (0.0-4.0); Hematocrit 24.3 % (35.0-46.0); Hemoglobin 8.3 gm/dL (11.6-15.3); Lymph # (Auto) 2.3 th/mm3 (1.0-4.8); Lymph % (Auto) 14.4 % (9.0-44.0); Mean Corpuscular Hemoglobin 35.7 pg (27.0-34.0); Mean Corpuscular Volume 104.8 fL (80.0-100.0); Mean Platelet Volume 8.5 fL (7.0-11.0); Mono # (Auto) 0.7 th/mm3 (0.0-0.9); Mono % (Auto) 4.8 % (0.0-8.0); Neut # (Auto) 12.4 th/mm3 (1.8-7.7); Neut % (Auto) 79.4 % (16.0-70.0); Platelet Count 222 th/mm3 (150-450); Red Blood Count 2.32 mil/mm3 (4.00-5.30); Red Cell Distribution Width 14.9 % (11.6-17.2); White Blood Count 15.7 th/mm3 (4.0-11.0)
[2018-12-27 06:53] LABS: Alanine Aminotransferase 24 U/L (10-53); Albumin 2.4 g/dL (3.4-5.0); Alkaline Phosphatase 176 U/L (45-117); Anion Gap 11 meq/L (5-15); Aspartate Aminotransferase 23 U/L (15-37); Blood Urea Nitrogen 38 mg/dL (7-18); Calcium 8.6 mg/dL (8.5-10.1); Carbon Dioxide 28.2 meq/L (21.0-32.0); Chloride 99 meq/L (98-107); Glomerular Filtration Rate 6 mL/min (>89); Glucose,Random 74 mg/dL (74-106); Potassium 4.5 meq/L (3.5-5.1); Sodium 138 meq/L (136-145); Total Protein 6.7 g/dL (6.4-8.2)
[2018-12-27 08:01] LABS: Eosinophils 2 % (0-4); Lymphocytes 8 % (9-44); Monocytes 2 % (0-8); Tallied Nucleated RBC 2 (0-0)
[2018-12-27 08:02] LABS: Platelet Estimate Normal (Normal); Platelet Morphology Normal (Normal); RBC Morphology Normal (Normal); Toxic Granulation 1+
[2018-12-27] MEDS: Vitamin B Complex/Vit C/Folic Tablet PO SCH (09:10)
[2018-12-27] MEDS: Senna/Docusate Sodium 8.6/50 MG Tablet PO SCH (09:10)
--- NOTE | 2018-12-27 09:43 | P.PNFP ---
Subjective Interval history: Patient was seen at bedside this morning. There were no acute events overnight. Patient is now status post surgery for AV fistula. Patient reports some slight arm swelling but overall feels like her pain is well controlled. Patient reports a bowel movement. Plan for continued antibiotic use, anticoagulation, and rehabilitation were discussed with patient. Patient agrees with plan. She denies any short patient denies any subjective fevers, chills, shortness of breath, chest pain, nausea, or vomiting. All questions were answered to the patient's satisfaction. <Chris Mendieta - 12/27/18 09:43> Results - Labs Result diagrams: 12/27/18 05:44 12/27/18 05:44 <José Miguel Pierce - 12/27/18 14:46> Abnormal lab results 12/27/18 12/27/18 12/27/18 Range/Units 01:34 05:44 05:44 WBC 15.7 H (4.0-11.0) th/mm3 RBC 2.32 L (4.00-5.30) mil/mm3 Hgb 8.3 L (11.6-15.3) gm/dL Hct 24.3 L (35.0-46.0) % MCV 104.8 H (80.0-100.0) fL MCH 35.7 H (27.0-34.0) pg Neut % (Auto) 79.4 H (16.0-70.0) % Neut # (Auto) 12.4 H (1.8-7.7) th/mm3 Seg Neuts % (Manual) 85 H (16-70) % Lymphocytes % (Manual) 8 L (9-44) % Abs Neuts (Manual) 13.8 H (1.8-7.7) th/mm3 Nucleated RBCs/100 WBC 2 H (0-0) /100 WBC Toxic Granulation 1+ H (None) APTT 32.6 H D (23.4-31.7) sec BUN 38 H (7-18) mg/dL Creatinine 8.52 H (0.50-1.00) mg/dL Estimated GFR 6 L (>89) mL/min Alkaline Phosphatase 176 H (45-117) U/L Albumin 2.4 L (3.4-5.0) g/dL 12/27/18 Range/Units 10:01 WBC (4.0-11.0) th/mm3 RBC (4.00-5.30) mil/mm3 Hgb (11.6-15.3) gm/dL Hct (35.0-46.0) % MCV (80.0-100.0) fL MCH (27.0-34.0) pg Neut % (Auto) (16.0-70.0) % Neut # (Auto) (1.8-7.7) th/mm3 Seg Neuts % (Manual) (16-70) % Lymphocytes % (Manual) (9-44) % Abs Neuts (Manual) (1.8-7.7) th/mm3 Nucleated RBCs/100 WBC (0-0) /100 WBC Toxic Granulation (None) APTT 44.0 H D (23.4-31.7) sec BUN (7-18) mg/dL Creatinine (0.50-1.00) mg/dL Estimated GFR (>89) mL/min Alkaline Phosphatase (45-117) U/L Albumin (3.4-5.0) g/dL Short CBC 12/27/18 Range/Units 05:44 WBC 15.7 H (4.0-11.0) th/mm3 Hgb 8.3 L (11.6-15.3) gm/dL Hct 24.3 L (35.0-46.0) % Plt Count 222 (150-450) th/mm3 BMP 12/27/18 05:44 Sodium 138 Potassium 4.5 Chloride 99 Carbon Dioxide 28.2 BUN 38 H Creatinine 8.52 H Calcium 8.6 Liver Function 12/27/18 Range/Units 05:44 Total Bilirubin 0.2 (0.2-1.0) mg/dL AST 23 (15-37) U/L ALT 24 (10-53) U/L Alkaline Phosphatase 176 H (45-117) U/L Albumin 2.4 L (3.4-5.0) g/dL <José Miguel Pierce - 12/27/18 14:46> Abnormal lab results 12/27/18 12/27/18 12/27/18 Range/Units 01:34 05:44 05:44 WBC 15.7 H (4.0-11.0) th/mm3 RBC 2.32 L (4.00-5.30) mil/mm3 Hgb 8.3 L (11.6-15.3) gm/dL Hct 24.3 L (35.0-46.0) % MCV 104.8 H (80.0-100.0) fL MCH 35.7 H (27.0-34.0) pg Neut % (Auto) 79.4 H (16.0-70.0) % Neut # (Auto) 12.4 H (1.8-7.7) th/mm3 Seg Neuts % (Manual) 85 H (16-70) % Lymphocytes % (Manual) 8 L (9-44) % Abs Neuts (Manual) 13.8 H (1.8-7.7) th/mm3 Nucleated RBCs/100 WBC 2 H (0-0) /100 WBC Toxic Granulation 1+ H (None) APTT 32.6 H D (23.4-31.7) sec BUN 38 H (7-18) mg/dL Creatinine 8.52 H (0.50-1.00) mg/dL Estimated GFR 6 L (>89) mL/min Alkaline Phosphatase 176 H (45-117) U/L Albumin 2.4 L (3.4-5.0) g/dL Short CBC 12/27/18 Range/Units 05:44 WBC 15.7 H (4.0-11.0) th/mm3 Hgb 8.3 L (11.6-15.3) gm/dL Hct 24.3 L (35.0-46.0) % Plt Count 222 (150-450) th/mm3 BMP 12/27/18 05:44 Sodium 138 Potassium 4.5 Chloride 99 Carbon Dioxide 28.2 BUN 38 H Creatinine 8.52 H Calcium 8.6 Liver Function 12/27/18 Range/Units 05:44 Total Bilirubin 0.2 (0.2-1.0) mg/dL AST 23 (15-37) U/L ALT 24 (10-53) U/L Alkaline Phosphatase 176 H (45-117) U/L Albumin 2.4 L (3.4-5.0) g/dL <Megha Chris Browning O - 12/27/18 09:43> Physical Exam Vital signs: Vital Signs 12/26/18 16:00 12/26/18 20:00 12/26/18 21:35 Temperature Pulse Rate 64 101 H Respiratory Rate Blood Pressure Pulse Oximetry 98 12/27/18 00:00 12/27/18 00:42 12/27/18 03:55 Temperature 98 F 98 F Pulse Rate 87 109 H 88 Respiratory Rate 18 16 Blood Pressure 124/73 119/4 L Pulse Oximetry 99 93 L 12/27/18 04:00 12/27/18 08:00 12/27/18 10:02 Temperature 98.4 F Pulse Rate 86 89 Respiratory Rate 15 Blood Pressure 132/65 Pulse Oximetry 96 96 12/27/18 12:00 Temperature 98.0 F Pulse Rate 98 H Respiratory Rate 18 Blood Pressure 146/85 H Pulse Oximetry 97 Intake & Output 12/26/18 12/27/18 12/27/18 18:59 06:59 18:59 Intake Total 830 / 830 960 / 960 Output Total 3510 / 3510 Balance -2680 / -2680 960 / 960 Weight 116.3 kg 116.3 kg Intake: IV 100 / 100 480 / 480 / Heparin/D5W 25,000 U/250 mL 25, 250 / 250 105 / 105 000 unit In 250 ml @ Per Protocol IV.CONT TITRATE PRN Rx #:[id number] Prostaphlin Inj 2 GM In NS Inj 100 / 100 230 / 230 100 / 100 100 ML @ 200 mls/hr IV.SIG Q6H MARISSA Rx#:[id number] Oral 480 / 480 480 / 480 Anesthesia Amount 250 / 250 Output: Urine 0 / 0 Hemodialysis Amount 3500 / 3500 Estimated Blood Loss 10 / 10 Other: # Voids 0 Date of Last Bowel Movement 12/26/18 12/27/18 <José Miguel Pierce - 12/27/18 14:46> Vital Signs 12/26/18 12:54 12/26/18 13:00 12/26/18 13:15 Temperature 98.1 F Pulse Rate 81 77 72 Respiratory Rate 18 17 16 Blood Pressure 131/80 150/79 H 140/84 Pulse Oximetry 100 100 100 12/26/18 13:30 12/26/18 16:00 12/26/18 20:00 Temperature 98.6 F Pulse Rate 72 64 101 H Respiratory Rate 18 Blood Pressure 155/85 H Pulse Oximetry 100 12/26/18 21:35 12/27/18 00:00 12/27/18 00:42 Temperature 98 F Pulse Rate 87 109 H Respiratory Rate 18 Blood Pressure 124/73 Pulse Oximetry 98 99 12/27/18 03:55 12/27/18 04:00 Temperature 98 F Pulse Rate 88 86 Respiratory Rate 16 Blood Pressure 119/4 L Pulse Oximetry 93 L Intake & Output 12/26/18 12/27/18 12/27/18 18:59 06:59 18:59 Intake Total 830 / 830 960 / 960 Output Total 3510 / 3510 Balance -2680 / -2680 960 / 960 Weight 116.3 kg Intake: IV 100 / 100 480 / 480 Heparin/D5W 25,000 U/250 mL 25, 250 / 250 000 unit In 250 ml @ Per Protocol IV.CONT TITRATE PRN Rx #:[id number] Prostaphlin Inj 2 GM In NS Inj 100 / 100 230 / 230 100 ML @ 200 mls/hr IV.SIG Q6H MARISSA Rx#:[id number] Oral 480 / 480 480 / 480 Anesthesia Amount 250 / 250 Output: Urine 0 / 0 Hemodialysis Amount 3500 / 3500 Estimated Blood Loss Other: # Voids 0 Date of Last Bowel Movement 12/26/18 <Chris Mendieta - 12/27/18 09:43> Narrative: GENERAL: alert and oriented. SKIN: Warm and dry. right arm with dressing, dry and intact. NECK: Supple, trachea midline. No JVD CARDIOVASCULAR: Regular rate and rhythm without murmurs, gallops, or rubs. Vas cath in right chest wall. RESPIRATORY: Breath sounds equal bilaterally. No accessory muscle use. GASTROINTESTINAL: Abdomen soft, non-tender, nondistended. MUSCULOSKELETAL: Right arm bandaged. Area clean without debris or signs of infection. No cyanosis or edema. BACK: Nontender without obvious deformity. No CVA tenderness. <Chris Mendieta - 12/27/18 09:43> Assessment and Plan - Assessment (1) Pulmonary embolism Code(s): I26.99 - Other pulmonary embolism without acute cor pulmonale Status : Acute (2) Sepsis Code(s): A41.9 - Sepsis, unspecified organism Status: Suspected (3) Hypotension Code(s): I95.9 - Hypotension, unspecified Status: Resolved (4) Seroma Status: Acute (5) End stage renal disease Code(s): N18.6 - End stage renal disease Status: Chronic (6) Right hip pain Code(s): M25.551 - Pain in right hip Status: Acute (7) Anemia Code(s): D64.9 - Anemia, unspecified Status: Chronic (8) Nutrition, metabolism, and development symptoms Code(s): R63.8 - Other symptoms and signs concerning food and fluid intake Status: Acute <José Miguel Pierce - 12/27/18 14:46> (1) Pulmonary embolism Code(s): I26.99 - Other pulmonary embolism without acute cor pulmonale Status : Acute Plan: -Heparin drip held and then restarted after AV fistula surgery yesterday. Due to decreased protein C activity patient is at increased risk for warfarin skin necrosis. -2D transthoracic echocardiogram with ejection fraction of 55% and a pulmonary artery pressure of 34. Right atrium not well visualized (thrombus found in this location on CTA) -Venous Doppler of right upper extremity negative for DVT -Hypercoagulable panel shows low protein C antigen as well as low Antithrombin III activity (of note patient was started on heparin therapy when these labs were drawn) Plan: -Hold heparin drip. -Begin Xarelto 15 twice daily 21 days, transition to 20 daily after -Continue to monitor on telemetry -Supplemental oxygen as needed to keep O2 saturation over 93% -Alternate albuterol and duo nebs breathing treatments -Patient stable for discharge to [facility] (2) Sepsis Code(s): A41.9 - Sepsis, unspecified organism Status: Suspected Plan: Likely source of infection around PermCath site IV antibiotics: Vancomycin with dialysis (12/16-12/19) Oxacillin 2g q6h(12/17- ) ID recommendations for d/c- cefazolin 2 g with each hemodialysis for 4 weeks after first negative blood culture. Repeat blood cultures 2 weeks after antibiotics. Plan: -Blood cultures positive for staph aureus x4, sensitive to oxacillin -Repeat blood cultures positive x2 for staph aureus likely due to being drawn shortly after infected PermCath was removed. -Repeat blood cultures on 12/21, no growth to date -ID on board -Follow up with ID recommendations (3) Hypotension Code(s): I95.9 - Hypotension, unspecified Status: Resolved Plan: Patient has maintained blood pressures and has even had some elevations. BP elevated to 160/88 this am, pt asymptomatic -Midodrine 10 mg every 6 hours daily, held -Continue to monitor, maintain maps greater than 65 (4) Seroma Status: Acute Plan: Chronic issue for this patient: CT abdomen pelvis shows 4.4 cm oblong density in the right inguinal region has Hounsfield measurements suggesting a fluid collection. As such, diagnostic considerations would include predominantly seroma or lymphocele. She states that she has a history of drainage of the seroma by Dr. Montgomery. She stated that he told her if it reoccurs that it will have to be surgically removed. She does not want this procedure to happen. (5) End stage renal disease Code(s): N18.6 - End stage renal disease Status: Chronic Plan: Patient s/p day 1 AV fistula surgery, patient reports that she is on the schedule with Dr. Raines for 10:30 AM Nephrology following, current hemodialysis schedule is Wednesday/Wednesday/Wednesday -Monitor BMP (6) Right hip pain Code(s): M25.551 - Pain in right hip Status: Acute Plan: Patient with right hip pain since 3 days prior to admission MRI right femur shows greater trochanteric bursitis. Also some apparent tendinosis, strain, and/or reactive appearing edema of the distal gluteus minimus. Ortho consulted, appreciate recommendations -Conservative management -If continues or worsens, may benefit from a steroid injection of her trochanteric bursa. Continue to monitor Physical therapy recommends rehab OT recommends rehab (7) Anemia Code(s): D64.9 - Anemia, unspecified Status: Chronic Plan: Associated with chronic renal issues -Monitor and transfuse as needed -h/h stable (8) Nutrition, metabolism, and development symptoms Code(s): R63.8 - Other symptoms and signs concerning food and fluid intake Status: Acute Plan: Fluids: tolerating PO Electrolytes: monitor and replete as needed Nutrition: renal diet DVT Prophylaxis: Patient transitioned to xarelto GI Prophylaxis: None indicated at this time <Chris Mendieta - 12/27/18 12:27> - Attending Attestation Patient case discussed with resident physicians I have independently examined the patient I have read the above note and agree with the assessment and plan as discussed with me I was involved in all medical decision making for this patient Possible discharge to [facility] today or tomorrow -ID plans to continue oxacillin through a peripherally placed IV if [facility] will take her with that José Miguel Pierce MD <José Miguel Pierce - 12/27/18 14:46> <Chris Mendieta O - Last Filed: 12/27/18 12:27> (1) Pulmonary embolism Qualifiers: Pulmonary embolism type: unspecified Chronicity: acute Acute cor pulmonale presence: without acute cor pulmonale Qualified Code(s): I26.99 - Other pulmonary embolism without acute cor pulmonale (7) Anemia Qualifiers: Anemia type: unspecified type Qualified Code(s): D64.9 - Anemia, unspecified <José Miguel Pierce - Last Filed: 12/27/18 14:46> (1) Pulmonary embolism Qualifiers: Pulmonary embolism type: unspecified Chronicity: acute Acute cor pulmonale presence: without acute cor pulmonale Qualified Code(s): I26.99 - Other pulmonary embolism without acute cor pulmonale (7) Anemia Qualifiers: Anemia type: unspecified type Qualified Code(s): D64.9 - Anemia, unspecified <Chris Mendieta O - Last Filed: 12/27/18 12:27> (1) Pulmonary embolism Qualifiers: Pulmonary embolism type: unspecified Chronicity: acute Acute cor pulmonale presence: without acute cor pulmonale Qualified Code(s): I26.99 - Other pulmonary embolism without acute cor pulmonale (7) Anemia Qualifiers: Anemia type: unspecified type Qualified Code(s): D64.9 - Anemia, unspecified <José Miguel Pierce - Last Filed: 12/27/18 14:46> (1) Pulmonary embolism Qualifiers: Pulmonary embolism type: unspecified Chronicity: acute Acute cor pulmonale presence: without acute cor pulmonale Qualified Code(s): I26.99 - Other pulmonary embolism without acute cor pulmonale (7) Anemia Qualifiers: Anemia type: unspecified type Qualified Code(s): D64.9 - Anemia, unspecified
--- NOTE | 2018-12-27 12:57 | P.PNID ---
Subjective Remarks: sp AVF surgery no fever BC finale- negative Antibiotics: oxacillin Allergies/Adverse Reactions: Allergies cephalexin Allergy (Severe, Verified 12/16/18 08:35) Hives onion Allergy (Severe, Verified 12/16/18 08:35) Gastrointestinal Upset Sulfa (Sulfonamide Antibiotics) Adverse Reaction (Intermediate, Verified 08:35) Nausea/Vomiting Objective Vital Signs 12/26/18 12:54 12/26/18 13:00 12/26/18 13:15 Temperature 98.1 F Pulse Rate 81 77 72 Respiratory Rate 18 17 16 Blood Pressure 131/80 150/79 H 140/84 Pulse Oximetry 100 100 100 12/26/18 13:30 12/26/18 16:00 12/26/18 20:00 Temperature 98.6 F Pulse Rate 72 64 101 H Respiratory Rate 18 Blood Pressure 155/85 H Pulse Oximetry 100 12/26/18 21:35 12/27/18 00:00 12/27/18 00:42 Temperature 98 F Pulse Rate 87 109 H Respiratory Rate 18 Blood Pressure 124/73 Pulse Oximetry 98 99 12/27/18 03:55 12/27/18 04:00 12/27/18 08:00 Temperature 98 F 98.4 F Pulse Rate 88 86 89 Respiratory Rate 16 15 Blood Pressure 119/4 L 132/65 Pulse Oximetry 93 L 96 12/27/18 10:02 Temperature Pulse Rate Respiratory Rate Blood Pressure Pulse Oximetry 96 Intake & Output 12/26/18 12/27/18 12/27/18 18:59 06:59 18:59 Intake Total 830 / 830 960 / 960 Output Total 3510 / 3510 Balance -2680 / -2680 960 / 960 Weight 116.3 kg Intake: IV 100 / 100 480 / 480 Heparin/D5W 25,000 U/250 mL 25, 250 / 250 105 / 105 000 unit In 250 ml @ Per Protocol IV.CONT TITRATE PRN Rx #:[id number] Prostaphlin Inj 2 GM In NS Inj 100 / 100 230 / 230 100 / 100 100 ML @ 200 mls/hr IV.SIG Q6H MARISSA Rx#:[id number] Oral 480 / 480 480 / 480 Anesthesia Amount 250 / 250 Output: Urine 0 / 0 Hemodialysis Amount 3500 / 3500 Estimated Blood Loss 10 / 10 Other: # Voids 0 Date of Last Bowel Movement 12/26/18 12/27/18 12/21/18 11:59 Blood - Peripheral Aerobic Blood Culture - Final No growth in 5 days 12/21/18 11:59 Blood - Peripheral Anaerobic Blood Culture - Final No growth in 5 days 12/21/18 11:51 Blood - Peripheral Aerobic Blood Culture - Final No growth in 5 days 12/21/18 11:51 Blood - Peripheral Anaerobic Blood Culture - Final No growth in 5 days 12/19/18 11:39 Blood - Peripheral Aerobic Blood Culture - Final Staphylococcus aureus 12/19/18 11:39 Blood - Peripheral Anaerobic Blood Culture - Final No growth in 5 days 12/19/18 11:45 Blood - Peripheral Aerobic Blood Culture - Final Staphylococcus aureus 12/19/18 11:45 Blood - Peripheral Anaerobic Blood Culture - Final No growth in 5 days Lab - Hematology Results 12/26/18 12/27/18 06:37 05:44 WBC 14.9 H 15.7 H RBC 2.27 L 2.32 L Hgb 8.0 L 8.3 L Hct 23.7 L 24.3 L MCV 104.6 H 104.8 H MCH 35.3 H 35.7 H MCHC 33.7 34.0 RDW 15.2 14.9 Plt Count 238 222 MPV 8.4 8.5 Prelim Diff (Auto) Slide review pending Slide review pending Neut % (Auto) 79.9 H 79.4 H Lymph % (Auto) 13.3 14.4 Hodgeman % (Auto) 4.6 4.8 Eos % (Auto) 1.7 0.9 Baso % (Auto) 0.5 0.5 Neut # (Auto) 11.9 H 12.4 H Lymph # (Auto) 2.0 2.3 Hodgeman # (Auto) 0.7 0.7 Eos # (Auto) 0.3 0.1 Baso # (Auto) 0.1 0.1 WBC Differential Manual diff final Manual diff final Seg Neuts % (Manual) 75 H 85 H Band Neuts % (Manual) 5 3 Lymphocytes % (Manual) 11 8 L Monocytes % (Manual) 3 2 Eosinophils % (Manual) 2 2 Metamyelocytes % (Man) 2 H Myelocytes % (Man) 2 H Abs Neuts (Manual) 12.5 H 13.8 H Nucleated RBCs/100 WBC 2 H Differential Comment . . Toxic Granulation 1+ H Platelet Estimate Normal Normal Platelet Morphology Normal Normal RBC Morphology Normal Lab - Chemistry Results 12/26/18 12/26/18 12/27/18 06:37 15:50 05:44 Sodium 133 L 138 Potassium 5.1 4.5 Chloride 94 L 99 Carbon Dioxide 25.2 28.2 Anion Gap 14 11 BUN 56 H 38 H Creatinine 11.30 H* D 8.52 H Estimated GFR 4 L 6 L POC Glucose 85 Random Glucose 66 L 74 Calcium 8.5 8.6 Total Bilirubin 0.2 0.2 AST 15 23 ALT 20 24 Alkaline Phosphatase 119 H 176 H Total Protein 6.5 6.7 Albumin 2.2 L 2.4 L Imaging: ITS Impressions Abdomen/Pelvis CT 12/16/18 08:45 CONCLUSION: 1. I do not see an acute intraperitoneal or pelvic process to explain current clinical symptoms. 2. Patient is status post cholecystectomy and hysterectomy. Surgical clips from a cholecystectomy extending up into the left hepatic lobe near the falciform ligament. 3. 4.4 cm oblong density in the right inguinal region has Hounsfield measurements suggesting a fluid collection. As such, diagnostic considerations would include predominantly seroma or lymphocele. Ultrasound could be performed for confirmation. No adenopathy. 4. Small, 1 cm umbilical hernia only contains fat. Hip CT 12/16/18 08:45 CONCLUSION: 1. Probable 4.4 cm oblong seroma or lymphocele in the right inguinal region. 2. Mild osteoarthritic changes in both hips. No fracture. Chest CTA 12/17/18 00:00 CONCLUSION: 1. Small pulmonary emboli of the posterior basilar branches of the left lower lobe. 2. Thrombus adhering to the distal left subclavian central venous catheter. 3. Thrombus within the right atrium. 4. Posterior left lower lung atelectasis. 5. Mildly prominent ascending thoracic aorta measuring 4.5 cm in diameter. Femur MRI 12/18/18 00:00 CONCLUSION: 1. No acute bone or joint abnormality. 2. There is greater trochanteric bursitis. Also some apparent tendinosis, strain and/or reactive appearing edema of distal gluteus minimus. No well- defined/measurable muscle/tendon tear. 3. Chronic multiloculated benign appearing fluid collection in the right inguinal region is also a chronic Bartholin's gland cyst. Please see above. Tube Removal 12/18/18 00:00 CONCLUSION: 1. Uncomplicated Permcath removal. Catheter Placement 12/19/18 00:00 CONCLUSION: 1. Uncomplicated line placement as above. 2. Sonographically, multiple collateral vessels are seen in the region of the right internal jugular suggesting a central high-grade stenosis/occlusion. The vein was not accessed, however. Venous Doppler Study 12/22/18 00:00 CONCLUSION: 1. No evidence of deep venous thrombosis. 2. The brachial and basilic veins were noncompressible which may be due to overlying edema. Physical Exam: GENERAL: NAD morbid obesity SKIN: Warm and dry. EYES: Pupils equal and round. No scleral icterus. No injection or drainage. ENT: No nasal bleeding or discharge. Mucous membranes pink and moist. CARDIOVASCULAR: Regular rate and rhythm. RESPIRATORY: No accessory muscle use. Clear to auscultation. Breath sounds equal bilaterally. GASTROINTESTINAL: Abdomen soft, non-tender, nondistended. Hepatic and splenic margins not palpable. MUSCULOSKELETAL: Extremities without clubbing, cyanosis, or edema. No obvious deformities. \ dressing in place RUE NEUROLOGICAL: Awake and alert. Non focal. Normal speech. PSYCHIATRIC: calm, cooperative LINEs: R IJ vascath in place LUE AV graft no tenderness, no edenma, no erythema Assessment and Plan - Plan ESRD, on HD HIgh grade MSSA bacteremia 2 D echo negative permacath removed Last + blood clx (was done on the day with Permacath in) Source is [employer] vascular device Permacath AV graft not appear infected cliniclly Severe R thigh pain - not infection Fluid collection on Ct pelvis - not appear infected. Ti radiologist cephalosporin allergy but tolerates OK zosyn Access issues: Ti Galloway not a candidate for PICC or [place] Dr Galloway adviced against placing any retirement access 2/2 limited access situation cont oxacillin x 4 weeks via periferal line ow will have to use vancomycin for whole/ partial duration If last BC remain negative OK to dc with IV abx (will do cefazolin 2 gm p each HD) x 4 wks from 1st neg clx Will repeat BC 2 weeks after abx If more postitive clx (including the pending one) pt will need to undergo additional testing to establish the nidus for infection - will consider WBC scan to eval AV graft and OMID if new clx + again Instructed to report fevers, back pain dw case mngr dw Kari Salinas
--- NOTE | 2018-12-27 12:58 | P.DCO ---
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 [] May leave port accessed during therapy. [] May leave peripheral site accessed for duration of therapy. [x] If patient has SOB or respiratory distress, check oxygen saturation. If less than 90% or clinical signs of respiratory distress, administer oxygen at 2 L/min. via nasal cannula and notify physician. [x] Anaphylaxis/Reaction orders: * Stop infusion. * Keep IV line open with saline flush. * Notify physician. * Monitor vital signs every 15 minutes until symptoms resolve. * Check Oxygen saturation; Oxygen at 2 L/min. via nasal cannula if less than 90% or clinical signs of respiratory distress. * Administer diphenhydramine (Benadryl) 25 mg IV STAT, (unless patient has received as pre-med). May repeat once, if necessary. * Solu-Cortef 250 mg IVP over 30-60 seconds, use 100 mg vials for each dissolution. * Epinephrine (1mg/1 ml) 0.3 mg subcutaneously or IVP now with any signs of respiratory distress. * Check with physician for new additional pre-med orders if patient is re- challenged or re-treated. [x] May remove PICC line when treatment complete, after confirming with Physician. [x] If the patient is admitted to the hospital, the ED, or transferred via [facility] , complete transfer form including medication reconciliation order sheet. Weekly Labs: CBC w/diff, CMP - Case Management Consult Case Management Consult-IVF: Yes - Patient Information Allergies cephalexin Allergy (Severe, Verified 12/16/18 08:35) Hives onion Allergy (Severe, Verified 12/16/18 08:35) Gastrointestinal Upset Sulfa (Sulfonamide Antibiotics) Adverse Reaction (Intermediate, Verified 08:35) Nausea/Vomiting
[2018-12-27 14:05] VITALS: BP 146/85; RESP 18; TEMP 98; O2SAT 97
--- NOTE | 2018-12-27 14:54 | P.PNNP ---
Subjective Interval history: Sitting up in bed. No shortness of breath, nausea, or vomiting. HD yesterday tolerated well. <Usha Hargrove - Last Filed: 12/27/18 14:48> Physical Exam Vital signs: Vital Signs 12/26/18 16:00 12/26/18 20:00 12/26/18 21:35 Temperature Pulse Rate 64 101 H Respiratory Rate Blood Pressure Pulse Oximetry 98 12/27/18 00:00 12/27/18 00:42 12/27/18 03:55 Temperature 98 F 98 F Pulse Rate 87 109 H 88 Respiratory Rate 18 16 Blood Pressure 124/73 119/4 L Pulse Oximetry 99 93 L 12/27/18 04:00 12/27/18 08:00 12/27/18 10:02 Temperature 98.4 F Pulse Rate 86 89 Respiratory Rate 15 Blood Pressure 132/65 Pulse Oximetry 96 96 12/27/18 12:00 Temperature 98.0 F Pulse Rate 98 H Respiratory Rate 18 Blood Pressure 146/85 H Pulse Oximetry 97 Intake & Output 12/26/18 12/27/18 12/27/18 18:59 06:59 18:59 Intake Total 830 / 830 960 / 960 Output Total 3510 / 3510 Balance -2680 / -2680 960 / 960 Weight 116.3 kg 116.3 kg Intake: IV 100 / 100 480 / 480 Heparin/D5W 25,000 U/250 mL 25, 250 / 250 105 / 105 000 unit In 250 ml @ Per Protocol IV.CONT TITRATE PRN Rx #:[id number] Prostaphlin Inj 2 GM In NS Inj 100 / 100 230 / 230 100 / 100 100 ML @ 200 mls/hr IV.SIG Q6H MRAISSA Rx#:[id number] Oral 480 / 480 480 / 480 Anesthesia Amount 250 / 250 Output: Urine 0 / 0 Hemodialysis Amount 3500 / 3500 Estimated Blood Loss 10 Other: # Voids 0 Date of Last Bowel Movement 12/26/18 12/27/18 Narrative: GENERAL: alert and oriented. SKIN: Warm and dry. right arm with dressing, dry and intact. NECK: Supple, trachea midline. No JVD CARDIOVASCULAR: Regular rate and rhythm without murmurs, gallops, or rubs. HD cath in right chest wall. RESPIRATORY: Breath sounds equal bilaterally. No accessory muscle use. GASTROINTESTINAL: Abdomen soft, non-tender, nondistended. MUSCULOSKELETAL: Right arm bandaged. Area clean without debris or signs of infection. No cyanosis or edema. BACK: Nontender without obvious deformity. No CVA tenderness. <Usha Hargrove - Last Filed: 12/27/18 14:48> Vital signs: Vital Signs 12/26/18 21:35 12/27/18 00:00 12/27/18 00:42 Temperature 98 F Pulse Rate 87 109 H Respiratory Rate 18 Blood Pressure 124/73 Pulse Oximetry 98 99 12/27/18 03:55 12/27/18 04:00 12/27/18 08:00 Temperature 98 F 98.4 F Pulse Rate 88 86 89 Respiratory Rate 16 15 Blood Pressure 119/4 L 132/65 Pulse Oximetry 93 L 96 12/27/18 10:02 12/27/18 12:00 12/27/18 16:00 Temperature 98.0 F Pulse Rate 98 H 89 Respiratory Rate 18 Blood Pressure 146/85 H Pulse Oximetry 96 97 Intake & Output 12/27/18 12/27/18 12/28/18 06:59 18:59 06:59 Intake Total 960 / 960 305 / 305 Balance 960 / 960 305 / 305 Weight 116.3 kg 116.3 kg Intake: IV 480 / 480 305 / 305 Heparin/D5W 25,000 U/250 mL 25, 250 / 250 105 / 105 000 unit In 250 ml @ Per Protocol IV.CONT TITRATE PRN Rx #:[id number] Prostaphlin Inj 2 GM In NS Inj 230 / 230 200 / 200 100 ML @ 200 mls/hr IV.SIG Q6H MARISSA Rx#:[id number] Oral 480 / 480 Other: # Voids 0 Date of Last Bowel Movement 12/26/18 12/27/18 <Jonathan Galloway - Last Filed: 12/27/18 21:01> Assessment and Plan - Assessment (1) End stage renal disease Code(s): N18.6 - End stage renal disease Status: Chronic Plan: Patient gets dialysis MWF. Patient has been diagnosed with PE. Patient on IV Heparin, transitioning to Xarelto Monitor fluid and electrolytes. Epogen with dialysis HD yesterday tolerated well, 3.5 liters of fluid removed HD tomorrow. Plan for discharge to [place]. (2) Anemia Code(s): D64.9 - Anemia, unspecified Status: Chronic Qualifiers: Anemia type: unspecified type Qualified Code(s): D64.9 - Anemia, unspecified Plan: Epogen with dialysis. (3) Hypertension Code(s): I10 - Essential (primary) hypertension Status: Chronic Plan: No need for antihypertensive. BP is low. Remains on Midodrine. (4) Sepsis Code(s): A41.9 - Sepsis, unspecified organism Status: Suspected Plan: Antibiotics per ID. On Oxacillin every 6 hours Plan for discharge on oxacillin per peripheral site as alternative access is very difficult with stenosis May need to switch to Vancomycin at later date if peripheral access is problematic Staphylococcus aureus last 3 cultures negative (5) Metabolic bone disease Code(s): E88.9 - Metabolic disorder, unspecified; M90.80 - Osteopathy in diseases classified elsewhere, unspecified site Status: Acute Plan: Monitor phosphorus intermittently. On Sevelamer and Sensipar. (6) Pulmonary embolism Code(s): I26.99 - Other pulmonary embolism without acute cor pulmonale Status : Acute Qualifiers: Pulmonary embolism type: unspecified Chronicity: acute Acute cor pulmonale presence: without acute cor pulmonale Qualified Code(s): I26.99 - Other pulmonary embolism without acute cor pulmonale Plan: CTA was positive for PE. (7) Right hip pain Code(s): M25.551 - Pain in right hip Status: Acute Plan: Scan showed greater trochanteric bursitis. Ortho was consulted. They recommended conservative treatment and if the pain continues or worsens, steroid injection of her trochanteric bursa. <Usha Hargrove - Last Filed: 12/27/18 14:48> - Assessment (1) End stage renal disease Code(s): N18.6 - End stage renal disease Status: Chronic Plan: Patient seen and examined, agree with above. Patient with ESRD and MSSA infection. Has no IV access, with multiple clots and poor veins. It is better to get Vanco. with HD. D/W ID. (2) Anemia Code(s): D64.9 - Anemia, unspecified Status: Chronic Qualifiers: Anemia type: unspecified type Qualified Code(s): D64.9 - Anemia, unspecified (3) Hypertension Code(s): I10 - Essential (primary) hypertension Status: Chronic Qualifiers: Hypertension type: unspecified Qualified Code(s): I10 - Essential (primary ) hypertension (4) Sepsis Code(s): A41.9 - Sepsis, unspecified organism Status: Suspected Qualifiers: Sepsis type: methicillin susceptible Staphylococcus aureus Qualified Code(s ): A41.01 - Sepsis due to Methicillin susceptible Staphylococcus aureus (5) Metabolic bone disease Code(s): E88.9 - Metabolic disorder, unspecified; M90.80 - Osteopathy in diseases classified elsewhere, unspecified site Status: Acute (6) Pulmonary embolism Code(s): I26.99 - Other pulmonary embolism without acute cor pulmonale Status : Acute Qualifiers: Pulmonary embolism type: unspecified Chronicity: acute Acute cor pulmonale presence: without acute cor pulmonale Qualified Code(s): I26.99 - Other pulmonary embolism without acute cor pulmonale (7) Right hip pain Code(s): M25.551 - Pain in right hip Status: Acute <Jonathan Galloway - Last Filed: 12/27/18 21:01>
[2018-12-27 16:39] VITALS: PULSE 89
[2018-12-27] MEDS ORDERED: Rivaroxaban 15 MG Tablet PO SCH (21:00)
--- NOTE | 2018-12-29 10:36 | MB ---
cc: Jairo Raines MD DATE: 12/22/2018 REFERRING PHYSICIAN: José Miguel Pierce MD. REASON FOR CONSULTATION: Evaluate right upper extremity AV fistula. ' HISTORY OF PRESENT ILLNESS: Ms. Paige has chronic renal insufficiency requiring maintenance hemodialysis. In 09/2015, we created a left brachial-brachial AV graft for permanent hemodialysis access. The graft functioned adequately until 07/29/2017, at which time acute thrombosis developed. Ar Morris MD performed TPA thrombolysis with balloon angioplasty and stenting of the venous anastomotic stricture. 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 The new fistula has adequately matured; but due to its depth, cannot be easily accessed by the dialysis nurses. Therefore, she continues dialysis with a temporary internal jugular catheter access. She was hospitalized here 6 days ago with abdominal and pelvic pain. She was also concerned about recent onset of edema within the left internal jugular access site. Concern arose over the past several weeks. She has been experiencing vague but progressive dyspnea with exertion. She was hospitalized 6 days ago for complaints of dyspnea, edema around the IJ catheter exit site, and vague abdominal complaints. She became progressively hypoxic. Lab results reviewed. Significant leukocytosis. CT angiogram revealed small pulmonary emboli with thrombus adhering to the dialysis catheter tip. Also, thrombus was apparent within the right atrium. She was begun on appropriate broad-spectrum IV antibiotic therapy, the existing IJ catheter removed and replaced on the contralateral side. Therapeutic anticoagulation was initiated. During the course of her hospitalization, I was asked to reevaluate the matured, deep right brachiocephalic AV fistula. Further historical details are well documented in the admission summary by Dr. Pierce and a nephrology consultation note by Devante Alejandre MD. PHYSICAL EXAMINATION: GENERAL: Well-developed, well-nourished, 53-year-old female with pleasant affect. I examined her in the dialysis unit while hemodialysis was in progress. The new IJ catheter site is not inflamed. LUNGS: Symmetrically expanded and clear. CARDIAC: Rhythm is sinus. ABDOMEN: Soft, benign. EXTREMITIES: An old, chronically thrombosed left brachial-brachial AV graft is present - not inflamed. On the right side, a patent, brachiocephalic AV fistula is present and palpably well matured but somewhat deep due to exogenous obesity. Right radial pulse remains easily palpable with normal perfusion within the right hand. NEUROLOGIC: No focal deficit. ASSESSMENT AND PLAN: I reviewed the right brachiocephalic fistula ultrasound study. Unfortunately, interpretation only comments upon the brachial and basilic veins -- makes no comment about the fistula itself. I will repeat the ultrasound myself to assure the fistula has adequately matured; and if so, proceed with superficialization -- preferably before discharge -- assuming she is medically stable to pursue. Thank you for allowing me to participate in her care. MD ANDIE Vallecillo/lewis , 09:38 AM , 09:49 AM
--- NOTE | 2019-01-17 18:13 | P.DS ---
Date of admission: 12/16/18 12:32 Primary care physician: UNKNOWN Brief History from admission: R hip pain that started last Wednesday and worsened Wednesday. 09/07 stabbing pain in the r hip, nonradiating, worse with movement, better with nothing. Hard to get up. Doesn't take pain medications. Vas cath started swelling at the beginning of this week. Dr. Quintero noticed it on Wednesday (red and swollen), told her to start laying on her right side bc she usually lays on her left. This kept the swelling. Believes the pain is from laying on her right side. Was supposed to be changed Oct 29, but delayed due to an admission. Graft failed, new graft placed in right arm. Dr. Raines is going to raise the graft next week. Has been having chills off and on for one weeks. No night sweat, nausea started yesterday and took Zofran. had some vomiting and diarrhea earlier in the week but resolved quickly. PMH ESRD- M,W,F hx of HTN- she stopped meds for past 6 months due to low BPs hx of mass in liver PSH R total knee Liver resection FHx Mother-DM Father- DM Social hx lives with daughter tobacco- none alcohol- none illicit drugs- none DS: Diagnosis - Discharge Diagnosis (1) Pulmonary embolism Status: Acute (2) Sepsis Status: Suspected (3) Hypotension Status: Resolved (4) Seroma Status: Acute (5) End stage renal disease Status: Chronic (6) Right hip pain Status: Acute (7) Anemia Status: Chronic DS: Summary Hospital Course: Ms Paige was admitted on 12/16 for right hip pain and sepsis. She was placed on vancomycin and Zosyn. CT showed known seroma surrounding the hip. Overnight she had low blood pressures as low as 55/29 as well as oxygen saturations as low as 75%. She was transferred to the ICU. At that time she was having chest pain, tachycardia. EKG showed sinus tach no ST changes, troponin negative. D-dimer was ordered and was elevated, CTA showed pulmonary embolism left lower lobe. Thrombus is also noted in the right atrium of the heart as well as the central venous catheter. She was started on heparin drip and IR was consulted to change her Vas-Cath. Blood cultures positive for staph aureus, mostly pansensitive. Infectious disease was consulted and started patient on oxacillin, DC'd and Zosyn. Repeat blood cultures were drawn immediately post removal of permacath, and were again growing gram-positive cocci. Third set of blood cultures drawn had no growth to-date. Blood pressures improving with treatment of infection, midodrine held. Right upper extremity began to swell, negative ultrasound for DVT. Patient does have protein C deficiency per laboratory studies, increased risk for warfarin- induced skin necrosis so will likely require DOAC. Patient had superficialization of right arm AV fistula done by Dr. Raines on 12/26. After surgery she was transitioned from heparin to Xarelto to continue a course of twice daily for 21 days and then daily. Ortho was consulted for right hip pain and recommendations were for conservative treatment. Patient was to continue hemodialysis schedule Wednesday, Wednesday and Wednesday for her end-stage renal disease. Per ID recommendations it was okay for patient to be taken off IV antibiotics if last blood cultures remain negative and treatment would then consist of cefazolin 2 gm with each HD for 4 wks from 1st negative culture. ID also planned to repeat blood cultures after 2 weeks of antibiotics and if any other positive cultures resulted patient would be scheduled to undergo additional testing to establish nidus of infection. Patient blood pressure normalized and her H/H remained stable. Patient was hemodynamically stable upon discharge to [facility]. - Time Spent with Patient Total time spent providing and/or coordinating discharge services: Less than 30 minutes - Quality: VTE Deep Vein Thrombosis/Pulmonary Embolism Present on Admission: No Exam Narrative: GENERAL: alert and oriented. SKIN: Warm and dry. right arm with dressing, dry and intact. NECK: Supple, trachea midline. No JVD CARDIOVASCULAR: Regular rate and rhythm without murmurs, gallops, or rubs. Vas cath in right chest wall. RESPIRATORY: Breath sounds equal bilaterally. No accessory muscle use. GASTROINTESTINAL: Abdomen soft, non-tender, nondistended. MUSCULOSKELETAL: Right arm bandaged. Area clean without debris or signs of infection. No cyanosis or edema. BACK: Nontender without obvious deformity. No CVA tenderness. Results Procedures completed during hospitalization: superficialization of Right arm av fistula - Impressions ITS Impressions Abdomen/Pelvis CT 12/16/18 08:45 CONCLUSION: 1. I do not see an acute intraperitoneal or pelvic process to explain current clinical symptoms. 2. Patient is status post cholecystectomy and hysterectomy. Surgical clips from a cholecystectomy extending up into the left hepatic lobe near the falciform ligament. 3. 4.4 cm oblong density in the right inguinal region has Hounsfield measurements suggesting a fluid collection. As such, diagnostic considerations would include predominantly seroma or lymphocele. Ultrasound could be performed for confirmation. No adenopathy. 4. Small, 1 cm umbilical hernia only contains fat. Hip CT 12/16/18 08:45 CONCLUSION: 1. Probable 4.4 cm oblong seroma or lymphocele in the right inguinal region. 2. Mild osteoarthritic changes in both hips. No fracture. Chest CTA 12/17/18 00:00 CONCLUSION: 1. Small pulmonary emboli of the posterior basilar branches of the left lower lobe. 2. Thrombus adhering to the distal left subclavian central venous catheter. 3. Thrombus within the right atrium. 4. Posterior left lower lung atelectasis. 5. Mildly prominent ascending thoracic aorta measuring 4.5 cm in diameter. Femur MRI 12/18/18 00:00 CONCLUSION: 1. No acute bone or joint abnormality. 2. There is greater trochanteric bursitis. Also some apparent tendinosis, strain and/or reactive appearing edema of distal gluteus minimus. No well- defined/measurable muscle/tendon tear. 3. Chronic multiloculated benign appearing fluid collection in the right inguinal region is also a chronic Bartholin's gland cyst. Please see above. Tube Removal 12/18/18 00:00 CONCLUSION: 1. Uncomplicated Permcath removal. Catheter Placement 12/19/18 00:00 CONCLUSION: 1. Uncomplicated line placement as above. 2. Sonographically, multiple collateral vessels are seen in the region of the right internal jugular suggesting a central high-grade stenosis/occlusion. The vein was not accessed, however. Venous Doppler Study 12/22/18 00:00 CONCLUSION: 1. No evidence of deep venous thrombosis. 2. The brachial and basilic veins were noncompressible which may be due to overlying edema. Discharge Plan - Discharge Disposition Patient Disposition: [facility] Inpatient - Discharge Condition Condition: Stable - Discharge Order Discharge Orders: Discharge Order (Routine); Ordered 12/27/18 Ordered By: Chris Cleveland R1 ED Use Only Admit Order (Routine); Ordered 12/16/18 Ordered By: mAy Adamson - Discharge Details Anticipated Discharge Date: 12/16/18 Discharge Comment: Patient to continue taking Xarelto 50 mg twice daily for 21 days, with beginning on 12/27/18. After 21 days patient may be transitioned to 20 mg daily. - Physicians Team Primary Care Provider: UNKNOWN, Attending Provider: José Miguel Pierce Other Providers: Devante Alejandre MD ; Carmen Blank MD ; Ammon Leavitt MD ; [facility] ; Jairo Raines MD
--- NOTE | 2019-01-25 15:18 | MP ---
cc: Jairo Raines MD DATE OF OPERATION: 12/26/2018 PREOPERATIVE DIAGNOSIS: End-stage renal disease with need for permanent hemodialysis access. Matured, deep right brachiocephalic arteriovenous fistula. POSTOPERATIVE DIAGNOSES: End-stage renal disease with need for permanent hemodialysis access matured, deep right brachiocephalic arteriovenous fistula. OPERATIVE PROCEDURE: Super fistulization right brachiocephalic AV fistula. SURGEON: Dr. Jairo Raines. ANESTHESIA: Local, MAC. DESCRIPTION OF PROCEDURE: With the patient in the supine position and under IV sedation, the right arm was prepped with Betadine and draped in a sterile fashion; appropriate IV antibiotic prophylaxis was administered. Following a protocol timeout, the skin and subcutaneous tissues along the course of the matured cephalic vein were infiltrated with 0.5% Marcaine with epinephrine. A curvilinear incision was performed along the course of the vein. The vein was mobilized free of the deep, surrounding adipose tissues, branches, individually ligated and divided. The superficial skin flap was dissected laterally. The adipose tissue was then reapproximated deep to the superficialized vein with continuous 4-0 Monocryl. The incision was secured with interrupted subcuticular 4-0 Monocryl, continuous subcuticular 5-0 Monocryl. Reinforced with Steri-Strips and covered with sterile gauze. Instrument, needle, and sponge count were correct x2. There were no operative complications. The patient returned to the recovery room in stable condition, having tolerated the procedure well. Jairo Raines MD JTS/migue , 02:57 PM , 03:03 PM
== END 2018-12-27 16:44 | DRG 252 ==
LOC: NEPE 08:26 → NEDA 12:32 → N07 17:05 → HIMC 12-17 00:50 → N04 12-21 13:55
PROVIDERS: ADMIT Family Medicine; ATTEND Family Medicine
PROC: AVGFTUE (ICD-10-PCS; 2018-12-26 10:55)
CPT/HCPCS: 36556; 36589; 71275; 73700; 73718; 74176; 75998; 76937; 77001; 80048; 80053; 80069; 81241; 82607; 82746; 82948; 82962; 83605; 84484; 85025; 85027; 85300; 85302; 85306; 85307; 85379; 85597; 85598; 85610; 85613; 85670; 85730; 86403; 87040; 87071; 87147; 87149; 87186; 87205; 87389; 87641; 90765; 90774; 90775; 90780; 90784; 90935; 93005; 93306; 93970; 93971; 96365; 96374; 96375; 97110; 97116; 97161; 97167; 97530; 97535; 99145; 99152; 99153; 99285; C1752; C1769; C1887; C8950; C8952; J0690; J0886; J1100; J1580; J1644; J2060; J2370; J2405; J2543; J2700; J2704; J2720; J3010; J3370; J7030; J7040; J7050; P9045; Q4055; Q4081; Q9967